=== PATIENT | male | born 1965 | race Asian ===

== ENCOUNTER → 2016-02-19 | Outpatient (CLI) | payer MEDICARE ==
[~2016-02-19] MED LIST: ALBU8.5H2 IH; DCS100C PO; DIPH25TA82 PO; ESOM20CA PO; HYDR-2890 PO; IBUP-30 PO; LORA1TAB PO; ONDA-42 SL; ONDA8TAB9 PO; PANT40TA2 PO; POLY17PO23 GT; PRCD5U PO
--- OUTSIDE RECORDS SUMMARY | 2016-02-19 08:49 | XMS REPORT | Continuity of Care Document ---
Author Author [facility] Organization [facility] Address Unknown Phone Unavailable Care Team Providers Care Linux Kernel Developer Name Role Phone Keila Ahuja PCP [phone] Source Comments Some departments are not documenting in the electronic medical record. If you do not see the information that you expected, contact Release of Information in the Health Information Management department at [phone] for further assistance in locating additional records.[facility] Active Allergies and Adverse Reactions Allergen Noted Date Severity Reactions Comments Penicillins 12/20/2013 NAUSEA AND VOMITING Current Medications Prescription Sig. Disp. Refills Start End Date Status Date NO HOME MEDICATIONS Active Active Problems Problem Noted Date Sinusitis 03/06/2014 Pancytopenia due to chemotherapy (HCC) 03/06/2014 Hypokalemia 03/06/2014 Diarrhea 03/05/2014 Neutropenic fever (HCC) 03/04/2014 History of peripheral stem cell transplant ([facility]) 02/28/2014 Overview: Date of Transplant:02/27/14 Preparative [...] transplant 08/201403/06/2014 On antineoplastic chemotherapy 02/20/2014 03/06/2014 Most Recent Encounters Date Type Specialty Providers Description 01/16/2016 Telephone Oncology Josette Meade BMT Follow-up - 2 year Immunizations Name Dates Previously Given Next Due [...] Taken Blood Pressure 106/62 02/19/2015 2:59 PM DIRECTOR OF LEARNING Pulse 87 02/19/2015 2:59 PM DIRECTOR OF LEARNING Temperature 36.5 C (97.7 F) 02/19/2015 2:59 PM DIRECTOR OF LEARNING Respiratory Rate 18 02/19/2015 2:59 PM DIRECTOR OF LEARNING Height 1.651 m (5' 5") 02/19/2015 2:59 PM DIRECTOR OF LEARNING Weight 81.5 kg (179 lb 10.8 oz) 02/19/2015 2:59 PM DIRECTOR OF LEARNING Body Mass Index 29.9 02/19/2015 2:59 PM DIRECTOR OF LEARNING Oxygen Saturation 100% 02/19/2015 2:59 PM DIRECTOR OF LEARNING Plan of Care Date Type Specialty Providers Description 03/10/2016 Appointment Oncology Martin Lowe MD [address] [address] [address] [place] [address] [phone] (Fax) 03/10/2016 Appointment Oncology Health Maintenance Due Date Last Done Comments Hepatitis C Screening 1965 Physical (Comprehensive) 1970 Exam Colorectal Cancer 2013 Screening Influenza Vaccine 10/18/2015 Tetanus Vaccine 10/17/2024 10/17/2014, 08/17/2014 Pertussis Vaccine Completed 10/17/2014, 08/17/2014 Results from Last 3 Months Not on file
--- NOTE | 2016-02-19 14:07 | Diagnostic Imaging Report ---
EXAMINATION: PET-CT TECHNIQUE: Serum glucose level at the time of the study is: 103 mg/dL. 12.4 mCi of FDG was administered intravenously followed by obtaining PET images with corresponding noncontrast CT scan images. The CT scan was performed for anatomic correlation and attenuation correction and was not performed according to the diagnostic protocol of the areas covered. The scan was performed from the head to mid thighs. INDICATION: B-cell lymphoma CT of 08/07/15. FINDINGS: FDG uptake in the brain appears symmetric. There is development of moderate FDG uptake with maximum SUV of 8 in the nasopharynx with slightly eccentric increased uptake to the right side. This appears to be associated with increased soft tissue fullness in the region and underlying lymphoma recurrence is suspected. ENT evaluation is suggested. This could also be further evaluated with CT scan or MRI of the neck. There is also symmetric moderate increased FDG uptake in the oral tonsils at the oropharyngeal levels without significant asymmetry on the localizer CT, of uncertain etiology. In the chest: There is no hypermetabolic mass identified in the chest. In the abdomen, there is prominent FDG activity in a diffuse fashion seen in the stomach with maximum SUV of 7.5. This is new from the previous study. There is associated diffuse thickening in the gastric wall. This is concerning for lymphoma involvement. Correlate with endoscopic evaluation with deep gastric wall biopsies. The spleen is not enlarged. No significant FDG uptake is seen. No hypermetabolic lymphadenopathy is seen. There is urinary tract excretion seen. There is stable significant urinary bladder wall thickening that is not well assessed on the PET due to confounding factor of intraluminal significant activity seen. IMPRESSION: 1. Moderate FDG uptake in the nasopharynx with slight soft tissue thickening is seen posteriorly in the nasopharynx, concerning for neoplastic etiology. Nonspecific moderate symmetric oropharyngeal FDG uptake is also seen. Further evaluation with dedicated neck imaging or ENT examination and biopsy if appropriate is recommended. 2. Diffuse significant FDG uptake in the stomach with associated gastric wall thickening. This is concerning for lymphoma involvement versus gastritis. Correlation with endoscopy with deep biopsies is recommended. Dictated by: Dictated on workstation # [id number]
== END ==
LOC: RAD 08:46
PROVIDERS: ATTEND Internal Medicine Hematology & Oncology
DX: C82.58 Diffuse follicle center lymphoma, lymph nodes of multiple sites (principal); R19.09 Other intra-abdominal and pelvic swelling, mass and lump; M15.0 Primary generalized (osteo)arthritis

== ENCOUNTER → 2016-03-09 | Outpatient (CLI) | payer MEDICARE ==
--- OUTSIDE RECORDS SUMMARY | 2016-03-09 09:18 | XMS REPORT | Continuity of Care Document ---
Author Author [facility] Organization [facility] Address Unknown Phone Unavailable Care Team Providers Care Lens Cleaner Name Role Phone Keila Ahuja PCP [phone] Source Comments Some departments are not documenting in the electronic medical record. If you do not see the information that you expected, contact Release of Information in the Health Information Management department at [phone] for further assistance in locating additional records.[facility] Active Allergies and Adverse Reactions Allergen Noted Date Severity Reactions Comments Penicillins 12/20/2013 NAUSEA AND VOMITING Current Medications Prescription Sig. Disp. Refills Start End Date Status Date NO HOME MEDICATIONS Active Active Problems Problem Noted Date Sinusitis 03/06/2014 Pancytopenia due to chemotherapy (HCC) 03/06/2014 Hypokalemia 03/06/2014 Diarrhea 03/05/2014 Neutropenic fever (HCC) 03/04/2014 History of peripheral stem cell transplant (HCC) 02/28/2014 Overview: Date of Transplant:02/27/14 Preparative Regimen: [...] Recent Encounters Date Type Specialty Providers Description 03/07/2016 Orders Only Oncology Klaus Ny APRN History of stem cell transplant (HCC) (Primary Dx) 02/25/2016 Telephone Oncology Mary Alice Mercado RN Medical Question 01/16/2016 Telephone Oncology Josette Meade BMT Follow-up [...] Taken Blood Pressure 106/62 02/19/2015 2:59 PM SOFTWARE MAINTENANCE ENGINEER Pulse 87 02/19/2015 2:59 PM SOFTWARE MAINTENANCE ENGINEER Temperature 36.5 C (97.7 F) 02/19/2015 2:59 PM SOFTWARE MAINTENANCE ENGINEER Respiratory Rate 18 02/19/2015 2:59 PM SOFTWARE MAINTENANCE ENGINEER Height 1.651 m (5' 5") 02/19/2015 2:59 PM SOFTWARE MAINTENANCE ENGINEER Weight 81.5 kg (179 lb 10.8 oz) 02/19/2015 2:59 PM SOFTWARE MAINTENANCE ENGINEER Body Mass Index 29.9 02/19/2015 2:59 PM SOFTWARE MAINTENANCE ENGINEER Oxygen Saturation 100% 02/19/2015 2:59 PM SOFTWARE MAINTENANCE ENGINEER Plan of Care Date Type Specialty Providers Description 03/10/2016 Appointment Oncology Martin Lowe MD [address] [place] [id number] [phone] (Fax) 03/10/2016 Appointment Oncology Health Maintenance Due Date Last Done Comments Hepatitis C Screening 1965 Physical (Comprehensive) 1970 Exam Colorectal Cancer 2013 Screening Influenza Vaccine 10/18/2015 Tetanus Vaccine 10/17/2024 10/17/2014, 08/17/2014 Pertussis Vaccine Completed 10/17/2014, 08/17/2014 Results from Last 3 Months Not on file
[2016-03-09 09:53] LABS: ALANINE AMINOTRANSFERASE 13 U/L (0-55); ALBUMIN 4.1 G/DL (3.2-4.5); ANION GAP 6 MMOL/L (5-14); ASPARTATE AMINO TRANSFERASE 15 U/L (5-34); BILIRUBIN,TOTAL 0.5 MG/DL (0.1-1.0); BLOOD UREA NITROGEN 10 MG/DL (7-18); BUN/CREATININE RATIO 11; CALCIUM 8.5 MG/DL (8.5-10.1); CARBON DIOXIDE 21 MMOL/L (21-32); CHLORIDE 111 MMOL/L (98-107); CREATININE SERUM 0.94 MG/DL (0.60-1.30); GFR ESTIMATED > 60; GLUCOSE 101 MG/DL (70-105); LACTATE DEHYDROGENASE 213 U/L (125-220); MAGNESIUM 2.1 MG/DL (1.8-2.4); POTASSIUM 4.1 MMOL/L (3.6-5.0); SODIUM 138 MMOL/L (135-145)
== END ==
LOC: LAB 09:15
PROVIDERS: ATTEND Internal Medicine Hematology & Oncology
DX: C82.58 Diffuse follicle center lymphoma, lymph nodes of multiple sites (principal); M15.0 Primary generalized (osteo)arthritis; R94.8 Abnormal results of function studies of other organs and systems; Z87.891 Personal history of nicotine dependence
CPT/HCPCS: 36415; 80053; 83615; 83735

== ENCOUNTER 2016-03-13 10:59 | Outpatient (RCR) | payer MEDICARE ==
--- OUTSIDE RECORDS SUMMARY | 2015-12-18 10:44 | XMS REPORT | Continuity of Care Document ---
Author Author [facility] Organization [facility] Address Unknown Phone Unavailable Care Team Providers Care Remote Coders Name Role Phone Keila Ahuja PCP [phone] Source Comments Some departments are not documenting in the electronic medical record. If you do not see the information that you expected, contact Release of Information in the Health Information Management department at [phone] for further assistance in locating additional records.[facility] Active Allergies and Adverse Reactions Allergen Noted Date Severity Reactions Comments Penicillins 12/20/2013 NAUSEA AND VOMITING Current Medications Prescription Sig. Disp. Refills Start End Date Status Date NO HOME MEDICATIONS Active Active Problems Problem Noted Date Sinusitis 03/06/2014 Pancytopenia due to chemotherapy (HCC) 03/06/2014 Hypokalemia 03/06/2014 Diarrhea 03/05/2014 Neutropenic fever (HCC) 03/04/2014 History of peripheral stem cell transplant ([facility]) 02/28/2014 Overview: Date of Transplant:02/27/14 Preparative Regimen: BEAM Reduced or fully ablative: ablative Disease:DLBC Disease Status at Transplant: PIF sen / PR1 CMV:POS Cell Source:autologous PB Consents/Studies:8322, auto , processing, apheresis, blood Co-morbidity Index Value: 2 Coordinator: Alexa Gonsalves RN Nausea 02/23/2014 Stye 02/23/2014 Non Hodgkin's lymphoma (HCC) 12/20/2013 Headache 12/20/2013 GERD (gastroesophageal reflux disease) 12/20/2013 Resolved Problems Problem Noted Date Resolved Date Conditioning chemotherapy prior to peripheral blood stem cell transplant 08/201403/06/2014 On antineoplastic chemotherapy 02/20/2014 03/06/2014 Immunizations Name Dates Previously Given Next Due Acthib Vaccine 10/17/2014, 08/17/2014 Hepatitis A vaccine Adult 08/17/2014 IM Hepatitis B Vaccine Adult 02/19/2015, 10/17/2014, 08/17/2014 3 Dose IM IPV 10/17/2014, 08/17/2014 Meningococcal Conjug 08/17/2014 Vaccine Pneumococcal Vaccine 02/19/2015 (23-Zahra Adult) Pneumococcal 10/17/2014, 08/17/2014 Vaccine(13-[facility] Peds/immunocompromised adult) Tdap Vaccine 10/17/2014, 08/17/2014 Social History Tobacco Use Types Packs/Day Years Used Date Heavy Tobacco Smoker Cigarettes 0.5 30 Quit: 02/09/2014 Smokeless Tobacco: Never Used Tobacco Cessation: Ready to Quit: Yes Comments: Has cut down from 1 pack per day. Alcohol Use Drinks/Week oz/Week Comments No 4 Cans of 2.4 beer Last Filed Vital Signs Vital Sign Reading Time Taken Blood Pressure 106/62 02/19/2015 2:59 PM SAP DIRECTOR Pulse 87 02/19/2015 2:59 PM SAP DIRECTOR Temperature 36.5 C (97.7 F) 02/19/2015 2:59 PM SAP DIRECTOR Respiratory Rate 18 02/19/2015 2:59 PM SAP DIRECTOR Height 1.651 m (5' 5") 02/19/2015 2:59 PM SAP DIRECTOR Weight 81.5 kg (179 lb 10.8 oz) 02/19/2015 2:59 PM SAP DIRECTOR Body Mass Index 29.9 02/19/2015 2:59 PM SAP DIRECTOR Oxygen Saturation 100% 02/19/2015 2:59 PM SAP DIRECTOR Plan of Care Health Maintenance Due Date Last Done Comments Hepatitis C Screening 1965 Physical (Comprehensive) 1970 Exam Colorectal Cancer 2013 Screening Influenza Vaccine 10/18/2015 Tetanus Vaccine 10/17/2024 10/17/2014, 08/17/2014 Pertussis Vaccine Completed 10/17/2014, 08/17/2014 Results from Last 3 Months Not on file
[2015-12-18 10:53] LABS: BASOPHILS % (AUTO) 0 % (0-10); EOSINOPHILS # (AUTO) 0.3 10^3/uL (0.0-0.3); EOSINOPHILS % (AUTO) 3 % (0-10); LYMPHOCYTES # (AUTO) 1.8 X 10^3 (1.0-4.0); LYMPHOCYTES % (AUTO) 19 % (12-44); MEAN CORPUSCULAR HGB CONC 34 G/DL (32-36); MEAN CORPUSCULAR VOLUME 87 FL (80-99); MEAN PLATELET VOLUME 8.8 FL (7.4-10.4); MONOCYTES # (AUTO) 0.8 X 10^3 (0.0-1.0); MONOCYTES % (AUTO) 8 % (0-12); NEUTROPHILS # (AUTO) 6.9 X 10^3 (1.8-7.8); NEUTROPHILS % (AUTO) 70 % (42-75); PLATELET COUNT 215 10^3/uL (130-400); RED BLOOD COUNT 4.38 10^6/uL (4.35-5.85); RED CELL DISTRIBUTION WIDTH 14.2 % (10.0-14.5); WHITE BLOOD COUNT 9.7 10^3/uL (4.3-11.0)
[2015-12-18 10:54] LABS: MEAN CORPUSCULAR HEMOGLOBIN 29 PG (25-34)
[2015-12-18 11:34] LABS: ALANINE AMINOTRANSFERASE 18 U/L (0-55); ALBUMIN 4.1 G/DL (3.2-4.5); ANION GAP 11 MMOL/L (5-14); ASPARTATE AMINO TRANSFERASE 14 U/L (5-34); BILIRUBIN,TOTAL 0.3 MG/DL (0.1-1.0); BLOOD UREA NITROGEN 15 MG/DL (7-18); BUN/CREATININE RATIO 15; CALCIUM 9.1 MG/DL (8.5-10.1); CARBON DIOXIDE 21 MMOL/L (21-32); CHLORIDE 108 MMOL/L (98-107); CREATININE SERUM 0.98 MG/DL (0.60-1.30); GFR ESTIMATED > 60; GLUCOSE 118 MG/DL (70-105); LACTATE DEHYDROGENASE 198 U/L (125-220); POTASSIUM 4.1 MMOL/L (3.6-5.0); SODIUM 140 MMOL/L (135-145); TOTAL PROTEIN 6.1 G/DL (6.4-8.2)
[2016-02-13 10:30] LABS: BASOPHILS % (AUTO) 0 % (0-10); EOSINOPHILS # (AUTO) 0.3 10^3/uL (0.0-0.3); EOSINOPHILS % (AUTO) 3 % (0-10); LYMPHOCYTES # (AUTO) 2.2 X 10^3 (1.0-4.0); LYMPHOCYTES % (AUTO) 22 % (12-44); MEAN CORPUSCULAR HEMOGLOBIN 29 PG (25-34); MEAN CORPUSCULAR HGB CONC 34 G/DL (32-36); MEAN CORPUSCULAR VOLUME 86 FL (80-99); MEAN PLATELET VOLUME 8.4 FL (7.4-10.4); MONOCYTES # (AUTO) 0.8 X 10^3 (0.0-1.0); MONOCYTES % (AUTO) 8 % (0-12); NEUTROPHILS # (AUTO) 6.7 X 10^3 (1.8-7.8); NEUTROPHILS % (AUTO) 67 % (42-75); PLATELET COUNT 230 10^3/uL (130-400); RED BLOOD COUNT 4.55 10^6/uL (4.35-5.85); RED CELL DISTRIBUTION WIDTH 14.1 % (10.0-14.5)
[2016-02-13 11:02] LABS: ALANINE AMINOTRANSFERASE 39 U/L (0-55); ALBUMIN 4.1 G/DL (3.2-4.5); ANION GAP 8 MMOL/L (5-14); ASPARTATE AMINO TRANSFERASE 17 U/L (5-34); BILIRUBIN,TOTAL 0.3 MG/DL (0.1-1.0); BLOOD UREA NITROGEN 12 MG/DL (7-18); BUN/CREATININE RATIO 12; CALCIUM 8.8 MG/DL (8.5-10.1); CARBON DIOXIDE 20 MMOL/L (21-32); CHLORIDE 106 MMOL/L (98-107); CREATININE SERUM 0.98 MG/DL (0.60-1.30); GFR ESTIMATED > 60; GLUCOSE 92 MG/DL (70-105); LACTATE DEHYDROGENASE 237 U/L (125-220); POTASSIUM 4.4 MMOL/L (3.6-5.0); SODIUM 134 MMOL/L (135-145); TOTAL PROTEIN 5.9 G/DL (6.4-8.2)
[2016-02-21 11:27] LABS: BASOPHILS % (AUTO) 0 % (0-10); EOSINOPHILS # (AUTO) 0.2 10^3/uL (0.0-0.3); EOSINOPHILS % (AUTO) 4 % (0-10); LYMPHOCYTES # (AUTO) 2.2 X 10^3 (1.0-4.0); LYMPHOCYTES % (AUTO) 38 % (12-44); MEAN CORPUSCULAR HEMOGLOBIN 29 PG (25-34); MEAN CORPUSCULAR HGB CONC 33 G/DL (32-36); MEAN CORPUSCULAR VOLUME 87 FL (80-99); MEAN PLATELET VOLUME 8.7 FL (7.4-10.4); MONOCYTES % (AUTO) 18 % (0-12); NEUTROPHILS # (AUTO) 2.3 X 10^3 (1.8-7.8); NEUTROPHILS % (AUTO) 40 % (42-75); PLATELET COUNT 223 10^3/uL (130-400); RED BLOOD COUNT 4.64 10^6/uL (4.35-5.85); RED CELL DISTRIBUTION WIDTH 14.5 % (10.0-14.5); WHITE BLOOD COUNT 5.7 10^3/uL (4.3-11.0)
[2016-02-21 11:53] LABS: BAND NEUTROPHILS 3 %; BASOPHILS % (MANUAL) 0 %; EOSINOPHILS % (MANUAL) 3 %; LYMPHOCYTES % (MANUAL) 39 %; NEUTROPHILS % (MANUAL) 39 %; REACTIVE LYMPHOCYTES 3 %
== END 2016-03-17 | disposition home or self-care (01) ==
LOC: ONC 10:59
PROVIDERS: ATTEND Internal Medicine Hematology & Oncology
DX: C85.85 Other specified types of non-Hodgkin lymphoma, lymph nodes of inguinal region and lower limb (principal); G89.3 Neoplasm related pain (acute) (chronic); R51 Headache; K21.9 Gastro-esophageal reflux disease without esophagitis; Z79.899 Other long term (current) drug therapy
CPT/HCPCS: 36415; 38221; 80053; 82232; 83615; 85007; 85025; 85027; 85045; 88184; 88185; 88305; 88311; 88313; 99213

== ENCOUNTER 2016-07-02 14:07 | Outpatient (RCR) | payer MEDICARE ==
[2016-07-02 14:17] LABS: BASOPHILS % (AUTO) 0 % (0-10); EOSINOPHILS % (AUTO) 0 % (0-10); LYMPHOCYTES # (AUTO) 1.3 X 10^3 (1.0-4.0); LYMPHOCYTES % (AUTO) 6 % (12-44); MEAN CORPUSCULAR HEMOGLOBIN 29 PG (25-34); MEAN CORPUSCULAR HGB CONC 34 G/DL (32-36); MEAN CORPUSCULAR VOLUME 86 FL (80-99); MEAN PLATELET VOLUME 8.7 FL (7.4-10.4); MONOCYTES # (AUTO) 0.3 X 10^3 (0.0-1.0); MONOCYTES % (AUTO) 1 % (0-12); NEUTROPHILS % (AUTO) 93 % (42-75); PLATELET COUNT 248 10^3/uL (130-400); RED BLOOD COUNT 4.53 10^6/uL (4.35-5.85); RED CELL DISTRIBUTION WIDTH 14.7 % (10.0-14.5); WHITE BLOOD COUNT 23.7 10^3/uL (4.3-11.0)
[2016-07-02 15:06] LABS: ALANINE AMINOTRANSFERASE 14 U/L (0-55); ALBUMIN 4.3 G/DL (3.2-4.5); ANION GAP 12 MMOL/L (5-14); ASPARTATE AMINO TRANSFERASE 14 U/L (5-34); BILIRUBIN,TOTAL 0.3 MG/DL (0.1-1.0); BLOOD UREA NITROGEN 16 MG/DL (7-18); BUN/CREATININE RATIO 17; CALCIUM 9.6 MG/DL (8.5-10.1); CARBON DIOXIDE 19 MMOL/L (21-32); CHLORIDE 108 MMOL/L (98-107); CREATININE SERUM 0.94 MG/DL (0.60-1.30); GFR ESTIMATED > 60; GLUCOSE 162 MG/DL (70-105); LACTATE DEHYDROGENASE 250 U/L (125-220); POTASSIUM 4.1 MMOL/L (3.6-5.0); SODIUM 139 MMOL/L (135-145); TOTAL PROTEIN 6.9 G/DL (6.4-8.2)
== END 2016-09-30 | disposition home or self-care (01) ==
LOC: ONC 14:07
PROVIDERS: ATTEND Internal Medicine Hematology & Oncology
DX: C85.85 Other specified types of non-Hodgkin lymphoma, lymph nodes of inguinal region and lower limb (principal); G89.3 Neoplasm related pain (acute) (chronic); R51 Headache; K21.9 Gastro-esophageal reflux disease without esophagitis; Z79.899 Other long term (current) drug therapy
CPT/HCPCS: 36415; 80053; 82232; 83615; 85025; 99213

== ENCOUNTER → 2016-10-14 | Outpatient (CLI) | payer MEDICARE, OTHER ==
[~2016-10-14] MED LIST changes: +BARIUM SUSPENSION 2.1% (VANILLA SILQ) 450 ML PO ONE; +CATHETER FLUSH 10 ML SYR IV PRN; +IOHEXOL 350 MG/ML 100 ML (OMNIPAQUE 350) VIAL IV ONE; +NS 100 ML (IVPB) BAG IV ONE
--- NOTE | 2016-10-14 11:48 | Diagnostic Imaging Report ---
PROCEDURE: CT chest with contrast, CT abdomen and pelvis with and without contrast. TECHNIQUE: Pre and post intravenous contrast axial imaging of the abdomen and pelvis and post contrast axial imaging of the chest were performed. INDICATION: Lymphoma. COMPARISON: 02/13/2016. FINDINGS: There are no discrete pulmonary nodules, masses, or infiltrates. There is no pleural or pericardial fluid. There is no pneumothorax. The heart size is normal. The thoracic aorta is normal in caliber. There is no pathologically enlarged adenopathy in the chest. Note is again made of some subcentimeter right paratracheal and subcarinal lymph nodes. The liver is normal in size without focal lesions. The gallbladder is unremarkable. There is no biliary ductal dilatation. The spleen is normal. The pancreas and adrenal glands are unremarkable. The kidneys are normal. The aorta is nonaneurysmal. The bowel gas pattern is nonspecific. There is no free air. The bladder is unremarkable. There is no pelvic mass, adenopathy, or free fluid. There is no pathologically enlarged adenopathy in the abdomen or pelvis. The previously described mild soft tissue stranding around the superior mesenteric vessels and small bowel is less apparent on today's examination. There are mild degenerative changes in the spine. IMPRESSION: Minimal residual subcentimeter right paratracheal and subcarinal adenopathy. There is, however, no pathologically enlarged adenopathy in the chest, abdomen, or pelvis. Additionally, the previously seen stranding about the superior mesenteric vessels is less apparent on today's exam. No other acute abnormality is seen in the abdomen or pelvis. Dictated by: Dictated on workstation # [id number]
== END ==
LOC: RAD 09:43
PROVIDERS: ATTEND Internal Medicine Hematology & Oncology
DX: C82.58 Diffuse follicle center lymphoma, lymph nodes of multiple sites (principal)
CPT/HCPCS: 71260; 74178

== ENCOUNTER 2016-10-22 13:56 | Outpatient (RCR) | payer MEDICARE, OTHER ==
[2016-10-14 09:31] LABS: BASOPHILS % (AUTO) 0 % (0-10); EOSINOPHILS # (AUTO) 0.3 10^3/uL (0.0-0.3); EOSINOPHILS % (AUTO) 3 % (0-10); LYMPHOCYTES # (AUTO) 2.3 X 10^3 (1.0-4.0); LYMPHOCYTES % (AUTO) 22 % (12-44); MEAN CORPUSCULAR HEMOGLOBIN 29 PG (25-34); MEAN CORPUSCULAR HGB CONC 34 G/DL (32-36); MEAN CORPUSCULAR VOLUME 86 FL (80-99); MONOCYTES # (AUTO) 0.8 X 10^3 (0.0-1.0); MONOCYTES % (AUTO) 7 % (0-12); NEUTROPHILS # (AUTO) 7.3 X 10^3 (1.8-7.8); NEUTROPHILS % (AUTO) 68 % (42-75); PLATELET COUNT 208 10^3/uL (130-400); RED BLOOD COUNT 4.73 10^6/uL (4.35-5.85); RED CELL DISTRIBUTION WIDTH 14.2 % (10.0-14.5); WHITE BLOOD COUNT 10.7 10^3/uL (4.3-11.0)
[2016-10-14 09:53] LABS: ALANINE AMINOTRANSFERASE 13 U/L (0-55); ALBUMIN 4.1 GM/DL (3.2-4.5); ANION GAP 7 MMOL/L (5-14); ASPARTATE AMINO TRANSFERASE 16 U/L (5-34); BILIRUBIN,TOTAL 0.4 MG/DL (0.1-1.0); BLOOD UREA NITROGEN 11 MG/DL (7-18); BUN/CREATININE RATIO 14; CALCIUM 9.4 MG/DL (8.5-10.1); CARBON DIOXIDE 24 MMOL/L (21-32); CHLORIDE 108 MMOL/L (98-107); CREATININE SERUM 0.79 MG/DL (0.60-1.30); GFR ESTIMATED > 60; GLUCOSE 99 MG/DL (70-105); POTASSIUM 4.2 MMOL/L (3.6-5.0); SODIUM 139 MMOL/L (135-145); TOTAL PROTEIN 6.4 GM/DL (6.4-8.2)
[~2016-10-22 13:56] MED LIST changes: -BARIUM SUSPENSION 2.1% (VANILLA SILQ) 450 ML PO ONE; -CATHETER FLUSH 10 ML SYR IV PRN; -IOHEXOL 350 MG/ML 100 ML (OMNIPAQUE 350) VIAL IV ONE; -NS 100 ML (IVPB) BAG IV ONE
[2016-10-22 14:15] LABS: BASOPHILS % (AUTO) 0 % (0-10); EOSINOPHILS # (AUTO) 0.3 10^3/uL (0.0-0.3); EOSINOPHILS % (AUTO) 3 % (0-10); LYMPHOCYTES # (AUTO) 2.4 X 10^3 (1.0-4.0); LYMPHOCYTES % (AUTO) 22 % (12-44); MEAN CORPUSCULAR HEMOGLOBIN 29 PG (25-34); MEAN CORPUSCULAR HGB CONC 33 G/DL (32-36); MEAN CORPUSCULAR VOLUME 88 FL (80-99); MEAN PLATELET VOLUME 9.3 FL (7.4-10.4); MONOCYTES # (AUTO) 0.8 X 10^3 (0.0-1.0); MONOCYTES % (AUTO) 7 % (0-12); NEUTROPHILS # (AUTO) 7.3 X 10^3 (1.8-7.8); NEUTROPHILS % (AUTO) 67 % (42-75); PLATELET COUNT 191 10^3/uL (130-400); RED BLOOD COUNT 4.57 10^6/uL (4.35-5.85); RED CELL DISTRIBUTION WIDTH 14.9 % (10.0-14.5); WHITE BLOOD COUNT 10.9 10^3/uL (4.3-11.0)
[2016-10-22 14:36] LABS: ALANINE AMINOTRANSFERASE 17 U/L (0-55); ALBUMIN 4.1 GM/DL (3.2-4.5); ANION GAP 10 MMOL/L (5-14); ASPARTATE AMINO TRANSFERASE 17 U/L (5-34); BILIRUBIN,TOTAL 0.4 MG/DL (0.1-1.0); BLOOD UREA NITROGEN 16 MG/DL (7-18); BUN/CREATININE RATIO 16; CALCIUM 9.2 MG/DL (8.5-10.1); CARBON DIOXIDE 23 MMOL/L (21-32); CHLORIDE 108 MMOL/L (98-107); CREATININE SERUM 0.97 MG/DL (0.60-1.30); GFR ESTIMATED > 60; GLUCOSE 111 MG/DL (70-105); LACTATE DEHYDROGENASE 214 U/L (125-220); SODIUM 141 MMOL/L (135-145); TOTAL PROTEIN 6.6 GM/DL (6.4-8.2)
== END 2016-11-15 | disposition home or self-care (01) ==
LOC: ONC 13:56
PROVIDERS: ATTEND Internal Medicine Hematology & Oncology
DX: C85.85 Other specified types of non-Hodgkin lymphoma, lymph nodes of inguinal region and lower limb (principal); G89.3 Neoplasm related pain (acute) (chronic); R51 Headache; K21.9 Gastro-esophageal reflux disease without esophagitis; Z79.899 Other long term (current) drug therapy
CPT/HCPCS: 36415; 80053; 82232; 83615; 85025; 99213

== ENCOUNTER → 2017-02-24 | Outpatient (CLI) | payer MEDICARE, OTHER ==
--- NOTE | 2017-02-26 07:28 | Diagnostic Imaging Report ---
EXAM: PET/CT. INDICATION: Lymphoma. TECHNIQUE: PET/CT imaging was obtained from the base of the skull through the pelvis after the administration of 14.39 mCi of F-[address] imaging was utilized for localization and attenuation correction purposes. The low energy CT utilized for attenuation correction is not considered to be of high enough spatial resolution to allow in and of itself a separate anatomical analysis. The previous PET/CT exam performed on 02/19/2016 noted moderate FDG uptake in the nasopharynx and oropharynx. On this exam, there is still uptake in both of these regions. As this appearance is virtually unchanged when compared to the prior exam, I suspect it is more likely due to physiologic activity than to neoplastic disease. The prior exam also identified diffuse FDG uptake within the stomach and raised the question for neoplastic involvement. On this exam, there is still generalized activity throughout the wall of the stomach. This is somewhat less intense than noted on the prior exam, however. The remainder the PET/CT exam is stable. No new hypermetabolic activity has developed. There is physiologic activity within the brain, the heart, the kidneys, the bowel and the bladder. IMPRESSION: 1. When compared to the previous study, there does not appear to have been any adverse change. The increased activity in the nasal and oropharynx is essentially no different and may well be physiologic in nature. There is still generalized increased activity within the wall of the stomach but this is also somewhat less intense than noted on the prior exam. 2. No new area of hypermetabolic activity has developed. Dictated by: Dictated on workstation # [id number]
== END ==
LOC: RAD 08:18
PROVIDERS: ATTEND Internal Medicine Hematology & Oncology
DX: C82.58 Diffuse follicle center lymphoma, lymph nodes of multiple sites (principal)

== ENCOUNTER 2017-02-26 10:01 | Outpatient (RCR) | payer MEDICARE, OTHER ==
[2017-02-24 08:24] LABS: BASOPHILS % (AUTO) 0 % (0-10); EOSINOPHILS # (AUTO) 0.2 10^3/uL (0.0-0.3); EOSINOPHILS % (AUTO) 3 % (0-10); HEMATOCRIT 39 % (40-54); HEMOGLOBIN 13.8 G/DL (13.3-17.7); LYMPHOCYTES # (AUTO) 2.2 X 10^3 (1.0-4.0); LYMPHOCYTES % (AUTO) 24 % (12-44); MEAN CORPUSCULAR HEMOGLOBIN 30 PG (25-34); MEAN CORPUSCULAR HGB CONC 35 G/DL (32-36); MEAN CORPUSCULAR VOLUME 86 FL (80-99); MONOCYTES # (AUTO) 0.7 X 10^3 (0.0-1.0); MONOCYTES % (AUTO) 8 % (0-12); NEUTROPHILS # (AUTO) 6.1 X 10^3 (1.8-7.8); NEUTROPHILS % (AUTO) 66 % (42-75); PLATELET COUNT 199 10^3/uL (130-400); RED BLOOD COUNT 4.56 10^6/uL (4.35-5.85); RED CELL DISTRIBUTION WIDTH 13.8 % (10.0-14.5); WHITE BLOOD COUNT 9.4 10^3/uL (4.3-11.0)
[2017-02-24 08:45] LABS: ALANINE AMINOTRANSFERASE 14 U/L (0-55); ALBUMIN 4.2 GM/DL (3.2-4.5); ALKALINE PHOSPHATASE 55 U/L (40-136); BILIRUBIN,TOTAL 0.5 MG/DL (0.1-1.0); BUN/CREATININE RATIO 11; CALCIUM 9.2 MG/DL (8.5-10.1); CARBON DIOXIDE 21 MMOL/L (21-32); CHLORIDE 106 MMOL/L (98-107); CREATININE SERUM 0.87 MG/DL (0.60-1.30); GFR ESTIMATED > 60; GLUCOSE 104 MG/DL (70-105); SODIUM 137 MMOL/L (135-145); TOTAL PROTEIN 6.3 GM/DL (6.4-8.2)
[2017-02-26 10:16] LABS: ABSOLUTE RETIC # 39 10e9/L (24-90); BASOPHILS % (AUTO) 0 % (0-10); EOSINOPHILS # (AUTO) 0.2 10^3/uL (0.0-0.3); EOSINOPHILS % (AUTO) 2 % (0-10); HEMATOCRIT 41 % (40-54); HEMOGLOBIN 14.3 G/DL (13.3-17.7); LYMPHOCYTES # (AUTO) 2.2 X 10^3 (1.0-4.0); LYMPHOCYTES % (AUTO) 22 % (12-44); MEAN CORPUSCULAR HEMOGLOBIN 30 PG (25-34); MEAN CORPUSCULAR HGB CONC 35 G/DL (32-36); MEAN CORPUSCULAR VOLUME 87 FL (80-99); MEAN PLATELET VOLUME 9.2 FL (7.4-10.4); MONOCYTES # (AUTO) 0.8 X 10^3 (0.0-1.0); MONOCYTES % (AUTO) 7 % (0-12); NEUTROPHILS % (AUTO) 69 % (42-75); PLATELET COUNT 207 10^3/uL (130-400); RED BLOOD COUNT 4.77 10^6/uL (4.35-5.85); RED CELL DISTRIBUTION WIDTH 13.8 % (10.0-14.5); RETICULOCYTE % 0.81 % (0.50-2.40); WHITE BLOOD COUNT 10.2 10^3/uL (4.3-11.0)
[2017-02-26 10:35] LABS: ALANINE AMINOTRANSFERASE 16 U/L (0-55); ALBUMIN 4.2 GM/DL (3.2-4.5); ALKALINE PHOSPHATASE 60 U/L (40-136); BILIRUBIN,TOTAL 0.3 MG/DL (0.1-1.0); BUN/CREATININE RATIO 13; CALCIUM 9.3 MG/DL (8.5-10.1); CARBON DIOXIDE 21 MMOL/L (21-32); CHLORIDE 108 MMOL/L (98-107); CREATININE SERUM 0.92 MG/DL (0.60-1.30); GFR ESTIMATED > 60; GLUCOSE 102 MG/DL (70-105); POTASSIUM 3.7 MMOL/L (3.6-5.0); SODIUM 139 MMOL/L (135-145); TOTAL PROTEIN 6.6 GM/DL (6.4-8.2)
[2017-02-26 10:52] LABS: BAND NEUTROPHILS 0 %; BASOPHILS % (MANUAL) 0 %; EOSINOPHILS % (MANUAL) 4 %; LYMPHOCYTES % (MANUAL) 25 %; MONOCYTES % (MANUAL) 7 %; NEUTROPHILS % (MANUAL) 64 %; RBC MORPH NORMAL
== END 2017-05-25 | disposition home or self-care (01) ==
LOC: ONC 10:01
PROVIDERS: ATTEND Internal Medicine Hematology & Oncology
DX: C82.58 Diffuse follicle center lymphoma, lymph nodes of multiple sites (principal); G89.3 Neoplasm related pain (acute) (chronic); R51 Headache; K21.9 Gastro-esophageal reflux disease without esophagitis; Z79.899 Other long term (current) drug therapy
CPT/HCPCS: 36415; 80053; 83615; 83735; 85007; 85025; 85027; 85045

== ENCOUNTER → 2017-06-19 | Outpatient (CLI) | payer MEDICARE, OTHER ==
[2017-06-19 11:50] LABS: CHOLESTEROL 186 MG/DL (< 200); HDL CHOLESTEROL 45 MG/DL (40-60); TRIGLYCERIDES 93 MG/DL (<150); VLDL CHOLESTEROL 19 MG/DL (5-40)
== END ==
LOC: LAB 11:20
PROVIDERS: ATTEND Nurse Practitioner Primary Care
DX: Z13.220 Encounter for screening for lipoid disorders (principal)
CPT/HCPCS: 36415; 80061

== ENCOUNTER → 2017-06-25 | Outpatient (CLI) | payer MEDICARE, OTHER ==
--- NOTE | 2017-06-25 19:35 | Diagnostic Imaging Report ---
INDICATION: Left axillary lump. EXAMINATION: Ultrasound of left breast, limited. COMPARISON: There are no prior ultrasound examinations available for comparison. FINDINGS: The PET/CT exam performed on 02/24/2017 failed to show any hypermetabolic activity within either axilla. On this exam, there is a 1.0 x 2.1 cm well-circumscribed hypoechoic lesion in the left axilla. I suspect that this is a lymph node although it does not have much of a fatty hilum. There is no area of abnormal echogenicity associated with this finding to suggest a neoplastic replacement process of the lymph node. No other mass or adenopathy is noted. IMPRESSION: 1. There does appear to be a prominent lymph node in the left axilla. However, there is no sign of replacement of the suspected lymph node parenchyma by neoplasm. 2. If further evaluation is desired, then a repeat PET/CT exam should be considered. Dictated by: Dictated on workstation # [id number]
== END ==
LOC: RAD 10:04
PROVIDERS: ATTEND Internal Medicine Hematology & Oncology
DX: R59.1 Generalized enlarged lymph nodes (principal)
CPT/HCPCS: 76642

== ENCOUNTER 2017-09-11 13:38 | Outpatient (RCR) | payer MEDICARE, OTHER ==
[2017-06-19 11:32] LABS: BASOPHILS % (AUTO) 0 % (0-10); EOSINOPHILS # (AUTO) 0.2 10^3/uL (0.0-0.3); EOSINOPHILS % (AUTO) 2 % (0-10); HEMATOCRIT 42 % (40-54); HEMOGLOBIN 14.2 G/DL (13.3-17.7); LYMPHOCYTES # (AUTO) 2.2 X 10^3 (1.0-4.0); LYMPHOCYTES % (AUTO) 24 % (12-44); MEAN CORPUSCULAR HEMOGLOBIN 30 PG (25-34); MEAN CORPUSCULAR HGB CONC 34 G/DL (32-36); MEAN CORPUSCULAR VOLUME 87 FL (80-99); MONOCYTES # (AUTO) 0.7 X 10^3 (0.0-1.0); MONOCYTES % (AUTO) 7 % (0-12); NEUTROPHILS # (AUTO) 6.2 X 10^3 (1.8-7.8); NEUTROPHILS % (AUTO) 67 % (42-75); PLATELET COUNT 208 10^3/uL (130-400); RED BLOOD COUNT 4.78 10^6/uL (4.35-5.85); RED CELL DISTRIBUTION WIDTH 14.6 % (10.0-14.5); WHITE BLOOD COUNT 9.3 10^3/uL (4.3-11.0)
[2017-06-19 11:52] LABS: ALANINE AMINOTRANSFERASE 16 U/L (0-55); ALBUMIN 4.3 GM/DL (3.2-4.5); ALKALINE PHOSPHATASE 64 U/L (40-136); BILIRUBIN,TOTAL 0.4 MG/DL (0.1-1.0); BUN/CREATININE RATIO 11; CALCIUM 9.2 MG/DL (8.5-10.1); CARBON DIOXIDE 24 MMOL/L (21-32); CHLORIDE 107 MMOL/L (98-107); CREATININE SERUM 0.89 MG/DL (0.60-1.30); GFR ESTIMATED > 60; GLUCOSE 118 MG/DL (70-105); POTASSIUM 3.8 MMOL/L (3.6-5.0); SODIUM 138 MMOL/L (135-145); TOTAL PROTEIN 6.4 GM/DL (6.4-8.2)
[2017-09-11 13:55] LABS: BASOPHILS % (AUTO) 0 % (0-10); EOSINOPHILS # (AUTO) 0.3 10^3/uL (0.0-0.3); EOSINOPHILS % (AUTO) 3 % (0-10); HEMATOCRIT 42 % (40-54); HEMOGLOBIN 14.6 G/DL (13.3-17.7); LYMPHOCYTES # (AUTO) 2.4 X 10^3 (1.0-4.0); LYMPHOCYTES % (AUTO) 21 % (12-44); MEAN CORPUSCULAR HEMOGLOBIN 30 PG (25-34); MEAN CORPUSCULAR HGB CONC 35 G/DL (32-36); MEAN CORPUSCULAR VOLUME 88 FL (80-99); MEAN PLATELET VOLUME 9.3 FL (7.4-10.4); MONOCYTES % (AUTO) 9 % (0-12); NEUTROPHILS # (AUTO) 7.6 X 10^3 (1.8-7.8); NEUTROPHILS % (AUTO) 67 % (42-75); PLATELET COUNT 189 10^3/uL (130-400); RED CELL DISTRIBUTION WIDTH 14.6 % (10.0-14.5); WHITE BLOOD COUNT 11.3 10^3/uL (4.3-11.0)
[2017-09-11 14:13] LABS: ALANINE AMINOTRANSFERASE 21 U/L (0-55); ALBUMIN 4.4 GM/DL (3.2-4.5); ALKALINE PHOSPHATASE 62 U/L (40-136); BILIRUBIN,TOTAL 0.5 MG/DL (0.1-1.0); BUN/CREATININE RATIO 15; CALCIUM 9.5 MG/DL (8.5-10.1); CARBON DIOXIDE 23 MMOL/L (21-32); CHLORIDE 107 MMOL/L (98-107); GFR ESTIMATED > 60; GLUCOSE 96 MG/DL (70-105); POTASSIUM 4.4 MMOL/L (3.6-5.0); SODIUM 139 MMOL/L (135-145); TOTAL PROTEIN 6.6 GM/DL (6.4-8.2)
== END 2017-09-17 | disposition home or self-care (01) ==
LOC: ONC 13:38
PROVIDERS: ATTEND Internal Medicine Hematology & Oncology
DX: C82.58 Diffuse follicle center lymphoma, lymph nodes of multiple sites (principal); G89.3 Neoplasm related pain (acute) (chronic); R61 Generalized hyperhidrosis; N52.9 Male erectile dysfunction, unspecified; K21.9 Gastro-esophageal reflux disease without esophagitis; Z94.81 Bone marrow transplant status; Z87.891 Personal history of nicotine dependence; Z79.899 Other long term (current) drug therapy; Z92.21 Personal history of antineoplastic chemotherapy
CPT/HCPCS: 36415; 80053; 83615; 85025; 99213

== ENCOUNTER 2017-11-06 13:54 | Outpatient (RCR) | payer MEDICARE ==
[2017-11-06 14:14] LABS: BASOPHILS % (AUTO) 0 % (0-10); EOSINOPHILS # (AUTO) 0.2 10^3/uL (0.0-0.3); EOSINOPHILS % (AUTO) 2 % (0-10); HEMATOCRIT 41 % (40-54); HEMOGLOBIN 14.2 G/DL (13.3-17.7); LYMPHOCYTES # (AUTO) 2.1 X 10^3 (1.0-4.0); LYMPHOCYTES % (AUTO) 17 % (12-44); MEAN CORPUSCULAR HEMOGLOBIN 31 PG (25-34); MEAN CORPUSCULAR HGB CONC 34 G/DL (32-36); MEAN CORPUSCULAR VOLUME 89 FL (80-99); MEAN PLATELET VOLUME 9.3 FL (7.4-10.4); MONOCYTES # (AUTO) 1.1 X 10^3 (0.0-1.0); MONOCYTES % (AUTO) 10 % (0-12); NEUTROPHILS # (AUTO) 8.5 X 10^3 (1.8-7.8); NEUTROPHILS % (AUTO) 71 % (42-75); PLATELET COUNT 183 10^3/uL (130-400); RED BLOOD COUNT 4.65 10^6/uL (4.35-5.85); RED CELL DISTRIBUTION WIDTH 14.5 % (10.0-14.5); WHITE BLOOD COUNT 11.9 10^3/uL (4.3-11.0)
[2017-11-06 14:33] LABS: ALANINE AMINOTRANSFERASE 26 U/L (0-55); ALBUMIN 4.4 GM/DL (3.2-4.5); ALKALINE PHOSPHATASE 58 U/L (40-136); BILIRUBIN,TOTAL 0.4 MG/DL (0.1-1.0); BUN/CREATININE RATIO 16; CALCIUM 9.5 MG/DL (8.5-10.1); CARBON DIOXIDE 21 MMOL/L (21-32); CHLORIDE 108 MMOL/L (98-107); GFR ESTIMATED > 60; GLUCOSE 113 MG/DL (70-105); POTASSIUM 3.9 MMOL/L (3.6-5.0); SODIUM 139 MMOL/L (135-145); TOTAL PROTEIN 6.7 GM/DL (6.4-8.2)
== END 2017-11-15 | disposition home or self-care (01) ==
LOC: ONC 13:54
PROVIDERS: ATTEND Internal Medicine Hematology & Oncology
DX: C82.58 Diffuse follicle center lymphoma, lymph nodes of multiple sites (principal); G89.3 Neoplasm related pain (acute) (chronic); R61 Generalized hyperhidrosis; N52.9 Male erectile dysfunction, unspecified; K21.9 Gastro-esophageal reflux disease without esophagitis; Z94.81 Bone marrow transplant status; Z87.891 Personal history of nicotine dependence; Z79.899 Other long term (current) drug therapy; Z92.21 Personal history of antineoplastic chemotherapy
CPT/HCPCS: 80053; 83615; 85025; 99213

== ENCOUNTER → 2017-11-06 | Outpatient (CLI) | payer MEDICARE ==
--- NOTE | 2017-11-06 17:07 | Diagnostic Imaging Report ---
Pelvis at 3:18 p.m. INDICATION: Fell, pelvic pain. A single AP view of the pelvis was obtained. FINDINGS: There is no fracture, dislocation or acute bony abnormality evident. There is moderate degenerative disease involving both hip joints and both sacroiliac joints. The degenerative changes are similar to the prior CT chest, abdomen and pelvis exam of 10/14/16. As noted on the prior CT exam, there are surgical clips overlying the right pelvis. The soft tissues are unremarkable. IMPRESSION: There is no evidence for an acute bony abnormality. Dictated by: Dictated on workstation # [id number]
--- NOTE | 2017-11-06 17:10 | Diagnostic Imaging Report ---
EXAMINATION: Lumbar spine at 03:17 p.m. INDICATION: Fell, back pain. FINDINGS: AP, lateral, and spot lateral views were obtained. The AP view shows the vertebral body heights and alignment to be within normal limits and similar to the coronal reconstructed images of the CT abdomen/pelvis exam of 10/14/2016. There is no fracture or acute bony abnormality identified. As noted on the previous exam, there is narrowing of the disc space at L5-S1. The other intervertebral disc spaces are fairly well maintained. There is no sign of a paraspinal mass. There is mild symmetrical sclerosis of the sacroiliac joints. IMPRESSION: 1. There is no evidence for an acute bony abnormality. 2. If clinical concern regarding an underlying abnormality persists, then MRI will be recommended for further study. Dictated by: Dictated on workstation # [id number]
== END ==
LOC: RAD 14:44
PROVIDERS: ATTEND Internal Medicine Hematology & Oncology
DX: R10.2 Pelvic and perineal pain (principal); M54.5 Low back pain; W19.XXXA Unspecified fall, initial encounter
CPT/HCPCS: 72100; 72170

== ENCOUNTER → 2018-03-09 | Outpatient (CLI) | payer MEDICARE ==
--- NOTE | 2018-03-09 13:07 | Diagnostic Imaging Report ---
INDICATION: Large B-cell lymphoma. TECHNIQUE: Serum blood glucose level at the time of injection is 104 mg/dL. Patient was administered 12.5 mCi F-18 FDG intravenously, administered in the left antecubital location, and whole-body PET imaging was performed. In addition, noncontrast CT was performed for attenuation correction and anatomic correlation. COMPARISON: Correlation is made with prior PET/CT study from 02/24/2017. FINDINGS: There is symmetric activity within the brain. There is continued uptake in the posterior nasopharynx, similar to prior exam. Oropharyngeal uptake is also present, similar to prior exam. No other regions of hypermetabolism within the soft tissues of the neck are identified. Imaging through the chest demonstrates some muscular uptake involving the left shoulder musculature, likely physiologic. No abnormal mediastinal or hilar hypermetabolism is seen. Pulmonary parenchyma is unremarkable. Physiologic activity within the GI and tracts is seen. Bilateral lower extremities are unremarkable. No abnormal activity within the groins is seen. IMPRESSION: Overall stable whole-body PET/CT when compared with prior examination from one year earlier. Nasopharyngeal and oropharyngeal uptake appears to be similar to prior exam and again is most likely physiologic. Dictated by: Dictated on workstation # [id number]
== END ==
LOC: RAD 08:45
PROVIDERS: ATTEND Internal Medicine Hematology & Oncology
DX: C83.30 Diffuse large B-cell lymphoma, unspecified site (principal); Z94.84 Stem cells transplant status

== ENCOUNTER 2018-03-24 09:42 | Outpatient (RCR) | payer MEDICARE ==
[2018-02-05 13:05] LABS: BASOPHILS % (AUTO) 0 % (0-10); EOSINOPHILS # (AUTO) 0.1 10^3/uL (0.0-0.3); EOSINOPHILS % (AUTO) 1 % (0-10); HEMATOCRIT 42 % (40-54); LYMPHOCYTES # (AUTO) 2.2 X 10^3 (1.0-4.0); LYMPHOCYTES % (AUTO) 25 % (12-44); MEAN CORPUSCULAR HEMOGLOBIN 30 PG (25-34); MEAN CORPUSCULAR HGB CONC 33 G/DL (32-36); MEAN CORPUSCULAR VOLUME 91 FL (80-99); MEAN PLATELET VOLUME 9.3 FL (7.4-10.4); MONOCYTES # (AUTO) 0.8 X 10^3 (0.0-1.0); MONOCYTES % (AUTO) 9 % (0-12); NEUTROPHILS # (AUTO) 5.7 X 10^3 (1.8-7.8); NEUTROPHILS % (AUTO) 65 % (42-75); PLATELET COUNT 181 10^3/uL (130-400); WHITE BLOOD COUNT 8.8 10^3/uL (4.3-11.0)
[2018-02-05 13:23] LABS: ALANINE AMINOTRANSFERASE 26 U/L (0-55); ALBUMIN 4.3 GM/DL (3.2-4.5); ALKALINE PHOSPHATASE 54 U/L (40-136); BILIRUBIN,TOTAL 0.4 MG/DL (0.1-1.0); BUN/CREATININE RATIO 12; CALCIUM 9.3 MG/DL (8.5-10.1); CARBON DIOXIDE 18 MMOL/L (21-32); CHLORIDE 107 MMOL/L (98-107); GFR ESTIMATED > 60; GLUCOSE 124 MG/DL (70-105); POTASSIUM 3.9 MMOL/L (3.6-5.0); SODIUM 136 MMOL/L (135-145); TOTAL PROTEIN 6.5 GM/DL (6.4-8.2)
[2018-03-09 08:55] LABS: BASOPHILS % (AUTO) 0 % (0-10); EOSINOPHILS # (AUTO) 0.2 10^3/uL (0.0-0.3); EOSINOPHILS % (AUTO) 2 % (0-10); HEMATOCRIT 43 % (40-54); HEMOGLOBIN 14.7 G/DL (13.3-17.7); LYMPHOCYTES # (AUTO) 2.2 X 10^3 (1.0-4.0); LYMPHOCYTES % (AUTO) 23 % (12-44); MEAN CORPUSCULAR HEMOGLOBIN 31 PG (25-34); MEAN CORPUSCULAR HGB CONC 34 G/DL (32-36); MEAN CORPUSCULAR VOLUME 90 FL (80-99); MEAN PLATELET VOLUME 9.1 FL (7.4-10.4); MONOCYTES # (AUTO) 0.8 X 10^3 (0.0-1.0); MONOCYTES % (AUTO) 8 % (0-12); NEUTROPHILS # (AUTO) 6.6 X 10^3 (1.8-7.8); NEUTROPHILS % (AUTO) 67 % (42-75); PLATELET COUNT 198 10^3/uL (130-400); RED CELL DISTRIBUTION WIDTH 14.1 % (10.0-14.5); WHITE BLOOD COUNT 9.8 10^3/uL (4.3-11.0)
[2018-03-09 09:15] LABS: ALANINE AMINOTRANSFERASE 20 U/L (0-55); ALBUMIN 4.5 GM/DL (3.2-4.5); ALKALINE PHOSPHATASE 61 U/L (40-136); BILIRUBIN,TOTAL 0.6 MG/DL (0.1-1.0); BUN/CREATININE RATIO 9; CALCIUM 9.4 MG/DL (8.5-10.1); CARBON DIOXIDE 22 MMOL/L (21-32); CHLORIDE 106 MMOL/L (98-107); CREATININE SERUM 0.96 MG/DL (0.60-1.30); GFR ESTIMATED > 60; GLUCOSE 94 MG/DL (70-105); MAGNESIUM 2.1 MG/DL (1.8-2.4); POTASSIUM 4.2 MMOL/L (3.6-5.0); SODIUM 139 MMOL/L (135-145); TOTAL PROTEIN 6.4 GM/DL (6.4-8.2)
== END 2018-05-06 | disposition home or self-care (01) ==
LOC: ONC 09:42
PROVIDERS: ATTEND Internal Medicine Hematology & Oncology
DX: C82.58 Diffuse follicle center lymphoma, lymph nodes of multiple sites (principal); G89.3 Neoplasm related pain (acute) (chronic); R61 Generalized hyperhidrosis; N52.9 Male erectile dysfunction, unspecified; K21.9 Gastro-esophageal reflux disease without esophagitis; Z94.81 Bone marrow transplant status; Z87.891 Personal history of nicotine dependence; Z79.899 Other long term (current) drug therapy; Z92.21 Personal history of antineoplastic chemotherapy
CPT/HCPCS: 36415; 80053; 83615; 83735; 85025; 90471; 90686; 99213

== ENCOUNTER 2018-06-24 09:24 | Outpatient (RCR) | payer MEDICARE ==
[2018-06-24 09:33] LABS: BASOPHILS % (AUTO) 0 % (0-10); EOSINOPHILS # (AUTO) 0.2 10^3/uL (0.0-0.3); EOSINOPHILS % (AUTO) 2 % (0-10); HEMATOCRIT 43 % (40-54); HEMOGLOBIN 14.5 G/DL (13.3-17.7); LYMPHOCYTES # (AUTO) 2.2 X 10^3 (1.0-4.0); LYMPHOCYTES % (AUTO) 23 % (12-44); MEAN CORPUSCULAR HEMOGLOBIN 30 PG (25-34); MEAN CORPUSCULAR HGB CONC 34 G/DL (32-36); MEAN CORPUSCULAR VOLUME 90 FL (80-99); MEAN PLATELET VOLUME 9.4 FL (7.4-10.4); MONOCYTES # (AUTO) 0.8 X 10^3 (0.0-1.0); MONOCYTES % (AUTO) 9 % (0-12); NEUTROPHILS # (AUTO) 6.2 X 10^3 (1.8-7.8); NEUTROPHILS % (AUTO) 66 % (42-75); PLATELET COUNT 196 10^3/uL (130-400); RED CELL DISTRIBUTION WIDTH 14.1 % (10.0-14.5); WHITE BLOOD COUNT 9.4 10^3/uL (4.3-11.0)
[2018-06-24 09:56] LABS: ALANINE AMINOTRANSFERASE 25 U/L (0-55); ALBUMIN 4.3 GM/DL (3.2-4.5); ALKALINE PHOSPHATASE 50 U/L (40-136); BILIRUBIN,TOTAL 0.5 MG/DL (0.1-1.0); BUN/CREATININE RATIO 11; CALCIUM 9.5 MG/DL (8.5-10.1); CARBON DIOXIDE 23 MMOL/L (21-32); CHLORIDE 105 MMOL/L (98-107); CREATININE SERUM 0.87 MG/DL (0.60-1.30); GFR ESTIMATED > 60; GLUCOSE 95 MG/DL (70-105); POTASSIUM 4.3 MMOL/L (3.6-5.0); SODIUM 136 MMOL/L (135-145); TOTAL PROTEIN 6.6 GM/DL (6.4-8.2)
== END 2018-09-22 | disposition home or self-care (01) ==
LOC: ONC 09:24
PROVIDERS: ATTEND Internal Medicine Hematology & Oncology
DX: C82.58 Diffuse follicle center lymphoma, lymph nodes of multiple sites (principal); G89.3 Neoplasm related pain (acute) (chronic); R61 Generalized hyperhidrosis; N52.9 Male erectile dysfunction, unspecified; K21.9 Gastro-esophageal reflux disease without esophagitis; Z94.81 Bone marrow transplant status; Z87.891 Personal history of nicotine dependence; Z79.899 Other long term (current) drug therapy; Z92.21 Personal history of antineoplastic chemotherapy
CPT/HCPCS: 36415; 80053; 83615; 85025; 99213

== ENCOUNTER 2018-09-23 09:00 | Outpatient (RCR) | payer MEDICARE ==
[2018-09-23 09:32] LABS: BASOPHILS % (AUTO) 0 % (0-10); EOSINOPHILS # (AUTO) 0.2 10^3/uL (0.0-0.3); EOSINOPHILS % (AUTO) 2 % (0-10); HEMATOCRIT 43 % (40-54); HEMOGLOBIN 14.5 G/DL (13.3-17.7); LYMPHOCYTES # (AUTO) 2.3 X 10^3 (1.0-4.0); LYMPHOCYTES % (AUTO) 23 % (12-44); MEAN CORPUSCULAR HEMOGLOBIN 31 PG (25-34); MEAN CORPUSCULAR HGB CONC 34 G/DL (32-36); MEAN CORPUSCULAR VOLUME 91 FL (80-99); MEAN PLATELET VOLUME 9.2 FL (7.4-10.4); MONOCYTES # (AUTO) 0.8 X 10^3 (0.0-1.0); MONOCYTES % (AUTO) 8 % (0-12); NEUTROPHILS # (AUTO) 6.8 X 10^3 (1.8-7.8); NEUTROPHILS % (AUTO) 67 % (42-75); PLATELET COUNT 194 10^3/uL (130-400); RED CELL DISTRIBUTION WIDTH 14.1 % (10.0-14.5); WHITE BLOOD COUNT 10.1 10^3/uL (4.3-11.0)
[2018-09-23 09:57] LABS: ALANINE AMINOTRANSFERASE 32 U/L (0-55); ALBUMIN 4.4 GM/DL (3.2-4.5); ALKALINE PHOSPHATASE 58 U/L (40-136); BILIRUBIN,TOTAL 0.4 MG/DL (0.1-1.0); BUN/CREATININE RATIO 8; CALCIUM 9.6 MG/DL (8.5-10.1); CARBON DIOXIDE 21 MMOL/L (21-32); CHLORIDE 106 MMOL/L (98-107); CREATININE SERUM 0.89 MG/DL (0.60-1.30); GFR ESTIMATED > 60; GLUCOSE 97 MG/DL (70-105); POTASSIUM 4.1 MMOL/L (3.6-5.0); SODIUM 138 MMOL/L (135-145); TOTAL PROTEIN 6.9 GM/DL (6.4-8.2)
== END 2018-12-22 | disposition home or self-care (01) ==
LOC: ONC 09:00
PROVIDERS: ATTEND Internal Medicine Hematology & Oncology
DX: C82.58 Diffuse follicle center lymphoma, lymph nodes of multiple sites (principal); G89.3 Neoplasm related pain (acute) (chronic); R61 Generalized hyperhidrosis; N52.9 Male erectile dysfunction, unspecified; K21.9 Gastro-esophageal reflux disease without esophagitis; Z94.81 Bone marrow transplant status; Z87.891 Personal history of nicotine dependence; Z79.899 Other long term (current) drug therapy; Z92.21 Personal history of antineoplastic chemotherapy
CPT/HCPCS: 36415; 80053; 83615; 84443; 85025; 99213

== ENCOUNTER → 2018-12-24 | Outpatient (CLI) | payer MEDICARE ==
[2018-12-24 10:23] LABS: BASOPHILS % (AUTO) 0 % (0-10); EOSINOPHILS # (AUTO) 0.1 10^3/uL (0.0-0.3); EOSINOPHILS % (AUTO) 1 % (0-10); HEMATOCRIT 44 % (40-54); HEMOGLOBIN 14.5 G/DL (13.3-17.7); LYMPHOCYTES # (AUTO) 2.5 X 10^3 (1.0-4.0); LYMPHOCYTES % (AUTO) 21 % (12-44); MEAN CORPUSCULAR HEMOGLOBIN 30 PG (25-34); MEAN CORPUSCULAR HGB CONC 33 G/DL (32-36); MEAN CORPUSCULAR VOLUME 91 FL (80-99); MONOCYTES % (AUTO) 9 % (0-12); NEUTROPHILS # (AUTO) 8.2 X 10^3 (1.8-7.8); NEUTROPHILS % (AUTO) 69 % (42-75); PLATELET COUNT 210 10^3/uL (130-400); RED CELL DISTRIBUTION WIDTH 14.3 % (10.0-14.5); WHITE BLOOD COUNT 11.8 10^3/uL (4.3-11.0)
[2018-12-24 10:48] LABS: ALANINE AMINOTRANSFERASE 22 U/L (0-55); ALBUMIN 4.4 GM/DL (3.2-4.5); ALKALINE PHOSPHATASE 54 U/L (40-136); BILIRUBIN,TOTAL 0.5 MG/DL (0.1-1.0); BUN/CREATININE RATIO 13; CALCIUM 9.5 MG/DL (8.5-10.1); CARBON DIOXIDE 20 MMOL/L (21-32); CHLORIDE 105 MMOL/L (98-107); CREATININE SERUM 0.89 MG/DL (0.60-1.30); GFR ESTIMATED > 60; GLUCOSE 115 MG/DL (70-105); SODIUM 137 MMOL/L (135-145); TOTAL PROTEIN 6.6 GM/DL (6.4-8.2)
== END ==
LOC: EDSTATUS 12-23 09:29 → ONC 10:02
PROVIDERS: ATTEND Internal Medicine Hematology & Oncology
DX: C82.58 Diffuse follicle center lymphoma, lymph nodes of multiple sites (principal); Z92.21 Personal history of antineoplastic chemotherapy; Z87.891 Personal history of nicotine dependence; Z72.0 Tobacco use
CPT/HCPCS: 36415; 80053; 83615; 85025; 99213

== ENCOUNTER 2019-04-01 10:04 | Outpatient (RCR) | payer MEDICARE ==
[2019-02-21 09:24] LABS: BASOPHILS % (AUTO) 0 % (0-10); EOSINOPHILS # (AUTO) 0.1 10^3/uL (0.0-0.3); EOSINOPHILS % (AUTO) 1 % (0-10); HEMATOCRIT 44 % (40-54); HEMOGLOBIN 14.8 G/DL (13.3-17.7); LYMPHOCYTES # (AUTO) 2.2 X 10^3 (1.0-4.0); LYMPHOCYTES % (AUTO) 17 % (12-44); MEAN CORPUSCULAR HEMOGLOBIN 31 PG (25-34); MEAN CORPUSCULAR HGB CONC 34 G/DL (32-36); MEAN CORPUSCULAR VOLUME 91 FL (80-99); MONOCYTES % (AUTO) 8 % (0-12); NEUTROPHILS # (AUTO) 9.5 X 10^3 (1.8-7.8); NEUTROPHILS % (AUTO) 74 % (42-75); PLATELET COUNT 222 10^3/uL (130-400); RED CELL DISTRIBUTION WIDTH 14.4 % (10.0-14.5); WHITE BLOOD COUNT 12.8 10^3/uL (4.3-11.0)
[2019-02-21 09:52] LABS: ALANINE AMINOTRANSFERASE 21 U/L (0-55); ALBUMIN 4.4 GM/DL (3.2-4.5); ALKALINE PHOSPHATASE 52 U/L (40-136); BILIRUBIN,TOTAL 0.5 MG/DL (0.1-1.0); BUN/CREATININE RATIO 13; CALCIUM 9.1 MG/DL (8.5-10.1); CARBON DIOXIDE 20 MMOL/L (21-32); CHLORIDE 108 MMOL/L (98-107); CREATININE SERUM 0.92 MG/DL (0.60-1.30); GFR ESTIMATED > 60; GLUCOSE 119 MG/DL (70-105); POTASSIUM 3.9 MMOL/L (3.6-5.0); SODIUM 140 MMOL/L (135-145); TOTAL PROTEIN 6.6 GM/DL (6.4-8.2)
== END 2019-05-22 | disposition home or self-care (01) ==
LOC: ONC 10:04
PROVIDERS: ATTEND Internal Medicine Hematology & Oncology
DX: C82.58 Diffuse follicle center lymphoma, lymph nodes of multiple sites (principal)
CPT/HCPCS: 80053; 83615; 85025; 99213

== ENCOUNTER 2019-05-26 17:17 | Emergency (ER) | payer MEDICARE ==
[~2019-05-26] VITALS: Ht 167 cm; Wt 74.0 kg
[2019-05-26 17:20] VITALS: BP 148/82
[2019-05-26] MEDS ORDERED: METR-145 PO (17:26)
[2019-05-26] MEDS ORDERED: DOXY100T2 PO (17:26)
--- NOTE | 2019-05-26 17:27 | ED Lower Extremity ---
General Stated Complaint: DOG BITE LEFT LEG Source: patient Exam Limitations: no limitations History of Present Illness Date Seen by Provider: May 26, 2019 Time Seen by Provider: 17:23 Initial Comments To ER with a bite to the lateral left lower leg from his neighbor's dog just prior to arrival. Patient states that neighbor told him the dog was up-to-date o n vaccines, [place] police was on scene to verify he states. He has not had a tetanus vaccine that he is aware of in the past 5 years. Onset: just prior to arrival Severity: moderate Pain/Injury Location: left leg Allergies and Home Medications Allergies Coded Allergies: Penicillins (Verified Allergy, Unknown, 12/27/13) Home Medications Albuterol 8.5 Gm Hfa.aer.ad, 1-4 PUFF IH Q4H PRN for WHEEZING 1 PUFFS Prescribed by: NAIN HOOKS on 06/24/14 0811 Doxycycline Hyclate 100 Mg Tablet, 100 MG PO BID Prescribed by: J CARLOS MOTA on 05/26/19 1726 Metronidazole 500 Mg Tablet, 500 MG PO TID Prescribed by: J CARLOS MOTA on 05/26/19 1726 Pantoprazole Sod 40 Mg Tab, 40 MG PO DAILY Prescribed by: MANISHA ANDERSON on 06/23/14 1254 Promethazine/Codeine 5 Ml Syrp, 5 ML PO Q4H PRN for COUGH Prescribed by: NAIN HOOKS on 06/24/14 0811 Patient Home Medication List Home Medication List Reviewed: Yes Review of Systems Constitutional: see HPI EENTM: see HPI Respiratory: no symptoms reported Cardiovascular: no symptoms reported Genitourinary: no symptoms reported Musculoskeletal: no symptoms reported Skin: see HPI Past Klncqlo-Xhwpcj-Usrrgp Hx Patient Social History Recent Foreign Travel: No Contact w/Someone Who Travel: No Immunizations Up To Date Tetanus Booster (TDap): Unknown PED Vaccines UTD: No Date of Influenza Vaccine: Dec 19, 2013 Past Medical History Abdominal, Orthopedic Reproductive Disorders: No Sexually Transmitted Disease: No HIV/AIDS: No Gastroesophageal Reflux Loss of Vision: Bilateral Hearing Impairment: Hard of Hearing Lymphoma Family Medical History Colon cancer 19 FATHER Diabetes mellitus G8 BROTHER Total abdominal hysterectomy and bilateral salpingo-oophorectomy 19 MOTHER Cancer, Hypertension Physical Exam Vital Signs Vital Signs - First Documented 05/26/19 17:20 Temp 36.7 Pulse 92 Resp 18 B/P (MAP) 148/82 (104) Pulse Ox 97 Capillary Refill : Height, Weight, BMI Height: 5'5" Weight: 165lbs. 6.4oz. 74.195623wj; BMI Method: General Appearance: WD/WN, no apparent distress Neck: non-tender, full range of motion Respiratory: no respiratory distress, no accessory muscle use Hips: bilateral hip non-tender, bilateral hip normal inspection, bilateral hip normal range of motion Legs: left leg other (there is a 2.5 cm laceration to the left lateral lower leg depth to the subcutaneous tissue no active bleeding) Knees: bilateral knee non-tender, bilateral knee normal inspection, bilateral knee normal range of motion Ankles: bilateral ankle non-tender, bilateral ankle normal inspection, bilateral ankle normal range of motion Feet: bilateral foot non-tender, bilateral foot normal inspection, bilateral foot normal range of motion Neurologic/Psychiatric: alert, normal mood/affect, oriented x 3 Skin: normal color, warm/dry Procedures/Interventions Wound Location: Lower Extremities Wound Length (cm): 2.5 Wound's Depth, Shape: linear Wound Explored: clean Irrigated w/ Saline (ccs): 180 Betadine Prep?: Yes Anesthesia: 1% Lidocaine Volume Anesthetic (ccs): 5 Suture: Prolene, Vicryl Suture Size: 3-0, 4-0 Number of Sutures: 5 Layer Closure?: 2 Number Deep Layer Sutures: 1 Progress Area was anesthetized locally with buffered 1% lidocaine without epinephrine. Wound then irrigated and scrubbed with chlorhexidine/saline. Irrigated with 180 cc. No foreign bodies were identified. 1 deep suture was placed size 3-0 Vicryl. 4 simple and rapid sutures size 4-0 Prolene were placed. Wound covered with a Band-Aid. Progress/Results/Core Measures Results/Orders My Orders Orders - J CARLOS MOTA APRN Dipht,Pertuss(Acell),Tet Adult (Boostrix (05/26/19 17:30) Lidocaine 1% Inj 20 Ml (Xylocaine 1% Inj (05/26/19 17:30) Medications Given in ED Current Medications Medications Dose Ordered Sig/Smitha Route Start Time Stop Time Status Last Admin Dose Admin Diphtheria/ Tetanus/Acell Pertussis 0.5 ml ONCE ONCE IM 05/26/19 17:30 05/26/19 17:31 DC 05/26/19 17:30 0.5 ML Lidocaine HCl 20 ml ONCE ONCE INJ 05/26/19 17:30 05/26/19 17:31 DC 05/26/19 17:30 5 ML Vital Signs/I&O 05/26/19 17:20 Temp 36.7 Pulse 92 Resp 18 B/P (MAP) 148/82 (104) Pulse Ox 97 Departure Impression Primary Impression: Dog bite of left lower leg Qualified Codes: S81.852A - Open bite, left lower leg, initial encounter; W54.0XXA - Bitten by dog, initial encounter Disposition: HOME, SELF-CARE Condition: Stable Departure-Patient Inst. Decision time for Depature: 17:25 Referrals: PEBBLES RAMIREZ DO (PCP) Primary Care Physician 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 APRN (Family) Primary Care Physician Patient Instructions: DOG BITE Add. Discharge Instructions: 1. Return to ER to have the stitches removed in about 10 days. Return to ER before then for any sign of infection such as redness or swelling. Antibiotics a s directed. He can shower living water run over this starting tomorrow. Do not soak it in water such as a hot tub bath tub or swimming pool until the stitches have been removed. Scripts Metronidazole (Metronidazole) 500 Mg Tablet 500 MG PO TID, #14 TAB 0 Refills Prov: J CARLOS MOTA APRN 05/26/19 Doxycycline Hyclate (Doxycycline Hyclate) 100 Mg Tablet 100 MG PO BID, #10 TAB 0 Refills Prov: J CARLOS MOTA APRN 05/26/19 J CARLOS MOTA APRN May 26, 2019 17:27
[2019-05-26] MEDS ORDERED: TETANUS,DIPTH,PERTUSS P/F (BOOSTRIX) 0.5 ML VIAL IM ONE (17:30)
[2019-05-26] MEDS ORDERED: LIDOCAINE 1% INJ 20 ML 20 ML VIAL INJ ONE (17:30)
--- NOTE | 2019-05-26 17:42 | NUR ---
1 INTERNAL AND 4 EXTERNAL SUTURE
--- OUTSIDE RECORDS SUMMARY | 2019-05-26 17:44 | XMS REPORT | Encounter Summary ---
Author Author [facility] Organization [facility] Address Unknown Phone Unavailable Care Team Providers Care Bottle Packer Name Role Phone Mario Recinos MD Unavailable Jarrett Altman DO Unavailable Martin Lowe MD Unavailable iLlian White MD Unavailable Jaime Belcher MD Unavailable Kian Ashley MD Unavailable Anel Damon PCP Jax Winston MD [phone] Unavailable Encounter Details Care Team Description Date Type Department Carly Sykes RN History of stem cell transplant (HCC) (P rimary Dx) 01/06/2019 Orders Only The [address] [address] Social History Date Tobacco Use Types Packs/Day Years Used Quit: 02/09/2014 Heavy Tobacco Smoker Cigarettes 0.5 30 Smokeless Tobacco: Never Used Comments: Has cut down from 1 pack per d ay. Drinks/Week oz/Week Comments Alcohol Use 4 Cans of beer 4.0 No Sex Assigned at Date Recorded Not on file Industry Job Start Date Occupation Not on file Not on file Not on file Travel End Travel History Travel Start No recent travel history available. documented as of this encounter Functional Status Date of Assessment Functional Status Response 07/20/2014 Does the patient have a hearing impairment: No 07/20/2014 Does the patient have a visual impairment: No 07/20/2014 Does the patient have impaired ambulation: No 07/20/2014 Does the patient have an activity of daily living No (ADL) impairment: 07/20/2014 Does the patient have an instrumental activity of No daily living (IADL) impairment: Date of Assessment Cognitive Status Response 07/20/2014 Does the patient have a cognitive impairment: No documented as of this encounter Plan of Treatment Order Schedule Name Type Priority Associated Diag noses Expected: 02/27/2019 (Approximate), Expi res: 02/27/2021 CBC AND DIFF Lab Routine History of stem cell transplant (HCC) Expected: 02/27/2019 (Approximate), Expi res: 02/27/2021 COMPREHENSIVE METABOLIC Lab Routine Histor y of stem cell PANEL transplant (HCC) Expected: 02/27/2019 (Approximate), Expi res: 02/27/2021 LDH-LACTATE DEHYDROGENASE Lab Routine Hist ory of stem cell transplant (HCC) documented as of this encounter Visit Diagnoses Diagnosis History of stem cell transplant (HCC) Peripheral stem cells replaced by trans plant documented in this encounter
--- OUTSIDE RECORDS SUMMARY | 2019-05-26 17:44 | XMS REPORT | Encounter Summary ---
Author Author [facility] Organization [facility] Address Unknown Phone Unavailable Care Team Providers Care Auto Self Service Station Attendant Name Role Phone Mario Recinos MD Unavailable Jarrett Altman DO Unavailable Martin Lowe MD Unavailable Lilian White MD Unavailable Jaime Belcher MD Unavailable Kian Ashley MD Unavailable Anel Damon PCP Jax Winston MD [phone] Unavailable Encounter Details Care Team Description Date Type Department Josette Meade 02/25/2019 Documentation The [address] [address] Social History Date Tobacco Use Types Packs/Day [...] impairment: No documented as of this encounter Progress Notes * Josette Meade - 02/25/2019 8:44 AM LAND LEASING EXAMINER [facility] Blood & Marrow Transplant Program 5 year - BMT LONG-TERM FOLLOW-UP EVALUATION SUMMARY Type of BMT: AUTO Stem Cell Source: PBSC BMT Regimen: BEAM BMT Date: 02/27/2014 Status @ [place]: PIF sen/PR1 Diagnosis: NHL: Diffuse Large B-cell Lymphoma (DLBCL) Date: 02/21/2019 Hematology: WBC: 12.8 ANC: 9.5 EOS: 1 LYMPH: 17 MONO: 8 HGB: 14.8 HCT: 44 PL: 222 Chemistry: NA: 140 K: 3.9 CL: 108 CO2: 20 BUN: 12 CR: 0.92 CA : 9.1 Glucose: 119 ALB: 4.4 TP: 6.6 Alk-MADELINE: 52 BILI: 0.5 ALT : 21 AST: 17 LDH: 179 DATE TESTS Transplant status at last BMT visit: OV 03/26/2017 Expected date for next work up: 02/28/2020 LEASING EXAMINER documented in this encounter Plan of Treatment Not on filedocumented as of this encounter Visit Diagnoses Not on filedocumented in this encounter
--- OUTSIDE RECORDS SUMMARY | 2019-05-26 17:44 | XMS REPORT | Encounter Summary ---
Author Author [facility] Organization [facility] Address Unknown Phone Unavailable Care Team Providers Care Program Coordinator For Residence Life Name Role Phone Mario Recinos MD Unavailable Jarrett Altman DO Unavailable Martin Lowe MD Unavailable Lilian White MD Unavailable Jaime Belcher MD Unavailable Kian Ashley MD Unavailable Anel Damon PCP Jax Winston MD [phone] Unavailable Reason for Visit * Reason Comments BMT Follow-up 5 year LTFU Encounter Details Care Team Description Date Type Department Josette Cool BMT Follow-up (5 year LTFU) 01/05/[address] Tele[address] The [address] [address] Social History Date Tobacco Use Types Packs/Day [...] impairment: No documented as of this encounter Miscellaneous Notes * Telephone Encounter - Josette Meade - 01/31/2019 1:33 PM HOUSE FELLOW 01/31/2019 1:33 PM JAM - we scheduled result appt E FELLOW * Telephone Encounter - Josette Cool - 01/05/2019 9:29 AM HOUSE FELLOW 01/05/2019 9:29 AM Requested 5 year orders from [facility]. Pt requesting outside wo rk up. Will fax orders once they're in O2. E FELLOW documented in this encounter Plan of Treatment Not on filedocumented as of this encounter Visit Diagnoses Not on filedocumented in this encounter
--- OUTSIDE RECORDS SUMMARY | 2019-05-26 17:44 | XMS REPORT | Encounter Summary ---
Author Author [facility] Organization [facility] Address Unknown Phone Unavailable Care Team Providers Care Assistant Professor Of Business Name Role Phone Mario Recinos MD Unavailable Jarrett Altman DO Unavailable Martin Lowe MD Unavailable Lilian White MD Unavailable Jaime Belcher MD Unavailable Kian Ashley MD Unavailable Anel Damon PCP Jax Winston MD [phone] Unavailable Reason for Visit * Reason Comments BMT Follow-up Pain right knee Encounter Details Care Team Description Date Type Department Martin Lowe MD [address] [place], [place] [id number] History of peripheral stem cell transpla nt (HCC) (Primary Dx) 03/28/2019 Office Visit The [facility] [address] [place] [phone] Social History Date Tobacco Use Types Packs/Day [...] history available. documented as of this encounter Last Filed Vital Signs Reading Time Taken Comments Vital Sign 126/73 03/28/2019 11:56 AM DIRECTOR OF TESTING Blood Pressure 85 03/28/2019 11:56 AM DIRECTOR OF TESTING Pulse 36.7 C (98.1 F) 03/28/2019 11:56 AM DIRECTOR OF TESTING Temperature 12 03/28/2019 11:56 AM DIRECTOR OF TESTING Respiratory Rate 100% 03/28/2019 11:56 AM DIRECTOR OF TESTING Oxygen Saturation - - Inhaled Oxygen Concentration 74.7 kg (164 lb 9.6 oz) 03/28/2019 11:56 AM DIRECTOR OF TESTING Weight - - Height 26.58 03/26/2017 1:28 PM DIRECTOR OF TESTING Body Mass Index documented in this encounter Functional Status Date of Assessment [...] as of this encounter Progress Notes * Martin Lowe MD - 03/28/2019 11:50 AM DIRECTOR OF TESTING Date of Service: 03/28/2019 Beth Sen is a 54 y.o. male with DLBCL s/p autologous stem cell transplant. Patient presents to the clinic to review his 5 year LTFU results. Doing well. Ada ina back from [place] to [place], [place]. Near his children. . Has a small nodule in right axilla. Non tender. Fluctuant. Patient reports ongoing fatigue otherwise feeling well and in good spirits. Mich es fever, chills, N/V/D, SOA, swelling. History of Present Illness Date of Transplant:02/27/14 Preparative Regimen: BEAM Reduced or fully ablative: ablative Disease:DLBC Disease Status at Transplant: PIF sen / PR1 CMV:POS Cell Source:autologous PB Consents/Studies:8322, auto , processing, apheresis, blood Co-morbidity Index Value: 2 Coordinator: Alexa Major, RN This is a 48 year was originally diagnosed in March [address] Glynn Bullard at [facility] in [facility] after he presented to the ER with abdominal p ain and bloating for [address] scan revealed a 20 cm sized abdominal mass and b ilateral pleural effusions, as well as a large ascites. A lymph node biopsy was performed on 03-28-13 confirmed a Grade 2 diffuse follicle center lymphoma with a very focal area of Grade 3 follicular lymphoma. A bone marrow biopsy was negati ve for involvement. The patient received 6 cycles of R-CHOP and a follow-up CT s can on 10-10-13 showed significant interval improvement of abdominal and pelvic a denopathy with the exception of an enlarged right external iliac chain lymph nod e which had increased in size to 6.2 x 4.8 cm. The patient was advised to begin radiation therapy, however, it was decided to further investigate the pelvic lym ph with a biopsy on 12-01-13. 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 Proceeded to Autologous SCT with BEAM preparative regimen. Review of Systems Constitutional: Positive for fatigue. HENT: Negative for rhinorrhea and sore throat. Eyes: Negative. Respiratory: Negative for cough and shortness of breath. Cardiovascular: Negative for leg swelling. Gastrointestinal: Negative for diarrhea and nausea. Genitourinary: Negative. Musculoskeletal: Negative. Skin: Negative for rash. Allergic/Immunologic: Negative. Neurological: Negative for headaches. Hematological: Negative. Psychiatric/Behavioral: The patient is not nervous/anxious. All other systems reviewed and are negative. 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 Patient has a smoking history of 7 years, using up to 0.5 packs per day. He drinks alcohol. Objective: HYDROcodone/acetaminophen(+) (NORCO) 10/325 mg tablet Take 1 Tab by mouth ev celina 6 hours as needed for Pain IBUPROFEN (ADVIL PO) Take 600 mg by mouth as Needed. Vitals: 03/28/19 1156 03/28/19 1157 BP: 126/73 Pulse: 85 Resp: 12 Temp: 36.7 C (98.1 F) TempSrc: Oral SpO2: 100% Weight: 74.7 kg (164 lb 9.6 oz) PainSc: Four Four Body mass index is 26.58 kg/m. Vitals, BMI noted and reviewed Pain Score: Four Pain Addressed: Current regimen working to control pain. and Patient to see a n eurologist to evaluate frequent headaches. Patient Evaluated for a Clinical Trial: He is being evaluated for a clinical tri al Karnofsky Scale: 90% Able to carry on normal activity; minor signs of disease Physical Exam Constitutional: He is oriented to person, place, and time. He appears well-devel oped and well-nourished. No distress. HENT: Head: Normocephalic and atraumatic. Mouth/Throat: No oropharyngeal exudate. Eyes: Pupils are equal, round, and reactive to light. EOM are normal. Right eye exhibits no discharge. Left eye exhibits no discharge. No scleral icterus. Glasses Neck: Normal range of motion. Neck supple. Cardiovascular: Normal rate, regular rhythm and normal heart sounds. No murmur heard. Pulmonary/Chest: Effort normal and breath sounds normal. He has no wheezes. He h as no rales. Right axillary cyst. Feels like sebaceous cyst. Needs excfision and biopsy. He i s going to discuss with Dr. Jax Winston. Abdominal: Soft. Bowel sounds are normal. He exhibits no mass. There is no abdom inal tenderness. Musculoskeletal: Normal range of motion. General: No edema. Lymphadenopathy: He has no cervical adenopathy. Neurological: He is alert and oriented to person, place, and time. He has normal reflexes. Skin: Skin is warm and dry. No rash noted. Psychiatric: He has a normal mood and affect. His speech is normal. Thought cont ent normal. Cognition and memory are normal. CBC w/Diff Lab Results Component Value Date/Time WBC 6.0 03/13/2014 11:53 AM RBC 3.44 (L) 03/13/2014 11:53 AM HGB 9.9 (L) 03/13/2014 11:53 AM HCT 30.2 (L) 03/13/2014 11:53 AM MCV 87.8 03/13/2014 11:53 AM MCH 28.8 03/13/2014 11:53 AM MCHC 32.8 03/13/2014 11:53 AM RDW 17.1 (H) 03/13/2014 11:53 AM PLTCT 41 (L) 03/13/2014 11:53 AM MPV 8.7 03/13/2014 11:53 AM Lab Results Component Value Date/Time NEUT 82 (H) 03/02/2014 12:15 PM ANC 3.24 03/13/2014 11:53 AM ANC 0.50 (L) 03/02/2014 12:15 PM LYMA 14 (L) 03/02/2014 12:15 PM ALC 0.10 (L) 03/02/2014 12:15 PM JOHN 2 (L) 03/02/2014 12:15 PM AMC 0.00 03/02/2014 12:15 PM EOSA 1 03/02/2014 12:15 PM AEC 0.00 03/02/2014 12:15 PM BASA 1 03/02/2014 12:15 PM ABC 0.00 03/02/2014 12:15 PM Comprehensive Metabolic Profile Lab Results Component Value Date/Time NA 138 03/13/2014 11:53 AM K 3.8 03/13/2014 11:53 AM CL 106 03/13/2014 11:53 AM CO2 24 03/13/2014 11:53 AM GAP 8 03/13/2014 11:53 AM BUN 13 03/13/2014 11:53 AM CR 0.93 03/13/2014 11:53 AM GLU 131 (H) 03/13/2014 11:53 AM Lab Results Component Value Date/Time CA 9.1 03/13/2014 11:53 AM PO4 3.2 03/11/2014 10:01 AM ALBUMIN 4.1 03/13/2014 11:53 AM TOTPROT 6.7 03/13/2014 11:53 AM ALKPHOS 66 03/13/2014 11:53 AM AST 17 03/13/2014 11:53 AM ALT 20 03/13/2014 11:53 AM TOTBILI 0.2 (L) 03/13/2014 11:53 AM GFR >60 03/13/2014 11:53 AM GFRAA >60 03/13/2014 11:53 AM Assessment and Plan: Primary Diagnosis: S/P Autologous Peripheral Stem Cell Transplant with Diffuse large B-cell Lymphoma Transformed from [place] Received Carmustine/Etoposide/Cytarai ne/Melphalan (BEAM). In CR at 6 months. Currently 5 years s/p Auto. - CT scan from 07/18 revealed improving right ileac mass. Biopsy revealed mass ne crotic tissue. No cells identified. Was seen by Dr. Ashley. Tissue has no malign ant cells. - Day 180 scan delayed 3 weeks, negative for disease. - 1 year scan negative for disease. - 2 year PET scan on 02/19/16 showing diffuse significant FDG uptake in the stomac h with associated gastric wall thickening. Concern for lymphoma involvement vs g astritis. Discussed repeating scan in 3-4 months or having EGD done here at . Patient would like scope at this time. Will schedule. There was also moderate FD G uptake in the nasopharynx with slight soft tissue thickening with concern for neoplastic etiology. Patient reports he had a cold when he had the scan done. Di scussed following up with ENT. Per patient request, he would like to see Dr. Pat avery in [place]. - 2 year BMBx negative for disease. Heme: Engrafted. Counts stable. Transfusion independent. FEN/Renal: Renal function normal and Electrolytes stable. - Adequate oral intake. - Weight stable. No peripheral edema. Endocrine: N/A Cardiovascular: N/A Infectious Disease: Afebrile, no active infections. Up to date with Vaccination - He needs Shingrix. He is going to discuss with Dr. winston Pulmonary: - 1-year PET showed mild focal hypermetabolism near the right hilum, likely foca l pneumonitis. Lungs CTA, denies SOB, afebrile. GI: No active issues related to nausea, emesis or diarrhea - LFTs stable. Integumentary: Recurring boil, seen on 1 year PET. Not noted on 2 year scan. Queen s a cyst, fluctuant nodule in right axoilla. ?Sebaceous cyst. Recommended excisi onal biopsy. He will get it done in [place]. Dr. Jax Winston will schedul e Pain: N/A Neuro: - 1 year PET scan showed an asymmetric moderate hypermetabolism in the posterior right side of the nasopharynx. MRI brain subsequently ordered: small amount of nonspecific fluid seen in the right mastoid air cells; and, Thornwaltdt and mucu s retention cysts seen in the posterior aspect of the nasopharnyx with no suspic ious mass. - Patient previously reported headaches.Patient encouraged to contact primary do ctor to be referred to a local neurologist and to keep a migraine journal in the interim. Denies headache today, Psychology: No active issues, monitor and offer support as needed. GvHD: Autologous transplant - Not applicable RTC yearly or sooner if needed. Martin Lowe MD computer programmer Blood and Marrow Transplantation [facility] CTOR OF TESTING * Iliana Burnette RN - 03/28/2019 11:50 AM DIRECTOR OF TESTING Date of Transplant:02/27/14 Preparative Regimen: BEAM Reduced or fully ablative: ablative Disease:DLBC Disease Status at Transplant: PIF sen / PR1 CMV:POS Cell Source:autologous PB Consents/Studies:8322, auto , processing, apheresis, blood Primary onc. Dr. Jax Winston; ; Fx: [phone] 03/28- Pt here for his 5 year LTFU - pt doing well. Pt is now living in [facility]. Results reviewed with patient - pt continue in remission. Pt is up to date on the flu shot but has not had the shingrix. Instructed to get shingrix wi th his PCP. Instructed to stay up to date on all other health checks with his PC P. No other concerns or complaints. NEWS Score: 0 RTC per LTFU CTOR OF TESTING documented in this encounter Plan of Treatment Order Schedule Name Type Priority Associated Diag noses Expected: 02/28/2020, Expires: 2 CBC AND DIFF Lab Routine History of janna pheral stem cell transplant (HCC) Expected: 02/28/2020 (Approximate), Expi res: 03/28/2021 COMPREHENSIVE METABOLIC Lab Routine Histor y of peripheral PANEL stem cell transplant (HCC) Expected: 02/28/2020 (Approximate), Expi res: 03/28/2021 LDH-LACTATE DEHYDROGENASE Lab Routine Hist ory of peripheral stem cell transplant (HCC) documented as of this encounter Visit Diagnoses Diagnosis History of peripheral stem cell transpl ant (HCC) Peripheral stem cells replaced by trans plant documented in this encounter
--- OUTSIDE RECORDS SUMMARY | 2019-05-26 17:44 | XMS REPORT | Clinical Summary ---
Author Author [facility] Organization [facility] Address Unknown Phone Unavailable Care Team Providers Care Narcotics Agent Name Role Phone Mario Recinos MD Unavailable Jarrett Altman DO Unavailable Martin Lowe MD Unavailable Lilian White MD Unavailable Jaime Belcher MD Unavailable Kian Ashley MD Unavailable Anel Damon PCP Jax Winston MD [phone] Unavailable Source Comments Some departments are not documenting in the electronic medical record. If you d o not see the information that you expected, contact Release of Information in [facility] Health Information Management department at [phone] for further assistan ce in locating additional records.[facility] Allergies Comments Active Allergy Reactions Severity Noted Date Penicillins NAUSEA AND 12/20/2013 VOMITING Medications End Date Status Medication Sig Dispensed Refills Start Date Active HYDROcodone/acetaminophen Take 1 Tab by 0 (+) (NORCO) 10/325 mg mouth every 6 tablet hours as needed for Pain Active IBUPROFEN (ADVIL PO) Take 600 mg 0 by mouth as Needed. 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 Chronic pain of both knees 03/26/2017 Eye irritation 03/26/2017 Chronic fatigue 03/26/2017 Abnormal PET scan of head 03/24/2016 Sinusitis 03/06/2014 Pancytopenia due to chemotherapy 03/06/2014 Diarrhea 03/05/2014 History of peripheral stem cell transplant 5 Overview: Date of Transplant:02/27/14 Preparative Regimen: BEAM Reduced or fully ablative: ablative Disease:DLBC Disease Status at Transplant: PIF sen / PR1 CMV:POS Cell Source:autologous PB Consents/Studies:8322, auto , processin g, apheresis, blood Co-morbidity Index Value: 2 Coordinator: CHRISTOPHER Ramírez 02/23/2014 Non Hodgkin's lymphoma 12/20/2013 Headache 12/20/2013 GERD (gastroesophageal reflux disease) 12/20/2013 Resolved Problems Problem Noted Date Resolved Date Nasal obstruction 03/24/2016 02/27/2019 Hypokalemia 03/06/2014 02/27/2019 Neutropenic fever 03/04/2014 02/27/2019 Nausea 02/23/2014 02/27/2019 Conditioning chemotherapy prior to peripheral blood s tem cell transplant 02/22/2014 03/06/2014 On antineoplastic chemotherapy 02/20/2014 015 Encounters Care Team Description Date Type Specialty Martin Lowe MD History of peripheral stem cell transpla nt (HCC) (Primary Dx) 03/28/2019 Office Visit Oncology Josette Meade 02/25/2019 Documentation Oncology from Last 3 Months Immunizations Name Administration Dates Next Due Acthib Vaccine 10/17/2014, 08/17/2014 Flu vaccine, inj 11/17/2015 unspecified (Historical) Hepatitis A vaccine Adult 08/17/2014 IM Hepatitis B Vaccine Adult 02/19/2015, 10/17/2014, 3 Dose IM Hib vaccine, unspecified 12/17/2014, 10/17/2014, 03/2014 (Historical) IPV 12/17/2014, 10/17/2014, 03/2014 MMR Vaccine 03/10/2016 Meningococcal Conjug 08/17/2014 Vaccine Pneumococcal Vaccine 02/19/2015 (23-Zahra Adult) Pneumococcal 12/17/2014, 10/17/2014, 03/2014 Vaccine(13-Zahra Peds/immunocompromised adult) Tdap Vaccine 12/17/2014, 10/17/2014, 03/2014 Family History Medical History Relation Name Comments Diabetes Brother Cancer-Colon Father Diabetes Mother High Cholesterol Sister Relation Name Status Comments Brother Alive Father Mother Sister Social History Date Tobacco Use Types Packs/Day Years Used Quit: 02/09/2014 Heavy Tobacco Smoker Cigarettes 0.5 30 Smokeless Tobacco: Never Used Tobacco Cessation: Ready to Quit: Yes Comments: Has cut down from 1 pack per day. Drinks/Week oz/Week Comments Alcohol Use 4 Cans of beer 4.0 No Sex Assigned at Date Recorded Not on file Industry Job Start Date Occupation Not on file Not on file Not on file Travel End Travel History Travel Start No recent travel history available. Last Filed Vital Signs Reading Time Taken Comments Vital Sign 126/73 03/28/2019 11:56 AM DEPUTY CONTROLLER Blood Pressure 85 03/28/2019 11:56 AM DEPUTY CONTROLLER Pulse 36.7 C (98.1 F) 03/28/2019 11:56 AM DEPUTY CONTROLLER Temperature 12 03/28/2019 11:56 AM DEPUTY CONTROLLER Respiratory Rate 100% 03/28/2019 11:56 AM DEPUTY CONTROLLER Oxygen Saturation - - Inhaled Oxygen Concentration 74.7 kg (164 lb 9.6 oz) 03/28/2019 11:56 AM DEPUTY CONTROLLER Weight 167.6 cm (5' 5.98") 03/26/2017 1:28 PM DEPUTY CONTROLLER Height 26.58 03/26/2017 1:28 PM DEPUTY CONTROLLER Body Mass Index Plan of Treatment Health Maintenance Due Date Last Done Comments HEPATITIS C SCREENING 1965 MEDICARE ANNUAL WELLNESS 1965 VISIT HIV SCREENING 1978 PHYSICAL (COMPREHENSIVE) 1981 EXAM COLORECTAL CANCER 2013 SCREENING SHINGLES RECOMBINANT 2013 VACCINE (1 of 2) INFLUENZA VACCINE 09/17/2019 11/17/2015 DTAP/TDAP VACCINES (4 - 12/17/2024 12/17/2014, Td) 10/17/2014, 08/17/2014 Results Not on filefrom Last 3 Months Insurance Type Payer Benefit Subscriber ID Effective Phone Address Plan / Dates Group Medicare AETNA MEDICARE AETNA xxxxxxxxxxxx [id number] MEDICARE resent PPO -[id number] Beth Sen Transplant Self 1965 [address] [facility] (Home) [place] [address] Advance Directives Patient [employer] Support Explanation Type Date Recorded Advance 02/03/2014 12:53 PM Directive/DPOA Date Inactivated Comments Code Status Date Activated 03/07/2014 2:17 PM Full Code 03/05/2014 6:07 PM Provider has discussed Code Status No, discussion no t w/Patient or Family? necessary based on Dx 03/05/2014 6:07 PM Full Code 03/04/2014 4:03 PM Provider has discussed Code Status No, discussion no t w/Patient or Family? necessary based on Dx
--- OUTSIDE RECORDS SUMMARY | 2019-05-26 17:45 | XMS REPORT ---
Author Author Beth Brown Doctor Organization [facility] Address Unknown Phone Unavailable Care Team Providers Care Travel Pt Name Role Phone Migration, Doctor Unavailable Unavailable PROBLEMS Type Condition ICD9-CM Code VUD41-RX Code Onset Dates Condition S tatus SNOMED Code Problem Encounter for immunization Z23 Act mayuri [id number] Problem Allergic rhinitis J30.9 Active 61 494088 Problem Arthritis of both knees M19.90 Active 843569702 Problem Violation of controlled substance agreement Z91.14 Active 173223180 Problem Other chronic pain G89.29 Active 8 5054283 Problem 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 1099 49630 Problem Mild depression F32.0 Active 3104 60749 Problem Chronic pain syndrome G89.4 Active 44251685 Problem Erectile dysfunction, unspecified erectile dysfunction typ e N52.9 Active 620175401 Problem 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 598990913 Problem Arthritis of right knee M17.11 Active 570496765 Problem 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 Active 335065157 ALLERGIES Substance Reaction Event Type Date Status Penicillins Unknown Non Drug Allergy May, Active ENCOUNTERS Encounter Location Date Diagnosis [facility] [address] [facility] [id number] [address] [place] [phone] May, Hamstring tendinitis M76.899 ; Arthritis of both knees M19.90 and Chronic pain syndrome G89.4 [facility] [address] [facility] [id number] [address] [place] [phone] May, Arthritis of both knees M19. 90 ; Erectile dysfunction, unspecified erectile dysfunction type N52.9 and Pain of right thumb M79.644 [facility] [address] [facility] [id number] [address] [place] [phone] Dec, Acute left-sided low back pa in without sciatica M54.5 [facility] [address] [facility] [id number] [address] [place] [address] Oct, Low testosterone level in ma le R79.89 [facility] [address] [id number] [address] [place] [phone] Sep, Acute swimmer''s ear of left side H60.332 ; Acute left-sided low back pain without sciatica M54.5 ; Low testosterone level in male R79.89 and Erectile dysfunction, unspecified erectile dysfunction type N52.9 [facility] [address] [id number] [address] [place] [phone] Aug, [facility] [address] [facility] [id number] [address] [place] [phone] Aug, Fatigue, unspecified type R5 3.83 ; Mild depression F32.0 ; Elevated fasting glucose R73.01 ; Erectile dysfunction, unspecified erectile dysfunction type N52.9 and Arthritis of both knees M19.90 [facility] [address] [facility] [id number] [address] [place] [phone] June, [place] [id number] [id number] [address] [place] [phone] June, [facility] [address] [facility] [id number] [address] [place] [address] June, Other chronic pain G89.29 ; Screening for lipoid disorders Z13.220 and Arthritis of both knees M19.90 [facility] [address] [facility] [id number] [address] [place] [address] June, [facility] [address] [facility] [id number] [address] [place] [address] Apr, Arthritis of both knees M19. 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 and Acute otitis externa of left ear, unspecified type H60.502 [facility] [address] [id number] [address] [place] [phone] Mar, Nodule of neck R22.1 [facility] [address] [place] [id number] [address] [place] [phone] 07 Mar, 2017 Allergic conjunctivitis of b oth eyes H10.13 and Skin lesion of neck L98.9 [place] [id number] [place] [phone] Sep, Rectal bleeding K62.5 and Re ctal or anal pain K62.89 [place] [address] [phone] Jul, [place] [address] [address] Jul, Chronic pain syndrome G89.4 [place] [address] [address] June, Chronic pain syndrome G89.4 ; Arthritis of both knees M19.90 and Irritation of both eyes H57.8 [place] [address] [address] May, Chronic pain syndrome G89.4 [place] [address] [address] Apr, Chronic pain syndrome G89.4 [place] [address] [address] 08 Mar, 2016 Chronic pain syndrome G89.4 ; 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 ; Arthritis of both knees M19.90 ; 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 ; Arthritis of right knee M17.11 and Acute non-recurrent maxillary sinusitis J01.00 [facility] [address] [facility] [id number] [address] [place] [id number] 07 Mar, 2016 Dental examination Z01.20 [facility] [address] [place] [id number] [address] [place] [phone] 04 Feb, 2016 Chronic pain syndrome G89.4 ; 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 ; Arthritis of both knees M19.90 ; Seasonal allergic rhinitis, unspecified allergic rhinitis trigger J30.2 ; Erectile dysfunction, unspecified erectile dysfunction type N52.9 and 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 [facility] [address] [id number] [address] [place] [address] Dec, [facility] [address] [id number] [address] [place] [address] Dec, [facility] [address] [id number] [address] [place] [address] Dec, Chronic pain syndrome G89.4 ; Encounter for immunization Z23 ; B- cell lymphoma C85.10 and Arthritis of both knees M19.90 [facility] [address] [id number] [address] [place] [phone] Oct, [facility] [address] [id number] [address] [place] [phone] Sep, [facility] [address] [id number] [address] [place] [address] Jul, Chronic pain syndrome G89.4 ; 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 and Arthritis of both knees M19.90 [facility] [address] [id number] [address] [place] [phone] Jul, Pain in right knee M25.561 a nd Pain in left knee M25.562 [facility] [address] [id number] [address] [place] [address] Jul, [facility] [address] [id number] [address] [place] [address] June, Pain in right knee M25.561 ; Pain in left knee M25.562 and Out of work Z56.0 [facility] [address] [id number] [address] [place] [address] June, [facility] [address] [id number] [address] [place] [address] June, [facility] [address] [id number] [address] [place] [address] June, Chronic pain syndrome G89.4 ; 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 and Poison rosy dermatitis L23.7 [facility] [address] [facility] [id number] [address] [place] [address] May, [facility] [address] [facility] [id number] [address] [place] [phone] Apr, Chronic pain syndrome G89.4 ; 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 and Allergic rhinitis J30.9 [facility] [address] [id number] [address] [place] [phone] Feb, [facility] [address] [facility] [id number] [address] [place] [phone] Jan, Chronic pain syndrome G89.4 ; 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 and Sinusitis, acute J01.90 [facility] [address] [facility] [id number] [address] [place] [phone] Jan, Sinusitis, acute J01.90 [facility] [address] [facility] [id number] [address] [place] [address] Jan, [facility] [address] [facility] [id number] [address] [place] [address] Jan, Chronic pain syndrome G89.4 and 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 [facility] [address] [facility] [id number] [address] [place] [address] Dec, Chronic pain syndrome G89.4 ; 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 ; Encounter for immunization Z23 and Erectile dysfunction due to diseases classified elsewhere N52.1 [facility] [address] [facility] [id number] [address] [place] [address] Nov, Chronic pain syndrome G89.4 and 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 [facility] [address] [facility] [id number] [address] [place] [address] Oct, [facility] [address] [facility] [id number] [address] [place] [address] Sep, Non-Hodgkin lymphoma 202.80 and Chronic pain 338.29 [facility] [address] [id number] [address] [place] [address] Aug, Non-Hodgkin lymphoma 202.80 ; Chronic pain 338.29 and Gastritis determined by endoscopy 535.50 [facility] [address] [id number] [address] [place] [address] Aug, [facility] [address] [id number] [address] [place] [phone] Aug, [facility] [address] [id number] [address] [place] [phone] Aug, [facility] [address] [facility] [id number] [address] [place] [address] Jul, Non-Hodgkin lymphoma 202.80 ; Chronic pain 338.29 and Gastritis determined by endoscopy 535.50 [facility] [address] [facility] [id number] [address] [place] [address] Jul, [facility] [address] [facility] [id number] [address] [place] [address] Jul, Lymphoma 202.80 ; Hearing di fficulty 389.9 ; Eye pain 379.91 ; Chronic pain 338.29 and Abscess and cellulitis 682.9 [facility] [address] [facility] [id number] [address] [place] [address] June, [facility] [address] [facility] [id number] [address] [place] [phone] May, [facility] [address] [facility] [id number] [address] [place] [phone] May, [facility] [address] [facility] [id number] [address] [place] [phone] Feb, [facility] [address] [facility] [id number] [address] [place] [phone] Feb, [facility] [address] [facility] [id number] [address] [place] [phone] Nov, [facility] [address] [id number] [address] [place] [phone] Sep, [facility] [address] [id number] [address] [place] [phone] Aug, [facility] [address] [facility] [id number] [address] [place] [phone] Jul, [facility] [address] [id number] [address] [place] [phone] May, [facility] [address] [facility] [id number] [address] [place] [phone] Aug, IMMUNIZATIONS No Known Immunizations SOCIAL HISTORY Never Assessed REASON FOR VISIT [facility] PLAN OF CARE VITAL SIGNS MEDICATIONS Medication Instructions Dosage Frequency Start Date End Date Duration S tatus Naprosyn 500 mg 1 tablet by Oral route 2 times per day 2 Feb, Active Erythromycin 5 mg/gram (0.5 %) apply 1 c m ribbon into the lower conjunctival sac in the right eye by ophthalmic route 4 times per day for 10 days May, Active Guaifenesin 600 mg 600 mg by Oral route every 12 hours 2 Feb, Active Bactrim DS 800-160 mg 1 tablet by Oral route 2 times p er day for 10 day(s) Feb, Active RESULTS No Results PROCEDURES No Known procedures INSTRUCTIONS MEDICATIONS ADMINISTERED No Known Medications MEDICAL (GENERAL) HISTORY Type Description Date Medical History lymphoma B-Cell--diagnosed 02/2013, [facility] 02/2014 Medical History hypertension Medical History Bone Marrow Transplant 02/25/2014 at [facility] Medical History Violation of controlled substance agreem ent Surgical History orthopedic surgery-broke tendon in right hand repaired Surgical History otolaryngologic surgery Surgical History orthopedic surgery--ligament removal fro m left shoulder Surgical History Excisional Biopsy of right iliac lymph n ode at [facility] 07/2014 Surgical History EGD in which they did a biopsy 02/2015 Surgical History biopsy on back of neck Hospitalization History Hospitalization for surgery only
--- OUTSIDE RECORDS SUMMARY | 2019-05-26 17:45 | XMS REPORT ---
Author Author Beth GRIJALVA [facility] Address [address] [place] [address] Care Team Providers Care Environmental Compliance Specialist Name Role Phone 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 Unavailable PROBLEMS Type Condition ICD9-CM Code ZCD83-NE Code Onset Dates Condition S tatus SNOMED Code Problem Encounter for immunization Z23 Act mayuri [id number] Problem Arthritis of both knees M19.90 Active 527591843 Problem Allergic rhinitis J30.9 Active 61 836685 Problem Violation of controlled substance agreement Z91.14 Active 515800680 Problem Chronic pain syndrome G89.4 Active 06396711 Problem 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 1099 62925 Problem Mild depression F32.0 Active 3104 65567 Problem Other chronic pain G89.29 Active 8 9094597 Problem 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 [address] [facility] [id number] [address] [place] [phone] Oct, Low testosterone level in ma le R79.89 [place] [id number] [facility] [id number] [address] [place] [phone] Sep, Acute swimmer''s ear of left side H60.332 ; Acute left-sided low back pain without sciatica M54.5 ; Low testosterone level in male R79.89 and Erectile dysfunction, unspecified erectile dysfunction type N52.9 [place] [address] [facility] [id number] [address] [place] [phone] Aug, [place] [address] [address] [place] [id number] [address] [place] [phone] Aug, Fatigue, unspecified type R5 3.83 ; Mild depression F32.0 ; Elevated fasting glucose R73.01 ; Erectile dysfunction, unspecified erectile dysfunction type N52.9 and Arthritis of both knees M19.90 [place] [address] [address] [place] [id number] [address] [place] [phone] June, [place] [address] [place] [id number] [address] [place] [phone] June, [place] [address] [place] [id number] [place] [phone] June, Other chronic pain G89.29 ; Screening for lipoid disorders Z13.220 and Arthritis of both knees M19.90 [place] [address] [address] [place] [id number] [address] [place] [phone] June, [place] [address] [place] [id number] [place] [phone] Apr, Arthritis of both knees M19. 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 and Acute otitis externa of left ear, unspecified type H60.502 [place] [address] [address] [place] [id number] [address] [place] [phone] Mar, Nodule of neck R22.1 [place] [address] [address] [place] [id number] [address] [place] [phone] 07 Mar, 2017 Allergic conjunctivitis of b oth eyes H10.13 and Skin lesion of neck L98.9 [place] [address] [address] [place] [id number] [address] [place] [phone] Sep, Rectal bleeding K62.5 and Re ctal or anal pain K62.89 [place] [address] [address] [place] [id number] [address] [place] [phone] Jul, [facility] [address] [facility] [id number] [address] [place] [phone] Jul, Chronic pain syndrome G89.4 [facility] [address] [facility] [id number] [address] [place] [address] June, Chronic pain syndrome G89.4 ; Arthritis of both knees M19.90 and Irritation of both eyes H57.8 [facility] [address] [facility] [id number] [address] [place] [phone] May, Chronic pain syndrome G89.4 [facility] [address] [facility] [id number] [address] [place] [phone] Apr, Chronic pain syndrome G89.4 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 [address] [facility] [id number] [address] [place] [phone] Dec, [facility] [address] [facility] [id number] [address] [place] [phone] Dec, [facility] [address] [facility] [id number] [address] [place] [phone] Dec, Chronic pain syndrome G89.4 ; Encounter for immunization Z23 ; B- cell lymphoma C85.10 and Arthritis of both knees M19.90 [facility] [address] [id number] [address] [place] [phone] Oct, [facility] [address] [facility] [id number] [address] [place] [phone] Sep, [facility] [address] [facility] [id number] [address] [place] [phone] Jul, Chronic pain syndrome G89.4 ; 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 and Arthritis of both knees M19.90 [facility] [address] [facility] [id number] [address] [place] [address] Jul, Pain in right knee M25.561 a nd Pain in left knee M25.562 [place] [address] [facility] [id number] [address] [place] [phone] Jul, [place] [address] [facility] [id number] [address] [place] [phone] June, Pain in right knee M25.561 ; Pain in left knee M25.562 and Out of work Z56.0 [facility] [address] [facility] [id number] [address] [place] [phone] June, [facility] [address] [facility] [id number] [address] [place] [phone] June, [facility] [address] [facility] [id number] [address] [place] [phone] June, Chronic pain syndrome G89.4 ; 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 and Poison rosy dermatitis L23.7 [facility] [address] [facility] [id number] [address] [place] [phone] May, [facility] [address] [facility] [id number] [address] [place] [phone] Apr, Chronic pain syndrome G89.4 ; 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 and Allergic rhinitis J30.9 [facility] [address] [facility] [id number] [address] [place] [phone] Feb, [facility] [address] [facility] [id number] [address] [place] [phone] Jan, Chronic pain syndrome G89.4 ; 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 and Sinusitis, acute J01.90 [facility] [address] [facility] [id number] [address] [place] [phone] Jan, Sinusitis, acute J01.90 [facility] [address] [facility] [id number] [address] [place] [phone] Jan, [place] [address] [phone] Jan, Chronic pain syndrome G89.4 and 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 [place] [address] [address] [place] [id number] [address] [place] [address] Dec, Chronic pain syndrome G89.4 ; 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 ; Encounter for immunization Z23 and Erectile dysfunction due to diseases classified elsewhere N52.1 [place] [address] [address] [place] [id number] [address] [place] [phone] Nov, Chronic pain syndrome G89.4 and 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 [place] [address] [address] [place] [id number] [address] [place] [phone] Oct, [place] [address] [place] [id number] [place] [phone] Sep, Non-Hodgkin lymphoma 202.80 and Chronic pain 338.29 [place] [address] [address] [place] [id number] [place] [phone] Aug, Non-Hodgkin lymphoma 202.80 ; Chronic pain 338.29 and Gastritis determined by endoscopy 535.50 [place] [address] [address] [place] [id number] [address] [place] [phone] Aug, [place] [address] [place] [id number] [address] [place] [phone] Aug, [facility] [address] [facility] [id number] [address] [place] [phone] Aug, [facility] [address] [facility] [id number] [address] [place] [phone] Jul, Non-Hodgkin lymphoma 202.80 ; Chronic pain 338.29 and Gastritis determined by endoscopy 535.50 [facility] [address] [id number] [address] [place] [phone] Jul, [facility] [address] [id number] [address] [place] [phone] Jul, Lymphoma 202.80 ; Hearing di fficulty 389.9 ; Eye pain 379.91 ; Chronic pain 338.29 and Abscess and cellulitis 682.9 [facility] [address] [facility] [id number] [address] [place] [phone] June, [facility] [address] [id number] [address] [place] [phone] May, [facility] [address] [facility] [id number] [address] [place] [phone] May, [facility] [address] [facility] [id number] [address] [place] [phone] Feb, [facility] [address] [facility] [id number] [address] [place] [phone] Feb, [facility] [address] [facility] [id number] [address] [place] [phone] Nov, [facility] [address] [id number] [address] [place] [phone] Sep, [facility] [address] [facility] [id number] [address] [place] [phone] Aug, [facility] [address] [facility] [id number] [address] [place] [phone] Jul, [facility] [address] [facility] [id number] [address] [place] [address] May, [facility] [address] [facility] [id number] [address] [place] [address] Aug, IMMUNIZATIONS No Known Immunizations SOCIAL HISTORY Never Assessed REASON FOR VISIT Controlled Med Refill PLAN OF CARE VITAL SIGNS MEDICATIONS Medication Instructions Dosage Frequency Start Date End Date Duration S barber Tramadol HCl 50 mg 1 tablet as needed June, 14 days Active RESULTS No Results PROCEDURES No Known procedures INSTRUCTIONS MEDICATIONS ADMINISTERED No Known Medications MEDICAL (GENERAL) HISTORY Type Description Date Medical History lymphoma B-Cell--diagnosed 02/2013, [facility] jesus 02/2014 Medical History hypertension Medical History Bone Marrow Transplant 02/25/2014 at [facility] Medical History Violation of controlled substance agreem ent Surgical History orthopedic surgery-broke tendon in right hand repaired Surgical History otolaryngologic surgery Surgical History orthopedic surgery--ligament removal fro m left shoulder Surgical History Excisional Biopsy of right iliac lymph n ode at [facility] 07/2014 Surgical History EGD in which they did a biopsy 02/2015 Surgical History biopsy on back of neck Hospitalization History Hospitalization for surgery only
--- OUTSIDE RECORDS SUMMARY | 2019-05-26 17:45 | XMS REPORT ---
Author Author Beth Brown Doctor Organization [facility] Address Unknown Phone Unavailable Care Team Providers Care Pan Shover Name Role Phone Migration, Doctor Unavailable Unavailable PROBLEMS Type Condition ICD9-CM Code [id number] Code Onset Dates Condition S tatus SNOMED Code Problem Encounter for immunization Z23 Act mayuri [id number] Problem Allergic rhinitis J30.9 Active 61 882005 Problem Arthritis of both knees M19.90 Active 898764760 Problem Violation of controlled substance agreement Z91.14 Active 005467236 Problem Other chronic pain G89.29 Active 8 5097720 Problem 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 1099 88313 Problem Mild depression F32.0 Active 3104 75939 Problem Chronic pain syndrome G89.4 Active 97373301 Problem Erectile dysfunction, unspecified erectile dysfunction typ e N52.9 Active 772565368 Problem 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 90 ; Erectile dysfunction, unspecified erectile dysfunction type N52.9 and Pain of right thumb M79.644 [facility] [address] [facility] [id number] [address] [place] [phone] Dec, Acute left-sided low back pa in without sciatica M54.5 [facility] [address] [facility] [id number] [address] [place] [phone] 05 Oct, 2017 Low testosterone level in ma le R79.89 [facility] [address] [facility] [id number] [address] [place] [phone] Sep, Acute swimmer''s ear of left side H60.332 ; Acute left-sided low back pain without sciatica M54.5 ; Low testosterone level in male R79.89 and Erectile dysfunction, unspecified erectile dysfunction type N52.9 [facility] [address] [facility] [id number] [address] [place] [address] Aug, [place] [address] [facility] [id number] [address] [place] [address] Aug, Fatigue, unspecified type R5 3.83 ; Mild depression F32.0 ; Elevated fasting glucose R73.01 ; Erectile dysfunction, unspecified erectile dysfunction type N52.9 and Arthritis of both knees M19.90 [place] [address] [place] [id number] [address] [place] [phone] June, [place] [address] [place] [id number] [address] [place] [phone] June, [place] [address] [place] [id number] [address] [place] [phone] June, Other chronic pain G89.29 ; Screening for lipoid disorders Z13.220 and Arthritis of both knees M19.90 [facility] [address] [facility] [id number] [address] [place] [phone] June, [place] [address] [facility] [id number] [address] [place] [phone] Apr, Arthritis of both knees M19. 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 and Acute otitis externa of left ear, unspecified type H60.502 [facility] [address] [facility] [id number] [address] [place] [phone] Mar, Nodule of neck R22.1 [facility] [address] [place] [id number] [address] [place] [phone] Mar, Allergic conjunctivitis of b oth eyes H10.13 and Skin lesion of neck L98.9 [place] [address] [place] [id number] [address] [place] [phone] Sep, Rectal bleeding K62.5 and Re ctal or anal pain K62.89 [facility] [address] [place] [id number] [address] [place] [phone] Jul, [place] [address] [phone] Jul, Chronic pain syndrome G89.4 [place] [address] [facility] [id number] [address] [place] [phone] June, Chronic pain syndrome G89.4 ; Arthritis of both knees M19.90 and Irritation of both eyes H57.8 [place] [address] [place] [id number] [place] [phone] May, Chronic pain syndrome G89.4 [place] [id number] [place] [phone] Apr, Chronic pain syndrome G89.4 [place] [address] [phone] 08 Mar, 2016 Chronic pain syndrome G89.4 ; 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 ; Arthritis of both knees M19.90 ; 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 ; Arthritis of right knee M17.11 and Acute non-recurrent maxillary sinusitis J01.00 [facility] [address] [facility] [id number] [address] [place] [id number] 07 Mar, 2016 Dental examination Z01.20 [facility] [address] [place] [id number] [address] [place] [phone] 04 Feb, 2016 Chronic pain syndrome G89.4 ; 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 ; Arthritis of both knees M19.90 ; Seasonal allergic rhinitis, unspecified allergic rhinitis trigger J30.2 ; Erectile dysfunction, unspecified erectile dysfunction type N52.9 and 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 [facility] [address] [id number] [address] [place] [phone] Dec, [facility] [address] [id number] [address] [place] [phone] Dec, [facility] [address] [id number] [address] [place] [phone] Dec, Chronic pain syndrome G89.4 ; Encounter for immunization Z23 ; B- cell lymphoma C85.10 and Arthritis of both knees M19.90 [facility] [address] [id number] [address] [place] [phone] Oct, [facility] [address] [id number] [address] [place] [phone] Sep, [facility] [address] [id number] [address] [place] [phone] Jul, Chronic pain syndrome G89.4 ; 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 and Arthritis of both knees M19.90 [facility] [address] [id number] [address] [place] [address] Jul, Pain in right knee M25.561 a nd Pain in left knee M25.562 [facility] [address] [id number] [address] [place] [address] Jul, [facility] [address] [id number] [address] [place] [address] June, Pain in right knee M25.561 ; Pain in left knee M25.562 and Out of work Z56.0 [facility] [address] [id number] [address] [place] [phone] June, [facility] [address] [id number] [address] [place] [address] June, [facility] [address] [id number] [address] [place] [phone] June, Chronic pain syndrome G89.4 ; 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 and Poison rosy dermatitis L23.7 [facility] [address] [facility] [id number] [address] [place] [phone] May, [facility] [address] [facility] [id number] [address] [place] [address] Apr, Chronic pain syndrome G89.4 ; 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 and Allergic rhinitis J30.9 [facility] [address] [facility] [id number] [address] [place] [phone] Feb, [facility] [address] [facility] [id number] [address] [place] [phone] Jan, Chronic pain syndrome G89.4 ; 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 and Sinusitis, acute J01.90 [facility] [address] [facility] [id number] [address] [place] [phone] Jan, Sinusitis, acute J01.90 [facility] [address] [facility] [id number] [address] [place] [phone] Jan, [facility] [address] [facility] [id number] [address] [place] [phone] Jan, Chronic pain syndrome G89.4 and 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 [facility] [address] [facility] [id number] [address] [place] [phone] Dec, Chronic pain syndrome G89.4 ; 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 ; Encounter for immunization Z23 and Erectile dysfunction due to diseases classified elsewhere N52.1 [facility] [address] [facility] [id number] [address] [place] [phone] Nov, Chronic pain syndrome G89.4 and 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 [facility] [address] [facility] [id number] [address] [place] [phone] Oct, [facility] [address] [facility] [id number] [address] [place] [phone] Sep, Non-Hodgkin lymphoma 202.80 and Chronic pain 338.29 [facility] [address] [id number] [address] [place] [phone] Aug, Non-Hodgkin lymphoma 202.80 ; Chronic pain 338.29 and Gastritis determined by endoscopy 535.50 [facility] [address] [id number] [address] [place] [phone] Aug, [facility] [address] [id number] [address] [place] [phone] Aug, [facility] [address] [id number] [address] [place] [address] Aug, [facility] [address] [id number] [address] [place] [phone] Jul, Non-Hodgkin lymphoma 202.80 ; Chronic pain 338.29 and Gastritis determined by endoscopy 535.50 [facility] [address] [id number] [address] [place] [phone] Jul, [facility] [address] [facility] [id number] [address] [place] [address] Jul, Lymphoma 202.80 ; Hearing di fficulty 389.9 ; Eye pain 379.91 ; Chronic pain 338.29 and Abscess and cellulitis 682.9 [facility] [address] [id number] [address] [place] [phone] June, [facility] [address] [id number] [address] [place] [phone] May, [facility] [address] [id number] [address] [place] [phone] May, [facility] [address] [id number] [address] [place] [phone] Feb, [facility] [address] [facility] [id number] [address] [place] [phone] Feb, [facility] [address] [facility] [id number] [address] [place] [phone] Nov, [facility] [address] [facility] [id number] [address] [place] [phone] Sep, [facility] [address] [facility] [id number] [address] [place] [phone] Aug, [facility] [address] [facility] [id number] [address] [place] [phone] Jul, [facility] [address] [facility] [id number] [address] [place] [phone] May, [facility] [address] [facility] [id number] [address] [place] [phone] Aug, IMMUNIZATIONS No Known Immunizations SOCIAL HISTORY Never Assessed REASON FOR VISIT EMR-[facility] PLAN OF CARE VITAL SIGNS MEDICATIONS No Known Medications RESULTS No Results PROCEDURES No Known procedures INSTRUCTIONS MEDICATIONS ADMINISTERED No Known Medications MEDICAL (GENERAL) HISTORY Type Description Date Medical History lymphoma B-Cell--diagnosed 02/2013, [facility] 02/2014 Medical History hypertension Medical History Bone Marrow Transplant 02/25/2014 at [facility] Medical History Violation of controlled substance agreem ent Surgical History orthopedic surgery-broke tendon in right hand repaired Surgical History otolaryngologic surgery Surgical History orthopedic surgery--ligament removal fro m left shoulder Surgical History Excisional Biopsy of right iliac lymph n ode at [facility] 07/2014 Surgical History EGD in which they did a biopsy 02/2015 Surgical History biopsy on back of neck Hospitalization History Hospitalization for surgery only
--- OUTSIDE RECORDS SUMMARY | 2019-05-26 17:46 | XMS REPORT ---
Author Author Beth GRIJALVA [facility] Address [address] [place] [address] Care Team Providers Care Depilatory Painter Name Role Phone 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 Unavailable PROBLEMS Type Condition ICD9-CM Code WMA92-TB Code Onset Dates Condition S tatus SNOMED Code Problem Encounter for immunization Z23 Act mayuri 513191288 Problem Arthritis of both knees M19.90 Active 794348567 Problem Allergic rhinitis J30.9 Active 61 419157 Problem Violation of controlled substance agreement Z91.14 Active 856969559 Problem Chronic pain syndrome G89.4 Active 22960369 Problem 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 1099 48195 Problem Mild depression F32.0 Active 3104 49506 Problem Other chronic pain G89.29 Active 8 7883536 Problem 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 910370887 Problem Erectile dysfunction, unspecified erectile dysfunction typ e N52.9 Active 482218011 Problem 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 Active 573805709 Problem Arthritis of right knee M17.11 Active 551169002 ALLERGIES Substance Reaction Event Type Date Status Penicillin V Potassium headache Drug Allergy June, Activ e ENCOUNTERS Encounter Location Date Diagnosis [facility] [address] [facility] [id number] [address] [place] [address] Aug, [facility] [address] [facility] [id number] [address] [place] [address] Aug, Fatigue, unspecified type R5 3.83 ; Mild depression F32.0 ; Elevated fasting glucose R73.01 ; Erectile dysfunction, unspecified erectile dysfunction type N52.9 and Arthritis of both knees M19.90 [facility] [address] [facility] [id number] [address] [place] [address] June, [facility] [address] [place] [id number] [address] [place] [address] June, [place] [address] [facility] [id number] [address] [place] [address] June, Other chronic pain G89.29 ; Screening for lipoid disorders Z13.220 and Arthritis of both knees M19.90 [facility] [address] [facility] [id number] [address] [place] [address] June, [place] [address] [facility] [id number] [address] [place] [address] Apr, Arthritis of both knees M19. 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 and Acute otitis externa of left ear, unspecified type H60.502 [place] [address] [facility] [id number] [address] [place] [address] Mar, Nodule of neck R22.1 [place] [address] [place] [id number] [address] [place] [address] Mar, Allergic conjunctivitis of b oth eyes H10.13 and Skin lesion of neck L98.9 [place] [address] [facility] [id number] [address] [place] [address] Sep, Rectal bleeding K62.5 and Re ctal or anal pain K62.89 [place] [address] [facility] [id number] [address] [place] [address] Jul, [place] [address] [facility] [id number] [address] [place] [address] Jul, Chronic pain syndrome G89.4 [place] [address] [facility] [id number] [address] [place] [address] June, Chronic pain syndrome G89.4 ; Arthritis of both knees M19.90 and Irritation of both eyes H57.8 [place] [address] [facility] [id number] [address] [place] [address] May, Chronic pain syndrome G89.4 [place] [address] [place] [id number] [address] [place] [address] 13 Apr, 2016 Chronic pain syndrome G89.4 [facility] [address] [facility] [id number] [address] [place] [address] 08 Mar, 2016 Chronic pain syndrome G89.4 ; 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 ; Arthritis of both knees M19.90 ; 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 ; Arthritis of right knee M17.11 and Acute non-recurrent maxillary sinusitis J01.00 [facility] [address] [id number] [address] [place] [id number] 07 Mar, 2016 Dental examination Z01.20 [facility] [address] [facility] [id number] [address] [place] [phone] 04 Feb, 2016 Chronic pain syndrome G89.4 ; 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 ; Arthritis of both knees M19.90 ; Seasonal allergic rhinitis, unspecified allergic rhinitis trigger J30.2 ; Erectile dysfunction, unspecified erectile dysfunction type N52.9 and 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 [facility] [address] [facility] [id number] [address] [place] [address] Dec, [facility] [address] [facility] [id number] [address] [place] [address] Dec, [facility] [address] [facility] [id number] [address] [place] [address] Dec, Chronic pain syndrome G89.4 ; Encounter for immunization Z23 ; B- cell lymphoma C85.10 and Arthritis of both knees M19.90 [facility] [address] [facility] [id number] [address] [place] [address] Oct, [facility] [address] [facility] [id number] [address] [place] [address] Sep, [facility] [address] [facility] [id number] [address] [place] [address] Jul, Chronic pain syndrome G89.4 ; 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 and Arthritis of both knees M19.90 [facility] [address] [id number] [address] [place] [phone] 14 Jul, 2015 Pain in right knee M25.561 a nd Pain in left knee M25.562 [facility] [address] [id number] [address] [place] [address] Jul, [facility] [address] [id number] [address] [place] [address] June, Pain in right knee M25.561 ; Pain in left knee M25.562 and Out of work Z56.0 [facility] [address] [id number] [address] [place] [address] June, [facility] [address] [id number] [address] [place] [address] June, [facility] [address] [id number] [address] [place] [address] June, Chronic pain syndrome G89.4 ; 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 and Poison rosy dermatitis L23.7 [facility] [address] [id number] [address] [place] [address] May, [facility] [address] [id number] [address] [place] [address] Apr, Chronic pain syndrome G89.4 ; 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 and Allergic rhinitis J30.9 [facility] [address] [id number] [address] [place] [address] Feb, [facility] [address] [id number] [address] [place] [address] Jan, Chronic pain syndrome G89.4 ; 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 and Sinusitis, acute J01.90 [facility] [address] [id number] [address] [place] [address] Jan, Sinusitis, acute J01.90 [facility] [address] [id number] [address] [place] [address] Jan, [facility] [address] [id number] [address] [place] [address] Jan, Chronic pain syndrome G89.4 and 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 [facility] [address] [id number] [address] [place] [address] Dec, Chronic pain syndrome G89.4 ; 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 ; Encounter for immunization Z23 and Erectile dysfunction due to diseases classified elsewhere N52.1 [facility] [address] [id number] [address] [place] [address] Nov, Chronic pain syndrome G89.4 and 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 [facility] [address] [id number] [address] [place] [address] Oct, [facility] [address] [id number] [address] [place] [address] Sep, Non-Hodgkin lymphoma 202.80 and Chronic pain 338.29 [facility] [address] [id number] [address] [place] [address] Aug, Non-Hodgkin lymphoma 202.80 ; Chronic pain 338.29 and Gastritis determined by endoscopy 535.50 [facility] [address] [id number] [address] [place] [address] Aug, [facility] [address] [id number] [address] [place] [address] Aug, [facility] [address] [id number] [address] [place] [address] Aug, [facility] [address] [id number] [address] [place] [address] Jul, Non-Hodgkin lymphoma 202.80 ; Chronic pain 338.29 and Gastritis determined by endoscopy 535.50 [facility] [address] [id number] [address] [place] [address] Jul, [facility] [address] [id number] [address] [place] [address] Jul, Lymphoma 202.80 ; Hearing di fficulty 389.9 ; Eye pain 379.91 ; Chronic pain 338.29 and Abscess and cellulitis 682.9 [facility] [address] [id number] [address] [place] [address] June, [facility] [address] [id number] [address] [place] [address] May, [facility] [address] [id number] [address] [place] [address] May, [facility] [address] [id number] [address] [place] [address] Feb, [facility] [address] [id number] [address] [place] [address] Feb, [facility] [address] [id number] [address] [place] [address] Nov, [facility] [address] [id number] [address] [place] [address] Sep, [facility] [address] [id number] [address] [place] [address] Aug, [facility] [address] [id number] [address] [place] [address] Jul, [facility] [address] [id number] [address] [place] [address] May, [facility] [address] [id number] [address] [place] [address] Aug, IMMUNIZATIONS No Known Immunizations SOCIAL HISTORY Never Assessed REASON FOR VISIT ipt--Joselito pt explains two weeks ago his knees locked up and he fell an d he has been having troubles with his knees locking PLAN OF CARE Activity Details Follow Up 6 Months, and prn Reason: VITAL SIGNS Height 65 in 2017-06-17 Weight 180.8 lbs 2017-06-17 Temperature 97.9 degrees Fahrenheit 2017-06-17 Heart Rate 90 bpm 2017-06-17 Respiratory Rate 20 2017-06-17 BMI 30.08 kg/m2 2017-06-17 Blood pressure systolic 126 mmHg 2017-06-17 Blood pressure diastolic 84 mmHg 2017-06-17 MEDICATIONS Medication Instructions Dosage Frequency Start Date End Date Duration S tatus Restasis 0.05 % Ophthalmic Twice a day 1 drop into affected eye 12h 16 Jun, 2016 June, 90 days Active Viagra 100 mg Orally Once a day /-1 tablet as needed 24h Apr, 018 Active Meloxicam 7.5 MG Orally Once a day 1 tablet 24h June, Aug, 30 day(s) Active Tramadol HCl 50 mg 1 tablet as needed June,2017 14 days Active RESULTS Name Result Date Reference Range LIPID (OUTSIDE LAB) PROCEDURES Procedure Date Ordered Result Body Site [facility] VISIT ESTABLISHED PATIENT June 17, 2017 INSTRUCTIONS MEDICATIONS ADMINISTERED No Known Medications MEDICAL (GENERAL) HISTORY Type Description Date Medical History lymphoma B-Cell--diagnosed 02/2013, [facility] 02/2014 Medical History hypertension Medical History Bone Marrow Transplant 02/25/2014 at [facility] Medical History Violation of controlled substance agreem ent Surgical History orthopedic surgery-broke tendon in right hand repaired Surgical History otolaryngologic surgery Surgical History orthopedic surgery--ligament removal fro m left shoulder Surgical History Excisional Biopsy of right iliac lymph n jo-anne at [facility] 07/2014 Surgical History EGD in which they did a biopsy 02/2015 Surgical History biopsy on back of neck Hospitalization History Hospitalization for surgery only
--- OUTSIDE RECORDS SUMMARY | 2019-05-26 17:46 | XMS REPORT ---
Author Author Beth IVY Organization [employer] Address Unknown Phone Unavailable Care Team Providers Care Bingo Floater Name Role Phone DIANE IVY CP Unavailable Allergies No Known Allergies Problems Problem Type Condition ICD-9 Code Onset Dates Condition Statu s Problem Pneumonia, organism unspecified 486 Active Problem Pain in joint, lower leg 719.46 Act mayuri Problem Influenza with other respiratory manifestations 487.1 Active Medications No Known Medications Results No Known Results Summary Purpose [employer] Submission
--- OUTSIDE RECORDS SUMMARY | 2019-05-26 17:46 | XMS REPORT ---
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 Dehydrator Operator Name Role Phone CATA DIANE Unavailable PROBLEMS Type Condition ICD9-CM Code HBK66-GA Code Onset Dates Condition S tatus SNOMED Code Problem Encounter for immunization Z23 Act mayuri 850500180 Problem Arthritis of both knees M19.90 Active 405495480 Problem Allergic rhinitis J30.9 Active 61 648597 Problem Violation of controlled substance agreement Z91.14 Active 591388691 Problem Chronic pain syndrome G89.4 Active 80769717 Problem 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 1099 40134 Problem Mild depression F32.0 Active 3104 36755 Problem Other chronic pain G89.29 Active 8 5208565 Problem 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 876757069 Problem Erectile dysfunction, unspecified erectile dysfunction typ e N52.9 Active 444860958 Problem 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 Active 681700150 Problem Arthritis of right knee M17.11 Active [id number] ALLERGIES No Information ENCOUNTERS Encounter Location Date Diagnosis [facility] [address] [facility] [id number] [address] [place] [phone] Aug, [facility] [address] [facility] [id number] [address] [place] [phone] Aug, Fatigue, unspecified type R5 3.83 ; Mild depression F32.0 ; Elevated fasting glucose R73.01 ; Erectile dysfunction, unspecified erectile dysfunction type N52.9 and Arthritis of both knees M19.90 [facility] [address] [facility] [id number] [address] [place] [phone] June, [facility] [address] [facility] [id number] [address] [place] [phone] June, [place] [address] [id number] [address] [place] [phone] June, Other chronic pain G89.29 ; Screening for lipoid disorders Z13.220 and Arthritis of both knees M19.90 [facility] [address] [id number] [address] [place] [phone] June, [place] [address] [facility] [id number] [address] [place] [phone] Apr, Arthritis of both knees M19. 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 and Acute otitis externa of left ear, unspecified type H60.502 [place] [address] [id number] [address] [place] [phone] Mar, Nodule of neck R22.1 [place] [address] [facility] [id number] [address] [place] [phone] Mar, Allergic conjunctivitis of b oth eyes H10.13 and Skin lesion of neck L98.9 [place] [address] [facility] [id number] [address] [place] [phone] Sep, Rectal bleeding K62.5 and Re ctal or anal pain K62.89 [place] [address] [facility] [id number] [address] [place] [phone] Jul, [place] [address] [facility] [id number] [address] [place] [phone] Jul, Chronic pain syndrome G89.4 [place] [address] [facility] [id number] [address] [place] [phone] June, Chronic pain syndrome G89.4 ; Arthritis of both knees M19.90 and Irritation of both eyes H57.8 [place] [address] [id number] [address] [place] [phone] May, Chronic pain syndrome G89.4 [place] [address] [facility] [id number] [address] [place] [phone] Apr, Chronic pain syndrome G89.4 [facility] [address] [facility] [id number] [address] [place] [phone] 08 Mar, 2016 Chronic pain syndrome G89.4 ; 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 ; Arthritis of both knees M19.90 ; 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 ; Arthritis of right knee M17.11 and Acute non-recurrent maxillary sinusitis J01.00 [facility] [address] [id number] [address] [place] [id number] Mar, 2016 Dental examination Z01.20 [facility] [address] [facility] [id number] [address] [place] [phone] 04 Feb, 2016 Chronic pain syndrome G89.4 ; 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 ; Arthritis of both knees M19.90 ; Seasonal allergic rhinitis, unspecified allergic rhinitis trigger J30.2 ; Erectile dysfunction, unspecified erectile dysfunction type N52.9 and 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 [facility] [address] [facility] [id number] [address] [place] [phone] Dec, [facility] [address] [facility] [id number] [address] [place] [phone] Dec, [facility] [address] [facility] [id number] [address] [place] [id number] Dec, Encounter for immunization Z 23 ; Chronic pain syndrome G89.4 ; B- cell lymphoma C85.10 and Arthritis of both knees M19.90 [facility] [address] [facility] [id number] [address] [place] [phone] Oct, [facility] [address] [facility] [id number] [address] [place] [phone] Sep, [facility] [address] [facility] [id number] [address] [place] [phone] Jul, Chronic pain syndrome G89.4 ; 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 and Arthritis of both knees M19.90 [facility] [address] [facility] [id number] [address] [place] [phone] 14 Jul, 2015 Pain in right knee M25.561 a nd Pain in left knee M25.562 [facility] [address] [facility] [id number] [address] [place] [phone] Jul, [facility] [address] [facility] [id number] [address] [place] [phone] June, Pain in right knee M25.561 ; Pain in left knee M25.562 and Out of work Z56.0 [facility] [address] [facility] [id number] [address] [place] [phone] June, [facility] [address] [facility] [id number] [address] [place] [phone] June, [place] [address] [facility] [id number] [address] [place] [phone] June, Chronic pain syndrome G89.4 ; 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 and Poison rosy dermatitis L23.7 [facility] [address] [facility] [id number] [address] [place] [phone] May, [facility] [address] [facility] [id number] [address] [place] [phone] Apr, Chronic pain syndrome G89.4 ; 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 and Allergic rhinitis J30.9 [facility] [address] [facility] [id number] [address] [place] [phone] Feb, [facility] [address] [facility] [id number] [address] [place] [phone] Jan, Chronic pain syndrome G89.4 ; 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 and Sinusitis, acute J01.90 [facility] [address] [facility] [id number] [address] [place] [phone] Jan, Sinusitis, acute J01.90 [facility] [address] [facility] [id number] [address] [place] [phone] Jan, [facility] [address] [facility] [id number] [address] [place] [phone] Jan, Chronic pain syndrome G89.4 and 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 [place] [address] [facility] [id number] [address] [place] [phone] Dec, Chronic pain syndrome G89.4 ; 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 ; Encounter for immunization Z23 and Erectile dysfunction due to diseases classified elsewhere N52.1 [place] [address] [place] [id number] [address] [place] [phone] Nov, Chronic pain syndrome G89.4 and 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 [place] [address] [facility] [id number] [address] [place] [phone] Oct, [place] [address] [place] [id number] [address] [place] [phone] Sep, Non-Hodgkin lymphoma 202.80 and Chronic pain 338.29 [place] [address] [facility] [id number] [address] [place] [phone] Aug, Non-Hodgkin lymphoma 202.80 ; Chronic pain 338.29 and Gastritis determined by endoscopy 535.50 [place] [address] [facility] [id number] [address] [place] [phone] Aug, [place] [address] [facility] [id number] [address] [place] [phone] Aug, [place] [address] [facility] [id number] [address] [place] [phone] Aug, [place] [address] [facility] [id number] [address] [place] [phone] Jul, Non-Hodgkin lymphoma 202.80 ; Chronic pain 338.29 and Gastritis determined by endoscopy 535.50 [facility] [address] [facility] [id number] [address] [place] [phone] Jul, [place] [address] [facility] [id number] [address] [place] [phone] Jul, Lymphoma 202.80 ; Hearing di fficulty 389.9 ; Eye pain 379.91 ; Chronic pain 338.29 and Abscess and cellulitis 682.9 [facility] [address] [id number] [address] [place] [phone] June, [facility] [address] [id number] [address] [place] [phone] May, [facility] [address] [id number] [address] [place] [phone] May, [facility] [address] [id number] [address] [place] [phone] Feb, [facility] [address] [id number] [address] [place] [phone] Feb, [facility] [address] [id number] [address] [place] [phone] Nov, [facility] [address] [id number] [address] [place] [phone] Sep, [facility] [address] [id number] [address] [place] [phone] Aug, [facility] [address] [id number] [address] [place] [phone] Jul, [facility] [address] [id number] [address] [place] [phone] May, [facility] [address] [id number] [address] [place] [phone] Aug, IMMUNIZATIONS No Known Immunizations SOCIAL HISTORY Never Assessed REASON FOR VISIT Requests return call PLAN OF CARE VITAL SIGNS MEDICATIONS Unknown Medications RESULTS No Results PROCEDURES No Known procedures INSTRUCTIONS MEDICATIONS ADMINISTERED No Known Medications MEDICAL (GENERAL) HISTORY Type Description Date Medical History lymphoma B-Cell--diagnosed 02/2013, remis jesus 02/2014 Medical History hypertension Medical History Bone Marrow Transplant 02/25/[address] [facility] Medical History Violation of controlled substance agreem ent Surgical History orthopedic surgery-broke tendon in right hand repaired Surgical History otolaryngologic surgery Surgical History orthopedic surgery--ligament removal fro m left shoulder Surgical History Excisional Biopsy of right iliac lymph n ode at [facility] 07/2014 Surgical History EGD in which they did a biopsy 02/2015 Surgical History biopsy on back of neck Hospitalization History Hospitalization for surgery only
--- OUTSIDE RECORDS SUMMARY | 2019-05-26 17:46 | XMS REPORT ---
Author Author Beth GRIJALVA [facility] Address [address] [place] [address] Care Team Providers Care Cloth Folder Hand Name Role Phone 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 Unavailable PROBLEMS Type Condition ICD9-CM Code VNL18-LY Code Onset Dates Condition S tatus SNOMED Code Problem Encounter for immunization Z23 Act mayuri [id number] Problem Arthritis of both knees M19.90 Active 551675801 Problem Allergic rhinitis J30.9 Active 61 922492 Problem Violation of controlled substance agreement Z91.14 Active 456240158 Problem Chronic pain syndrome G89.4 Active 32409321 Problem 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 1099 13880 Problem Mild depression F32.0 Active 3104 03060 Problem Other chronic pain G89.29 Active 8 3077513 Problem 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 519499196 Problem Erectile dysfunction, unspecified erectile dysfunction typ e N52.9 Active 532775414 Problem 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 Active 319006320 Problem Arthritis of right knee M17.11 Active 907481775 ALLERGIES Substance Reaction Event Type Date Status Penicillin V Potassium headache Drug Allergy Sep, Activ e ENCOUNTERS Encounter Location Date Diagnosis [facility] [address] [facility] [id number] [address] [place] [phone] Oct, Low testosterone level in ma le R79.89 [facility] [address] [facility] [id number] [address] [place] [phone] Sep, Acute swimmer''s ear of left side H60.332 ; Acute left-sided low back pain without sciatica M54.5 ; Low testosterone level in male R79.89 and Erectile dysfunction, unspecified erectile dysfunction type N52.9 [facility] [address] [facility] [id number] [address] [place] [phone] Aug, [place] [id number] [facility] [id number] [address] [place] [phone] Aug, Fatigue, unspecified type R5 3.83 ; Mild depression F32.0 ; Elevated fasting glucose R73.01 ; Erectile dysfunction, unspecified erectile dysfunction type N52.9 and Arthritis of both knees M19.90 [place] [id number] [facility] [id number] [address] [place] [phone] June, [place] [address] [facility] [id number] [address] [place] [phone] June, [place] [address] [facility] [id number] [address] [place] [phone] June, Other chronic pain G89.29 ; Screening for lipoid disorders Z13.220 and Arthritis of both knees M19.90 [place] [address] [facility] [id number] [address] [place] [phone] June, [place] [address] [facility] [id number] [address] [place] [phone] Apr, Arthritis of both knees M19. 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 and Acute otitis externa of left ear, unspecified type H60.502 [place] [address] [facility] [id number] [address] [place] [phone] Mar, Nodule of neck R22.1 [place] [address] [facility] [id number] [address] [place] [phone] Mar, Allergic conjunctivitis of b oth eyes H10.13 and Skin lesion of neck L98.9 [place] [address] [facility] [id number] [address] [place] [phone] Sep, Rectal bleeding K62.5 and Re ctal or anal pain K62.89 [place] [address] [facility] [id number] [address] [place] [phone] Jul, [place] [address] [facility] [id number] [address] [place] [phone] Jul, Chronic pain syndrome G89.4 [facility] [address] [facility] [id number] [address] [place] [phone] June, Chronic pain syndrome G89.4 ; Arthritis of both knees M19.90 and Irritation of both eyes H57.8 [facility] [address] [facility] [id number] [address] [place] [phone] May, Chronic pain syndrome G89.4 [facility] [address] [facility] [id number] [address] [place] [phone] Apr, Chronic pain syndrome G89.4 [place] [address] [facility] [id number] [address] [place] [phone] 08 Mar, 2016 Chronic pain syndrome G89.4 ; 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 ; Arthritis of both knees M19.90 ; 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 ; Arthritis of right knee M17.11 and Acute non-recurrent maxillary sinusitis J01.00 [facility] [address] [id number] [address] [place] [id number] 07 Mar, 2016 Dental examination Z01.20 [facility] [address] [facility] [id number] [address] [place] [phone] 04 Feb, 2016 Chronic pain syndrome G89.4 ; 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 ; Arthritis of both knees M19.90 ; Seasonal allergic rhinitis, unspecified allergic rhinitis trigger J30.2 ; Erectile dysfunction, unspecified erectile dysfunction type N52.9 and 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 [facility] [address] [facility] [id number] [address] [place] [phone] Dec, [facility] [address] [facility] [id number] [address] [place] [phone] Dec, [facility] [address] [facility] [id number] [address] [place] [phone] Dec, Chronic pain syndrome G89.4 ; Encounter for immunization Z23 ; B- cell lymphoma C85.10 and Arthritis of both knees M19.90 [facility] [address] [id number] [address] [place] [phone] Oct, [facility] [address] [id number] [address] [place] [phone] Sep, [facility] [address] [id number] [address] [place] [phone] Jul, Chronic pain syndrome G89.4 ; 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 and Arthritis of both knees M19.90 [facility] [address] [id number] [address] [place] [id number] Jul, Pain in right knee M25.561 a nd Pain in left knee M25.562 [facility] [address] [id number] [address] [place] [phone] Jul, [facility] [address] [id number] [address] [place] [address] June, Pain in right knee M25.561 ; Pain in left knee M25.562 and Out of work Z56.0 [facility] [address] [id number] [address] [place] [phone] June, [facility] [address] [id number] [address] [place] [phone] June, [facility] [address] [id number] [address] [place] [phone] June, Chronic pain syndrome G89.4 ; 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 and Poison rosy dermatitis L23.7 [facility] [address] [id number] [address] [place] [id number] May, [facility] [address] [id number] [address] [place] [phone] Apr, Chronic pain syndrome G89.4 ; 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 and Allergic rhinitis J30.9 [facility] [address] [id number] [address] [place] [phone] Feb, [facility] [address] [facility] [id number] [address] [place] [phone] Jan, Chronic pain syndrome G89.4 ; 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 and Sinusitis, acute J01.90 [facility] [address] [facility] [id number] [address] [place] [phone] Jan, Sinusitis, acute J01.90 [facility] [address] [facility] [id number] [address] [place] [phone] Jan, [facility] [address] [facility] [id number] [address] [place] [phone] Jan, Chronic pain syndrome G89.4 and 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 [facility] [address] [facility] [id number] [address] [place] [id number] Dec, Chronic pain syndrome G89.4 ; 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 ; Encounter for immunization Z23 and Erectile dysfunction due to diseases classified elsewhere N52.1 [facility] [address] [facility] [id number] [address] [place] [phone] Nov, Chronic pain syndrome G89.4 and 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 [facility] [address] [facility] [id number] [address] [place] [id number] Oct, [facility] [address] [facility] [id number] [address] [place] [phone] Sep, Non-Hodgkin lymphoma 202.80 and Chronic pain 338.29 [facility] [address] [facility] [id number] [address] [place] [phone] Aug, Non-Hodgkin lymphoma 202.80 ; Chronic pain 338.29 and Gastritis determined by endoscopy 535.50 [facility] [address] [facility] [id number] [address] [place] [phone] Aug, [facility] [address] [facility] [id number] [address] [place] [phone] Aug, [facility] [address] [id number] [address] [place] [phone] Aug, [facility] [address] [id number] [address] [place] [phone] Jul, Non-Hodgkin lymphoma 202.80 ; Chronic pain 338.29 and Gastritis determined by endoscopy 535.50 [facility] [address] [id number] [address] [place] [id number] Jul, [facility] [address] [id number] [address] [place] [phone] Jul, Lymphoma 202.80 ; Hearing di fficulty 389.9 ; Eye pain 379.91 ; Chronic pain 338.29 and Abscess and cellulitis 682.9 [facility] [address] [id number] [address] [place] [phone] June, [facility] [address] [facility] [id number] [address] [place] [phone] May, [facility] [address] [id number] [address] [place] [phone] May, [facility] [address] [facility] [id number] [address] [place] [phone] Feb, [facility] [address] [facility] [id number] [address] [place] [phone] Feb, [facility] [address] [facility] [id number] [address] [place] [phone] Nov, [facility] [address] [id number] [address] [place] [phone] Sep, [facility] [address] [id number] [address] [place] [phone] Aug, [facility] [address] [facility] [id number] [address] [place] [phone] Jul, [facility] [address] [facility] [id number] [address] [place] [phone] May, [facility] [address] [facility] [id number] [address] [place] [address] Aug, IMMUNIZATIONS No Known Immunizations SOCIAL HISTORY Never Assessed REASON FOR VISIT Ear pain/Low back pain- Donna Byrd RN PLAN OF CARE Activity Details Follow Up prn Reason: VITAL SIGNS Height 65 in 2017-10-08 Weight 179 lbs 2017-10-08 Temperature 98.2 degrees Fahrenheit 2017-10-08 Heart Rate 85 bpm 2017-10-08 Respiratory Rate 18 2017-10-08 BMI 29.78 kg/m2 2017-10-08 Blood pressure systolic 130 mmHg 2017-10-08 Blood pressure diastolic 78 mmHg 2017-10-08 MEDICATIONS Medication Instructions Dosage Frequency Start Date End Date Duration S tatus Restasis 0.05 % Ophthalmic Twice a day 1 drop into affected eye 12h June, June, 90 days Active Bcymyvll-Tlcyksenm-XC 3.5-54763-5 Otic Three times a day 4 d rops into affected ear 8h Sep, 10 days Active Tramadol HCl 50 mg 1 tablet as needed June, 14 days Active Advil 200 MG Orally 3 times a day 3 tablet as needed 8h Active Viagra 100 mg Orally Once a day 1/2-1 tablet as needed 24h 10 Active RESULTS No Results PROCEDURES Procedure Date Ordered Result Body Site [facility] VISIT ESTABLISHED PATIENT Oct 08, 2017 INSTRUCTIONS MEDICATIONS ADMINISTERED No Known Medications MEDICAL (GENERAL) HISTORY Type Description Date Medical History lymphoma B-Cell--diagnosed 02/2013, [facility] 02/2014 Medical History hypertension Medical History Bone Marrow Transplant 02/25/2014 at [facility] Medical History Violation of controlled substance agreem ent Surgical History orthopedic surgery-broke tendon in right hand repaired Surgical History otolaryngologic surgery Surgical History orthopedic surgery--ligament removal fro m left shoulder Surgical History Excisional Biopsy of right iliac lymph n ode at [facility] 07/2014 Surgical History EGD in which they did a biopsy 02/2015 Surgical History biopsy on back of neck Hospitalization History Hospitalization for surgery only
--- OUTSIDE RECORDS SUMMARY | 2019-05-26 17:46 | XMS REPORT ---
Author Author Beth [facility] Address [address] [place] [address] Care Team Providers Care Field Superintendent Name Role Phone CATA DIANE Unavailable PROBLEMS Type Condition ICD9-CM Code CVM66-[place] Code Onset Dates Condition S tatus SNOMED Code Problem Encounter for immunization Z23 Act mayuri [id number] Problem Arthritis of both knees M19.90 Active 269715393 Problem Allergic rhinitis J30.9 Active 61 075786 Problem Violation of controlled substance agreement Z91.14 Active 108033882 Problem Chronic pain syndrome G89.4 Active 77660032 Problem 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 1099 07524 Problem Mild depression F32.0 Active 3104 16705 Problem Other chronic pain G89.29 Active 8 4259722 Problem 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 582406061 Problem Erectile dysfunction, unspecified erectile dysfunction typ e N52.9 Active 451373970 Problem 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 Active 253130486 Problem Arthritis of right knee M17.11 Active 215290447 ALLERGIES Substance Reaction Event Type Date Status Penicillin V Potassium headache Drug Allergy Apr, Activ e ENCOUNTERS Encounter Location Date Diagnosis [facility] [address] [facility] [id number] [address] [place] [phone] Aug, Fatigue, unspecified type R5 3.83 ; Mild depression F32.0 ; Elevated fasting glucose R73.01 ; Erectile dysfunction, unspecified erectile dysfunction type N52.9 and Arthritis of both knees M19.90 [facility] [address] [facility] [id number] [address] [place] [phone] June, [facility] [address] [facility] [id number] [address] [place] [phone] June, [facility] [address] [facility] [id number] [address] [place] [phone] June, Other chronic pain G89.29 ; Screening for lipoid disorders Z13.220 and Arthritis of both knees M19.90 [facility] [address] [facility] [id number] [address] [place] [phone] June, [place] [id number] [facility] [id number] [address] [place] [phone] Apr, Arthritis of both knees M19. 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 and Acute otitis externa of left ear, unspecified type H60.502 [place] [address] [facility] [id number] [address] [place] [phone] Mar, Nodule of neck R22.1 [place] [address] [place] [id number] [address] [place] [phone] Mar, Allergic conjunctivitis of b oth eyes H10.13 and Skin lesion of neck L98.9 [place] [id number] [facility] [id number] [address] [place] [phone] Sep, Rectal bleeding K62.5 and Re ctal or anal pain K62.89 [place] [address] [facility] [id number] [address] [place] [phone] Jul, [place] [address] [facility] [id number] [address] [place] [phone] Jul, Chronic pain syndrome G89.4 [place] [address] [facility] [id number] [address] [place] [phone] June, Chronic pain syndrome G89.4 ; Arthritis of both knees M19.90 and Irritation of both eyes H57.8 [place] [address] [facility] [id number] [address] [place] [phone] May, Chronic pain syndrome G89.4 [place] [address] [facility] [id number] [address] [place] [phone] Apr, Chronic pain syndrome G89.4 [facility] [address] [id number] [address] [place] [phone] 08 Mar, 2016 Chronic pain syndrome G89.4 ; 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 ; Arthritis of both knees M19.90 ; 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 ; Arthritis of right knee M17.11 and Acute non-recurrent maxillary sinusitis J01.00 [facility] [address] [id number] [address] [place] [id number] 07 Mar, 2016 Dental examination Z01.20 [facility] [address] [facility] [id number] [address] [place] [phone] 04 Feb, 2016 Chronic pain syndrome G89.4 ; 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 ; Arthritis of both knees M19.90 ; Seasonal allergic rhinitis, unspecified allergic rhinitis trigger J30.2 ; Erectile dysfunction, unspecified erectile dysfunction type N52.9 and 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 [facility] [address] [facility] [id number] [address] [place] [phone] 30 Dec, 2015 [facility] [address] [facility] [id number] [address] [place] [phone] Dec, [facility] [address] [facility] [id number] [address] [place] [phone] Dec, Chronic pain syndrome G89.4 ; Encounter for immunization Z23 ; B- cell lymphoma C85.10 and Arthritis of both knees M19.90 [facility] [address] [id number] [address] [place] [phone] Oct, [facility] [address] [facility] [id number] [address] [place] [phone] Sep, [facility] [address] [facility] [id number] [address] [place] [phone] Jul, Chronic pain syndrome G89.4 ; 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 and Arthritis of both knees M19.90 [facility] [address] [facility] [id number] [address] [place] [phone] 14 Jul, 2015 Pain in right knee M25.561 a nd Pain in left knee M25.562 [facility] [address] [id number] [address] [place] [phone] Jul, [facility] [address] [facility] [id number] [address] [place] [address] June, Pain in right knee M25.561 ; Pain in left knee M25.562 and Out of work Z56.0 [facility] [address] [id number] [address] [place] [phone] June, [facility] [address] [id number] [address] [place] [phone] June, [facility] [address] [facility] [id number] [address] [place] [phone] June, Chronic pain syndrome G89.4 ; 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 and Poison rosy dermatitis L23.7 [facility] [address] [facility] [id number] [address] [place] [phone] May, [facility] [address] [facility] [id number] [address] [place] [phone] Apr, Chronic pain syndrome G89.4 ; 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 and Allergic rhinitis J30.9 [facility] [address] [facility] [id number] [address] [place] [phone] Feb, [facility] [address] [facility] [id number] [address] [place] [phone] Jan, Chronic pain syndrome G89.4 ; 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 and Sinusitis, acute J01.90 [facility] [address] [facility] [id number] [address] [place] [phone] Jan, Sinusitis, acute J01.90 [facility] [address] [facility] [id number] [address] [place] [phone] Jan, [facility] [address] [facility] [id number] [address] [place] [phone] Jan, Chronic pain syndrome G89.4 and 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 [place] [address] [place] [id number] [address] [place] [phone] Dec, Chronic pain syndrome G89.4 ; 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 ; Encounter for immunization Z23 and Erectile dysfunction due to diseases classified elsewhere N52.1 [place] [address] [place] [id number] [place] [phone] Nov, Chronic pain syndrome G89.4 and 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 [place] [address] [place] [id number] [address] [place] [phone] Oct, [place] [address] [place] [id number] [place] [phone] Sep, Non-Hodgkin lymphoma 202.80 and Chronic pain 338.29 [place] [address] [place] [id number] [place] [phone] Aug, Non-Hodgkin lymphoma 202.80 ; Chronic pain 338.29 and Gastritis determined by endoscopy 535.50 [place] [address] [place] [id number] [place] [phone] Aug, [place] [address] [place] [id number] [address] [place] [phone] Aug, [place] [address] [place] [id number] [address] [place] [phone] Aug, [place] [address] [place] [id number] [address] [place] [phone] Jul, Non-Hodgkin lymphoma 202.80 ; Chronic pain 338.29 and Gastritis determined by endoscopy 535.50 [place] [address] [facility] [id number] [address] [place] [phone] Jul, [place] [address] [place] [id number] [address] [place] [phone] Jul, Lymphoma 202.80 ; Hearing di fficulty 389.9 ; Eye pain 379.91 ; Chronic pain 338.29 and Abscess and cellulitis 682.9 [facility] [address] [id number] [address] [place] [phone] June, [facility] [address] [id number] [address] [place] [phone] May, [facility] [address] [id number] [address] [place] [phone] May, [facility] [address] [id number] [address] [place] [phone] Feb, [facility] [address] [id number] [address] [place] [phone] Feb, [facility] [address] [id number] [address] [place] [phone] Nov, [facility] [address] [id number] [address] [place] [phone] Sep, [facility] [address] [id number] [address] [place] [phone] Aug, [facility] [address] [id number] [address] [place] [phone] Jul, [facility] [address] [id number] [address] [place] [phone] May, [facility] [address] [id number] [address] [place] [phone] Aug, IMMUNIZATIONS No Known Immunizations SOCIAL HISTORY Never Assessed REASON FOR VISIT pain management fu -- amy prater, pain on left knee x 3 years but getiing w orst lately , left ear discharge x 6 days , PA pending for [facility] PLAN OF CARE Activity Details Follow Up 6 Months, prn. if not improv ing with PCP or reg follow up Reason:annual exam VITAL SIGNS Height 65 in 2017-04-22 Weight 189.0 lbs 2017-04-22 Temperature 98.2 degrees Fahrenheit 2017-04-22 Heart Rate 80 bpm 2017-04-22 Respiratory Rate 18 2017-04-22 BMI 31.45 kg/m2 2017-04-22 Blood pressure systolic 120 mmHg 2017-04-22 Blood pressure diastolic 80 mmHg 2017-04-22 MEDICATIONS Medication Instructions Dosage Frequency Start Date End Date Duration S tatus Advil 200 MG Orally 3 times a day 3 tablet as needed 8h Active Viagra 100 mg Orally Once a day 1/2-1 tablet as needed 24h Apr, 018 Active Floxin Otic 0.3 % Otic Once a day 10 drops into affected ear 24h Apr, Apr, 7 day(s) Active Restasis 0.05 % Ophthalmic Twice a day 1 drop into affected eye 12h June, June, 90 days Active RESULTS Name Result Date Reference Range Xray : Knee, Left 1-2 views (IN HOUSE) 7 PROCEDURES Procedure Date Ordered Result Body Site X-RAY EXAM OF KNEE, 1 OR 2 April 22, 2017 [facility] VISIT ESTABLISHED PATIENT April 22, 2017 INSTRUCTIONS MEDICATIONS ADMINISTERED No Known Medications MEDICAL (GENERAL) HISTORY Type Description Date Medical History lymphoma B-Cell--diagnosed 02/2013, [facility] 02/2014 Medical History hypertension Medical History Bone Marrow Transplant 02/25/2014 at [facility] Medical History Violation of controlled substance agreem ent Surgical History orthopedic surgery-broke tendon in right hand repaired Surgical History otolaryngologic surgery Surgical History orthopedic surgery--ligament removal fro m left shoulder Surgical History Excisional Biopsy of right iliac lymph n ode at [facility] 07/2014 Surgical History EGD in which they did a biopsy 02/2015 Surgical History biopsy on back of neck Hospitalization History Hospitalization for surgery only
--- OUTSIDE RECORDS SUMMARY | 2019-05-26 17:46 | XMS REPORT ---
Author Author Beth GRIJALVA [facility] Address [address] [place] [address] Care Team Providers Care Service Now Developer Name Role Phone 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 Unavailable PROBLEMS Type Condition ICD9-CM Code UHO45-TI Code Onset Dates Condition S tatus SNOMED Code Problem Encounter for immunization Z23 Act mayuri [id number] Problem Arthritis of both knees M19.90 Active 613216899 Problem Allergic rhinitis J30.9 Active 61 875000 Problem Violation of controlled substance agreement Z91.14 Active 621312367 Problem Chronic pain syndrome G89.4 Active 49381510 Problem 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 1099 54119 Problem Mild depression F32.0 Active 3104 09601 Problem Other chronic pain G89.29 Active 8 2262260 Problem 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 584718404 Problem Erectile dysfunction, unspecified erectile dysfunction typ e N52.9 Active 652584838 Problem 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 Active 328933597 Problem Arthritis of right knee M17.11 Active 785024699 ALLERGIES No Information ENCOUNTERS Encounter Location Date Diagnosis [facility] [address] [facility] [id number] [address] [place] [address] Oct, Low testosterone level in ma le R79.89 [facility] [address] [facility] [id number] [address] [place] [address] Sep, Acute swimmer''s ear of left side H60.332 ; Acute left-sided low back pain without sciatica M54.5 ; Low testosterone level in male R79.89 and Erectile dysfunction, unspecified erectile dysfunction type N52.9 [facility] [address] [facility] [id number] [address] [place] [address] Aug, [facility] [address] [facility] [id number] [address] [place] [address] Aug, Fatigue, unspecified type R5 3.83 ; Mild depression F32.0 ; Elevated fasting glucose R73.01 ; Erectile dysfunction, unspecified erectile dysfunction type N52.9 and Arthritis of both knees M19.90 [place] [address] [facility] [id number] [address] [place] [address] June, [place] [address] [facility] [id number] [address] [place] [address] June, [place] [address] [facility] [id number] [address] [place] [address] June, Other chronic pain G89.29 ; Screening for lipoid disorders Z13.220 and Arthritis of both knees M19.90 [place] [address] [address] [facility] [id number] [address] [place] [address] June, [place] [address] [place] [id number] [address] [place] [address] Apr, Arthritis of both knees M19. 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 and Acute otitis externa of left ear, unspecified type H60.502 [place] [address] [place] [id number] [address] [place] [address] Mar, Nodule of neck R22.1 [place] [address] [address] [place] [id number] [address] [place] [address] Mar, Allergic conjunctivitis of b oth eyes H10.13 and Skin lesion of neck L98.9 [place] [address] [facility] [id number] [address] [place] [address] Sep, Rectal bleeding K62.5 and Re ctal or anal pain K62.89 [place] [address] [facility] [id number] [address] [place] [address] Jul, [place] [address] [facility] [id number] [address] [place] [address] Jul, Chronic pain syndrome G89.4 [facility] [address] [facility] [id number] [address] [place] [address] June, Chronic pain syndrome G89.4 ; Arthritis of both knees M19.90 and Irritation of both eyes H57.8 [facility] [address] [facility] [id number] [address] [place] [address] May, Chronic pain syndrome G89.4 [facility] [address] [facility] [id number] [address] [place] [address] Apr, Chronic pain syndrome G89.4 [facility] [address] [facility] [id number] [address] [place] [address] 08 Mar, 2016 Chronic pain syndrome G89.4 ; 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 ; Arthritis of both knees M19.90 ; 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 ; Arthritis of right knee M17.11 and Acute non-recurrent maxillary sinusitis J01.00 [facility] [address] [facility] [id number] [address] [place] [id number] 07 Mar, 2016 Dental examination Z01.20 [facility] [address] [facility] [id number] [address] [place] [address] Feb, Chronic pain syndrome G89.4 ; 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 ; Arthritis of both knees M19.90 ; Seasonal allergic rhinitis, unspecified allergic rhinitis trigger J30.2 ; Erectile dysfunction, unspecified erectile dysfunction type N52.9 and 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 [facility] [address] [facility] [id number] [address] [place] [address] Dec, [facility] [address] [facility] [id number] [address] [place] [address] Dec, [facility] [address] [facility] [id number] [address] [place] [address] Dec, Chronic pain syndrome G89.4 ; Encounter for immunization Z23 ; B- cell lymphoma C85.10 and Arthritis of both knees M19.90 [facility] [address] [place] [id number] [address] [place] [phone] Oct, [facility] [address] [id number] [address] [place] [address] Sep, [facility] [address] [id number] [address] [place] [address] Jul, Chronic pain syndrome G89.4 ; 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 and Arthritis of both knees M19.90 [facility] [address] [id number] [address] [place] [address] Jul, Pain in right knee M25.561 a nd Pain in left knee M25.562 [facility] [address] [id number] [address] [place] [address] Jul, [facility] [address] [facility] [id number] [address] [place] [address] June, Pain in right knee M25.561 ; Pain in left knee M25.562 and Out of work Z56.0 [facility] [address] [id number] [address] [place] [address] June, [facility] [address] [id number] [address] [place] [address] June, [facility] [address] [facility] [id number] [address] [place] [address] June, Chronic pain syndrome G89.4 ; 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 and Poison rosy dermatitis L23.7 [facility] [address] [id number] [address] [place] [address] May, [facility] [address] [id number] [address] [place] [address] Apr, Chronic pain syndrome G89.4 ; 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 and Allergic rhinitis J30.9 [facility] [address] [id number] [address] [place] [address] Feb, [facility] [address] [facility] [id number] [address] [place] [address] Jan, Chronic pain syndrome G89.4 ; 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 and Sinusitis, acute J01.90 [facility] [address] [facility] [id number] [address] [place] [address] Jan, Sinusitis, acute J01.90 [facility] [address] [place] [id number] [address] [place] [address] Jan, [facility] [address] [place] [id number] [place] [address] Jan, Chronic pain syndrome G89.4 and 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 [place] [address] [address] Dec, Chronic pain syndrome G89.4 ; 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 ; Encounter for immunization Z23 and Erectile dysfunction due to diseases classified elsewhere N52.1 [facility] [address] [place] [id number] [place] [address] Nov, Chronic pain syndrome G89.4 and 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 [place] [address] [place] [id number] [place] [address] Oct, [place] [address] [address] Sep, Non-Hodgkin lymphoma 202.80 and Chronic pain 338.29 [facility] [address] [place] [id number] [place] [address] Aug, Non-Hodgkin lymphoma 202.80 ; Chronic pain 338.29 and Gastritis determined by endoscopy 535.50 [place] [address] [place] [id number] [address] [place] [address] Aug, [place] [address] [place] [id number] [address] [place] [address] Aug, [facility] [address] [place] [id number] [place] [address] Aug, [facility] [address] [id number] [address] [place] [address] Jul, Non-Hodgkin lymphoma 202.80 ; Chronic pain 338.29 and Gastritis determined by endoscopy 535.50 [facility] [address] [id number] [address] [place] [address] Jul, [facility] [address] [id number] [address] [place] [address] Jul, Lymphoma 202.80 ; Hearing di fficulty 389.9 ; Eye pain 379.91 ; Chronic pain 338.29 and Abscess and cellulitis 682.9 [facility] [address] [id number] [address] [place] [address] June, [facility] [address] [id number] [address] [place] [address] May, [facility] [address] [id number] [address] [place] [address] May, [facility] [address] [id number] [address] [place] [phone] Feb, [facility] [address] [id number] [address] [place] [address] Feb, [facility] [address] [facility] [id number] [address] [place] [address] Nov, [facility] [address] [id number] [address] [place] [address] Sep, [facility] [address] [id number] [address] [place] [address] Aug, [facility] [address] [id number] [address] [place] [address] Jul, [facility] [address] [id number] [address] [place] [address] May, [facility] [address] [id number] [address] [place] [address] Aug, IMMUNIZATIONS No Known Immunizations SOCIAL HISTORY Never Assessed REASON FOR VISIT Lab (walk-in) PLAN OF CARE VITAL SIGNS MEDICATIONS Unknown Medications RESULTS No Results PROCEDURES Procedure Date Ordered Result Body Site LAB [facility] Oct 21, 2017 VENIPUNCT, ROUTINE* Oct 21, 2017 INSTRUCTIONS MEDICATIONS ADMINISTERED No Known Medications MEDICAL (GENERAL) HISTORY Type Description Date Medical History lymphoma B-Cell--diagnosed 02/2013, remis jesus 02/2014 Medical History hypertension Medical History Bone Marrow Transplant 02/25/2014 at [facility] Medical History Violation of controlled substance agreem ent Surgical History orthopedic surgery-broke tendon in right hand repaired Surgical History otolaryngologic surgery Surgical History orthopedic surgery--ligament removal fro m left shoulder Surgical History Excisional Biopsy of right iliac lymph n jo-anne at [facility] 07/2014 Surgical History EGD in which they did a biopsy 02/2015 Surgical History biopsy on back of neck Hospitalization History Hospitalization for surgery only
--- OUTSIDE RECORDS SUMMARY | 2019-05-26 17:46 | XMS REPORT ---
Author Author Beth GRIJALVA [facility] Address [address] [place] [address] Care Team Providers Care Demand Planning Analyst Name Role Phone 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 Unavailable PROBLEMS Type Condition ICD9-CM Code [id number] Code Onset Dates Condition S tatus SNOMED Code Problem Encounter for immunization Z23 Act mayuri [id number] Problem Arthritis of both knees M19.90 Active 274029878 Problem Allergic rhinitis J30.9 Active 61 979965 Problem Violation of controlled substance agreement Z91.14 Active 234569145 Problem Chronic pain syndrome G89.4 Active 37528296 Problem 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 1099 15924 Problem Mild depression F32.0 Active 3104 18941 Problem Other chronic pain G89.29 Active 8 8320845 Problem 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 [address] [facility] [id number] [address] [place] [address] Sep, [facility] [address] [facility] [id number] [address] [place] [address] Aug, [facility] [address] [facility] [id number] [address] [place] [address] Aug, Fatigue, unspecified type R5 3.83 ; Mild depression F32.0 ; Elevated fasting glucose R73.01 ; Erectile dysfunction, unspecified erectile dysfunction type N52.9 and Arthritis of both knees M19.90 [facility] [address] [facility] [id number] [address] [place] [address] June, [place] [address] [facility] [id number] [address] [place] [address] June, [place] [address] [place] [id number] [address] [place] [address] June, Other chronic pain G89.29 ; Screening for lipoid disorders Z13.220 and Arthritis of both knees M19.90 [place] [address] [place] [id number] [address] [place] [address] June, [place] [address] [place] [id number] [address] [place] [address] Apr, Arthritis of both knees M19. 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 and Acute otitis externa of left ear, unspecified type H60.502 [place] [address] [place] [id number] [address] [place] [address] Mar, Nodule of neck R22.1 [place] [address] [place] [id number] [place] [address] Mar, Allergic conjunctivitis of b oth eyes H10.13 and Skin lesion of neck L98.9 [place] [address] [place] [id number] [address] [place] [address] Sep, Rectal bleeding K62.5 and Re ctal or anal pain K62.89 [place] [address] [place] [id number] [address] [place] [address] Jul, [place] [address] [place] [id number] [address] [place] [address] Jul, Chronic pain syndrome G89.4 [place] [address] [place] [id number] [address] [place] [address] June, Chronic pain syndrome G89.4 ; Arthritis of both knees M19.90 and Irritation of both eyes H57.8 [place] [address] [place] [id number] [address] [place] [address] May, Chronic pain syndrome G89.4 [facility] [address] [id number] [address] [place] [address] Apr, Chronic pain syndrome G89.4 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 [address] [facility] [id number] [address] [place] [address] Dec, [facility] [address] [facility] [id number] [address] [place] [address] Dec, [facility] [address] [facility] [id number] [address] [place] [address] Dec, Encounter for immunization Z 23 ; Chronic pain syndrome G89.4 ; B- cell lymphoma C85.10 and Arthritis of both knees M19.90 [facility] [address] [id number] [address] [place] [address] Oct, [facility] [address] [facility] [id number] [address] [place] [address] Sep, [facility] [address] [facility] [id number] [address] [place] [address] Jul, Chronic pain syndrome G89.4 ; 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 and Arthritis of both knees M19.90 [facility] [address] [id number] [address] [place] [phone] 14 Jul, 2015 Pain in right knee M25.561 a nd Pain in left knee M25.562 [facility] [address] [id number] [address] [place] [address] Jul, [facility] [address] [id number] [address] [place] [address] June, Pain in right knee M25.561 ; Pain in left knee M25.562 and Out of work Z56.0 [facility] [address] [id number] [address] [place] [address] June, [place] [address] [id number] [address] [place] [address] June, [facility] [address] [facility] [id number] [address] [place] [address] June, Chronic pain syndrome G89.4 ; 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 and Poison rosy dermatitis L23.7 [facility] [address] [id number] [address] [place] [address] May, [facility] [address] [facility] [id number] [address] [place] [address] Apr, Chronic pain syndrome G89.4 ; 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 and Allergic rhinitis J30.9 [facility] [address] [id number] [address] [place] [address] Feb, [facility] [address] [id number] [address] [place] [address] Jan, Chronic pain syndrome G89.4 ; 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 and Sinusitis, acute J01.90 [facility] [address] [id number] [address] [place] [address] Jan, Sinusitis, acute J01.90 [facility] [address] [id number] [address] [place] [address] Jan, [facility] [address] [id number] [address] [place] [address] Jan, Chronic pain syndrome G89.4 and 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 [facility] [address] [id number] [address] [place] [address] Dec, Chronic pain syndrome G89.4 ; 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 ; Encounter for immunization Z23 and Erectile dysfunction due to diseases classified elsewhere N52.1 [facility] [address] [id number] [address] [place] [address] Nov, Chronic pain syndrome G89.4 and 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 [facility] [address] [id number] [address] [place] [address] Oct, [facility] [address] [id number] [address] [place] [address] Sep, Non-Hodgkin lymphoma 202.80 and Chronic pain 338.29 [facility] [address] [id number] [address] [place] [address] Aug, Non-Hodgkin lymphoma 202.80 ; Chronic pain 338.29 and Gastritis determined by endoscopy 535.50 [facility] [address] [id number] [address] [place] [address] Aug, [facility] [address] [id number] [address] [place] [address] Aug, [facility] [address] [id number] [address] [place] [address] Aug, [facility] [address] [facility] [id number] [address] [place] [address] Jul, Non-Hodgkin lymphoma 202.80 ; Chronic pain 338.29 and Gastritis determined by endoscopy 535.50 [facility] [address] [id number] [address] [place] [address] Jul, [facility] [address] [id number] [address] [place] [address] Jul, Lymphoma 202.80 ; Hearing di fficulty 389.9 ; Eye pain 379.91 ; Chronic pain 338.29 and Abscess and cellulitis 682.9 [facility] [address] [id number] [address] [place] [address] June, [facility] [address] [id number] [address] [place] [address] May, [facility] [address] [id number] [address] [place] [address] May, [facility] [address] [id number] [address] [place] [address] Feb, [facility] [address] [id number] [address] [place] [address] Feb, [facility] [address] [id number] [address] [place] [address] Nov, [facility] [address] [id number] [address] [place] [address] Sep, [facility] [address] [id number] [address] [place] [address] Aug, [facility] [address] [id number] [address] [place] [phone] Jul, [facility] [address] [id number] [address] [place] [phone] May, [facility] [address] [id number] [address] [place] [phone] Aug, IMMUNIZATIONS No Known Immunizations SOCIAL HISTORY Never Assessed REASON FOR VISIT Refill request PLAN OF CARE VITAL SIGNS MEDICATIONS Unknown Medications RESULTS No Results PROCEDURES No Known procedures INSTRUCTIONS MEDICATIONS ADMINISTERED No Known Medications MEDICAL (GENERAL) HISTORY Type Description Date Medical History lymphoma B-Cell--diagnosed 02/2013, [facility] 02/2014 Medical History hypertension Medical History Bone Marrow Transplant 02/25/2014 at [facility] Medical History Violation of controlled substance agreem ent Surgical History orthopedic surgery-broke tendon in right hand repaired Surgical History otolaryngologic surgery Surgical History orthopedic surgery--ligament removal fro m left shoulder Surgical History Excisional Biopsy of right iliac lymph n ode at [facility] 07/2014 Surgical History EGD in which they did a biopsy 02/2015 Surgical History biopsy on back of neck Hospitalization History Hospitalization for surgery only
--- OUTSIDE RECORDS SUMMARY | 2019-05-26 17:46 | XMS REPORT ---
Author Author Beth IVY Organization [facility] Address [address] [place] [address] Care Team Providers Care Construction Equipment Mechanic Helper Name Role Phone DIANE IVY Unavailable PROBLEMS Type Condition ICD9-CM Code [id number] Code Onset Dates Condition S tatus SNOMED Code Problem Allergic rhinitis J30.9 Active 61 342410 Problem Pain in right knee M25.561 Active 3 7468531 Problem Pain in left knee M25.562 Active 30 202115 Problem Arthritis of right knee M17.11 Active 578316020 Problem Seasonal allergic rhinitis, unspecified allergic rhinitis trigger J30.2 Active 635911424 Problem Arthritis of both knees M19.90 Active 549695998 Problem Out of work Z56.0 Active 30393407 Problem 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 003894032 Problem Erectile dysfunction, unspecified erectile dysfunction typ e N52.9 Active 260684156 Problem 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 1099 21144 Problem Chronic pain syndrome G89.4 Active 32270901 Problem Encounter for immunization Z23 Act mayuri 640229117 Problem Violation of controlled substance agreement Z91.14 Active 386159832 Problem Erectile dysfunction due to diseases classified elsewhere N52.1 Active 715675981 ALLERGIES Substance Reaction Event Type Date Status Penicillin V Potassium headache Drug Allergy Mar, Activ e SOCIAL HISTORY Never Assessed PLAN OF CARE Activity Details Follow Up 3 Months Reason:Pain VITAL SIGNS Height 65 in 2016-03-26 Weight 178.1 lbs 2016-03-26 Temperature 97.4 degrees Fahrenheit 2016-03-26 Heart Rate 74 bpm 2016-03-26 Respiratory Rate 18 2016-03-26 BMI 29.63 kg/m2 2016-03-26 Blood pressure systolic 118 mmHg 2016-03-26 Blood pressure diastolic 72 mmHg 2016-03-26 MEDICATIONS Medication Instructions Dosage Frequency Start Date End Date Duration S tatus Hydrocodone-Acetaminophen 10-325 MG Orally every 6 hrs prn-M UST LAST 28 DAYS 1 tablet as needed Active Advil 200 MG Orally 3 times a day 3 tablet as needed 8h Active RESULTS No Results PROCEDURES Procedure Date Ordered Result Body Site JOINT INJECTION-LARGE JOINT 2016-03-26 Performed-hilaria well DRAIN/INJECT, JOINT/BURSA Mar 26, 2016 [facility] VISIT ESTABLISHED PATIENT Mar 26, 2016 IMMUNIZATIONS No Known Immunizations MEDICAL (GENERAL) HISTORY Type Description Date Medical History lymphoma B-Cell--diagnosed 02/2013 Medical History hypertension Medical History Bone Marrow Transplant 02/25/2014 at [facility] Medical History Violation of controlled substance agreem ent Surgical History orthopedic surgery-broke tendon in right hand repaired Surgical History otolaryngologic surgery Surgical History orthopedic surgery--ligament removal fro m left shoulder Surgical History Excisional Biopsy of right iliac lymph n lelo at [facility] 07/2014 Surgical History EGD in which they did a biopsy 02/2015 Hospitalization History Hospitalization for surgery only
--- OUTSIDE RECORDS SUMMARY | 2019-05-26 17:46 | XMS REPORT ---
Author Author Beth GRIJALVA [facility] Address [address] [place] [address] Care Team Providers Care Brick Shader Name Role Phone 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 Unavailable PROBLEMS Type Condition ICD9-CM Code [id number] Code Onset Dates Condition S tatus SNOMED Code Problem Encounter for immunization Z23 Act mayuri 722782550 Problem Arthritis of both knees M19.90 Active 500910281 Problem Allergic rhinitis J30.9 Active 61 014737 Problem Violation of controlled substance agreement Z91.14 Active 436957545 Problem Chronic pain syndrome G89.4 Active 37143670 Problem 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 1099 72343 Problem Mild depression F32.0 Active 3104 75939 Problem Other chronic pain G89.29 Active 8 0935625 Problem 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 [id number] [address] [place] [phone] Oct, Low testosterone level in ma le R79.89 [facility] [address] [facility] [id number] [address] [place] [phone] Sep, Acute swimmer''s ear of left side H60.332 ; Acute left-sided low back pain without sciatica M54.5 ; Low testosterone level in male R79.89 and Erectile dysfunction, unspecified erectile dysfunction type N52.9 [facility] [address] [facility] [id number] [address] [place] [phone] Aug, [facility] [address] [facility] [id number] [address] [place] [phone] Aug, Fatigue, unspecified type R5 3.83 ; Mild depression F32.0 ; Elevated fasting glucose R73.01 ; Erectile dysfunction, unspecified erectile dysfunction type N52.9 and Arthritis of both knees M19.90 [place] [address] [facility] [id number] [address] [place] [phone] June, [place] [address] [facility] [id number] [address] [place] [phone] June, [place] [address] [facility] [id number] [address] [place] [phone] June, Other chronic pain G89.29 ; Screening for lipoid disorders Z13.220 and Arthritis of both knees M19.90 [place] [address] [facility] [id number] [address] [place] [phone] June, [place] [address] [place] [id number] [address] [place] [phone] Apr, Arthritis of both knees M19. 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 and Acute otitis externa of left ear, unspecified type H60.502 [place] [address] [place] [id number] [address] [place] [phone] Mar, Nodule of neck R22.1 [place] [address] [place] [id number] [address] [place] [phone] Mar, Allergic conjunctivitis of b oth eyes H10.13 and Skin lesion of neck L98.9 [place] [address] [facility] [id number] [address] [place] [phone] Sep, Rectal bleeding K62.5 and Re ctal or anal pain K62.89 [place] [address] [facility] [id number] [address] [place] [phone] Jul, [place] [address] [facility] [id number] [address] [place] [phone] Jul, Chronic pain syndrome G89.4 [facility] [address] [facility] [id number] [address] [place] [phone] June, Chronic pain syndrome G89.4 ; Arthritis of both knees M19.90 and Irritation of both eyes H57.8 [facility] [address] [facility] [id number] [address] [place] [phone] May, Chronic pain syndrome G89.4 [facility] [address] [facility] [id number] [address] [place] [phone] Apr, Chronic pain syndrome G89.4 [facility] [address] 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 [id number] [address] [place] [phone] Dec, [facility] [address] [facility] [id number] [address] [place] [phone] Dec, [facility] [address] [facility] [id number] [address] [place] [phone] Dec, Chronic pain syndrome G89.4 ; Encounter for immunization Z23 ; B- cell lymphoma C85.10 and Arthritis of both knees M19.90 [facility] [address] [place] [id number] [address] [place] [phone] Oct, [facility] [address] [id number] [address] [place] [phone] Sep, [facility] [address] [id number] [address] [place] [phone] Jul, Chronic pain syndrome G89.4 ; 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 and Arthritis of both knees M19.90 [facility] [address] [id number] [address] [place] [phone] Jul, Pain in right knee M25.561 a nd Pain in left knee M25.562 [facility] [address] [id number] [address] [place] [phone] Jul, [facility] [address] [facility] [id number] [address] [place] [phone] June, Pain in right knee M25.561 ; Pain in left knee M25.562 and Out of work Z56.0 [facility] [address] [id number] [address] [place] [phone] June, [facility] [address] [id number] [address] [place] [phone] June, [facility] [address] [facility] [id number] [address] [place] [phone] June, Chronic pain syndrome G89.4 ; 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 and Poison rosy dermatitis L23.7 [facility] [address] [id number] [address] [place] [phone] May, [facility] [address] [id number] [address] [place] [phone] Apr, Chronic pain syndrome G89.4 ; 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 and Allergic rhinitis J30.9 [facility] [address] [id number] [address] [place] [phone] Feb, [facility] [address] [facility] [id number] [address] [place] [phone] Jan, Chronic pain syndrome G89.4 ; 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 and Sinusitis, acute J01.90 [facility] [address] [facility] [id number] [address] [place] [phone] Jan, Sinusitis, acute J01.90 [facility] [address] [place] [id number] [address] [place] [phone] Jan, [facility] [address] [place] [id number] [place] [phone] Jan, Chronic pain syndrome G89.4 and 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 [place] [address] [phone] Dec, Chronic pain syndrome G89.4 ; 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 ; Encounter for immunization Z23 and Erectile dysfunction due to diseases classified elsewhere N52.1 [facility] [address] [place] [id number] [place] [phone] Nov, Chronic pain syndrome G89.4 and 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 [place] [address] [place] [id number] [place] [phone] Oct, [place] [address] [phone] Sep, Non-Hodgkin lymphoma 202.80 and Chronic pain 338.29 [facility] [address] [place] [id number] [place] [address] Aug, Non-Hodgkin lymphoma 202.80 ; Chronic pain 338.29 and Gastritis determined by endoscopy 535.50 [place] [address] [place] [id number] [address] [place] [phone] Aug, [place] [address] [place] [id number] [address] [place] [phone] Aug, [facility] [address] [place] [id number] [place] [phone] Aug, [facility] [address] [id number] [address] [place] [phone] Jul, Non-Hodgkin lymphoma 202.80 ; Chronic pain 338.29 and Gastritis determined by endoscopy 535.50 [facility] [address] [id number] [address] [place] [phone] Jul, [facility] [address] [id number] [address] [place] [phone] Jul, Lymphoma 202.80 ; Hearing di fficulty 389.9 ; Eye pain 379.91 ; Chronic pain 338.29 and Abscess and cellulitis 682.9 [facility] [address] [id number] [address] [place] [phone] June, [facility] [address] [id number] [address] [place] [phone] May, [facility] [address] [id number] [address] [place] [phone] May, [facility] [address] [id number] [address] [place] [phone] Feb, [facility] [address] [id number] [address] [place] [phone] Feb, [facility] [address] [facility] [id number] [address] [place] [phone] Nov, [facility] [address] [id number] [address] [place] [phone] Sep, [facility] [address] [id number] [address] [place] [phone] Aug, [facility] [address] [id number] [address] [place] [phone] Jul, [facility] [address] [id number] [address] [place] [phone] May, [facility] [address] [id number] [address] [place] [phone] Aug, IMMUNIZATIONS No Known Immunizations SOCIAL HISTORY Never Assessed REASON FOR VISIT update PLAN OF CARE VITAL SIGNS MEDICATIONS Unknown Medications RESULTS No Results PROCEDURES No Known procedures INSTRUCTIONS MEDICATIONS ADMINISTERED No Known Medications MEDICAL (GENERAL) HISTORY Type Description Date Medical History lymphoma B-Cell--diagnosed 02/2013, [facility] 02/2014 Medical History hypertension Medical History Bone Marrow Transplant 02/25/2014 at [facility] Medical History Violation of controlled substance agreem ent Surgical History orthopedic surgery-broke tendon in right hand repaired Surgical History otolaryngologic surgery Surgical History orthopedic surgery--ligament removal fro m left shoulder Surgical History Excisional Biopsy of right iliac lymph n ode at [facility] 07/2014 Surgical History EGD in which they did a biopsy 02/2015 Surgical History biopsy on back of neck Hospitalization History Hospitalization for surgery only
--- OUTSIDE RECORDS SUMMARY | 2019-05-26 17:46 | XMS REPORT ---
Author Author Beth GRIJALVA [facility] Address [address] [place] [address] Care Team Providers Care Investigative Writer Name Role Phone 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 Unavailable PROBLEMS Type Condition ICD9-CM Code SLD65-BQ Code Onset Dates Condition S tatus SNOMED Code Problem Encounter for immunization Z23 Act mayuri [id number] Problem Arthritis of both knees M19.90 Active 996046976 Problem Allergic rhinitis J30.9 Active 61 060206 Problem Violation of controlled substance agreement Z91.14 Active 295621867 Problem Chronic pain syndrome G89.4 Active 40697906 Problem 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 1099 75998 Problem Mild depression F32.0 Active 3104 59748 Problem Other chronic pain G89.29 Active 8 4624032 Problem 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 937861773 Problem Erectile dysfunction, unspecified erectile dysfunction typ e N52.9 Active 067649963 Problem 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 Active 455457056 Problem Arthritis of right knee M17.11 Active 599931118 ALLERGIES No Information ENCOUNTERS Encounter Location Date Diagnosis [facility] [address] [facility] [id number] [address] [place] [address] Aug, [facility] [address] [facility] [id number] [address] [place] [address] Aug, Fatigue, unspecified type R5 3.83 ; Mild depression F32.0 ; Elevated fasting glucose R73.01 ; Erectile dysfunction, unspecified erectile dysfunction type N52.9 and Arthritis of both knees M19.90 [facility] [address] [facility] [id number] [address] [place] [phone] June, [facility] [address] [facility] [id number] [address] [place] [address] June, [place] [address] [id number] [address] [place] [address] June, Other chronic pain G89.29 ; Screening for lipoid disorders Z13.220 and Arthritis of both knees M19.90 [facility] [address] [id number] [address] [place] [phone] June, [place] [address] [facility] [id number] [address] [place] [address] Apr, Arthritis of both knees M19. 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 and Acute otitis externa of left ear, unspecified type H60.502 [place] [address] [facility] [id number] [address] [place] [address] Mar, Nodule of neck R22.1 [place] [address] [facility] [id number] [address] [place] [phone] Mar, Allergic conjunctivitis of b oth eyes H10.13 and Skin lesion of neck L98.9 [place] [address] [facility] [id number] [address] [place] [address] Sep, Rectal bleeding K62.5 and Re ctal or anal pain K62.89 [place] [address] [facility] [id number] [address] [place] [address] Jul, [place] [address] [facility] [id number] [address] [place] [address] Jul, Chronic pain syndrome G89.4 [place] [address] [facility] [id number] [address] [place] [address] June, Chronic pain syndrome G89.4 ; Arthritis of both knees M19.90 and Irritation of both eyes H57.8 [place] [address] [id number] [address] [place] [address] May, Chronic pain syndrome G89.4 [place] [address] [facility] [id number] [address] [place] [address] Apr, Chronic pain syndrome G89.4 [facility] [address] [facility] [id number] [address] [place] [phone] 08 Mar, 2016 Chronic pain syndrome G89.4 ; 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 ; Arthritis of both knees M19.90 ; 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 ; Arthritis of right knee M17.11 and Acute non-recurrent maxillary sinusitis J01.00 [facility] [address] [id number] [address] [place] [address] [id number] 07 Mar, 2016 Dental examination Z01.20 [facility] [address] [facility] [id number] [address] [place] [phone] 04 Feb, 2016 Chronic pain syndrome G89.4 ; 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 ; Arthritis of both knees M19.90 ; Seasonal allergic rhinitis, unspecified allergic rhinitis trigger J30.2 ; Erectile dysfunction, unspecified erectile dysfunction type N52.9 and 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 [facility] [address] [facility] [id number] [address] [place] [phone] Dec, [facility] [address] [facility] [id number] [address] [place] [phone] Dec, [facility] [address] [facility] [id number] [address] [place] [phone] Dec, Encounter for immunization Z 23 ; Chronic pain syndrome G89.4 ; B- cell lymphoma C85.10 and Arthritis of both knees M19.90 [facility] [address] [facility] [id number] [address] [place] [phone] Oct, [facility] [address] [facility] [id number] [address] [place] [address] Sep, [facility] [address] [facility] [id number] [address] [place] [address] Jul, Chronic pain syndrome G89.4 ; 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 and Arthritis of both knees M19.90 [facility] [address] [id number] [address] [place] [phone] 14 Jul, 2015 Pain in right knee M25.561 a nd Pain in left knee M25.562 [facility] [address] [id number] [address] [place] [address] Jul, [facility] [address] [facility] [id number] [address] [place] [address] June, Pain in right knee M25.561 ; Pain in left knee M25.562 and Out of work Z56.0 [facility] [address] [id number] [address] [place] [address] June, [place] [address] [facility] [id number] [address] [place] [address] June, [place] [address] [facility] [id number] [address] [place] [address] June, Chronic pain syndrome G89.4 ; 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 and Poison rosy dermatitis L23.7 [facility] [address] [facility] [id number] [address] [place] [address] May, [place] [address] [facility] [id number] [address] [place] [address] Apr, Chronic pain syndrome G89.4 ; 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 and Allergic rhinitis J30.9 [facility] [address] [facility] [id number] [address] [place] [phone] Feb, [facility] [address] [facility] [id number] [address] [place] [address] Jan, Chronic pain syndrome G89.4 ; 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 and Sinusitis, acute J01.90 [facility] [address] [facility] [id number] [address] [place] [address] Jan, Sinusitis, acute J01.90 [facility] [address] [facility] [id number] [address] [place] [phone] Jan, [facility] [address] [id number] [address] [place] [phone] Jan, Chronic pain syndrome G89.4 and 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 [place] [address] [facility] [id number] [address] [place] [address] Dec, Chronic pain syndrome G89.4 ; 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 ; Encounter for immunization Z23 and Erectile dysfunction due to diseases classified elsewhere N52.1 [place] [address] [facility] [id number] [address] [place] [address] Nov, Chronic pain syndrome G89.4 and 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 [place] [address] [facility] [id number] [address] [place] [address] Oct, [place] [address] [facility] [id number] [address] [place] [address] Sep, Non-Hodgkin lymphoma 202.80 and Chronic pain 338.29 [place] [address] [facility] [id number] [address] [place] [address] Aug, Non-Hodgkin lymphoma 202.80 ; Chronic pain 338.29 and Gastritis determined by endoscopy 535.50 [place] [address] [facility] [id number] [address] [place] [address] Aug, [place] [address] [facility] [id number] [address] [place] [phone] Aug, [place] [address] [id number] [address] [place] [address] Aug, [place] [address] [facility] [id number] [address] [place] [phone] Jul, Non-Hodgkin lymphoma 202.80 ; Chronic pain 338.29 and Gastritis determined by endoscopy 535.50 [place] [address] [id number] [address] [place] [address] Jul, [place] [address] [facility] [id number] [address] [place] [address] Jul, Lymphoma 202.80 ; Hearing di fficulty 389.9 ; Eye pain 379.91 ; Chronic pain 338.29 and Abscess and cellulitis 682.9 [facility] [address] [id number] [address] [place] [address] June, [facility] [address] [id number] [address] [place] [phone] May, [facility] [address] [id number] [address] [place] [phone] May, [facility] [address] [id number] [address] [place] [phone] Feb, [facility] [address] [id number] [address] [place] [phone] Feb, [facility] [address] [id number] [address] [place] [phone] Nov, [facility] [address] [id number] [address] [place] [phone] Sep, [facility] [address] [id number] [address] [place] [phone] Aug, [facility] [address] [id number] [address] [place] [phone] Jul, [facility] [address] [id number] [address] [place] [phone] May, [facility] [address] [id number] [address] [place] [phone] Aug, IMMUNIZATIONS No Known Immunizations SOCIAL HISTORY Never Assessed REASON FOR VISIT Medication question PLAN OF CARE VITAL SIGNS MEDICATIONS Unknown Medications RESULTS No Results PROCEDURES No Known procedures INSTRUCTIONS MEDICATIONS ADMINISTERED No Known Medications MEDICAL (GENERAL) HISTORY Type Description Date Medical History lymphoma B-Cell--diagnosed 02/2013, remis jesus 02/2014 Medical History hypertension Medical History Bone Marrow Transplant 02/25/2014 at [facility] Medical History Violation of controlled substance agreem ent Surgical History orthopedic surgery-broke tendon in right hand repaired Surgical History otolaryngologic surgery Surgical History orthopedic surgery--ligament removal fro m left shoulder Surgical History Excisional Biopsy of right iliac lymph n ode at [facility] 07/2014 Surgical History EGD in which they did a biopsy 02/2015 Surgical History biopsy on back of neck Hospitalization History Hospitalization for surgery only
--- OUTSIDE RECORDS SUMMARY | 2019-05-26 17:46 | XMS REPORT ---
Author Author Beth GRIJALVA [facility] Address [address] [place] [address] Care Team Providers Care Technical System Analyst Name Role Phone 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 Unavailable PROBLEMS Type Condition ICD9-CM Code CGV17-LV Code Onset Dates Condition S tatus SNOMED Code Problem Encounter for immunization Z23 Act mayuri [id number] Problem Arthritis of both knees M19.90 Active 590042825 Problem Allergic rhinitis J30.9 Active 61 400456 Problem Violation of controlled substance agreement Z91.14 Active 719977007 Problem Chronic pain syndrome G89.4 Active 39435720 Problem 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 1099 72024 Problem Mild depression F32.0 Active 3104 75439 Problem Other chronic pain G89.29 Active 8 9697808 Problem 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 500964533 Problem Erectile dysfunction, unspecified erectile dysfunction typ e N52.9 Active 318711333 Problem 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 Active 703059125 Problem Arthritis of right knee M17.11 Active 779566111 ALLERGIES Substance Reaction Event Type Date Status Penicillin V Potassium headache Drug Allergy Aug, Activ e ENCOUNTERS Encounter Location Date Diagnosis [facility] [address] [facility] [id number] [address] [place] [address] Sep, Acute swimmer''s ear of left side H60.332 ; Acute left-sided low back pain without sciatica M54.5 ; Low testosterone level in male R79.89 and Erectile dysfunction, unspecified erectile dysfunction type N52.9 [facility] [address] [facility] [id number] [address] [place] [address] Aug, [facility] [address] [facility] [id number] [address] [place] [address] Aug, Fatigue, unspecified type R5 3.83 ; Mild depression F32.0 ; Elevated fasting glucose R73.01 ; Erectile dysfunction, unspecified erectile dysfunction type N52.9 and Arthritis of both knees M19.90 [place] [address] [facility] [id number] [address] [place] [address] June, [place] [address] [facility] [id number] [address] [place] [address] June, [place] [address] [facility] [id number] [address] [place] [address] June, Other chronic pain G89.29 ; Screening for lipoid disorders Z13.220 and Arthritis of both knees M19.90 [place] [address] [facility] [id number] [address] [place] [address] June, [place] [address] [place] [id number] [address] [place] [address] Apr, Arthritis of both knees M19. 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 and Acute otitis externa of left ear, unspecified type H60.502 [place] [address] [facility] [id number] [address] [place] [address] Mar, Nodule of neck R22.1 [place] [address] [place] [id number] [address] [place] [phone] Mar, Allergic conjunctivitis of b oth eyes H10.13 and Skin lesion of neck L98.9 [place] [address] [facility] [id number] [address] [place] [address] Sep, Rectal bleeding K62.5 and Re ctal or anal pain K62.89 [place] [address] [facility] [id number] [address] [place] [address] Jul, [place] [address] [facility] [id number] [address] [place] [address] Jul, Chronic pain syndrome G89.4 [place] [address] [facility] [id number] [address] [place] [address] June, Chronic pain syndrome G89.4 ; Arthritis of both knees M19.90 and Irritation of both eyes H57.8 [facility] [address] [facility] [id number] [address] [place] [address] May, Chronic pain syndrome G89.4 [facility] [address] [facility] [id number] [address] [place] [address] Apr, Chronic pain syndrome G89.4 [facility] [address] [facility] [id number] [address] [place] [phone] 08 Mar, 2016 Chronic pain syndrome G89.4 ; 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 ; Arthritis of both knees M19.90 ; 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 ; Arthritis of right knee M17.11 and Acute non-recurrent maxillary sinusitis J01.00 [facility] [address] [facility] [id number] [address] [place] [id number] 07 Mar, 2016 Dental examination Z01.20 [facility] [address] [facility] [id number] [address] [place] [address] 04 Feb, 2016 Chronic pain syndrome G89.4 ; 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 ; Arthritis of both knees M19.90 ; Seasonal allergic rhinitis, unspecified allergic rhinitis trigger J30.2 ; Erectile dysfunction, unspecified erectile dysfunction type N52.9 and 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 [place] [address] [facility] [id number] [address] [place] [address] Dec, [facility] [address] [id number] [address] [place] [address] Dec, [facility] [address] [facility] [id number] [address] [place] [address] Dec, Chronic pain syndrome G89.4 ; Encounter for immunization Z23 ; B- cell lymphoma C85.10 and Arthritis of both knees M19.90 [facility] [address] [facility] [id number] [address] [place] [address] Oct, [place] [address] [id number] [address] [place] [address] Sep, [facility] [address] [id number] [address] [place] [address] Jul, Chronic pain syndrome G89.4 ; 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 and Arthritis of both knees M19.90 [facility] [address] [id number] [address] [place] [phone] 14 Jul, 2015 Pain in right knee M25.561 a nd Pain in left knee M25.562 [facility] [address] [id number] [address] [place] [address] Jul, [facility] [address] [facility] [id number] [address] [place] [address] June, Pain in right knee M25.561 ; Pain in left knee M25.562 and Out of work Z56.0 [facility] [address] [id number] [address] [place] [address] June, [facility] [address] [id number] [address] [place] [address] June, [facility] [address] [facility] [id number] [address] [place] [address] June, Chronic pain syndrome G89.4 ; 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 and Poison rosy dermatitis L23.7 [facility] [address] [id number] [address] [place] [address] May, [facility] [address] [id number] [address] [place] [address] Apr, Chronic pain syndrome G89.4 ; 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 and Allergic rhinitis J30.9 [facility] [address] [id number] [address] [place] [address] Feb, [facility] [address] [facility] [id number] [address] [place] [address] Jan, Chronic pain syndrome G89.4 ; 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 and Sinusitis, acute J01.90 [facility] [address] [id number] [address] [place] [address] Jan, Sinusitis, acute J01.90 [facility] [address] [id number] [address] [place] [address] Jan, [facility] [address] [facility] [id number] [address] [place] [address] Jan, Chronic pain syndrome G89.4 and 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 [facility] [address] [id number] [address] [place] [address] Dec, Chronic pain syndrome G89.4 ; 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 ; Encounter for immunization Z23 and Erectile dysfunction due to diseases classified elsewhere N52.1 [facility] [address] [facility] [id number] [address] [place] [address] Nov, Chronic pain syndrome G89.4 and 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 [facility] [address] [id number] [address] [place] [address] Oct, [facility] [address] [facility] [id number] [address] [place] [address] Sep, Non-Hodgkin lymphoma 202.80 and Chronic pain 338.29 [facility] [address] [facility] [id number] [address] [place] [address] Aug, Non-Hodgkin lymphoma 202.80 ; Chronic pain 338.29 and Gastritis determined by endoscopy 535.50 [facility] [address] [id number] [address] [place] [address] Aug, [facility] [address] [facility] [id number] [address] [place] [address] Aug, [facility] [address] [facility] [id number] [address] [place] [address] Aug, [facility] [address] [facility] [id number] [address] [place] [address] Jul, Non-Hodgkin lymphoma 202.80 ; Chronic pain 338.29 and Gastritis determined by endoscopy 535.50 [facility] [address] [id number] [address] [place] [address] Jul, [facility] [address] [facility] [id number] [address] [place] [address] Jul, Lymphoma 202.80 ; Hearing di fficulty 389.9 ; Eye pain 379.91 ; Chronic pain 338.29 and Abscess and cellulitis 682.9 [facility] [address] [id number] [address] [place] [address] June, [facility] [address] [id number] [address] [place] [address] May, [facility] [address] [facility] [id number] [address] [place] [address] May, [facility] [address] [facility] [id number] [address] [place] [address] Feb, [facility] [address] [id number] [address] [place] [address] Feb, [facility] [address] [facility] [id number] [address] [place] [address] Nov, [facility] [address] [facility] [id number] [address] [place] [phone] Sep, [facility] [address] [id number] [address] [place] [address] Aug, [facility] [address] [id number] [address] [place] [address] Jul, [facility] [address] [facility] [id number] [address] [place] [address] May, [facility] [address] [facility] [id number] [address] [place] [address] Aug, IMMUNIZATIONS No Known Immunizations SOCIAL HISTORY Never Assessed REASON FOR VISIT Pain management (chronic). Jerry RN, area to right groin, hx tumor, would like checked. PLAN OF CARE Activity Details Follow Up 3 Months Reason: VITAL SIGNS Height 65 in 2017-08-21 Weight 181.5 lbs 2017-08-21 Temperature 98.5 degrees Fahrenheit 2017-08-21 Heart Rate 85 bpm 2017-08-21 Respiratory Rate 18 2017-08-21 BMI 30.20 kg/m2 2017-08-21 Blood pressure systolic 132 mmHg 2017-08-21 Blood pressure diastolic 78 mmHg 2017-08-21 MEDICATIONS Medication Instructions Dosage Frequency Start Date End Date Duration S tatus Viagra 100 mg Orally Once a day 1/2-1 tablet as needed 24h 10 Active RESULTS No Results PROCEDURES Procedure Date Ordered Result Body Site LAB NOT BILLED BY RECUPYL August 21, 2017 Hemoglobin Test Send Out 0 dollar August 21, 2017 [facility] VISIT ESTABLISHED PATIENT August 21, 2017 VENIPUNCT, ROUTINE* August 21, 2017 INSTRUCTIONS MEDICATIONS ADMINISTERED No Known Medications MEDICAL (GENERAL) HISTORY Type Description Date Medical History lymphoma B-Cell--diagnosed 02/2013, remis jesus 02/2014 Medical History hypertension Medical History Bone Marrow Transplant 02/25/2014 at [facility] Medical History Violation of controlled substance [...]
--- OUTSIDE RECORDS SUMMARY | 2019-05-26 17:47 | XMS REPORT ---
Author Author Beth IVY Organization [employer] Address Unknown Phone Unavailable Care Team Providers Care Heel Scourer Name Role Phone DIANE IVY CP Unavailable Allergies, Adverse Reactions, Alerts Substance Reaction Event Type Penicillin V Potassium headache Drug Allergy Problems Problem Type Condition Code Onset Dates Condition Statu s Assessment Chronic pain syndrome G89.4 Active Assessment 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 Problem Erectile dysfunction due to diseases classified elsew ere N52.1 Active Problem Chronic pain syndrome G89.4 Active Problem Encounter for immunization Z23 A ctive Problem Pneumonia, organism unspecified 486 Active Problem Pain in joint, lower leg 719.46 Act mayuri Problem 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 Problem Influenza with other respiratory manifestations 487.1 Active Medications Medication Code System Code Instructions Start Date End Date Status Dosage Hydrocodone-Acetaminophen [facility][NOTE 3] [address]-91 10-325 MG Orally e very 6 hrs prn 1 tablet as needed Advil [facility][NOTE 3] [address]-73 200 MG Orally 3 times a day 3 tablet as needed Tylenol [facility][NOTE 3] [address]-49 325 MG Orally 3 times a day 3 tablet as needed Procedures Procedure Coding System Code Date Office Visit, Est Pt., Level 3 CPT-4 66203 D 2014 [facility] VISIT ESTABLISHED PATIENT CPT-4 G0467 D 2014 Vital Signs Date/Time: Jan 18, 2015 Temperature 98.1 F Weight 179.2 lbs Height 65 in BMI 29.82 Index Blood Pressure Diastolic 72 mmHg Blood Pressure Systolic 118 mmHg Cardiac Monitoring Heart Rate 76 bpm Results No Known Results Summary Purpose [employer] Submission
--- OUTSIDE RECORDS SUMMARY | 2019-05-26 17:47 | XMS REPORT ---
Author Author Beth IVY Organization [employer] Address Unknown Phone Unavailable Care Team Providers Care Motor Pool Driver Name Role Phone DIANE IVY CP Unavailable Allergies No Known Allergies Problems Problem Type Condition Code Onset Dates Condition Statu s Problem Erectile dysfunction due to diseases classified [facility] ere N52.1 Active Problem Chronic pain syndrome G89.4 Active Problem Encounter for immunization Z23 A ctive Problem Pneumonia, organism unspecified 486 Active Problem Pain in joint, lower leg 719.46 Act mayuri Problem 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 Problem Influenza with other respiratory manifestations 487.1 Active Medications No Known Medications Results No Known Results Summary Purpose [employer] Submission
--- OUTSIDE RECORDS SUMMARY | 2019-05-26 17:47 | XMS REPORT ---
Author Author Beth BULLARD [employer] Address Unknown Phone Unavailable Care Team Providers Care Pet Handler Name Role Phone NIKITA BULLARD CP Unavailable Allergies, Adverse Reactions, Alerts Substance Reaction Event Type Penicillin V Potassium headache Drug Allergy Problems Problem Type Condition Code Onset Dates Condition Statu s Assessment Sinusitis, acute J01.90 Active Problem Erectile dysfunction due to diseases [...] Instructions Start Date End Date Status Dosage Azithromycin [facility] [address]-00 250 MG Orally Once a day JanFeb 17, 2015 2 tablets on the first day, then 1 tablet daily for 4 days Chloraseptic [facility] [address]-03 1.4 % Mouth/Throat every 2 hrs 5 applications to affected area as needed Robitussin Cough Long-Acting NDC 0 [place] [address]-27 325 MG Orally 3 times a day 3 tablet as needed Tessalon Perles [facility] [address]-34 100 MG Orally Once a day Feb 12 015 1 capsule as needed Day Time NDC 0 not defined Advil [facility] [address]-03 200 MG Orally 3 times a day 3 tablet as needed Night Time Cold Medicine NDC 0 not defined Hydrocodone-Acetaminophen [facility] [address]-06 10-325 MG Orally e very 6 hrs prn 1 tablet as needed Procedures Procedure Coding System Code Date Office Visit, Est Pt., Level 3 CPT-4 66028 D ec 2014 [facility] VISIT ESTABLISHED PATIENT CPT-4 G0467 D ec 2014 Vital Signs Date/Time: Feb 12, 2015 Temperature 99.3 F Weight 178.0 lbs Height 65 in BMI 29.62 Index Blood Pressure Diastolic 78 mmHg Blood Pressure Systolic 130 mmHg Cardiac Monitoring Heart Rate 82 bpm Results No Known Results Summary Purpose [employer] Submission
--- OUTSIDE RECORDS SUMMARY | 2019-05-26 17:47 | XMS REPORT ---
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 Active 938117208 Problem Arthritis of right knee M17.11 Active 857111709 Problem Arthritis of both knees M19.90 Active 807194501 Problem Allergic rhinitis J30.9 Active 61 280832 Problem 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 and Acute otitis externa of left ear, unspecified type H60.502 [facility] [address] [facility] [id number] [address] [place] [address] Mar, Nodule of neck R22.1 [place] [address] [facility] [id number] [address] [place] [phone] 07 Mar, 2017 Allergic conjunctivitis of b oth eyes H10.13 and Skin lesion of neck L98.9 [place] [address] [place] [id number] [address] [place] [address] Sep, Rectal bleeding K62.5 and Re ctal or anal pain K62.89 [facility] [address] [facility] [id number] [address] [place] [address] Jul, [place] [address] [facility] [id number] [address] [place] [address] Jul, Chronic pain syndrome G89.4 [place] [address] [facility] [id number] [address] [place] [address] June, Chronic pain syndrome G89.4 ; Arthritis of both knees M19.90 and Irritation of both eyes H57.8 [place] [address] [facility] [id number] [address] [place] [address] May, Chronic pain syndrome G89.4 [place] [address] [place] [id number] [address] [place] [address] Apr, Chronic pain syndrome G89.4 [place] [address] [place] [id number] [address] [place] [address] 08 Mar, 2016 Chronic pain syndrome G89.4 ; 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 ; Arthritis of both knees M19.90 ; 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 ; Arthritis of right knee M17.11 and Acute non-recurrent maxillary sinusitis J01.00 [facility] [address] [facility] [id number] [address] [place] [id number] 07 Mar, 2016 Dental examination Z01.20 [facility] [address] [facility] [id number] [address] [place] [address] 04 Feb, 2016 Chronic pain syndrome G89.4 ; 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 ; Arthritis of both knees M19.90 ; Seasonal allergic rhinitis, unspecified allergic rhinitis trigger J30.2 ; Erectile dysfunction, unspecified erectile dysfunction type N52.9 and 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 [place] [address] [facility] [id number] [address] [place] [address] Dec, [facility] [address] [id number] [address] [place] [address] Dec, [facility] [address] [facility] [id number] [address] [place] [address] Dec, Chronic pain syndrome G89.4 ; Encounter for immunization Z23 ; B- cell lymphoma C85.10 and Arthritis of both knees M19.90 [facility] [address] [facility] [id number] [address] [place] [address] Oct, [facility] [address] [id number] [address] [place] [address] Sep, [facility] [address] [facility] [id number] [address] [place] [address] Jul, Chronic pain syndrome G89.4 ; 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 and Arthritis of both knees M19.90 [facility] [address] [facility] [id number] [address] [place] [address] Jul, Pain in right knee M25.561 a nd Pain in left knee M25.562 [facility] [address] [facility] [id number] [address] [place] [address] Jul, [facility] [address] [facility] [id number] [address] [place] [address] June, Pain in right knee M25.561 ; Pain in left knee M25.562 and Out of work Z56.0 [facility] [address] [facility] [id number] [address] [place] [address] June, [facility] [address] [facility] [id number] [address] [place] [address] June, [facility] [address] [facility] [id number] [address] [place] [address] June, Chronic pain syndrome G89.4 ; 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 and Poison rosy dermatitis L23.7 [facility] [address] [facility] [id number] [address] [place] [address] May, [facility] [address] [facility] [id number] [address] [place] [address] Apr, Chronic pain syndrome G89.4 ; 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 and Allergic rhinitis J30.9 [facility] [address] [id number] [address] [place] [address] Feb, [facility] [address] [facility] [id number] [address] [place] [address] Jan, Chronic pain syndrome G89.4 ; 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 and Sinusitis, acute J01.90 [facility] [address] [facility] [id number] [address] [place] [address] Jan, Sinusitis, acute J01.90 [facility] [address] [facility] [id number] [address] [place] [address] Jan, [facility] [address] [facility] [id number] [address] [place] [address] Jan, Chronic pain syndrome G89.4 and 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 [facility] [address] [facility] [id number] [address] [place] [address] Dec, Chronic pain syndrome G89.4 ; 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 ; Encounter for immunization Z23 and Erectile dysfunction due to diseases classified elsewhere N52.1 [facility] [address] [facility] [id number] [address] [place] [address] Nov, Chronic pain syndrome G89.4 and 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 [facility] [address] [facility] [id number] [address] [place] [address] Oct, [facility] [address] [facility] [id number] [address] [place] [address] Sep, Non-Hodgkin lymphoma 202.80 and Chronic pain 338.29 [facility] [address] [facility] [id number] [address] [place] [address] Aug, Non-Hodgkin lymphoma 202.80 ; Chronic pain 338.29 and Gastritis determined by endoscopy 535.50 [facility] [address] [id number] [address] [place] [address] Aug, [facility] [address] [id number] [address] [place] [address] Aug, [facility] [address] [id number] [address] [place] [address] Aug, [facility] [address] [id number] [address] [place] [address] Jul, Non-Hodgkin lymphoma 202.80 ; Chronic pain 338.29 and Gastritis determined by endoscopy 535.50 [facility] [address] [id number] [address] [place] [address] Jul, [facility] [address] [facility] [id number] [address] [place] [address] Jul, Lymphoma 202.80 ; Hearing di fficulty 389.9 ; Eye pain 379.91 ; Chronic pain 338.29 and Abscess and cellulitis 682.9 [facility] [address] [id number] [address] [place] [address] June, [facility] [address] [id number] [address] [place] [address] May, [facility] [address] [id number] [address] [place] [address] May, [facility] [address] [id number] [address] [place] [address] Feb, [facility] [address] [id number] [address] [place] [address] Feb, [facility] [address] [id number] [address] [place] [address] Nov, [facility] [address] [facility] [id number] [address] [place] [phone] Sep, [facility] [address] [id number] [address] [place] [address] Aug, [facility] [address] [facility] [id number] [address] [place] [address] Jul, [facility] [address] [id number] [address] [place] [address] May, [facility] [address] [facility] [id number] [address] [place] [address] Aug, IMMUNIZATIONS No Known Immunizations SOCIAL HISTORY Never Assessed REASON FOR VISIT Pain Management -- amy prater PLAN OF CARE Activity Details Follow Up as needed Reason: VITAL SIGNS Height 65 in 2016-10-14 Weight 170.0 lbs 2016-10-14 Temperature 97.0 degrees Fahrenheit 2016-10-14 Heart Rate 78 bpm 2016-10-14 Respiratory Rate 18 2016-10-14 BMI 28.29 kg/m2 2016-10-14 Blood pressure systolic 120 mmHg 2016-10-14 Blood pressure diastolic 76 mmHg 2016-10-14 MEDICATIONS Medication Instructions Dosage Frequency Start Date End Date Duration S tatus Anusol-HC 2.5 % Rectal Twice a day 1 application to affected area 1 2h 29 Sep, 2016 Dec, 30 day(s) Active Lidocaine HCl 0.5 % Externally Twice a day as directed 12h Sep, 017 Active Restasis 0.05 % Ophthalmic Twice a day 1 drop into affected eye 12h June, Active Advil 200 MG Orally 3 times a day 3 tablet as needed 8h Active RESULTS No Results PROCEDURES Procedure Date Ordered Result Body Site [facility] VISIT ESTABLISHED PATIENT Oct 14, 2016 INSTRUCTIONS MEDICATIONS ADMINISTERED No Known Medications MEDICAL (GENERAL) HISTORY Type Description Date Medical History lymphoma B-Cell--diagnosed 02/2013 Medical History hypertension Medical History Bone Marrow Transplant 02/25/2014 at [facility] Medical History Violation of controlled substance agreem ent Surgical History orthopedic surgery-broke tendon in right hand repaired Surgical History otolaryngologic surgery Surgical History orthopedic surgery--ligament removal fro m left shoulder Surgical History Excisional Biopsy of right iliac lymph n jo-anne at [facility] 07/2014 Surgical History EGD in which they did a biopsy 02/2015 Hospitalization History Hospitalization for surgery only
--- OUTSIDE RECORDS SUMMARY | 2019-05-26 17:47 | XMS REPORT ---
Author Author Beth IVY Organization [facility] Address [address] [place] [address] Care Team Providers Care Four H Agent Name Role Phone ROMMELEric DIANE Unavailable PROBLEMS Type Condition ICD9-CM Code [id number] Code Onset Dates Condition S tatus SNOMED Code Problem Allergic rhinitis J30.9 Active 61 305501 Problem Pain in right knee M25.561 Active 3 8694414 Problem Pain in left knee M25.562 Active 30 330409 Problem Arthritis of right knee M17.11 Active 928295563 Problem Seasonal allergic rhinitis, unspecified allergic rhinitis trigger J30.2 Active 289818865 Problem Arthritis of both knees M19.90 Active 846967225 Problem Out of work Z56.0 Active 02245585 Problem 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 048135126 Problem Erectile dysfunction, unspecified erectile dysfunction typ e N52.9 Active 579645331 Problem 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 1099 04001 Problem Chronic pain syndrome G89.4 Active 60886280 Problem Encounter for immunization Z23 Act mayuri 491157452 Problem Violation of controlled substance agreement Z91.14 Active 227074044 Problem Erectile dysfunction due to diseases classified elsewhere N52.1 Active 596446966 ALLERGIES No Information SOCIAL HISTORY Never Assessed PLAN OF CARE VITAL SIGNS MEDICATIONS Unknown Medications RESULTS No Results PROCEDURES No Known procedures IMMUNIZATIONS No Known Immunizations MEDICAL (GENERAL) HISTORY Type Description Date Medical History lymphoma B-Cell--diagnosed 02/2013 Medical History hypertension Medical History Bone Marrow Transplant 02/25/2014 at [facility] Medical History Violation of controlled substance agreem ent Surgical History orthopedic surgery-broke tendon in right hand repaired Surgical History otolaryngologic surgery Surgical History orthopedic surgery--ligament removal fro m left shoulder Surgical History Excisional Biopsy of right iliac lymph n ode at [facility] 07/2014 Surgical History EGD in which they did a biopsy 02/2015 Hospitalization History Hospitalization for surgery only
--- OUTSIDE RECORDS SUMMARY | 2019-05-26 17:47 | XMS REPORT ---
Author Author Beth Ng Organization [facility] Address Unknown Care Team Providers Care Visually Impaired Teacher Name Role Phone LAILA Ng Unavailable PROBLEMS Type Condition ICD9-CM Code [id number] Code Onset Dates Condition S tatus SNOMED Code Problem Allergic rhinitis J30.9 Active 61 625160 Problem Pain in right knee M25.561 Active 3 4596034 Problem Pain in left knee M25.562 Active 30 550593 Problem Arthritis of right knee M17.11 Active 904469703 Problem Seasonal allergic rhinitis, unspecified allergic rhinitis trigger J30.2 Active 191496063 Problem Arthritis of both knees M19.90 Active 225081361 Problem Out of work Z56.0 Active 76656726 Problem 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 774276634 Problem Erectile dysfunction, unspecified erectile dysfunction typ e N52.9 Active 152210729 Problem 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 1099 15740 Problem Chronic pain syndrome G89.4 Active 32789112 Problem Encounter for immunization Z23 Act mayuri 423280519 Problem Violation of controlled substance agreement Z91.14 Active 154479114 Problem Erectile dysfunction due to diseases classified elsewhere N52.1 Active 851906935 ALLERGIES Substance Reaction Event Type Date Status Penicillin V Potassium headache Drug Allergy Mar, Activ e SOCIAL HISTORY Never Assessed PLAN OF CARE Activity Details Follow Up INESSA Reason:FIlling 20 45mins VITAL SIGNS Height 65 in 2016-03-25 Blood pressure systolic 129 mmHg 2016-03-25 Blood pressure diastolic 74 mmHg 2016-03-25 MEDICATIONS Medication Instructions Dosage Frequency Start Date End Date Duration S tatus Clindamycin HCl 150 MG Orally every 8 hrs 1 capsule 8h 14 2016 7 days Active Advil 200 MG Orally 3 times a day 3 tablet as needed 8h Active Hydrocodone-Acetaminophen 10-325 MG Orally every 6 hrs prn 1 tablet as needed Active Fluticasone Propionate 50 MCG/ACT Nasally Once a day 1 spray in each nostril 24h Feb, 30 day(s) Active RESULTS No Results PROCEDURES Procedure Date Ordered Result Body Site LTD ORAL EVALUATION - PROBLEM FOCUS Mar 25, 2016 INTRAORL-PERIAPICAL 1 FILM [id number] Mar 25, 2016 INTRAORL-PERIAPICAL EA ADD FILM Mar 25, 2016 IMMUNIZATIONS No Known Immunizations MEDICAL (GENERAL) HISTORY Type Description Date Medical History lymphoma B-Cell--diagnosed 02/2013 Medical History hypertension Medical History Bone Marrow Transplant 02/25/2014 at [facility] Medical History Violation of controlled substance agreem ent Surgical History orthopedic surgery-broke tendon in right hand repaired Surgical History otolaryngologic surgery Surgical History orthopedic surgery--ligament removal fro m left shoulder Surgical History Excisional Biopsy of right iliac lymph n ode at [facility] 07/2014 Surgical History EGD in which they did a biopsy 02/2015 Hospitalization History Hospitalization for surgery only
--- OUTSIDE RECORDS SUMMARY | 2019-05-26 17:47 | XMS REPORT ---
Author Author Beth IVY Organization [employer] Address Unknown Phone Unavailable Care Team Providers Care Knife Operator Name Role Phone DIANE IVY CP Unavailable Allergies, Adverse Reactions, Alerts Substance Reaction Event Type Penicillin V Potassium headache Drug Allergy Problems Problem Type Condition Code Onset Dates Condition Statu s Problem 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 Problem Influenza with other respiratory manifestations 487.1 Active Problem Chronic pain syndrome G89.4 Active Assessment Chronic pain syndrome G89.4 Active Assessment 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 Problem Pneumonia, organism unspecified 486 Active Problem Pain in joint, lower leg 719.46 Act mayuri Medications Medication Code System Code Instructions Start Date End Date Status Dosage Hydrocodone-Acetaminophen [facility] [address]-17 10-325 MG Orally every 6 hrs 1 [place] [address]-92 200 MG Orally 3 times a day 3 [place] [address]-02 325 MG Orally 3 times a day 3 tablet as needed Procedures Procedure Coding System Code Date Office Visit, Est Pt., Level 3 CPT-[address] [facility] VISIT ESTABLISHED PATIENT CPT-[address] 2014 Vital Signs Date/Time: Nov 23, 2014 Temperature 98.0 F Weight 173.2 lbs Height 65 in BMI 28.82 Index Blood Pressure Diastolic 72 mmHg Blood Pressure Systolic 122 mmHg Cardiac Monitoring Heart Rate 78 bpm Results No Known Results Summary Purpose [employer] Submission
--- OUTSIDE RECORDS SUMMARY | 2019-05-26 17:47 | XMS REPORT ---
Author Author Beth BULLARD Organization [facility] Address [address] [place] [address] Care Team Providers Care Excellence Consultant Name Role Phone BULLARDNIKITA Bryan Unavailable PROBLEMS Type Condition ICD9-CM Code GEL32-OS Code Onset Dates Condition S tatus SNOMED Code Problem Chronic pain syndrome G89.4 Active 69568450 Problem Allergic rhinitis J30.9 Active 61 888542 Problem Encounter for immunization Z23 Act mayuri 523803186 Problem Violation of controlled substance agreement Z91.14 Active 013775181 Problem 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 1099 50434 Problem Other chronic pain G89.29 Active 8 2439779 Problem 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 Active 698908496 Problem Erectile dysfunction, unspecified erectile dysfunction typ e N52.9 Active 068636801 Problem Arthritis of both knees M19.90 Active 802926729 Problem Arthritis of right knee M17.11 Active 258810333 Problem 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 241086414 ALLERGIES Substance Reaction Event Type Date Status Penicillin V Potassium headache Drug Allergy Mar, Activ e ENCOUNTERS Encounter Location Date Diagnosis [facility] [address] [facility] [id number] [address] [place] [phone] Aug, [facility] [address] [facility] [id number] [address] [place] [phone] June, [facility] [address] [facility] [id number] [address] [place] [phone] June, [facility] [address] [facility] [id number] [address] [place] [phone] June, Other chronic pain G89.29 ; Screening for lipoid disorders Z13.220 and Arthritis of both knees M19.90 [facility] [address] [facility] [id number] [address] [place] [phone] June, [place] [address] [facility] [id number] [address] [place] [phone] Apr, Arthritis of both knees M19. 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 and Acute otitis externa of left ear, unspecified type H60.502 [place] [address] [facility] [id number] [address] [place] [phone] Mar, Nodule of neck R22.1 [place] [address] [facility] [id number] [address] [place] [phone] Mar, Allergic conjunctivitis of b oth eyes H10.13 and Skin lesion of neck L98.9 [place] [address] [facility] [id number] [address] [place] [phone] Sep, Rectal bleeding K62.5 and Re ctal or anal pain K62.89 [place] [address] [facility] [id number] [address] [place] [phone] Jul, [place] [address] [facility] [id number] [address] [place] [phone] Jul, Chronic pain syndrome G89.4 [place] [address] [facility] [id number] [address] [place] [phone] June, Chronic pain syndrome G89.4 ; Arthritis of both knees M19.90 and Irritation of both eyes H57.8 [place] [address] [facility] [id number] [address] [place] [phone] May, Chronic pain syndrome G89.4 [place] [address] [facility] [id number] [address] [place] [phone] Apr, Chronic pain syndrome G89.4 [place] [address] [facility] [id number] [address] [place] [phone] 08 Mar, 2016 Chronic pain syndrome G89.4 ; 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 ; Arthritis of both knees M19.90 ; 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 ; Arthritis of right knee M17.11 and Acute non-recurrent maxillary sinusitis J01.00 [facility] [address] [id number] [address] [place] [id number] 07 Mar, 2016 Dental examination Z01.20 [facility] [address] [id number] [address] [place] [phone] 04 Feb, 2016 Chronic pain syndrome G89.4 ; 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 ; Arthritis of both knees M19.90 ; Seasonal allergic rhinitis, unspecified allergic rhinitis trigger J30.2 ; Erectile dysfunction, unspecified erectile dysfunction type N52.9 and 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 [facility] [address] [id number] [address] [place] [phone] Dec, [facility] [address] [id number] [address] [place] [phone] Dec, [facility] [address] [facility] [id number] [address] [place] [phone] Dec, Chronic pain syndrome G89.4 ; Encounter for immunization Z23 ; B- cell lymphoma C85.10 and Arthritis of both knees M19.90 [facility] [address] [id number] [address] [place] [phone] Oct, [facility] [address] [id number] [address] [place] [phone] Sep, [facility] [address] [facility] [id number] [address] [place] [phone] Jul, Chronic pain syndrome G89.4 ; 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 and Arthritis of both knees M19.90 [facility] [address] [facility] [id number] [address] [place] [phone] 14 Jul, 2015 Pain in right knee M25.561 a nd Pain in left knee M25.562 [facility] [address] [id number] [address] [place] [phone] Jul, [facility] [address] [facility] [id number] [address] [place] [phone] June, Pain in right knee M25.561 ; Pain in left knee M25.562 and Out of work Z56.0 [facility] [address] [facility] [id number] [address] [place] [phone] June, [facility] [address] [place] [id number] [address] [place] [phone] June, [facility] [address] [place] [id number] [address] [place] [phone] June, Chronic pain syndrome G89.4 ; 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 and Poison rosy dermatitis L23.7 [facility] [address] [facility] [id number] [address] [place] [phone] May, [place] [address] [place] [id number] [address] [place] [phone] Apr, Chronic pain syndrome G89.4 ; 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 and Allergic rhinitis J30.9 [facility] [address] [facility] [id number] [address] [place] [phone] Feb, [facility] [address] [facility] [id number] [address] [place] [phone] Jan, Chronic pain syndrome G89.4 ; 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 and Sinusitis, acute J01.90 [facility] [address] [facility] [id number] [address] [place] [phone] Jan, Sinusitis, acute J01.90 [facility] [address] [facility] [id number] [address] [place] [phone] Jan, [facility] [address] [facility] [id number] [address] [place] [phone] Jan, Chronic pain syndrome G89.4 and 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 [facility] [address] [facility] [id number] [address] [place] [phone] Dec, Chronic pain syndrome G89.4 ; 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 ; Encounter for immunization Z23 and Erectile dysfunction due to diseases classified elsewhere N52.1 [place] [address] [facility] [id number] [place] [phone] Nov, Chronic pain syndrome G89.4 and 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 [place] [address] [facility] [id number] [address] [place] [phone] Oct, [place] [address] [facility] [id number] [address] [place] [phone] Sep, Non-Hodgkin lymphoma 202.80 and Chronic pain 338.29 [place] [address] [facility] [id number] [place] [phone] Aug, Non-Hodgkin lymphoma 202.80 ; Chronic pain 338.29 and Gastritis determined by endoscopy 535.50 [place] [address] [facility] [id number] [address] [place] [phone] Aug, [place] [address] [facility] [id number] [address] [place] [phone] Aug, [place] [address] [facility] [id number] [address] [place] [phone] Aug, [facility] [address] [facility] [id number] [address] [place] [phone] Jul, Non-Hodgkin lymphoma 202.80 ; Chronic pain 338.29 and Gastritis determined by endoscopy 535.50 [place] [address] [facility] [id number] [address] [place] [phone] Jul, [place] [address] [facility] [id number] [address] [place] [phone] Jul, Lymphoma 202.80 ; Hearing di fficulty 389.9 ; Eye pain 379.91 ; Chronic pain 338.29 and Abscess and cellulitis 682.9 [place] [address] [facility] [id number] [address] [place] [phone] June, [place] [address] [place] [id number] [address] [place] [phone] 14 May, 2014 [facility] [address] [id number] [address] [place] [phone] May, [facility] [address] [id number] [address] [place] [phone] Feb, [facility] [address] [id number] [address] [place] [phone] Feb, [facility] [address] [id number] [address] [place] [phone] Nov, [facility] [address] [id number] [address] [place] [phone] Sep, [facility] [address] [id number] [address] [place] [phone] Aug, [facility] [address] [id number] [address] [place] [phone] Jul, [facility] [address] [id number] [address] [place] [phone] May, [facility] [address] [id number] [address] [place] [phone] Aug, IMMUNIZATIONS No Known Immunizations SOCIAL HISTORY Never Assessed REASON FOR VISIT Lesion Removal behind right ear, consent signed baljinder gusman PLAN OF CARE Activity Details Follow Up prn Reason: VITAL SIGNS Height 65 in 2017-04-06 Weight 184.3 lbs 2017-04-06 Temperature 98.7 degrees Fahrenheit 2017-04-06 Heart Rate 82 bpm 2017-04-06 Respiratory Rate 20 2017-04-06 BMI 30.67 kg/m2 2017-04-06 Blood pressure systolic 130 mmHg 2017-04-06 Blood pressure diastolic 74 mmHg 2017-04-06 MEDICATIONS Medication Instructions Dosage Frequency Start Date End Date Duration S tatus Advil 200 MG Orally 3 times a day 3 tablet as needed 8h Active Restasis 0.05 % Ophthalmic Twice a day 1 drop into affected eye 12h 16 Jun, 2016 June, 90 days Active RESULTS No Results PROCEDURES Procedure Date Ordered Result Body Site [facility] VISIT ESTABLISHED PATIENT Apr 06, 2017 INSTRUCTIONS MEDICATIONS ADMINISTERED No Known Medications MEDICAL (GENERAL) HISTORY Type Description Date Medical History lymphoma B-Cell--diagnosed 02/2013, [facility] 02/2014 Medical History hypertension Medical History Bone Marrow Transplant 02/25/2014 at [facility] Medical History Violation of controlled substance agreem ent Surgical History orthopedic surgery-broke tendon in right hand repaired Surgical History otolaryngologic surgery Surgical History orthopedic surgery--ligament removal fro m left shoulder Surgical History Excisional Biopsy of right iliac lymph n ode at [facility] 07/2014 Surgical History EGD in which they did a biopsy 02/2015 Surgical History biopsy on back of neck Hospitalization History Hospitalization for surgery only
--- OUTSIDE RECORDS SUMMARY | 2019-05-26 17:47 | XMS REPORT ---
Author Author Beth IVY Organization [employer] Address Unknown Phone Unavailable Care Team Providers Care Gerontological Nurse Practitioner Name Role Phone DIANE IVY CP Unavailable Allergies No Known Allergies Problems Problem Type Condition Code Onset Dates Condition Statu s Problem Chronic pain syndrome G89.4 Active Problem 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 Problem Pain in right knee M25.561 Active Problem Pain in left knee M25.562 Active Problem Arthritis of both knees M19.90 Acti ve Problem Encounter for immunization Z23 A ctive Problem Erectile dysfunction due to diseases classified elsewh ere N52.1 Active Problem Out of work Z56.0 Active Problem Allergic rhinitis J30.9 Active Medications No Known Medications Results No Known Results Summary Purpose [employer] Submission
--- OUTSIDE RECORDS SUMMARY | 2019-05-26 17:47 | XMS REPORT ---
Author Author Beth IVY Organization [facility] Address [address] [place] [address] Care Team Providers Care Finance Business Partner Name Role Phone DIANE IVY Unavailable PROBLEMS Type Condition ICD9-CM Code LAT45-KJ Code Onset Dates Condition S tatus SNOMED Code Problem Allergic rhinitis J30.9 Active 61 385310 Problem Pain in right knee M25.561 Active 3 3925651 Problem Pain in left knee M25.562 Active 30 620997 Problem Arthritis of right knee M17.11 Active 470377890 Problem Seasonal allergic rhinitis, unspecified allergic rhinitis trigger J30.2 Active 765550885 Problem Arthritis of both knees M19.90 Active 685344922 Problem Out of work Z56.0 Active 10016351 Problem 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 069035689 Problem Erectile dysfunction, unspecified erectile dysfunction typ e N52.9 Active 451034671 Problem 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 1099 17535 Problem Chronic pain syndrome G89.4 Active 63929774 Problem Encounter for immunization Z23 Act mayuri 975455374 Problem Violation of controlled substance agreement Z91.14 Active 255041969 Problem Erectile dysfunction due to diseases classified elsewhere N52.1 Active 186556335 ALLERGIES No Information SOCIAL HISTORY Never Assessed PLAN OF CARE VITAL SIGNS MEDICATIONS Medication Instructions Dosage Frequency Start Date End Date Duration S tatus Hydrocodone-Acetaminophen 10-325 MG Orally every 6 hrs prn-M UST LAST 28 DAYS 1 tablet as needed Active RESULTS No Results PROCEDURES No Known procedures IMMUNIZATIONS No Known Immunizations MEDICAL (GENERAL) HISTORY Type Description Date Medical History lymphoma B-Cell--diagnosed 02/2013 Medical History hypertension Medical History Bone Marrow Transplant 02/25/2014 at [facility] Medical History Violation of controlled substance agreem ent Surgical History orthopedic surgery-broke tendon in right hand repaired Surgical History otolaryngologic surgery Surgical History orthopedic surgery--ligament removal fro m left shoulder Surgical History Excisional Biopsy of right iliac lymph n ode at [facility] 07/2014 Surgical History EGD in which they did a biopsy 02/2015 Hospitalization History Hospitalization for surgery only
--- OUTSIDE RECORDS SUMMARY | 2019-05-26 17:47 | XMS REPORT ---
Author Author Beth IVY Organization [facility] Address [address] [place] [address] Care Team Providers Care Acid Wash Operator Name Role Phone CATA DIANE Unavailable PROBLEMS Type Condition ICD9-CM Code IPQ17-YS Code Onset Dates Condition S tatus SNOMED Code Problem Allergic rhinitis J30.9 Active 61 004190 Problem Pain in right knee M25.561 Active 3 1265273 Problem Pain in left knee M25.562 Active 30 628879 Problem Arthritis of right knee M17.11 Active 715719600 Problem Seasonal allergic rhinitis, unspecified allergic rhinitis trigger J30.2 Active 349628401 Problem Arthritis of both knees M19.90 Active 853535987 Problem Out of work Z56.0 Active 89686405 Problem 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 603030496 Problem Erectile dysfunction, unspecified erectile dysfunction typ e N52.9 Active 842434741 Problem 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 1099 36874 Problem Chronic pain syndrome G89.4 Active 57617352 Problem Encounter for immunization Z23 Act mayuri 826386914 Problem Violation of controlled substance agreement Z91.14 Active 767809539 Problem Erectile dysfunction due to diseases classified elsewhere N52.1 Active 140594000 ALLERGIES Substance Reaction Event Type Date Status Penicillin V Potassium headache Drug Allergy Feb, Activ e SOCIAL HISTORY No smoking Hx information available PLAN OF CARE Activity Details Follow Up 3 Months /knee injection pos t marrow bx Reason:pain VITAL SIGNS Height 65 in 2016-02-20 Weight 176.0 lbs 2016-02-20 Temperature 98.7 degrees Fahrenheit 2016-02-20 Heart Rate 78 bpm 2016-02-20 Respiratory Rate 18 2016-02-20 BMI 29.28 kg/m2 2016-02-20 Blood pressure systolic 126 mmHg 2016-02-20 Blood pressure diastolic 76 mmHg 2016-02-20 MEDICATIONS Medication Instructions Dosage Frequency Start Date End Date Duration S tatus Triamcinolone Acetonide 0.1 % Externally Twice a day 1 appli cation to affected area 12h June, Active Cialis 5 mg Orally Once a day prn 1 tablet Feb, 9 Feb, 017 05 days Active Hydrocodone-Acetaminophen 10-325 MG Orally every 6 hrs prn 1 tablet as needed Active Ice Bag - Active Fluticasone Propionate 50 MCG/ACT Nasally Once a day 1 spray in each nostril 24h Feb, 30 day(s) Active Advil 200 MG Orally 3 times a day 3 tablet as needed 8h Active RESULTS Name Result Date Reference Range INFLUENZA A & B (IN HOUSE) 2016-02-20 INFLUENZA A Negative INFLUENZA B Negative Control + Lot # [id number] Exp date 08/14/2017 PROCEDURES Procedure Date Ordered Related Diagnosis Body Site INFLUENZA ASSAY W/OPTIC Feb 20, 2016 [facility] VISIT ESTABLISHED PATIENT Feb 20, 2016 Office Visit, Est Pt., Level 4 Feb 20, 2016 IMMUNIZATIONS No Known Immunizations
--- OUTSIDE RECORDS SUMMARY | 2019-05-26 17:47 | XMS REPORT ---
Author Beth Garay [facility] [employer] Address Unknown Phone Unavailable Care Team Providers Care Spanish Literature Professor Name Role Phone DIANE IVY CP Unavailable Allergies, Adverse Reactions, Alerts Substance Reaction Event Type Penicillin V Potassium headache Drug Allergy Problems Problem Type Condition Code Onset Dates Condition Statu s Assessment Encounter for immunization Z23 A ctive Assessment Chronic pain syndrome G89.4 Active Assessment 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 Assessment Erectile dysfunction due to diseases classified elsewh ere N52.1 Active Problem Erectile dysfunction due to diseases classified elsewh ere N52.1 Active Problem Chronic pain syndrome G89.4 Active Problem Encounter for immunization Z23 A ctive Problem Pneumonia, organism unspecified 486 Active Problem Pain in joint, lower leg 719.46 Act mayuri Problem 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 Problem Influenza with other respiratory manifestations 487.1 Active Medications Medication Code System Code Instructions Start Date End Date Status Dosage Hydrocodone-Acetaminophen [facility] [place] [place] [address]-73 10-325 MG Orally every 6 hrs 1 tablet as needed Procedures Procedure Coding System Code Date HIB (PEDVAX-3 DOSE) CPT-4 76967 Dec 21, 2014 PCV 13 CPT-4 17980 Dec 21, 2014 TDAP (BOOSTRIX) CPT-4 31113 Dec 21, 2014 Office Visit, Est Pt., Level 4 CPT-4 18712 N 2014 SINGLE IMMUNIZATION ADMIN CPT-4 51712 Dec POLIO (IPV) CPT-4 07246 Dec 21, 2014 PENDING SALE TO [facility] VISIT ESTABLISHED PATIENT CPT-4 G0467 N 2014 IMMUNIZATION ADMIN, EACH ADD (please include units) CPT-4 10654 Dec 21, 2014 Vital Signs Date/Time: Dec 21, 2014 Temperature 97.9 F Weight 178.5 lbs Height 65 in BMI 29.70 Index Blood Pressure Diastolic 80 mmHg Blood Pressure Systolic 122 mmHg Cardiac Monitoring Heart Rate 80 bpm Results No Known Results Immunizations Vaccine Administration Date HIB (PEDVAX-3 DOSE) Dec 21, 2014 PCV 13 Dec 21, 2014 TDAP (BOOSTRIX) Dec 21, 2014 POLIO (IPV) Dec 21, 2014 Summary Purpose [employer] Submission
--- OUTSIDE RECORDS SUMMARY | 2019-05-26 17:47 | XMS REPORT ---
Author Author Beth IYV Organization [employer] Address Unknown Phone Unavailable Care Team Providers Care Die Sinker Name Role Phone DIANE IVY CP Unavailable Allergies No Known Allergies Problems Problem Type Condition Code Onset Dates Condition Statu s Problem Pain in joint, lower leg 719.46 Act mayuri Problem Encounter for immunization Z23 A ctive Problem Erectile dysfunction due to diseases classified elsew ere N52.1 Active Problem Allergic rhinitis J30.9 Active Problem Influenza with other respiratory manifestations 487.1 Active Problem Pneumonia, organism unspecified 486 Active Problem Chronic pain syndrome G89.4 Active Problem 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 Medications No Known Medications Results No Known Results Summary Purpose [employer] Submission
--- OUTSIDE RECORDS SUMMARY | 2019-05-26 17:47 | XMS REPORT ---
Author Author Beth IVY Organization [facility] Address [address] [place] [address] Care Team Providers Care Tax Associate Attorney Name Role Phone DIANE IVY Unavailable PROBLEMS Type Condition ICD9-CM Code OPU27-OT Code Onset Dates Condition S tatus SNOMED Code Problem 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 1094 18995 Problem Erectile dysfunction due to diseases classified elsewhere N52.1 Active 534559774 Problem Chronic pain syndrome G89.4 Active 13186439 Problem Arthritis of both knees M19.90 Active 370415884 Problem Pain in right knee M25.561 Active 3 1019536 Problem Allergic rhinitis J30.9 Active 61 810161 Problem Encounter for immunization Z23 Act mayuri 893057437 Problem Pain in left knee M25.562 Active 30 067044 Problem Out of work Z56.0 Active 37465954 ALLERGIES Unknown Allergies SOCIAL HISTORY No smoking Hx information available PLAN OF CARE VITAL SIGNS MEDICATIONS Unknown Medications RESULTS No Results PROCEDURES No Known procedures IMMUNIZATIONS No Known Immunizations
--- OUTSIDE RECORDS SUMMARY | 2019-05-26 17:47 | XMS REPORT ---
Author Author Beth IVY Organization [employer] Address Unknown Phone Unavailable Care Team Providers Care Prison Keeper Name Role Phone DIANE IVY CP Unavailable Allergies, Adverse Reactions, Alerts Substance Reaction Event Type Penicillin V Potassium headache Drug Allergy Problems Problem Type Condition ICD-9 Code Onset Dates Condition Statu s Problem Pneumonia, organism unspecified 486 Active Problem Pain in joint, lower leg 719.46 Act mayuri Problem Influenza with other respiratory manifestations 487.1 Active Assessment Non-Hodgkin lymphoma 202.80 Active Assessment Chronic pain 338.29 Active Medications Medication Code System Code Instructions Start Date End Date Status Dosage Hydrocodone-Acetaminophen [facility] [address]-24 10-325 MG Oral ly 4 times a day August 18, 2014 Oct 08, 2014 1 tablet as needed Procedures Procedure Coding System Code Date Office Visit, Est Pt., Level 3 CPT-4 77190 A 2014 [facility] VISIT ESTABLISHED PATIENT CPT-4 G0467 A 2014 Vital Signs Date/Time: Oct 12, 2014 Temperature 97.2 F Weight 170.6 lbs Height 65 in BMI 28.39 Index Blood Pressure Diastolic 70 mmHg Blood Pressure Systolic 110 mmHg Cardiac Monitoring Heart Rate 80 bpm Results No Known Results Summary Purpose [employer] Submission
--- OUTSIDE RECORDS SUMMARY | 2019-05-26 17:47 | XMS REPORT ---
Author Beth Garay [facility] eClinicalWorks Address Unknown Phone Unavailable Care Team Providers Care Manager Technical Support Name Role Phone DIANE IVY CP Unavailable Allergies, Adverse Reactions, Alerts Substance Reaction Event Type Penicillin V Potassium headache Drug Allergy Problems Problem Type Condition Code Onset Dates Condition Statu s Assessment Chronic pain syndrome G89.4 Active Problem Chronic pain syndrome G89.4 Active Problem 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 Problem Pain in right knee M25.561 Active Problem Pain in left knee M25.562 Active Problem Arthritis of both knees M19.90 Acti ve Problem Encounter for immunization Z23 A ctive Problem Erectile dysfunction due to diseases classified elsew ere N52.1 Active Problem Out of work Z56.0 Active Problem Allergic rhinitis J30.9 Active Assessment Arthritis of both knees M19.90 Acti ve Assessment 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 Assessment Encounter for immunization Z23 A ctive Medications Medication Code System Code Instructions Start Date End Date Status Dosage Hydrocodone-Acetaminophen [facility] [address]-69 10-325 MG Orally e very 6 hrs prn 1 tablet as needed Advil [facility] [address]-05 200 MG Orally 3 times a day 3 tablet as needed Triamcinolone Acetonide [facility] [address]-94 0.1 % Externally Twice a day June 21, 2015 1 application to [facility] Procedures Procedure Coding System Code Date Office Visit, Est Pt., Level 3 CPT-4 74928 N ov 2015 FLUARIX QUAD P-FREE 3 AND UP .50 2015 CPT-4 93860 Dec 19, 2015 [facility] VISIT ESTABLISHED PATIENT CPT-4 G0467 N 2015 SINGLE IMMUNIZATION ADMIN CPT-4 56689 Dec Vital Signs Date/Time: Dec 19, 2015 Cardiac Monitoring Heart Rate 80 bpm Weight 176 lbs Height 65 in BMI 29.28 Index Blood Pressure Diastolic 80 mmHg Blood Pressure Systolic 130 mmHg Results No Known Results Immunizations Vaccine Administration Date FLUARIX QUAD P-FREE 3 AND UP .50 2015Dec 19, 2015 Summary Purpose eClinicalWorks Submission
--- OUTSIDE RECORDS SUMMARY | 2019-05-26 17:47 | XMS REPORT ---
Author Author Beth IVY Organization [facility] Address [address] [place] [address] Care Team Providers Care Stapler Machine Name Role Phone DIANE IVY Unavailable PROBLEMS Type Condition ICD9-CM Code [id number] Code Onset Dates Condition S tatus SNOMED Code Problem 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 9971 03020 Problem Erectile dysfunction due to diseases classified elsewhere N52.1 Active 827642522 Problem Chronic pain syndrome G89.4 Active 02514944 Problem Arthritis of both knees M19.90 Active 243986032 Problem Pain in right knee M25.561 Active 3 6726912 Problem Allergic rhinitis J30.9 Active 61 432947 Problem Encounter for immunization Z23 Act mayuri 242212632 Problem Pain in left knee M25.562 Active 30 883198 Problem Out of work Z56.0 Active 73432036 ALLERGIES Unknown Allergies SOCIAL HISTORY No smoking Hx information available PLAN OF CARE VITAL SIGNS MEDICATIONS Medication Instructions Dosage Frequency Start Date End Date Duration S tatus Hydrocodone-Acetaminophen 10-325 MG Orally every 6 hrs prn- must last 28 days 1 tablet as needed Active RESULTS No Results PROCEDURES No Known procedures IMMUNIZATIONS No Known Immunizations
--- OUTSIDE RECORDS SUMMARY | 2019-05-26 17:47 | XMS REPORT ---
Author Beth Garay Organization [employer] Address Unknown Phone Unavailable Care Team Providers Care Sound Recordist Name Role Phone DIANE IVY CP Unavailable Allergies, Adverse Reactions, Alerts Substance Reaction Event Type Penicillin V Potassium headache Drug Allergy Problems Problem Type Condition Code Onset Dates Condition Statu s Assessment Sinusitis, acute J01.90 Active Assessment Chronic pain syndrome G89.4 Active [...] Instructions Start Date End Date Status Dosage Robitussin Cough Long-Acting NDC 0 [place] [address]-35 325 MG Orally 3 times a day 3 [place] [address]-68 200 MG Orally 3 times a day 3 [place] [address]-68 100 MG Orally Once a day Feb 12 015 1 capsule as needed Promethazine-Codeine [facility] [address]-27 6.25-10 MG/5ML Oral ly every 6 hrs prn Feb 14, 2015 5 ml as needed Azithromycin [facility] [address]-40 250 MG Orally Once a day 2 tablets on the first day, then 1 tablet daily for 4 days Hydrocodone-Acetaminophen [facility] [address]-83 10-325 MG Orally e very 6 hrs prn 1 tablet as needed Procedures Procedure Coding System Code Date Office Visit, Est Pt., Level 3 CPT-4 53125 D ec 2014 [facility] VISIT ESTABLISHED PATIENT CPT-4 G0467 D ec 2014 Vital Signs Date/Time: Feb 14, 2015 Temperature 98.8 F Weight 178.6 lbs Height 65 in BMI 29.72 Index Blood Pressure Diastolic 76 mmHg Blood Pressure Systolic 118 mmHg Cardiac Monitoring Heart Rate 84 bpm Results No Known Results Summary Purpose eClinicalWorks Submission
--- OUTSIDE RECORDS SUMMARY | 2019-05-26 17:48 | XMS REPORT | Continuity of Care Document ---
Author Organization Unknown Address Unknown Phone Unavailable Allergies Active Description Code Type Severity Reaction Onset Reported/Identified Relationship to Patient Clinical Status Yes Penicillins Drug Allergy N/A N/A 03/10/2013 Yes Penicillins [id number] Drug Aller gy Unknown N/A 12/27/2013 Medications There is no data. 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 08/07/2008 BRIANNE UNDERWOOD APRN 784.0 HEADACHE 08/07/2008 BING OLIVAS APRN 78 4.0 HEADACHE 09/03/2009 BRIANNE UNDERWOOD APRN 845.10 SPRAIN/STRAIN FOOT 09/03/2009 BING OLIVAS APRN 845.10 SPRAIN/STRAIN FOOT 02/18/2010 BRIANNE UNDERWOOD APRN 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 02/18/2010 BRIANNE UNDERWOOD APRN 466.0 BRONCHITIS, ACUTE 02/18/2010 BING OLIVAS APRN 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 02/18/2010 BING OLIVAS APRN 46 6.0 BRONCHITIS, ACUTE 09/10/2012 BRIANNE UNDERWOOD APRN 719.46 PAIN IN JOINT INVOLVING LOWER LEG 09/10/2012 BING OLIVAS APRN 719.46 PAIN IN JOINT INVOLVING LOWER LEG 01/11/2013 DOUGIE VALDEZ MD ([facility]) Ot V57.21 ENCOUNTER FOR OCCUPATIONAL THERAPY 01/11/2013 DOUGIE VALDEZ MD ([facility]) Ot V68.01 DISABILITY EXAMINATION 01/11/2013 DOUGIE VALDEZ MD ([facility]) Ot V82.89 SCREEN FOR OTH SPECIF CONDITIONS 03/09/2013 BING OLIVAS APRN T 48 6 PNEUMONIA UNSPECIFIED 03/09/2013 BING OLIVAS APRN T 48 7.1 INFLUENZA 12/28/2013 DARLYN MYERS, JOANIE Sams Ot 202.86 12/28/2013 DARLYN MYERS, JOANIE Sams Ot 305.1 12/28/2013 DARLYN MYERS, JOANIE Sams Ot 338.3 12/28/2013 DARLYN MYERS, JOANIE Sams Ot 389.9 12/28/2013 DARLYN MYERS, JOANIE Sams Ot 530.81 12/28/2013 JOANIE SANTIZO MD Ot 202.86 12/28/2013 JOANIE SANTIZO MD Ot 305.1 12/28/2013 JOANIE SANTIZO MD Ot 338.3 12/28/2013 JOANIE SANTIZO MD Ot 389.9 12/28/2013 JOANIE SANTIZO MD Ot 530.81 12/29/2013 JOANIE SANTIZO MD Ot 202.86 12/29/2013 JOANIE SANTIZO MD Ot 305.1 12/29/2013 JOANIE SANTIZO MD Ot 338.3 12/29/2013 JOANIE SANTIZO MD Ot 389.9 12/29/2013 JOANIE SANTIZO MD Ot 530.81 12/29/2013 JOANIE SANTIZO MD Ot 202.86 12/29/2013 JOANIE SANTIZO MD Ot 305.1 12/29/2013 JOANIE SANTIZO MD Ot 338.3 12/29/2013 JOANIE SANTIZO MD Ot 389.9 12/29/2013 JOANIE SANTIZO MD Ot 530.81 12/29/2013 JOANIE SANTIZO MD Ot 202.86 LYMPHOMAS NEC PELVIC 12/29/2013 JOANIE SANTIZO MD Ot 305.1 TOBACCO USE DISORDER 12/29/2013 JOANIE SANTIZO MD Ot 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) 12/29/2013 JOANIE SANTIZO MD Ot 389.9 HEARING LOSS NOS 12/29/2013 JOANIE SANTIZO MD Ot 530.81 ESOPHAGEAL REFLUX 12/29/2013 JOANIE SANTIZO MD Ot V04.81 ND FOR PROPHYLACTIC VACCIN AND INOCULATI 01/17/2014 JOANIE SANTIZO MD Ot 202.85 01/17/2014 JOANIE SANTIZO MD Ot 338.3 01/17/2014 JOANIE SANTIZO MD Ot 530.81 01/17/2014 JOANIE SANTIZO MD Ot 784.0 01/17/2014 JOANIE SANTIZO MD Ot V58.69 01/19/2014 JOANIE SANTIZO MD Ot 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 01/19/2014 JOANIE SANTIZO MD Ot 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 EXTRANODAL SOLID ORGAN U 01/19/2014 JOANIE SANTIZO MD Ot 300.00 ANXIETY STATE NOS 01/19/2014 JOANIE SANTIZO MD Ot 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) 01/19/2014 JOANIE SANTIZO MD Ot 530.81 ESOPHAGEAL REFLUX 01/19/2014 JOANIE SANTIZO MD Ot 564.00 UNSPEC CONSTIPATION 01/19/2014 JOANIE SANTIZO MD Ot 784.0 HEADACHE 01/19/2014 JOANIE SANTIZO MD Ot V58.11 ENCOUNTER FOR ANTINEOPLASTIC CHEMOTHERAP 02/14/2014 Ot 959.7 02/14/2014 Ot E000.8 02/14/2014 Ot E849.0 02/14/2014 Ot E928.9 02/14/2014 JOANIE SANTIZO MD Ot 202.85 02/14/2014 JOANIE SANTIZO MD Ot 338.3 02/14/2014 JOANIE SANTIZO MD Ot 530.81 02/14/2014 JOANIE SANTIZO MD Ot 784.0 02/14/2014 JOANIE SANTIZO MD Ot V58.11 02/14/2014 JOANIE SANTIZO MD Ot V58.69 02/14/2014 JOANIE SANTIZO MD Ot 202.80 02/14/2014 DARLYN MYERS, JOANIE Sams Ot 305.1 02/14/2014 DARLYN MYERS, JOANIE Sams Ot 338.3 02/14/2014 JOANIE SANTIZO MD Ot 784.0 02/14/2014 DARLYN MYERS, JOANIE Sams Ot V87.41 02/14/2014 DARLYN MYERS, JOANIE Sams Ot 202.80 02/14/2014 DARLYN MYERS, JOANIE Sams Ot 305.1 02/14/2014 DARLYN MYERS, JOANIE Sams Ot 338.3 02/14/2014 DARLYN MYERS, JOANIE Sams Ot 784.0 02/14/2014 JOANIE SANTIZO MD Ot V87.41 02/14/2014 DARLYN MYERS, JOANIE Sams Ot 202.85 02/14/2014 JOANIE SANTIZO MD Ot 338.3 02/14/2014 DARLYN MYERS, JOANIE Sams Ot 530.81 02/14/2014 JOANIE SANTIZO MD Ot 784.0 02/14/2014 DARLYN MYERS, JOANIE Sams Ot V58.11 02/14/2014 DARLYN MYERS, JOANIE Sams Ot V58.69 03/13/2014 DARLYN MYERS, JOANIE Sams Ot 202.85 LYMPHOMAS NEC INGUIN 03/13/2014 DARLYN MYERS, JOANIE Sams Ot 288.03 DRUG INDUCED NEUTROPENIA 03/13/2014 DARLYN MYERS, JOANIE Sams Ot 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) 03/13/2014 DARLYN MYERS, JOANIE Sams Ot 530.81 ESOPHAGEAL REFLUX 03/13/2014 DARLYN MYERS, JOANIE Sams Ot 784.0 HEADACHE 03/13/2014 JOANIE SANTIZO MD Ot E849.7 03/13/2014 JOANIE SANTIZO MD Ot E933.1 ADV EFF ANTINEOPLASTIC 03/13/2014 JOANIE SANTIZO MD, Ot V58.11 ENCOUNTER FOR ANTINEOPLASTIC CHEMOTHERAP 03/13/2014 DARLYN MYERS, JOANIE Sams Ot V58.69 OTH MED,LT,CURRENT USE 03/13/2014 JOANIE SANTIZO MD, Ot V58.81 FIT/ADJ VASCULAR CATHETER 03/15/2014 DARLYN MYERS, JOANIE Sams Ot 202.85 03/15/2014 DARLYN MYERS, JOANIE Sams Ot 288.03 03/15/2014 DARLYN MYERS, JOANIE Sams Ot 338.3 03/15/2014 DARLYN MYERS, JOANIE Sams Ot 530.81 03/15/2014 DARLYN MYERS, JOANIE Sams Ot 784.0 03/15/2014 DARLYN MYERS, JOANIE Sams Ot E849.7 03/15/2014 DARLYN MYERS, JOANIE Sams Ot E933.1 03/15/2014 DARLYN MYERS, JOANIE Sams Ot V58.11 03/15/2014 DARLYN MYERS, JOANIE Sams Ot V58.69 03/15/2014 DARLYN MYERS, JOANIE Sams Ot 202.85 03/15/2014 DARLYN MYERS, JOANIE Sams Ot 288.03 03/15/2014 DARLYN MYERS, JOANIE Sams Ot 338.3 03/15/2014 DARLYN MYERS, JOANIE Sams Ot 530.81 03/15/2014 DARLYN MYERS, JOANIE Sams Ot 784.0 03/15/2014 DARLYN MYERS, JOANIE Sams Ot E849.7 03/15/2014 DARLYN MYERS, JOANIE Sams Ot E933.1 03/15/2014 DARLYN MYERS, JOANIE Sams Ot V58.11 03/15/2014 DARLYN MYERS, JOANIE Sams Ot V58.69 2014 DARLYN MYERS, JOANIE K Ot 202.85 2014 DARLYN MYERS, JOANIE K Ot 288.03 2014 DARLYN MYERS, JOANIE K Ot 338.3 2014 DARLYN MYERS, JOANIE Flaquita Ot 530.81 2014 DARLYN MYERS, JOANIE Sams Ot 784.0 2014 DARLYN MYERS, JOANIE Sams Ot E849.7 2014 DARLYN MYERS, JOANIE Sams Ot E933.1 2014 DARLYN MYERS, JOANIE Flaquita Ot V58.11 2014 DARLYN MYERS, JOANIE K Ot V58.69 03/27/2014 DARLYN MYERS, JOANIE K Ot 202.85 03/27/2014 DARLYN MYERS, JOANIE K Ot 288.03 03/27/2014 DARLYN MYERS, JOANIE Flaquita Ot 338.3 03/27/2014 DARLYN MYERS, JOANIE Flaquita Ot 530.81 03/27/2014 DARLYN MYERS, JOANIE Sams Ot 784.0 03/27/2014 DARLYN MYERS, JOANIE Sams Ot E849.7 03/27/2014 DARLYN MYERS, JOANIE Flaquita Ot E933.1 03/27/2014 DARLYN MYERS, JOANIE Sams Ot V58.11 03/27/2014 DARLYN MYERS, JOANIE Sams Ot V58.69 03/27/2014 Ot 959.7 03/27/2014 Ot E000.8 03/27/2014 Ot E849.0 03/27/2014 Ot E928.9 03/27/2014 DARLYN MYERS, JOANIE Flaquita Ot 202.80 03/27/2014 DARLYN MYERS, JOANIE Sams Ot 305.1 03/27/2014 DARLYN MYERS, JOANIE Sams Ot 338.3 03/27/2014 DARLYN MYERS, JOANIE Flaquita Ot 784.0 03/27/2014 DARLYN MYERS, JOANIE Sams Ot V58.69 03/27/2014 DARLYN MYERS, JOANIE K Ot V87.41 03/27/2014 DARLYN MYERS, JOANIE K Ot 202.85 03/27/2014 DARLYN MYERS, JOANIE K Ot 338.3 03/27/2014 DARLYN MYERS, JOANIE Flaquita Ot 530.81 03/27/2014 DARLYN MYERS, JOANIE K Ot 784.0 03/27/2014 DARLYN MYERS, JOANIE K Ot V58.69 03/27/2014 DARLYN MYERS, JOANIE Flaquita Ot 202.85 03/27/2014 DARLYN MYERS, JOANIE Flaquita Ot 338.3 03/27/2014 DARLYN MYERS, JOANIE Flaquita Ot 530.81 03/27/2014 DARLYN MYERS, JOANIE Sams Ot 784.0 03/27/2014 DARLYN MYERS, JOANIE Sams Ot V58.69 03/27/2014 DARLYN MYERS, JOANIE Sams Ot 202.85 03/27/2014 DARLYN MYERS, JOANIE Sams Ot 338.3 03/27/2014 DARLYN MYERS, JOANIE Sams Ot 530.81 03/27/2014 DARLYN MYERS, JOANIE Sams Ot 784.0 03/27/2014 DARLYN MYERS, JOANIE Sams Ot V58.69 03/27/2014 DARLYN MYERS, JOANIE Sams Ot 202.85 03/27/2014 DARLYN MYERS, JOANIE Sams Ot 338.3 03/27/2014 DARLYN MYERS, JOANIE Sams Ot 530.81 03/27/2014 DARLYN MYERS, JOANIE Sams Ot 784.0 03/27/2014 DARLYN MYERS, JOANIE Sams Ot V58.69 05/16/2014 DARLYN MYERS, JOANIE Sams Ot 202.85 05/16/2014 DARLYN MYERS, JOANIE Sams Ot 338.3 05/16/2014 DARLYN MYERS, JOANIE Sams Ot 530.81 05/16/2014 DARLYN MYERS, JOANIE Sams Ot 784.0 05/16/2014 DARLYN MYERS, JOANIE Sams Ot V58.69 05/19/2014 DARLYN MYERS, JOANIE Sams Ot 202.85 05/19/2014 DARLYN MYERS, JOANIE Sams Ot 338.3 05/19/2014 DARLYN MYERS, JOANIE Sams Ot 530.81 05/19/2014 DARLYN MYERS, JOANIE Sams Ot 784.0 05/19/2014 DARLYN MYERS, JOANIE Sams Ot V58.69 06/20/2014 DARLYN MYERS, JOANIE Sams Ot 202.85 LYMPHOMAS NEC INGUIN 06/20/2014 DARLYN MYERS, JOANIE Sams Ot 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) 06/20/2014 DARLYN MYERS, JOANIE Sams Ot 530.81 ESOPHAGEAL REFLUX 06/20/2014 DARLYN MYERS, JOANIE Sams Ot 784.0 HEADACHE 06/20/2014 DARYLN MYERS, JOANIE Sams Ot V58.69 OTH MED,LT,CURRENT USE 06/20/2014 Ot 959.7 06/20/2014 Ot E000.8 06/20/2014 Ot E849.0 06/20/2014 Ot E928.9 06/20/2014 DARLYN MYERS, JOANIE Sams Ot 202.80 06/20/2014 DARLYN MYERS, JOANIE Sams Ot 305.1 06/20/2014 DARLYN MYERS, JOANIE Sams Ot 338.3 06/20/2014 DARLYN MYERS, JOANIE Sams Ot 784.0 06/20/2014 DARLYN MYERS, JOANIE Sams Ot V58.69 06/20/2014 DARLYN MYERS, JOANIE Sams Ot V87.41 06/20/2014 DARLYN MYERS, JOANIE Sams Ot 202.85 06/20/2014 DARLYN MYERS, JOANIE Sams Ot 338.3 06/20/2014 DARLYN MYERS, JOANIE Sams Ot 530.81 06/20/2014 DARLYN MYERS, JOANIE Sams Ot 784.0 06/20/2014 DARLYN MYERS, JOANIE Sams Ot V58.69 06/20/2014 DARLYN MYERS, JOANIE Sams Ot 202.80 06/22/2014 Ot 959.7 06/22/2014 Ot E000.8 06/22/2014 Ot E849.0 06/22/2014 Ot E928.9 06/22/2014 DARLYN MYERS, JOANIE Sams Ot 202.80 06/22/2014 DARLYN MYERS, JOANIE Sams Ot 305.1 06/22/2014 DARLYN MYERS, JOANIE Sams Ot 338.3 06/22/2014 DARLYN MYERS, JOANIE Sams Ot 784.0 06/22/2014 DARLYN MYERS, JOANIE Sams Ot V58.69 06/22/2014 DARLYN MYERS, JOANIE Sams Ot V87.41 06/22/2014 DARLYN MYERS, JOANIE Sams Ot 202.80 06/22/2014 DARLYN MYERS, JOANIE Sams Ot 789.30 06/22/2014 DARLYN MYERS, JOANIE Sams Ot 202.85 06/22/2014 DARLYN MYERS, JOANIE Sams Ot 338.3 06/22/2014 DARLYN MYERS, JOANIE Sams Ot 530.81 06/22/2014 DARLYN MYERS, JOANIE Sams Ot 784.0 06/22/2014 DARLYN MYERS, JOANIE Sams Ot V58.69 06/23/2014 DARLYN MYERS, JOANIE Sams Ot 789.33 06/23/2014 MANISHA ANDERSON MD Ot 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 EXTRANODAL SOLID ORGAN U 06/23/2014 MANISHA ANDERSON MD Ot 530.11 REFLUX ESOPHAGITIS 06/23/2014 MANISHA ANDERSON MD Ot 535.40 OTH SPECIFIED GASTRITIS,W/O MENTION OF H 06/23/2014 MANISHA ANDERSON MD Ot V12.71 PERSONAL HISTORY OF PEPTIC ULCER DISEASE 06/24/2014 BERYL MYERS, NAIN Luis Ot 466.0 ACUTE BRONCHITIS 06/24/2014 NAIN CORDOBA MD Ot 786.2 COUGH 06/26/2014 DARLYN MYERS, JOANIE Sams Ot 789.33 06/26/2014 DARLYN MYERS, JOANIE Sams Ot 202.85 06/26/2014 DARLYN MYERS, JOANIE Sams Ot 338.3 06/26/2014 DARLYN MYERS, JOANIE K Ot 530.81 06/26/2014 DARLYN MYERS, JOANIE Sams Ot 784.0 06/26/2014 DARLYN MYERS, JOANIE Sams Ot V58.69 06/26/2014 DARLYN MYERS, JOANIE K Ot 202.85 06/26/2014 DARLYN MYERS, JOANIE Sams Ot 338.3 06/26/2014 DARLYN MYERS, JOANIE Flaquita Ot 530.81 06/26/2014 DARLYN MYERS, JOANIE Sams Ot 784.0 06/26/2014 DARLYN MYERS, JOANIE Sams Ot V58.69 07/15/2014 DARLYN MYERS, JOANIE Sams Ot 202.80 07/17/2014 DARLYN MYERS, JOANIE Sams Ot 789.30 07/28/2014 DARLYN MYERS, JOANIE Sams Ot 709.8 08/02/2014 DARLYN MYERS, JOANIE Flaquita Ot 202.80 08/02/2014 DARLYN MYERS, JOANIE Sams Ot 789.30 08/08/2014 DARLYN MYERS, JOANIE Flaquita Ot 709.8 08/08/2014 DARLYN MYERS, JOANIE Sams Ot 202.80 08/08/2014 DARLYN MYERS, JOANIE Sams Ot 305.1 08/08/2014 DARLYN MYERS, JOANIE Sams Ot 338.3 08/08/2014 DARLYN MYERS, JOANIE Sams Ot 784.0 08/08/2014 DARLYN MYERS, JOANIE Sams Ot V58.69 08/08/2014 DARLYN MYERS, JOANIE Flaquita Ot V87.41 08/09/2014 DARLYN MYERS, JOANIE Flaquita Ot 202.80 08/09/2014 DARLYN MYERS, JOANIE K Ot 305.1 08/09/2014 DARLYN MYERS, JOANIE K Ot 338.3 08/09/2014 DARLYN MYERS, JOANIE Smas Ot 784.0 08/09/2014 DARLYN MYERS, JOANIE Sams Ot V58.69 08/09/2014 DARLYN MYERS, JOANIE Sams Ot V87.41 08/15/2014 Ot 959.7 08/15/2014 Ot E000.8 08/15/2014 Ot E849.0 08/15/2014 Ot E928.9 08/15/2014 DARLYN MYERS, JOANIE Sams Ot 202.80 08/15/2014 DARLYN MYERS, JOANIE Flaquita Ot 305.1 08/15/2014 DARLYN MYERS, JOANIE Flaquita Ot 338.3 08/15/2014 DARLYN MYERS, JOANIE Flaquita Ot 784.0 08/15/2014 DARLYN MYERS, JOANIE Flaquita Ot V58.69 08/15/2014 DARLYN MYERS, JOANIE Flaquita Ot V87.41 08/15/2014 DARLYN MYERS, JOANIE Flaquita Ot 202.80 08/15/2014 DARLYN MYERS, JOANIE Flaquita Ot 789.30 08/15/2014 DARLYN MYERS, JOANIE Flaquita Ot 709.8 08/15/2014 DARLYN MYERS, JOANIE Flaquita Ot 202.85 08/15/2014 DARLYN MYERS, JOANIE Flaquita Ot 338.3 08/15/2014 DARLYN MYERS, JOANIE Sams Ot 530.81 08/15/2014 DARLYN MYERS, JOANIE Sams Ot 784.0 08/15/2014 DARLYN MYERS, JOANIE Flaquita Ot V58.69 08/15/2014 MANISHA ANDERSON MD Ot V72.84 09/24/2014 DARLYN MYERS, JOANIE Sams Ot 202.85 LYMPHOMAS NEC INGUIN 09/24/2014 DARLYN MYERS, JOANIE Flaquita Ot 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) 09/24/2014 DARLYN MYERS, JOANIE Flaquita Ot 530.81 ESOPHAGEAL REFLUX 09/24/2014 DARLYN MYERS, JOANIE Sams Ot 784.0 HEADACHE 09/24/2014 DARLYN MYERS, JOANIE Flaquita Ot V58.69 OTH MED,LT,CURRENT USE 09/28/2014 DARLYN MYERS, JOANIE Sams Ot 202.80 09/28/2014 DARLYN MYERS, JOANIE Sams Ot 202.80 10/06/2014 Ot 959.7 10/06/2014 Ot E000.8 10/06/2014 Ot E849.0 10/06/2014 Ot E928.9 10/06/2014 DARLYN MYERS, JOANIE Flaquita Ot 202.80 10/06/2014 DARLYN MYERS, JOANIE Flaquita Ot 305.1 10/06/2014 DARLYN MYERS, JOANIE Flaquita Ot 338.3 10/06/2014 DARLYN MYERS, JOANIE Sams Ot 784.0 10/06/2014 DARLYN MYERS, JOANIE Flaquita Ot V58.69 10/06/2014 DARLYN MYERS, JOANIE Flaquita Ot V87.41 10/06/2014 DARLYN MYERS, JOANIE Sams Ot 202.80 10/06/2014 DARLYN MYERS, JOANIE Sams Ot 789.30 10/06/2014 DARLYN MYERS, JOANIE Sams Ot 709.8 10/06/2014 MANISHA ANDERSON MD Ot V72.84 10/06/2014 DARLYN MD, JOANIE K Ot 202.80 10/06/2014 DARLYN MYERS, JOANIE K Ot 202.80 10/06/2014 DARLYN MYERS, JOANIE Flaquita Ot 202.85 10/06/2014 DARLYN MYERS, JOANIE Flaquita Ot 338.3 10/06/2014 DARLYN MYERS, JOANIE Flaquita Ot 530.81 10/06/2014 DARLYN MYERS, JOANIE Sams Ot 784.0 10/06/2014 DARLYN MYERS, JOANIE Flaquita Ot V58.69 10/06/2014 Ot 959.7 10/06/2014 Ot E000.8 10/06/2014 Ot E849.0 10/06/2014 Ot E928.9 10/06/2014 DARLYN MYERS, JOANIE Sams Ot 202.80 10/06/2014 DARLYN MYERS, JOANIE Flaquita Ot 305.1 10/06/2014 DARLYN MYERS, JOANIE Flaquita Ot 338.3 10/06/2014 DARLYN MYERS, JOANIE Flaquita Ot 784.0 10/06/2014 DARLYN MYERS, JOANIE Flaquita Ot V58.69 10/06/2014 DARLYN MYERS, JOANIE Flaquita Ot V87.41 10/06/2014 DARLYN MYERS, JOANIE Sams Ot 202.80 10/06/2014 DARLYN MYERS, JOANIE Sams Ot 789.30 10/06/2014 DARLYN MYERS, JOANIE Sams Ot 709.8 10/06/2014 MONICA MYERS, MANISHA Ot V72.84 10/06/2014 DARLYN MYERS, JOANIE Sams Ot 202.80 10/06/2014 DARLYN MYERS, JOANIE Flaquita Ot 202.80 10/06/2014 DARLYN MYERS, JOANIE Flaquita Ot 202.85 10/06/2014 DARLYN MYERS, JOANIE Flaquita Ot 338.3 10/06/2014 DARLYN MYERS, JOANIE Flaquita Ot 530.81 10/06/2014 DARLYN MYERS, JOANIE Sams Ot 784.0 10/06/2014 DARLYN MYERS, JOANIE Sams Ot V58.69 10/12/2014 DARLYN MYERS, JOANIE Sams Ot 202.80 10/12/2014 DARLYN MYERS, JOANIE Flaquita Ot 305.1 10/12/2014 DARLYN MYERS, JOANIE Flaquita Ot 338.3 10/12/2014 DARLYN MYERS, JOANIE Flaquita Ot 784.0 10/12/2014 DARLYN MYERS, JOANIE Flaquita Ot V58.69 10/12/2014 DARLYN MYERS, JOANIE Flaquita Ot V87.41 12/25/2014 DARLYN MYERS, JOANIE K Ot 202.85 12/25/2014 DARLYN MYERS, JOANIE K Ot 338.3 12/25/2014 DARLYN MYERS, JOANIE Flaquita Ot 530.81 12/25/2014 DARLYN MYERS, JOANIE Sams Ot 784.0 12/25/2014 DARLYN MYERS, JOANIE Sams Ot V58.69 01/15/2015 DARLYN MYERS, JOANIE Flaquita Ot C85.85 01/15/2015 DARLYN MYERS, JOANIE Sams Ot G89.3 01/15/2015 DARLYN MYERS, JOANIE Flaquita Ot K21.9 01/15/2015 DARLYN MYERS, JOANIE Sams Ot R51 01/15/2015 DARLYN MYERS, JOANIE Sams Ot Z79.899 02/13/2015 Ot 959.7 02/13/2015 Ot E000.8 02/13/2015 Ot E849.0 02/13/2015 Ot E928.9 02/13/2015 DARLYN MYERS, JOANIE Flaquita Ot 202.80 02/13/2015 DARLYN MYERS, JOANIE Sams Ot 305.1 02/13/2015 DARLYN MYERS, JOANIE Sams Ot 338.3 02/13/2015 DARLYN MYERS, JOANIE Sams Ot 784.0 02/13/2015 DARLYN MYERS, JOANIE Flaquita Ot V58.69 02/13/2015 DARLYN MYERS, JOANIE Sams Ot V87.41 02/13/2015 DARLYN MYERS, JOANIE Sams Ot 202.80 02/13/2015 DARLYN MYERS, JOANIE Sams Ot 789.30 02/13/2015 DARLYN MYERS, JOANIE Sams Ot 709.8 02/13/2015 MANISHA ANDERSON MD Ot V72.84 02/13/2015 DARLYN MYERS, JOANIE Flaquita Ot 202.80 02/13/2015 DARLYN MYERS, JOANIE Flaquita Ot 202.80 02/13/2015 DARLYN MYERS, JOANIE Sams Ot C85.85 02/13/2015 DARLYN MYERS, JOANIE Flaquita Ot G89.3 02/13/2015 DARLYN MYERS, JOANIE Flaquita Ot K21.9 02/13/2015 DARLYN MYERS, JOANIE Sams Ot R51 02/13/2015 DARLYN MYERS, JOANIE Sams Ot Z79.899 02/22/2015 DARLYN MYERS, JOANIE Sams Ot C85.85 OT TYPES OF NON-HODG LYMPH, NODES OF IN 02/22/2015 DARLYN MYERS, JOANIE Sams Ot 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) 02/22/2015 DARLYN MYERS, JOANIE Sams Ot K21.9 GASTRO-ESOPHAGEAL REFLUX DISEASE WITHOUT 02/22/2015 JOANIE SANTIZO MD Ot R51 HEADACHE 02/22/2015 JOANIE SANTIZO MD Ot Z79.899 OTHER SKILLED NURSING (CURRENT) DRUG THERAPY 03/08/2015 DARLYN MYERS, JOANIE Sams Ot C85.85 03/08/2015 JOANIE SANTIZO MD Ot G89.3 03/08/2015 JOANIE SANTIZO MD Ot K21.9 03/08/2015 JOANIE SANTIZO MD Ot R51 03/08/2015 JOANIE SANTIZO MD Ot Z79.899 2015 DARLYN MYERS, JOANIE Sams Ot C85.10 04/17/2015 DARLYN MYERS, JOANIE Sams Ot C85.10 04/17/2015 DARLYN MYERS, JOANIE Sams Ot C85.10 04/17/2015 JOANIE SANTIZO MD Ot J39.2 04/17/2015 JOANIE SANTIZO MD Ot R93.0 04/17/2015 JOANIE SANTIZO MD Ot C85.10 06/12/2015 JOANIE SANTIZO MD Ot C85.85 OTH TYPES OF NON-HODG LYMPH, NODES OF IN 06/12/2015 JOANIE SANTIZO MD Ot 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) 06/12/2015 JOANIE SANTIZO MD Ot K21.9 GASTRO-ESOPHAGEAL REFLUX DISEASE WITHOUT 06/12/2015 JOANIE SANTIZO MD Ot R51 HEADACHE 06/12/2015 JOANIE SANTIZO MD Ot Z79.899 OTHER SKILLED NURSING (CURRENT) DRUG THERAPY 06/21/2015 JOANIE SANTIZO MD Ot C85.85 OTH TYPES OF NON-HODG LYMPH, NODES OF IN 06/21/2015 JOANIE SANTIZO MD Ot 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) 06/21/2015 JOANIE SANTIZO MD Ot K21.9 GASTRO-ESOPHAGEAL REFLUX DISEASE WITHOUT 06/21/2015 JOANIE SANTIZO MD Ot R51 HEADACHE 06/21/2015 JOANIE SANTIZO MD Ot Z79.899 OTHER SKILLED NURSING (CURRENT) DRUG THERAPY 08/02/2015 JOANIE SANTIZO MD Ot 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 EXTRANODAL SOLID ORGAN U 08/02/2015 JOANIE SANTIZO MD Ot 305.1 TOBACCO USE DISORDER 08/02/2015 JOANIE SANTIZO MD Ot 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) 08/02/2015 JOANIE SANTIZO MD Ot 784.0 HEADACHE 08/02/2015 JOANIE SANTIZO MD Ot V58.69 OTH MED,LT,CURRENT USE 08/02/2015 JOANIE SANTIZO MD Ot V87.41 PERSONAL HISTORY OF ANTINEOPLASTIC CHEMO 08/02/2015 JOANIE SANTIZO MD Ot 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 EXTRANODAL SOLID ORGAN U 08/02/2015 JOANIE SANTIZO MD Ot 789.30 ABDOMINAL/PELVIC SWELLING,MASS/LUMP UNSP 08/02/2015 JOANIE SANTIZO MD Ot 709.8 SKIN DISORDERS NEC 08/02/2015 MONICA MYERS, MANISHA Ot V72.84 EXAM PRE-OPERATIVE NOS 08/02/2015 JOANIE SANTIZO MD Ot 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 EXTRANODAL SOLID ORGAN U 08/02/2015 JOANIE SANTIZO MD, Ot 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 EXTRANODAL SOLID ORGAN U 08/02/2015 JOANIE SANTIZO MD, Ot 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, UNSPECIFIED 08/02/2015 JOANIE SANTIZO MD, Ot 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, UNSPECIFIED 08/02/2015 JOANIE SANTIZO MD Ot 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 08/02/2015 JOANIE SANTIZO MD Ot R93.0 ABNORMAL FINDINGS ON DX IMAGING OF SKULL 08/02/2015 JOANIE SANTIZO MD Ot C85.85 OTH TYPES OF NON-HODG LYMPH, NODES OF IN 08/02/2015 JOANIE SANTIZO MD Ot 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) 08/02/2015 JOANIE SANTIZO MD Ot K21.9 GASTRO-ESOPHAGEAL REFLUX DISEASE WITHOUT 08/02/2015 JOANIE SANTIZO MD Ot R51 HEADACHE 08/02/2015 JOANIE SANTIZO MD Ot 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 08/02/2015 JOANIE SANTIZO MD Ot C85.85 OTH TYPES OF NON-HODG LYMPH, NODES OF IN 08/02/2015 JOANIE SANTIZO MD Ot 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) 08/02/2015 JOANIE SANTIZO MD Ot K21.9 GASTRO-ESOPHAGEAL REFLUX DISEASE WITHOUT 08/02/2015 JOANIE SANTIZO MD Ot R51 HEADACHE 08/02/2015 JOANIE SANTIZO MD Ot Z79.899 OTHER SKILLED NURSING (CURRENT) DRUG THERAPY 08/07/2015 JOANIE SANTIZO MD Ot 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 EXTRANODAL SOLID ORGAN U 08/07/2015 JOANIE SANTIZO MD Ot 305.1 TOBACCO USE DISORDER 08/07/2015 JOANIE SANTIZO MD Ot 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) 08/07/2015 JOANIE SANTIZO MD Ot 784.0 HEADACHE 08/07/2015 JOANIE SANTIZO MD, Ot V58.69 OTH MED,LT,CURRENT USE 08/07/2015 JOANIE SANTIZO MD Ot V87.41 PERSONAL HISTORY OF ANTINEOPLASTIC CHEMO 08/07/2015 JOANIE SANTIZO MD Ot 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 EXTRANODAL SOLID ORGAN U 08/07/2015 JOANIE SANTIZO MD Ot 789.30 ABDOMINAL/PELVIC SWELLING,MASS/LUMP UNSP 08/07/2015 JOANIE SANTIZO MD Ot 709.8 SKIN DISORDERS NEC 08/07/2015 MANISHA ANDERSON MD, Ot V72.84 EXAM PRE-OPERATIVE NOS 08/07/2015 JOANIE SANTIZO MD, Ot 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 EXTRANODAL SOLID ORGAN U 08/07/2015 JOANIE SANTIZO MD, Ot 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 EXTRANODAL SOLID ORGAN U 08/07/2015 JOANIE SANTIZO MD, Ot 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, UNSPECIFIED 08/07/2015 JOANIE SANTIZO MD, Ot 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, UNSPECIFIED 08/07/2015 JOANIE SANTIZO MD Ot 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 08/07/2015 JOANIE SANTIZO MD Ot R93.0 ABNORMAL FINDINGS ON DX IMAGING OF SKULL 08/07/2015 JOANIE SANTIZO MD, Ot C85.85 OTH TYPES OF NON-HODG LYMPH, NODES OF IN 08/07/2015 JOANIE SANTIZO MD Ot 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) 08/07/2015 JOANIE SANTIZO MD Ot K21.9 GASTRO-ESOPHAGEAL REFLUX DISEASE WITHOUT 08/07/2015 JOANIE SANTIZO MD Ot R51 HEADACHE 08/07/2015 JOANIE SANTIZO MD, Ot Z79.899 OTHER SKILLED NURSING (CURRENT) DRUG THERAPY 08/07/2015 JOANIE SANTIZO MD, Ot 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, LYMPH 08/07/2015 JOANIE SANTIZO MD Ot R19.09 OTHER INTRA-ABDOMINAL AND PELVIC SWELLIN 08/14/2015 JOANIE SANTIZO MD Ot C85.85 OTH TYPES OF NON-HODG LYMPH, NODES OF IN 08/14/2015 JOANIE SANTIZO MD, Ot 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) 08/14/2015 JOANIE SANTIZO MD, Ot K21.9 GASTRO-ESOPHAGEAL REFLUX DISEASE WITHOUT 08/14/2015 JOANIE SANTIZO MD, Ot R51 HEADACHE 08/14/2015 JOANIE SANTIZO MD, Ot Z79.899 OTHER SKILLED NURSING (CURRENT) DRUG THERAPY 08/16/2015 JOANIE SANTIZO MD, Ot C85.85 OTH TYPES OF NON-HODG LYMPH, NODES OF IN 08/16/2015 JOANIE SANTIZO MD, Ot 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) 08/16/2015 JOANIE SANTIZO MD, Ot K21.9 GASTRO-ESOPHAGEAL REFLUX DISEASE WITHOUT 08/16/2015 JONAIE SANTIZO MD, Ot R51 HEADACHE 08/16/2015 JOANIE SANTIZO MD, Ot Z79.899 OTHER SKILLED NURSING (CURRENT) DRUG THERAPY 08/22/2015 JOANIE SANTIZO MD, Ot 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, LYMPH 08/22/2015 JOANIE SANTIZO MD Ot R19.09 OTHER INTRA-ABDOMINAL AND PELVIC SWELLIN 09/06/2015 Ot 959.7 LOWE R LEG INJURY NOS 09/06/2015 Ot E000.8 OTH ER EXTERNAL CAUSE STATUS 09/06/2015 Ot E849.0 ACC IDENT IN HOME 09/06/2015 Ot E928.9 ACC IDENT NOS 09/06/2015 JOANIE SANTIZO MD Ot 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, UNSPECIFIED 09/06/2015 JOANIE SANTIZO MD, Ot 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, UNSPECIFIED 09/06/2015 JOANIE SANTIZO MD Ot 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 09/06/2015 JOANIE SANTIZO MD Ot R93.0 ABNORMAL FINDINGS ON DX IMAGING OF SKULL 09/06/2015 JOANIE SANTIZO MD, Ot 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, UNSPECIFIED 09/06/2015 JOANIE SANTIZO MD Ot 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 09/06/2015 JOANIE SANTIZO MD Ot R93.0 ABNORMAL FINDINGS ON DX IMAGING OF SKULL 09/18/2015 JOANIE SANTIZO MD, Ot C85.85 OT TYPES OF NON-HODG LYMPH, NODES OF IN 09/18/2015 JOANIE SANTIZO MD, Ot 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) 09/18/2015 JOANIE SANTIZO MD Ot K21.9 GASTRO-ESOPHAGEAL REFLUX DISEASE WITHOUT 09/18/2015 JOANIE SANTIZO MD Ot R51 HEADACHE 09/18/2015 JOANIE SANTIZO MD, Ot 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 10/29/2015 JOANIE SANTIZO MD, Ot C85.85 OTH TYPES OF NON-HODG LYMPH, NODES OF IN 10/29/2015 JOANIE SANTIZO MD, Ot 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) 10/29/2015 JOANIE SANTIZO MD, Ot K21.9 GASTRO-ESOPHAGEAL REFLUX DISEASE WITHOUT 10/29/2015 JOANIE SANTIZO MD Ot R51 HEADACHE 10/29/2015 JOANIE SANTIZO MD Ot Z79.899 OTHER SKILLED NURSING (CURRENT) DRUG THERAPY 11/15/2015 JOANIE SANTIZO MD, Ot C85.85 OTH TYPES OF NON-HODG LYMPH, NODES OF IN 11/15/2015 JOANIE SANTIZO MD, Ot 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) 11/15/2015 JOANIE SANTIZO MD, Ot K21.9 GASTRO-ESOPHAGEAL REFLUX DISEASE WITHOUT 11/15/2015 JOANIE SANTIZO MD Ot R51 HEADACHE 11/15/2015 JOANIE SANTIZO MD Ot 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 11/16/2015 JOANIE SANTIZO MD, Ot C85.85 OTH TYPES OF NON-HODG LYMPH, NODES OF IN 11/16/2015 JOANIE SANTIZO MD, Ot 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) 11/16/2015 JOANIE SANTIZO MD, Ot K21.9 GASTRO-ESOPHAGEAL REFLUX DISEASE WITHOUT 11/16/2015 JOANIE SANTIZO MD Ot R51 HEADACHE 11/16/2015 JOANIE SANTIZO MD Ot 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 11/26/2015 JOANIE SANTIZO MD, Ot C85.85 OTH TYPES OF NON-HODG LYMPH, NODES OF IN 11/26/2015 JOANIE SANTIZO MD Ot 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) 11/26/2015 JOANIE SANTIZO MD Ot K21.9 GASTRO-ESOPHAGEAL REFLUX DISEASE WITHOUT 11/26/2015 JOANIE SANTIZO MD Ot R51 HEADACHE 11/26/2015 JOANIE SANTIZO MD Ot 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 01/29/2016 JOANIE SANTIZO MD Ot C85.85 OTH TYPES OF NON-HODG LYMPH, NODES OF IN 01/29/2016 JOANIE SANTIZO MD Ot 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) 01/29/2016 JOANIE SANTIZO MD Ot K21.9 GASTRO-ESOPHAGEAL REFLUX DISEASE WITHOUT 01/29/2016 JOANIE SANTIZO MD Ot R51 HEADACHE 01/29/2016 JOANIE SANTIZO MD Ot Z79.899 OTHER SKILLED NURSING (CURRENT) DRUG THERAPY 02/12/2016 JOANIE SANTIZO MD Ot 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 EXTRANODAL SOLID ORGAN U 02/12/2016 JOANIE SANTIZO MD Ot 305.1 TOBACCO USE DISORDER 02/12/2016 JOANIE SANTIZO MD Ot 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) 02/12/2016 JOANIE SANTIZO MD Ot 784.0 HEADACHE 02/12/2016 JOANIE SANTIZO MD Ot V58.69 OTH MED,LT,CURRENT USE 02/12/2016 JOANIE SANTIZO MD Ot V87.41 PERSONAL HISTORY OF ANTINEOPLASTIC CHEMO 02/12/2016 JOANIE SANTIZO MD Ot 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 EXTRANODAL SOLID ORGAN U 02/12/2016 JOANIE SANTIZO MD Ot 789.30 ABDOMINAL/PELVIC SWELLING,MASS/LUMP UNSP 02/12/2016 JOANIE SANTIZO MD Ot 709.8 SKIN DISORDERS NEC 02/12/2016 MONICA MYERS, MANISHA Ot V72.84 EXAM PRE-OPERATIVE NOS 02/12/2016 JOANIE SANTIZO MD Ot 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 EXTRANODAL SOLID ORGAN U 02/12/2016 JOANIE SANTIZO MD Ot 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 EXTRANODAL SOLID ORGAN U 02/12/2016 JOANIE SANTIZO MD Ot 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, UNSPECIFIED 02/12/2016 JOANIE SANTIZO MD Ot 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, UNSPECIFIED 02/12/2016 JOANIE SANTIZO MD Ot 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 02/12/2016 JOANIE SANTIZO MD Ot R93.0 ABNORMAL FINDINGS ON DX IMAGING OF SKULL 02/12/2016 JOANIE SANTIZO MD Ot 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, LYMPH 02/12/2016 JOANIE SANTIZO MD Ot R19.09 OTHER INTRA-ABDOMINAL AND PELVIC SWELLIN 02/12/2016 JOANIE SANTIZO MD Ot C85.85 OTH TYPES OF NON-HODG LYMPH, NODES OF IN 02/12/2016 JOANIE SANTIZO MD Ot 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) 02/12/2016 JOANIE SANTIZO MD Ot K21.9 GASTRO-ESOPHAGEAL REFLUX DISEASE WITHOUT 02/12/2016 JOANIE SANTIZO MD Ot R51 HEADACHE 02/12/2016 JOANIE SANTIZO MD Ot Z79.899 OTHER SKILLED NURSING (CURRENT) DRUG THERAPY 02/13/2016 JOANIE SANTIZO MD Ot 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 EXTRANODAL SOLID ORGAN U 02/13/2016 JOANIE SANTIZO MD Ot 305.1 TOBACCO USE DISORDER 02/13/2016 JOANIE SANTIZO MD Ot 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) 02/13/2016 JOANIE SANTIZO MD Ot 784.0 HEADACHE 02/13/2016 JOANIE SANTIZO MD Ot V58.69 OTH MED,LT,CURRENT USE 02/13/2016 JOANIE SANTIZO MD Ot V87.41 PERSONAL HISTORY OF ANTINEOPLASTIC CHEMO 02/13/2016 JOANIE SANTIZO MD Ot 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 EXTRANODAL SOLID ORGAN U 02/13/2016 JOANIE SANTIZO MD Ot 789.30 ABDOMINAL/PELVIC SWELLING,MASS/LUMP UNSP 02/13/2016 JOANIE SANTIZO MD Ot 709.8 SKIN DISORDERS NEC 02/13/2016 MONICA MYERS, MANISHA Ot V72.84 EXAM PRE-OPERATIVE NOS 02/13/2016 JOANIE SANTIZO MD Ot 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 EXTRANODAL SOLID ORGAN U 02/13/2016 JOANIE SANTIZO MD Ot 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 EXTRANODAL SOLID ORGAN U 02/13/2016 JOANIE SANTIZO MD Ot 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, UNSPECIFIED 02/13/2016 JOANIE SANTIZO MD Ot 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, UNSPECIFIED 02/13/2016 JOANIE SANTIZO MD Ot 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 02/13/2016 JOANIE SANTIZO MD Ot R93.0 ABNORMAL FINDINGS ON DX IMAGING OF SKULL 02/13/2016 JOANIE SANTIZO MD Ot 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, LYMPH 02/13/2016 JOANIE SANTIZO MD Ot R19.09 OTHER INTRA-ABDOMINAL AND PELVIC SWELLIN 02/13/2016 JOANIE SANTIZO MD Ot C85.85 OTH TYPES OF NON-HODG LYMPH, NODES OF IN 02/13/2016 JOANIE SANTIZO MD Ot 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) 02/13/2016 JOANIE SANTIZO MD Ot K21.9 GASTRO-ESOPHAGEAL REFLUX DISEASE WITHOUT 02/13/2016 JOANIE SANTIZO MD Ot R51 HEADACHE 02/13/2016 JOANIE SANTIZO MD Ot 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 02/14/2016 JOANIE SANTIZO MD Ot 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, LYMPH 02/14/2016 JOANIE SANTIZO MD Ot R19.09 OTHER INTRA-ABDOMINAL AND PELVIC SWELLIN 02/19/2016 JOANIE SANTIZO MD Ot 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 EXTRANODAL SOLID ORGAN U 02/19/2016 JOANIE SANTIZO MD Ot 305.1 TOBACCO USE DISORDER 02/19/2016 JOANIE SANTIZO MD Ot 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) 02/19/2016 JOANIE SANTIZO MD Ot 784.0 HEADACHE 02/19/2016 JOANIE SANTIZO MD Ot V58.69 OTH MED,LT,CURRENT USE 02/19/2016 JOANIE SANTIZO MD Ot V87.41 PERSONAL HISTORY OF ANTINEOPLASTIC CHEMO 02/19/2016 JOANIE SANTIZO MD Ot 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 EXTRANODAL SOLID ORGAN U 02/19/2016 JOANIE SANTIZO MD Ot 789.30 ABDOMINAL/PELVIC SWELLING,MASS/LUMP UNSP 02/19/2016 JOANIE SANTIZO MD Ot 709.8 SKIN DISORDERS NEC 02/19/2016 MANISHA ANDERSON MD Ot V72.84 EXAM PRE-OPERATIVE NOS 02/19/2016 JOANIE SANTIZO MD Ot 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 EXTRANODAL SOLID ORGAN U 02/19/2016 JOANIE SANTIZO MD Ot 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 EXTRANODAL SOLID ORGAN U 02/19/2016 JOANIE SANTIZO MD Ot 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, UNSPECIFIED 02/19/2016 JOANIE SANTIZO MD Ot 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, UNSPECIFIED 02/19/2016 JOANIE SANTIZO MD, Ot 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 02/19/2016 JOANIE SANTIZO MD, Ot R93.0 ABNORMAL FINDINGS ON DX IMAGING OF SKULL 02/19/2016 JOANIE SANTIZO MD, Ot 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, LYMPH 02/19/2016 JOANIE SANTIZO MD, Ot R19.09 OTHER INTRA-ABDOMINAL AND PELVIC SWELLIN 02/19/2016 JOANIE SANTIZO MD, Ot C85.85 OTH TYPES OF NON-HODG LYMPH, NODES OF IN 02/19/2016 JOANIE SANTIZO MD, Ot 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) 02/19/2016 JOANIE SANTIZO MD, Ot K21.9 GASTRO-ESOPHAGEAL REFLUX DISEASE WITHOUT 02/19/2016 JOANIE SANTIZO MD, Ot R51 HEADACHE 02/19/2016 JOANIE SANTIZO MD, Ot 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 02/20/2016 JOANIE SANTIZO MD, Ot 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, INTRATHORAC 02/20/2016 JOANIE SANTIZO MD, Ot 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, LYMPH 02/20/2016 JOANIE SANTIZO MD, Ot M15.0 PRIMARY GENERALIZED (OSTEO)ARTHRITIS 02/20/2016 JOANIE SANTIZO MD, Ot R19.09 OTHER INTRA-ABDOMINAL AND PELVIC SWELLIN 02/25/2016 JOANIE SANTIZO MD, Ot 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, LYMPH 02/25/2016 JOANIE SANTIZO MD, Ot R19.09 OTHER INTRA-ABDOMINAL AND PELVIC SWELLIN 03/10/2016 JOANIE SANTIZO MD, Ot 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, LYMPH 03/10/2016 JOANIE SANTIZO MD, Ot M15.0 PRIMARY GENERALIZED (OSTEO)ARTHRITIS 03/10/2016 JOANIE SANTIZO MD, Ot R94.8 ABNORMAL RESULTS OF FUNCTION STUDIES OF 03/10/2016 JOANIE SANTIZO MD, Ot Z87.891 PERSONAL HISTORY OF NICOTINE DEPENDENCE 03/14/2016 JOANIE SANTIZO MD, Ot 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, LYMPH 03/14/2016 JOANIE SANTIZO MD, Ot M15.0 PRIMARY GENERALIZED (OSTEO)ARTHRITIS 03/14/2016 JOANIE SANTIZO MD Ot R19.09 OTHER INTRA-ABDOMINAL AND PELVIC SWELLIN 03/15/2016 JOANIE SANTIZO MD, Ot 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, LYMPH 03/15/2016 JOANIE SANTIZO MD Ot M15.0 PRIMARY GENERALIZED (OSTEO)ARTHRITIS 03/15/2016 JOANIE SANTIZO MD Ot R94.8 ABNORMAL RESULTS OF FUNCTION STUDIES OF 03/15/2016 JOANIE SANTIZO MD Ot Z87.891 PERSONAL HISTORY OF NICOTINE DEPENDENCE 03/17/2016 JOANIE SANTIZO MD, Ot C85.85 OTH TYPES OF NON-HODG LYMPH, NODES OF IN 03/17/2016 JOANIE SANTIZO MD Ot 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) 03/17/2016 JOANIE SANTIZO MD, Ot K21.9 GASTRO-ESOPHAGEAL REFLUX DISEASE WITHOUT 03/17/2016 JOANIE SANTIZO MD Ot R51 HEADACHE 03/17/2016 JOANIE SANTIZO MD Ot Z79.899 OTHER SKILLED NURSING (CURRENT) DRUG THERAPY 03/21/2016 JOANIE ASNTIZO MD, Ot 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, LYMPH 03/21/2016 JOANIE SANTIZO MD Ot M15.0 PRIMARY GENERALIZED (OSTEO)ARTHRITIS 03/21/2016 JOANIE SANTIZO MD Ot R94.8 ABNORMAL RESULTS OF FUNCTION STUDIES OF 03/21/2016 JOANIE SANTIZO MD, Ot Z87.891 PERSONAL HISTORY OF NICOTINE DEPENDENCE 07/04/2016 JOANIE SANTIZO MD, Ot C85.85 OTH TYPES OF NON-HODG LYMPH, NODES OF IN 07/04/2016 JOANIE SANTIZO MD, Ot 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) 07/04/2016 JOANIE SANTIZO MD, Ot K21.9 GASTRO-ESOPHAGEAL REFLUX DISEASE WITHOUT 07/04/2016 JOANIE SANTIZO MD Ot R51 HEADACHE 07/04/2016 JOANIE SANTIZO MD Ot 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 07/06/2016 JOANIE SANTIZO MD Ot C85.85 OTH TYPES OF NON-HODG LYMPH, NODES OF IN 07/06/2016 JOANIE SANTIZO MD Ot 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) 07/06/2016 JOANIE SANTIZO MD Ot K21.9 GASTRO-ESOPHAGEAL REFLUX DISEASE WITHOUT 07/06/2016 JOANIE SANTIZO MD Ot R51 HEADACHE 07/06/2016 JOANIE SANTIZO MD Ot 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 07/06/2016 JOANIE SANTIZO MD Ot C85.85 OTH TYPES OF NON-HODG LYMPH, NODES OF IN 07/06/2016 JOANIE SANTIZO MD Ot 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) 07/06/2016 JOANIE SANTIZO MD Ot K21.9 GASTRO-ESOPHAGEAL REFLUX DISEASE WITHOUT 07/06/2016 JOANIE SANTIZO MD Ot R51 HEADACHE 07/06/2016 JOANIE SANTIZO MD Ot Z79.899 OTHER SKILLED NURSING (CURRENT) DRUG THERAPY 07/29/2016 JOANIE SANTIZO MD Ot C85.85 OTH TYPES OF NON-HODG LYMPH, NODES OF IN 07/29/2016 JOANIE SANTIZO MD Ot 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) 07/29/2016 JOANIE SANTIZO MD Ot K21.9 GASTRO-ESOPHAGEAL REFLUX DISEASE WITHOUT 07/29/2016 JOANIE SANTIZO MD Ot R51 HEADACHE 07/29/2016 JOANIE SANTIZO MD Ot 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 09/30/2016 JOANIE SANTIZO MD Ot C85.85 OTH TYPES OF NON-HODG LYMPH, NODES OF IN 09/30/2016 JOANIE SANTIZO MD Ot 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) 09/30/2016 JOANIE SANTIZO MD Ot K21.9 GASTRO-ESOPHAGEAL REFLUX DISEASE WITHOUT 09/30/2016 JOANIE SANTIZO MD Ot R51 HEADACHE 09/30/2016 JOANIE SANTIZO MD Ot 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 10/14/2016 KASSIDY SERRANO Ot C85.85 OTH TYPES OF NON-HODG LYMPH, NODES OF IN 10/14/2016 KASSIDY SERRANO N Ot 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) 10/14/2016 KASSIDY SERRANO N Ot K21.9 GASTRO-ESOPHAGEAL REFLUX DISEASE WITHOUT 10/14/2016 MAGGIEKASSIDY CROWLEY N Ot R51 HEADACHE 10/14/2016 MAGGIEKASSIDY CROWLEY N Ot Z79.899 OTHER SKILLED NURSING (CURRENT) DRUG THERAPY 10/14/2016 KASSIDY SERRANO N Ot C85.85 OTH TYPES OF NON-HODG LYMPH, NODES OF IN 10/14/2016 MAGGIEKASSIDY CROWLEY N Ot 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) 10/14/2016 KASSIDY SERRANO N Ot K21.9 GASTRO-ESOPHAGEAL REFLUX DISEASE WITHOUT 10/14/2016 KASSIDY SERRANO Ot R51 HEADACHE 10/14/2016 KASSIDY SERRANO Ot 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 10/14/2016 JOANIE SANTIZO MD Ot 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 EXTRANODAL SOLID ORGAN U 10/14/2016 JOANIE SANTIZO MD Ot 305.1 TOBACCO USE DISORDER 10/14/2016 JOANIE SANTIZO MD Ot 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) 10/14/2016 JOANIE SANTIZO MD Ot 784.0 HEADACHE 10/14/2016 JOANIE SANTIZO MD Ot V58.69 OTH MED,LT,CURRENT USE 10/14/2016 JOANIE SANTIZO MD Ot V87.41 PERSONAL HISTORY OF ANTINEOPLASTIC CHEMO 10/14/2016 JOANIE SANTIZO MD Ot 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 EXTRANODAL SOLID ORGAN U 10/14/2016 JOANIE SANTIZO MD Ot 789.30 ABDOMINAL/PELVIC SWELLING,MASS/LUMP UNSP 10/14/2016 JOANIE SANTIZO MD Ot 709.8 SKIN DISORDERS NEC 10/14/2016 MONICA MYERS, MANISHA Ot V72.84 EXAM PRE-OPERATIVE NOS 10/14/2016 JOANIE SANTIZO MD Ot 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 EXTRANODAL SOLID ORGAN U 10/14/2016 JOANIE SANTIZO MD Ot 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 EXTRANODAL SOLID ORGAN U 10/14/2016 JOANIE SANTIZO MD Ot 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, UNSPECIFIED 10/14/2016 JOANIE SANTIZO MD Ot 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, UNSPECIFIED 10/14/2016 JOANIE SANTIZO MD Ot 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 10/14/2016 JOANIE SANTIZO MD Ot R93.0 ABNORMAL FINDINGS ON DX IMAGING OF SKULL 10/14/2016 JOANIE SANTIZO MD Ot 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, LYMPH 10/14/2016 JOANIE SANTIZO MD Ot R19.09 OTHER INTRA-ABDOMINAL AND PELVIC SWELLIN 10/14/2016 JOANIE SANTIZO MD Ot 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, LYMPH 10/14/2016 JOANIE SANTIZO MD Ot M15.0 PRIMARY GENERALIZED (OSTEO)ARTHRITIS 10/14/2016 JOANIE SANTIZO MD Ot R19.09 OTHER INTRA-ABDOMINAL AND PELVIC SWELLIN 10/14/2016 JOANIE SANTIZO MD, Ot 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, LYMPH 10/14/2016 JOANIE SANTIZO MD, Ot M15.0 PRIMARY GENERALIZED (OSTEO)ARTHRITIS 10/14/2016 JOANIE SANTIZO MD Ot R94.8 ABNORMAL RESULTS OF FUNCTION STUDIES OF 10/14/2016 JOANIE SANTIZO MD Ot Z87.891 PERSONAL HISTORY OF NICOTINE DEPENDENCE 10/14/2016 KASSIDY SERRANO Ot C85.85 OTH TYPES OF NON-HODG LYMPH, NODES OF IN 10/14/2016 MAGGIEKASSIDY CROWLEY Ot 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) 10/14/2016 MAGGIEKASSIDY CROWLEY N Ot K21.9 GASTRO-ESOPHAGEAL REFLUX DISEASE WITHOUT 10/14/2016 MAGGIECLARICEAN N Ot R51 HEADACHE 10/14/2016 MAGGIEKASSIDY CROWLEY N Ot 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 10/15/2016 JOANIE SANTIZO MD, Ot 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, LYMPH 10/15/2016 KASSIDY SERRANO Ot C85.85 OTH TYPES OF NON-HODG LYMPH, NODES OF IN 10/15/2016 MAGGIEKASSIDY CROWLEY N Ot 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) 10/15/2016 KASSIDY SERRANO Ot K21.9 GASTRO-ESOPHAGEAL REFLUX DISEASE WITHOUT 10/15/2016 MAGGIECLARICEAN N Ot R51 HEADACHE 10/15/2016 MAGGIEKASSIDY CROWLEY N Ot 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 10/27/2016 JOANIE SANTIZO MD Ot 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, LYMPH 10/27/2016 KASSIDY SERRANO Ot C85.85 OTH TYPES OF NON-HODG LYMPH, NODES OF IN 10/27/2016 KASSIDY SERRANO N Ot 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) 10/27/2016 KASSIDY SERRANO Ot K21.9 GASTRO-ESOPHAGEAL REFLUX DISEASE WITHOUT 10/27/2016 MAGGIECLARICEAN N Ot R51 HEADACHE 10/27/2016 MAGGIEKASSIDY CROWLEY N Ot 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 11/04/2016 JOANIE SANTIZO MD, Ot 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, LYMPH 11/15/2016 KASSIDY SERRANO Francois Ot C85.85 OTH TYPES OF NON-HODG LYMPH, NODES OF IN 11/15/2016 KASSIDY SERRANO Ot 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) 11/15/2016 KASSIDY SERRANO N Ot K21.9 GASTRO-ESOPHAGEAL REFLUX DISEASE WITHOUT 11/15/2016 KASSIDY SERRANO N Ot R51 HEADACHE 11/15/2016 KASSIDY SERRANO Ot 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 11/26/2016 KASSIDY SERRANO N Ot C85.85 OTH TYPES OF NON-HODG LYMPH, NODES OF IN 11/26/2016 KASSIDY SERRANO N Ot 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) 11/26/2016 KASSIDY SERRANO N Ot K21.9 GASTRO-ESOPHAGEAL REFLUX DISEASE WITHOUT 11/26/2016 KASSIDY SERRANO N Ot R51 HEADACHE 11/26/2016 KASSIDY SERRANO N Ot Z79.899 OTHER SKILLED NURSING (CURRENT) DRUG THERAPY 02/17/2017 JOANIE SANTIZO MD Ot 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 EXTRANODAL SOLID ORGAN U 02/17/2017 JOANIE SANTIZO MD Ot 305.1 TOBACCO USE DISORDER 02/17/2017 JOANIE SANTIZO MD Ot 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) 02/17/2017 JOANIE SANTIZO MD Ot 784.0 HEADACHE 02/17/2017 JOANIE SANTIZO MD Ot V58.69 OTH MED,LT,CURRENT USE 02/17/2017 JOANIE SANTIZO MD Ot V87.41 PERSONAL HISTORY OF ANTINEOPLASTIC CHEMO 02/17/2017 JOANIE SANTIZO MD Ot 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 EXTRANODAL SOLID ORGAN U 02/17/2017 JOANIE SANTIZO MD Ot 789.30 ABDOMINAL/PELVIC SWELLING,MASS/LUMP UNSP 02/17/2017 JOANIE SANTIZO MD Ot 709.8 SKIN DISORDERS NEC 02/17/2017 MANISHA ANDERSON MD Ot V72.84 EXAM PRE-OPERATIVE NOS 02/17/2017 JOANIE SANTIZO MD Ot 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 EXTRANODAL SOLID ORGAN U 02/17/2017 JOANIE SANTIZO MD Ot 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 EXTRANODAL SOLID ORGAN U 02/17/2017 JOANIE SANTIZO MD Ot 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, UNSPECIFIED 02/17/2017 JOANIE SANTIZO MD, Ot 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, UNSPECIFIED 02/17/2017 JOANIE SANTIZO MD, Ot 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 02/17/2017 JOANIE SANTIZO MD, Ot R93.0 ABNORMAL FINDINGS ON DX IMAGING OF SKULL 02/17/2017 JOANIE SANTIZO MD, Ot 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, LYMPH 02/17/2017 JOANIE SANTIZO MD, Ot R19.09 OTHER INTRA-ABDOMINAL AND PELVIC SWELLIN 02/17/2017 JOANIE SANTIOZ MD, Ot 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, LYMPH 02/17/2017 JOANIE SANTIZO MD, Ot M15.0 PRIMARY GENERALIZED (OSTEO)ARTHRITIS 02/17/2017 JOANIE SANTIZO MD, Ot R19.09 OTHER INTRA-ABDOMINAL AND PELVIC SWELLIN 02/17/2017 JOANIE SANTIZO MD, Ot 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, LYMPH 02/17/2017 JOANIE SANTIZO MD, Ot M15.0 PRIMARY GENERALIZED (OSTEO)ARTHRITIS 02/17/2017 JOANIE SANTIZO MD, Ot R94.8 ABNORMAL RESULTS OF FUNCTION STUDIES OF 02/17/2017 JOANIE SANTIZO MD, Ot Z87.891 PERSONAL HISTORY OF NICOTINE DEPENDENCE 02/17/2017 JOANIE SANTIZO MD, Ot 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, LYMPH 02/17/2017 CHUY WINTER MD, Ot C85.85 OT TYPES OF NON-HODG LYMPH, NODES OF IN 02/17/2017 CHUY WINTER MD Ot 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) 02/17/2017 CHUY WINTER MD Ot K21.9 GASTRO-ESOPHAGEAL REFLUX DISEASE WITHOUT 02/17/2017 CHUY WINTER MD Ot R51 HEADACHE 02/17/2017 CHUY WINTER MD, Ot Z79.899 OTHER SKILLED NURSING (CURRENT) DRUG THERAPY 02/23/2017 JOANIE SANTIZO MD Ot 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 EXTRANODAL SOLID ORGAN U 02/23/2017 JOANIE SANTIZO MD Ot 305.1 TOBACCO USE DISORDER 02/23/2017 JOANIE SANTIZO MD Ot 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) 02/23/2017 JOANIE SANTIZO MD Ot 784.0 HEADACHE 02/23/2017 JOANIE SANTIZO MD, Ot V58.69 OT MED,LT,CURRENT USE 02/23/2017 JOANIE SANTIZO MD Ot V87.41 PERSONAL HISTORY OF ANTINEOPLASTIC CHEMO 02/23/2017 JOANIE SANTIZO MD Ot 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 EXTRANODAL SOLID ORGAN U 02/23/2017 JOANIE SANTIZO MD Ot 789.30 ABDOMINAL/PELVIC SWELLING,MASS/LUMP UNSP 02/23/2017 JOANIE SANTIZO MD Ot 709.8 SKIN DISORDERS NEC 02/23/2017 MANISHA ANDERSON MD Ot V72.84 EXAM PRE-OPERATIVE NOS 02/23/2017 JOANIE SANTIZO MD Ot 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 EXTRANODAL SOLID ORGAN U 02/23/2017 JOANIE SANTIZO MD, Ot 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 EXTRANODAL SOLID ORGAN U 02/23/2017 JOANIE SANTIZO MD, Ot 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, UNSPECIFIED 02/23/2017 JOANIE SANTIZO MD, Ot 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, UNSPECIFIED 02/23/2017 JOANIE SANTIZO MD Ot 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 02/23/2017 JOANIE SANTIZO MD Ot R93.0 ABNORMAL FINDINGS ON DX IMAGING OF SKULL 02/23/2017 JOANIE SANTIZO MD Ot 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, LYMPH 02/23/2017 JOANIE SANTIZO MD Ot R19.09 OTHER INTRA-ABDOMINAL AND PELVIC SWELLIN 02/23/2017 JOANIE SANTIZO MD, Ot 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, LYMPH 02/23/2017 JOANIE SANTIZO MD Ot M15.0 PRIMARY GENERALIZED (OSTEO)ARTHRITIS 02/23/2017 JOANIE SANTIZO MD Ot R19.09 OTHER INTRA-ABDOMINAL AND PELVIC SWELLIN 02/23/2017 JOANIE SANTIZO MD, Ot 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, LYMPH 02/23/2017 JOANIE SANTIZO MD Ot M15.0 PRIMARY GENERALIZED (OSTEO)ARTHRITIS 02/23/2017 JOANIE SANTIZO MD Ot R94.8 ABNORMAL RESULTS OF FUNCTION STUDIES OF 02/23/2017 JOANIE SANTIZO MD Ot Z87.891 PERSONAL HISTORY OF NICOTINE DEPENDENCE 02/23/2017 JOANIE SANTIZO MD, Ot 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, LYMPH 02/23/2017 CHUY WINTER MD Ot C85.85 OT TYPES OF NON-HODG LYMPH, NODES OF IN 02/23/2017 CHUY WINTER MD Ot 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) 02/23/2017 CHUY WINTER MD Ot K21.9 GASTRO-ESOPHAGEAL REFLUX DISEASE WITHOUT 02/23/2017 CHUY WINTER MD Ot R51 HEADACHE 02/23/2017 CHUY WINTER MD Ot Z79.899 OTHER SKILLED NURSING (CURRENT) DRUG THERAPY 02/23/2017 CHUY WINTER MD Ot C85.85 OTH TYPES OF NON-HODG LYMPH, NODES OF IN 02/23/2017 CHUY WINTER MD Ot 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) 02/23/2017 CHUY WINTER MD Ot K21.9 GASTRO-ESOPHAGEAL REFLUX DISEASE WITHOUT 02/23/2017 CHUY WINTER MD Ot R51 HEADACHE 02/23/2017 CHUY WINTER MD Ot Z79.899 OTHER SKILLED NURSING (CURRENT) DRUG THERAPY 02/23/2017 JOANIE SANTIZO MD Ot 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 EXTRANODAL SOLID ORGAN U 02/23/2017 JOANIE SANTIZO MD Ot 305.1 TOBACCO USE DISORDER 02/23/2017 JOANIE SANTIZO MD Ot 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) 02/23/2017 JOANIE SANTIZO MD Ot 784.0 HEADACHE 02/23/2017 JOANIE SANTIZO MD Ot V58.69 OTH MED,LT,CURRENT USE 02/23/2017 JOANIE SANTIZO MD Ot V87.41 PERSONAL HISTORY OF ANTINEOPLASTIC CHEMO 02/23/2017 JOANIE SANTIZO MD Ot 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 EXTRANODAL SOLID ORGAN U 02/23/2017 JOANIE SANTIZO MD Ot 789.30 ABDOMINAL/PELVIC SWELLING,MASS/LUMP UNSP 02/23/2017 JOANIE SANTIZO MD Ot 709.8 SKIN DISORDERS NEC 02/23/2017 MANISHA ANDERSON MD Ot V72.84 EXAM PRE-OPERATIVE NOS 02/23/2017 JOANIE SANTIZO MD Ot 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 EXTRANODAL SOLID ORGAN U 02/23/2017 JOANIE SANTIZO MD Ot 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 EXTRANODAL SOLID ORGAN U 02/23/2017 JOANIE SANTIZO MD Ot 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, UNSPECIFIED 02/23/2017 JOANIE SANTIZO MD Ot 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, UNSPECIFIED 02/23/2017 JOANIE SANTIZO MD Ot 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 02/23/2017 JOANIE SANTIZO MD Ot R93.0 ABNORMAL FINDINGS ON DX IMAGING OF SKULL 02/23/2017 JOANIE SANTIZO MD, Ot 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, LYMPH 02/23/2017 JOANIE SANTIZO MD Ot R19.09 OTHER INTRA-ABDOMINAL AND PELVIC SWELLIN 02/23/2017 JOANIE SANTIZO MD, Ot 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, LYMPH 02/23/2017 JOANIE SANTIZO MD, Ot M15.0 PRIMARY GENERALIZED (OSTEO)ARTHRITIS 02/23/2017 JOANIE SANTIZO MD, Ot R19.09 OTHER INTRA-ABDOMINAL AND PELVIC SWELLIN 02/23/2017 JOANIE SANTIZO MD, Ot 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, LYMPH 02/23/2017 JOANIE SANTIZO MD, Ot M15.0 PRIMARY GENERALIZED (OSTEO)ARTHRITIS 02/23/2017 JOANIE SANTIZO MD, Ot R94.8 ABNORMAL RESULTS OF FUNCTION STUDIES OF 02/23/2017 JOANIE SANTIZO MD, Ot Z87.891 PERSONAL HISTORY OF NICOTINE DEPENDENCE 02/23/2017 JOANIE SANTIZO MD, Ot 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, LYMPH 02/23/2017 CHUY WINTER MD, Ot C85.85 OTH TYPES OF NON-HODG LYMPH, NODES OF IN 02/23/2017 CHUY WINTER MD Ot 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) 02/23/2017 CHUY WINTER MD Ot K21.9 GASTRO-ESOPHAGEAL REFLUX DISEASE WITHOUT 02/23/2017 CHUY WINTER MD Ot R51 HEADACHE 02/23/2017 CHUY WINTER MD, Ot Z79.899 OTHER SKILLED NURSING (CURRENT) DRUG THERAPY 02/23/2017 JOANIE SANTIZO MD Ot 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 EXTRANODAL SOLID ORGAN U 02/23/2017 JOANIE SATNIZO MD Ot 305.1 TOBACCO USE DISORDER 02/23/2017 JOANIE SANTIZO MD Ot 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) 02/23/2017 JOANIE SANTIZO MD Ot 784.0 HEADACHE 02/23/2017 JOANIE SANTIZO MD Ot V58.69 OTH MED,LT,CURRENT USE 02/23/2017 JOANIE SANTIZO MD Ot V87.41 PERSONAL HISTORY OF ANTINEOPLASTIC CHEMO 02/23/2017 JOANIE SNATIZO MD Ot 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 EXTRANODAL SOLID ORGAN U 02/23/2017 JOANIE SANTIZO MD Ot 789.30 ABDOMINAL/PELVIC SWELLING,MASS/LUMP UNSP 02/23/2017 JOANIE SANTIZO MD Ot 709.8 SKIN DISORDERS NEC 02/23/2017 MONICA MYERS, MANISHA Ot V72.84 EXAM PRE-OPERATIVE NOS 02/23/2017 JOANIE SANTIZO MD Ot 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 EXTRANODAL SOLID ORGAN U 02/23/2017 JOANIE SANTIZO MD Ot 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 EXTRANODAL SOLID ORGAN U 02/23/2017 JOANIE SANTIZO MD, Ot 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, UNSPECIFIED 02/23/2017 JOANIE SANTIZO MD, Ot 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, UNSPECIFIED 02/23/2017 JOANIE SANTIZO MD Ot 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 02/23/2017 JOANIE SANTIZO MD Ot R93.0 ABNORMAL FINDINGS ON DX IMAGING OF SKULL 02/23/2017 JOANIE SANTIZO MD Ot 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, LYMPH 02/23/2017 JOANIE SANTIZO MD Ot R19.09 OTHER INTRA-ABDOMINAL AND PELVIC SWELLIN 02/23/2017 JOANIE SANTIZO MD, Ot 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, LYMPH 02/23/2017 JOANIE SANTIZO MD Ot M15.0 PRIMARY GENERALIZED (OSTEO)ARTHRITIS 02/23/2017 JOANIE SANTIZO MD Ot R19.09 OTHER INTRA-ABDOMINAL AND PELVIC SWELLIN 02/23/2017 JOANIE SANTIZO MD, Ot 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, LYMPH 02/23/2017 JOANIE SANTIZO MD Ot M15.0 PRIMARY GENERALIZED (OSTEO)ARTHRITIS 02/23/2017 JOANIE SANTIZO MD Ot R94.8 ABNORMAL RESULTS OF FUNCTION STUDIES OF 02/23/2017 JOANIE SANTIZO MD Ot Z87.891 PERSONAL HISTORY OF NICOTINE DEPENDENCE 02/23/2017 JOANIE SANTIZO MD, Ot 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, LYMPH 02/23/2017 CHUY WINTER MD Ot C85.85 OTH TYPES OF NON-HODG LYMPH, NODES OF IN 02/23/2017 CHUY WINTER MD Ot 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) 02/23/2017 CHUY WINTER MD Ot K21.9 GASTRO-ESOPHAGEAL REFLUX DISEASE WITHOUT 02/23/2017 CHUY WINTER MD Ot R51 HEADACHE 02/23/2017 CHUY WINTER MD Ot Z79.899 OTHER SKILLED NURSING (CURRENT) DRUG THERAPY 02/24/2017 JOANIE SANTIZO MD Ot 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 EXTRANODAL SOLID ORGAN U 02/24/2017 JOANIE SANTIZO MD Ot 305.1 TOBACCO USE DISORDER 02/24/2017 JOANIE SANTIZO MD Ot 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) 02/24/2017 JOANIE SANTIZO MD Ot 784.0 HEADACHE 02/24/2017 JOANIE SANTIZO MD Ot V58.69 OTH MED,LT,CURRENT USE 02/24/2017 JOANIE SANTIZO MD Ot V87.41 PERSONAL HISTORY OF ANTINEOPLASTIC CHEMO 02/24/2017 JOANIE SANTIZO MD Ot 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 EXTRANODAL SOLID ORGAN U 02/24/2017 JOANIE SANTIZO MD Ot 789.30 ABDOMINAL/PELVIC SWELLING,MASS/LUMP UNSP 02/24/2017 JOANIE SANTIZO MD Ot 709.8 SKIN DISORDERS NEC 02/24/2017 MONICA MYERS, MANISHA Ot V72.84 EXAM PRE-OPERATIVE NOS 02/24/2017 JOANIE SANTIZO MD Ot 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 EXTRANODAL SOLID ORGAN U 02/24/2017 JOANIE SANTIZO MD Ot 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 EXTRANODAL SOLID ORGAN U 02/24/2017 JOANIE SANTIZO MD Ot 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, UNSPECIFIED 02/24/2017 JOANIE SANTIZO MD Ot 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, UNSPECIFIED 02/24/2017 JOANIE SANTIZO MD Ot 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 02/24/2017 JOANIE SANTIZO MD Ot R93.0 ABNORMAL FINDINGS ON DX IMAGING OF SKULL 02/24/2017 JOANIE SANTIZO MD Ot 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, LYMPH 02/24/2017 JOANIE SANTIZO MD Ot R19.09 OTHER INTRA-ABDOMINAL AND PELVIC SWELLIN 02/24/2017 JOANIE SANTIZO MD Ot 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, LYMPH 02/24/2017 JOANIE SANTIZO MD Ot R19.09 OTHER INTRA-ABDOMINAL AND PELVIC SWELLIN 02/24/2017 JOANIE SANTIZO MD Ot 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, LYMPH 02/24/2017 JOANIE SANTIZO MD Ot M15.0 PRIMARY GENERALIZED (OSTEO)ARTHRITIS 02/24/2017 JOANIE SANTIZO MD Ot R19.09 OTHER INTRA-ABDOMINAL AND PELVIC SWELLIN 02/24/2017 JOANIE SANTIZO MD, Ot 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, LYMPH 02/24/2017 JOANIE SANTIZO MD Ot M15.0 PRIMARY GENERALIZED (OSTEO)ARTHRITIS 02/24/2017 JOANIE SANTIZO MD Ot R94.8 ABNORMAL RESULTS OF FUNCTION STUDIES OF 02/24/2017 JOANIE SANTIZO MD Ot Z87.891 PERSONAL HISTORY OF NICOTINE DEPENDENCE 02/24/2017 JOANIE SANTIZO MD, Ot 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, LYMPH 02/25/2017 CHUY WINTER MD, Ot 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, LYMPH 02/25/2017 CHUY WINTER MD Ot 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) 02/25/2017 CHUY WINTER MD Ot K21.9 GASTRO-ESOPHAGEAL REFLUX DISEASE WITHOUT 02/25/2017 CHUY WINTER MD Ot R51 HEADACHE 02/25/2017 CHUY WINTER MD Ot 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 03/16/2017 CHUY WINTER MD Ot 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, LYMPH 03/31/2017 CHUY WINTER MD Ot 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, LYMPH 03/31/2017 CHUY WINTER MD Ot 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) 03/31/2017 CHUY WINTER MD Ot K21.9 GASTRO-ESOPHAGEAL REFLUX DISEASE WITHOUT 03/31/2017 CHUY WINTER MD Ot R51 HEADACHE 03/31/2017 CHUY WINTER MD Ot Z79.899 OTHER SKILLED NURSING (CURRENT) DRUG THERAPY 04/24/2017 CHUY WINTER MD Ot 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, LYMPH 05/25/2017 CHUY WINTER MD Ot 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, LYMPH 05/25/2017 CHUY WINTER MD Ot 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) 05/25/2017 CHUY WINTER MD Ot K21.9 GASTRO-ESOPHAGEAL REFLUX DISEASE WITHOUT 05/25/2017 CHUY WINTER MD Ot R51 HEADACHE 05/25/2017 CHUY WINTER MD Ot Z79.899 OTHER SKILLED NURSING (CURRENT) DRUG THERAPY 06/19/2017 JOANIE SANTIZO MD Ot 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 EXTRANODAL SOLID ORGAN U 06/19/2017 JOANIE SANTIZO MD Ot 305.1 TOBACCO USE DISORDER 06/19/2017 JOANIE SANTIZO MD Ot 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) 06/19/2017 JOANIE SANTIZO MD Ot 784.0 HEADACHE 06/19/2017 JOANIE SANTIZO MD, Ot V58.69 OTH MED,LT,CURRENT USE 06/19/2017 JOANIE SANTIZO MD Ot V87.41 PERSONAL HISTORY OF ANTINEOPLASTIC CHEMO 06/19/2017 JOANIE SANTIZO MD Ot 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 EXTRANODAL SOLID ORGAN U 06/19/2017 JOANIE SANTIZO MD Ot 789.30 ABDOMINAL/PELVIC SWELLING,MASS/LUMP UNSP 06/19/2017 JOANIE SANTIZO MD Ot 709.8 SKIN DISORDERS NEC 06/19/2017 MANISHA ANDERSON MD Ot V72.84 EXAM PRE-OPERATIVE NOS 06/19/2017 JOANIE SANTIZO MD Ot 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 EXTRANODAL SOLID ORGAN U 06/19/2017 JOANIE SANTIZO MD Ot 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 EXTRANODAL SOLID ORGAN U 06/19/2017 JOANIE SANTIZO MD Ot 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, UNSPECIFIED 06/19/2017 JOANIE SANTIZO MD Ot 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, UNSPECIFIED 06/19/2017 JOANIE SANTIZO MD Ot 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 06/19/2017 JOANIE SANTIZO MD Ot R93.0 ABNORMAL FINDINGS ON DX IMAGING OF SKULL 06/19/2017 JOANIE SANTIZO MD Ot 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, LYMPH 06/19/2017 JOANIE SANTIZO MD Ot R19.09 OTHER INTRA-ABDOMINAL AND PELVIC SWELLIN 06/19/2017 JOANIE SANTIZO MD Ot 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, LYMPH 06/19/2017 JOANIE SANTIZO MD Ot M15.0 PRIMARY GENERALIZED (OSTEO)ARTHRITIS 06/19/2017 JOANIE SANTIZO MD Ot R19.09 OTHER INTRA-ABDOMINAL AND PELVIC SWELLIN 06/19/2017 JOANIE SANTIZO MD, Ot 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, LYMPH 06/19/2017 JOANIE SANTIZO MD Ot M15.0 PRIMARY GENERALIZED (OSTEO)ARTHRITIS 06/19/2017 JOANIE SANTIZO MD Ot R94.8 ABNORMAL RESULTS OF FUNCTION STUDIES OF 06/19/2017 JOANIE SANTIZO MD Ot Z87.891 PERSONAL HISTORY OF NICOTINE DEPENDENCE 06/19/2017 JOANIE SANTIZO MD, Ot 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, LYMPH 06/19/2017 CHUY WINTER MD, Ot 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, LYMPH 06/19/2017 CHUY WINTER MD, Ot 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, LYMPH 06/19/2017 CHUY WINTER MD Ot 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) 06/19/2017 CHUY WINTER MD Ot K21.9 GASTRO-ESOPHAGEAL REFLUX DISEASE WITHOUT 06/19/2017 CHUY WINTER MD Ot R51 HEADACHE 06/19/2017 CHUY WINTER MD Ot Z79.899 OTHER SKILLED NURSING (CURRENT) DRUG THERAPY 06/19/2017 JOANIE SANTIZO MD, Ot 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, LYMPH 06/19/2017 JOANIE SANTIZO MD Ot R19.09 OTHER INTRA-ABDOMINAL AND PELVIC SWELLIN 06/19/2017 CHUY WINTER MD, Ot 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, LYMPH 06/19/2017 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 APRN Ot Z13.220 ENCOUNTER FOR SCREENING FOR LIPOID DISOR 06/22/2017 CHUY WINTER MD, Ot 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, LYMPH 06/22/2017 CHUY WINTER MD Ot 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) 06/22/2017 CHUY WINTER MD Ot K21.9 GASTRO-ESOPHAGEAL REFLUX DISEASE WITHOUT 06/22/2017 CHUY WINTER MD Ot R51 HEADACHE 06/22/2017 CHYU WINTER MD Ot Z79.899 OTHER SKILLED NURSING (CURRENT) DRUG THERAPY 06/22/2017 CHUY WINTER MD, Ot 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, LYMPH 06/22/2017 CHUY WINTER MD Ot 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) 06/22/2017 CHUY WINTER MD Ot K21.9 GASTRO-ESOPHAGEAL REFLUX DISEASE WITHOUT 06/22/2017 CHUY WINTER MD Ot N52.9 MALE ERECTILE DYSFUNCTION, UNSPECIFIED 06/22/2017 CHUY WINTER MD Ot R61 GENERALIZED HYPERHIDROSIS 06/22/2017 CHUY WINTER MD Ot 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 06/22/2017 CHUY WINTER MD Ot Z87.891 PERSONAL HISTORY OF NICOTINE DEPENDENCE 06/22/2017 CHUY WINTER MD Ot Z92.21 PERSONAL HISTORY OF ANTINEOPLASTIC CHEMO 06/22/2017 CHUY WINTER MD Ot 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 06/26/2017 CHUY WINTER MD Ot R59.1 GENERALIZED ENLARGED LYMPH NODES 06/30/2017 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 APRN Ot Z13.220 ENCOUNTER FOR SCREENING FOR LIPOID DISOR 07/06/2017 CHUY WINTER MD Ot R59.1 GENERALIZED ENLARGED LYMPH NODES 07/21/2017 CHUY WINTER MD, Ot R59.1 GENERALIZED ENLARGED LYMPH NODES 07/21/2017 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 APRN Ot Z13.220 ENCOUNTER FOR SCREENING FOR LIPOID DISOR 09/17/2017 CHUY WINTER MD, Ot 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, LYMPH 09/17/2017 CHUY WINTER MD Ot 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) 09/17/2017 CHUY WINTER MD Ot K21.9 GASTRO-ESOPHAGEAL REFLUX DISEASE WITHOUT 09/17/2017 CHUY WINTER MD Ot N52.9 MALE ERECTILE DYSFUNCTION, UNSPECIFIED 09/17/2017 CHUY WINTER MD Ot R61 GENERALIZED HYPERHIDROSIS 09/17/2017 CHUY WINTER MD Ot Z79.899 OTHER SKILLED NURSING (CURRENT) DRUG THERAPY 09/17/2017 CHUY WINTER MD Ot Z87.891 PERSONAL HISTORY OF NICOTINE DEPENDENCE 09/17/2017 CHUY WINTER MD Ot Z92.21 PERSONAL HISTORY OF ANTINEOPLASTIC CHEMO 09/17/2017 CHUY WINTER MD Ot 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 11/06/2017 JOANIE SANTIZO MD, Ot 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, LYMPH 11/06/2017 JOANIE SANTIZO MD Ot R19.09 OTHER INTRA-ABDOMINAL AND PELVIC SWELLIN 11/06/2017 CHUY WINTER MD, Ot 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, LYMPH 11/06/2017 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 APRN Ot Z13.220 ENCOUNTER FOR SCREENING FOR LIPOID DISOR 11/06/2017 CHUY WINTER MD Ot R59.1 GENERALIZED ENLARGED LYMPH NODES 11/09/2017 CHUY WINTER MD Ot M54.5 LOW BACK PAIN 11/09/2017 CHUY WINTER MD Ot R10.2 PELVIC AND PERINEAL PAIN 11/09/2017 CHUY WINTER MD Ot W19.XXX A UNSPECIFIED FALL, INITIAL ENCOUNTER 11/10/2017 CHUY WINTER MD, Ot 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, LYMPH 11/10/2017 CHUY WINTER MD Ot 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) 11/10/2017 CHUY WINTER MD Ot K21.9 GASTRO-ESOPHAGEAL REFLUX DISEASE WITHOUT 11/10/2017 CHUY WINTER MD Ot N52.9 MALE ERECTILE DYSFUNCTION, UNSPECIFIED 11/10/2017 CHUY WINTER MD Ot R61 GENERALIZED HYPERHIDROSIS 11/10/2017 CHUY WINTER MD Ot Z79.899 OTHER SKILLED NURSING (CURRENT) DRUG THERAPY 11/10/2017 CHUY WINTER MD Ot Z87.891 PERSONAL HISTORY OF NICOTINE DEPENDENCE 11/10/2017 CHUY WINTER MD Ot Z92.21 PERSONAL HISTORY OF ANTINEOPLASTIC CHEMO 11/10/2017 CHUY WINTER MD Ot 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 11/15/2017 CHUY WINTER MD, Ot 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, LYMPH 11/15/2017 CHUY WINTER MD Ot 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) 11/15/2017 CHUY WINTER MD Ot K21.9 GASTRO-ESOPHAGEAL REFLUX DISEASE WITHOUT 11/15/2017 CHUY WINTER MD Ot N52.9 MALE ERECTILE DYSFUNCTION, UNSPECIFIED 11/15/2017 CHUY WINTER MD Ot R61 GENERALIZED HYPERHIDROSIS 11/15/2017 CHUY WINTER MD Ot 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 11/15/2017 CHUY WINTER MD Ot Z87.891 PERSONAL HISTORY OF NICOTINE DEPENDENCE 11/15/2017 CHUY WINTER MD Ot Z92.21 PERSONAL HISTORY OF ANTINEOPLASTIC CHEMO 11/15/2017 CHUY WINTER MD Ot 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 11/18/2017 CHUY WINTER MD, Ot 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, LYMPH 11/18/2017 CHUY WINTER MD Ot 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) 11/18/2017 CHUY WINTER MD Ot K21.9 GASTRO-ESOPHAGEAL REFLUX DISEASE WITHOUT 11/18/2017 CHUY WINTER MD Ot N52.9 MALE ERECTILE DYSFUNCTION, UNSPECIFIED 11/18/2017 CHUY WINTER MD Ot R61 GENERALIZED HYPERHIDROSIS 11/18/2017 CHUY WINTER MD Ot 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 11/18/2017 CHUY WINTER MD, Ot Z87.891 PERSONAL HISTORY OF NICOTINE DEPENDENCE 11/18/2017 CHUY WINTER MD, Ot Z92.21 PERSONAL HISTORY OF ANTINEOPLASTIC CHEMO 11/18/2017 CHUY WINTER MD, Ot 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 11/18/2017 CHUY WINTER MD, Ot M54.5 LOW BACK PAIN 11/18/2017 CHUY WINTER MD Ot R10.2 PELVIC AND PERINEAL PAIN 11/18/2017 CHUY WINTER MD Ot W19.XXX A UNSPECIFIED FALL, INITIAL ENCOUNTER 02/05/2018 JOANIE SANTIZO MD Ot 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 EXTRANODAL SOLID ORGAN U 02/05/2018 JOANIE SANTIZO MD Ot 305.1 TOBACCO USE DISORDER 02/05/2018 JOANIE SANTIZO MD Ot 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) 02/05/2018 JOANIE SANTIZO MD Ot 784.0 HEADACHE 02/05/2018 JOANIE SANTIZO MD Ot V58.69 OTH MED,LT,CURRENT USE 02/05/2018 JOANIE SANTZIO MD Ot V87.41 PERSONAL HISTORY OF ANTINEOPLASTIC CHEMO 02/05/2018 JOANIE SANTIZO MD Ot 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 EXTRANODAL SOLID ORGAN U 02/05/2018 JOANIE SANTIZO MD Ot 789.30 ABDOMINAL/PELVIC SWELLING,MASS/LUMP UNSP 02/05/2018 JOANIE SANTIZO MD Ot 709.8 SKIN DISORDERS NEC 02/05/2018 MONICA MYERS, MANISHA Ot V72.84 EXAM PRE-OPERATIVE NOS 02/05/2018 JOANIE SANTIZO MD Ot 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 EXTRANODAL SOLID ORGAN U 02/05/2018 JOANIE SANTIZO MD Ot 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 EXTRANODAL SOLID ORGAN U 02/05/2018 JOANIE SANTIZO MD Ot 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, UNSPECIFIED 02/05/2018 JOANIE SANTIZO MD Ot 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, UNSPECIFIED 02/05/2018 JOANIE SANTIZO MD Ot 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 02/05/2018 JOANIE SANTIZO MD Ot R93.0 ABNORMAL FINDINGS ON DX IMAGING OF SKULL 02/05/2018 JOANIE SANTIZO MD, Ot 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, LYMPH 02/05/2018 JOANIE SANTIZO MD Ot R19.09 OTHER INTRA-ABDOMINAL AND PELVIC SWELLIN 02/05/2018 JOANIE SANTIZO MD, Ot 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, LYMPH 02/05/2018 JOANIE SANTIZO MD Ot M15.0 PRIMARY GENERALIZED (OSTEO)ARTHRITIS 02/05/2018 JOANIE SANTIZO MD Ot R19.09 OTHER INTRA-ABDOMINAL AND PELVIC SWELLIN 02/05/2018 JOANIE SANTIZO MD, Ot 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, LYMPH 02/05/2018 JOANIE SANTIZO MD, Ot M15.0 PRIMARY GENERALIZED (OSTEO)ARTHRITIS 02/05/2018 JOANIE SANTIZO MD Ot R94.8 ABNORMAL RESULTS OF FUNCTION STUDIES OF 02/05/2018 JOANIE SANTIZO MD, Ot Z87.891 PERSONAL HISTORY OF NICOTINE DEPENDENCE 02/05/2018 JOANIE SANTIZO MD, Ot 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, LYMPH 02/05/2018 CHUY WINTER MD, Ot 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, LYMPH 02/05/2018 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 APRN Ot Z13.220 ENCOUNTER FOR SCREENING FOR LIPOID DISOR 02/05/2018 CHUY WINTER MD Ot R59.1 GENERALIZED ENLARGED LYMPH NODES 02/05/2018 CHUY WINTER MD, Ot 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, LYMPH 02/05/2018 CHUY WINTER MD Ot 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) 02/05/2018 CHUY WINTER MD Ot K21.9 GASTRO-ESOPHAGEAL REFLUX DISEASE WITHOUT 02/05/2018 CHUY WINTER MD Ot N52.9 MALE ERECTILE DYSFUNCTION, UNSPECIFIED 02/05/2018 CHUY WINTER MD Ot R61 GENERALIZED HYPERHIDROSIS 02/05/2018 CHUY WINTER MD Ot Z79.899 OTHER SKILLED NURSING (CURRENT) DRUG THERAPY 02/05/2018 CHUY WINTER MD, Ot Z87.891 PERSONAL HISTORY OF NICOTINE DEPENDENCE 02/05/2018 CHUY WINTER MD Ot Z92.21 PERSONAL HISTORY OF ANTINEOPLASTIC CHEMO 02/05/2018 CHUY WITNER MD Ot 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 02/10/2018 CHUY WINTER MD Ot 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, LYMPH 02/10/2018 CHUY WINTER MD Ot 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) 02/10/2018 CHUY WINTER MD Ot K21.9 GASTRO-ESOPHAGEAL REFLUX DISEASE WITHOUT 02/10/2018 CHUY WINTER MD Ot N52.9 MALE ERECTILE DYSFUNCTION, UNSPECIFIED 02/10/2018 CHUY WINTER MD Ot R61 GENERALIZED HYPERHIDROSIS 02/10/2018 CHUY WINTER MD Ot Z79.899 OTHER SKILLED NURSING (CURRENT) DRUG THERAPY 02/10/2018 CHUY WINTER MD Ot Z87.891 PERSONAL HISTORY OF NICOTINE DEPENDENCE 02/10/2018 CHUY WINTER MD Ot Z92.21 PERSONAL HISTORY OF ANTINEOPLASTIC CHEMO 02/10/2018 CHUY WINTER MD Ot 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 03/10/2018 CHUY WINTER MD Ot C83.30 DIFFUSE LARGE B-CELL LYMPHOMA, UNSPECIFI 03/10/2018 CHUY WINTER MD Ot Z94.84 STEM CELLS TRANSPLANT STATUS 2018 CHUY WINTER MD Ot C83.30 DIFFUSE LARGE B-CELL LYMPHOMA, UNSPECIFI 2018 CHUY WINTER MD Ot Z94.84 STEM CELLS TRANSPLANT STATUS 03/30/2018 CHUY WINTER MD, Ot 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, LYMPH 03/30/2018 CHUY WINTER MD Ot 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) 03/30/2018 CHUY WINTER MD Ot K21.9 GASTRO-ESOPHAGEAL REFLUX DISEASE WITHOUT 03/30/2018 CHUY WINTER MD Ot N52.9 MALE ERECTILE DYSFUNCTION, UNSPECIFIED 03/30/2018 CHUY WINTER MD Ot R61 GENERALIZED HYPERHIDROSIS 03/30/2018 CHUY WINTER MD Ot Z79.899 OTHER SKILLED NURSING (CURRENT) DRUG THERAPY 03/30/2018 CHUY WINTER MD Ot Z87.891 PERSONAL HISTORY OF NICOTINE DEPENDENCE 03/30/2018 CHUY WINTER MD Ot Z92.21 PERSONAL HISTORY OF ANTINEOPLASTIC CHEMO 03/30/2018 CHUY WINTER MD Ot 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 05/06/2018 CHUY WINTER MD, Ot 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, LYMPH 05/06/2018 CHUY WINTER MD Ot 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) 05/06/2018 CHUY WINTER MD Ot K21.9 GASTRO-ESOPHAGEAL REFLUX DISEASE WITHOUT 05/06/2018 CHUY WINTER MD Ot N52.9 MALE ERECTILE DYSFUNCTION, UNSPECIFIED 05/06/2018 CHUY WINTER MD Ot R61 GENERALIZED HYPERHIDROSIS 05/06/2018 CHUY WINTER MD Ot 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 05/06/2018 CHUY WINTER MD Ot Z87.891 PERSONAL HISTORY OF NICOTINE DEPENDENCE 05/06/2018 CHUY WINTER MD Ot Z92.21 PERSONAL HISTORY OF ANTINEOPLASTIC CHEMO 05/06/2018 CHUY WINTER MD Ot 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 05/07/2018 CHUY WINTER MD, Ot 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, LYMPH 05/07/2018 CHUY WINTER MD Ot 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) 05/07/2018 CHUY WINTER MD Ot K21.9 GASTRO-ESOPHAGEAL REFLUX DISEASE WITHOUT 05/07/2018 CHUY WINTER MD Ot N52.9 MALE ERECTILE DYSFUNCTION, UNSPECIFIED 05/07/2018 CHUY WINTER MD Ot R61 GENERALIZED HYPERHIDROSIS 05/07/2018 CHUY WINTER MD Ot Z79.899 OTHER SKILLED NURSING (CURRENT) DRUG THERAPY 05/07/2018 CHUY WINTER MD Ot Z87.891 PERSONAL HISTORY OF NICOTINE DEPENDENCE 05/07/2018 CHUY WINTER MD Ot Z92.21 PERSONAL HISTORY OF ANTINEOPLASTIC CHEMO 05/07/2018 CHUY WINTER MD Ot 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 06/24/2018 JOANIE SANTIZO MD Ot 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, LYMPH 06/24/2018 JOANIE SANTIZO MD Ot R19.09 OTHER INTRA-ABDOMINAL AND PELVIC SWELLIN 06/24/2018 CHUY WINTER MD, Ot 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, LYMPH 06/24/2018 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 APRN Ot Z13.220 ENCOUNTER FOR SCREENING FOR LIPOID DISOR 06/24/2018 CHUY WINTER MD Ot R59.1 GENERALIZED ENLARGED LYMPH NODES 06/24/2018 CHUY WINTER MD Ot M54.5 LOW BACK PAIN 06/24/2018 CHUY WINTER MD Ot R10.2 PELVIC AND PERINEAL PAIN 06/24/2018 CHUY WINTER MD Ot W19.XXX A UNSPECIFIED FALL, INITIAL ENCOUNTER 06/24/2018 CHUY WINTER MD Ot C83.30 DIFFUSE LARGE B-CELL LYMPHOMA, UNSPECIFI 06/24/2018 CHUY WINTER MD Ot Z94.84 STEM CELLS TRANSPLANT STATUS 09/22/2018 CHUY WINTER MD Ot 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, LYMPH 09/22/2018 CHUY WINTER MD Ot 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) 09/22/2018 CHUY WINTER MD Ot K21.9 GASTRO-ESOPHAGEAL REFLUX DISEASE WITHOUT 09/22/2018 CHUY WINTER MD Ot N52.9 MALE ERECTILE DYSFUNCTION, UNSPECIFIED 09/22/2018 CHUY WINTER MD Ot R61 GENERALIZED HYPERHIDROSIS 09/22/2018 CHUY WINTER MD Ot 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 09/22/2018 CHUY WINTER MD Ot Z87.891 PERSONAL HISTORY OF NICOTINE DEPENDENCE 09/22/2018 CHUY WINTER MD Ot Z92.21 PERSONAL HISTORY OF ANTINEOPLASTIC CHEMO 09/22/2018 CHUY WINTER MD Ot 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 09/23/2018 CHUY WINTER MD, Ot 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, LYMPH 09/23/2018 CHUY WINTER MD Ot 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) 09/23/2018 CHUY WINTER MD Ot K21.9 GASTRO-ESOPHAGEAL REFLUX DISEASE WITHOUT 09/23/2018 CHUY WINTER MD Ot N52.9 MALE ERECTILE DYSFUNCTION, UNSPECIFIED 09/23/2018 CHUY WINTER MD Ot R61 GENERALIZED HYPERHIDROSIS 09/23/2018 CHUY WINTER MD Ot 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 09/23/2018 CHUY WINTER MD Ot Z87.891 PERSONAL HISTORY OF NICOTINE DEPENDENCE 09/23/2018 CHUY WINTER MD Ot Z92.21 PERSONAL HISTORY OF ANTINEOPLASTIC CHEMO 09/23/2018 CHUY WINTER MD Ot 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 09/30/2018 CHUY WINTER MD Ot 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, LYMPH 09/30/2018 CHUY WINTER MD Ot 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) 09/30/2018 CHUY WINTER MD Ot K21.9 GASTRO-ESOPHAGEAL REFLUX DISEASE WITHOUT 09/30/2018 CHUY WINTER MD Ot N52.9 MALE ERECTILE DYSFUNCTION, UNSPECIFIED 09/30/2018 CHUY WINTER MD Ot R61 GENERALIZED HYPERHIDROSIS 09/30/2018 CHUY WINTER MD Ot Z79.899 OTHER SKILLED NURSING (CURRENT) DRUG THERAPY 09/30/2018 CHUY WINTER MD Ot Z87.891 PERSONAL HISTORY OF NICOTINE DEPENDENCE 09/30/2018 CHUY WINTER MD Ot Z92.21 PERSONAL HISTORY OF ANTINEOPLASTIC CHEMO 09/30/2018 CHUY WINTER MD Ot 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 10/28/2018 CHUY WINTER MD Ot 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, LYMPH 10/28/2018 CHUY WINTER MD Ot 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) 10/28/2018 CHUY WINTER MD Ot K21.9 GASTRO-ESOPHAGEAL REFLUX DISEASE WITHOUT 10/28/2018 CHUY WINTER MD Ot N52.9 MALE ERECTILE DYSFUNCTION, UNSPECIFIED 10/28/2018 CHUY WINTER MD Ot R61 GENERALIZED HYPERHIDROSIS 10/28/2018 CHUY WINTER MD Ot 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 10/28/2018 CHUY WINTER MD Ot Z87.891 PERSONAL HISTORY OF NICOTINE DEPENDENCE 10/28/2018 CHUY WINTER MD Ot Z92.21 PERSONAL HISTORY OF ANTINEOPLASTIC CHEMO 10/28/2018 CHUY WINTER MD Ot 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 12/22/2018 CHUY WINTER MD Ot 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, LYMPH 12/22/2018 CHUY WINTER MD Ot 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) 12/22/2018 CHUY WINTER MD Ot K21.9 GASTRO-ESOPHAGEAL REFLUX DISEASE WITHOUT 12/22/2018 CHUY WINTER MD Ot N52.9 MALE ERECTILE DYSFUNCTION, UNSPECIFIED 12/22/2018 CHUY WINTER MD Ot R61 GENERALIZED HYPERHIDROSIS 12/22/2018 CHUY WINTER MD Ot 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 12/22/2018 CHUY WINTER MD Ot Z87.891 PERSONAL HISTORY OF NICOTINE DEPENDENCE 12/22/2018 CHUY WINTER MD Ot Z92.21 PERSONAL HISTORY OF ANTINEOPLASTIC CHEMO 12/22/2018 CHUY WINTER MD Ot 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 12/23/2018 CHUY WINTER MD Ot 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, LYMPH 12/23/2018 CHUY WINTER MD Ot 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) 12/23/2018 CHUY WINTER MD Ot K21.9 GASTRO-ESOPHAGEAL REFLUX DISEASE WITHOUT 12/23/2018 CHUY WINTER MD Ot N52.9 MALE ERECTILE DYSFUNCTION, UNSPECIFIED 12/23/2018 CHUY WINTER MD Ot R61 GENERALIZED HYPERHIDROSIS 12/23/2018 CHUY WINTER MD Ot Z79.899 OTHER SKILLED NURSING (CURRENT) DRUG THERAPY 12/23/2018 CHUY WINTER MD Ot Z87.891 PERSONAL HISTORY OF NICOTINE DEPENDENCE 12/23/2018 CHUY WINTER MD Ot Z92.21 PERSONAL HISTORY OF ANTINEOPLASTIC CHEMO 12/23/2018 CHUY WINTER MD Ot 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 12/24/2018 CHUY WINTER MD Ot 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, LYMPH 12/24/2018 CHUY WINTER MD Ot 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) 12/24/2018 CHUY WINTER MD Ot K21.9 GASTRO-ESOPHAGEAL REFLUX DISEASE WITHOUT 12/24/2018 CHUY WINTER MD Ot N52.9 MALE ERECTILE DYSFUNCTION, UNSPECIFIED 12/24/2018 CHUY WINTER MD Ot R61 GENERALIZED HYPERHIDROSIS 12/24/2018 CHUY WINTER MD Ot Z79.899 OTHER SKILLED NURSING (CURRENT) DRUG THERAPY 12/24/2018 CHUY WINTER MD Ot Z87.891 PERSONAL HISTORY OF NICOTINE DEPENDENCE 12/24/2018 CHUY WINTER MD Ot Z92.21 PERSONAL HISTORY OF ANTINEOPLASTIC CHEMO 12/24/2018 CHUY WINTER MD Ot 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 12/24/2018 JOANIE SANTIZO MD Ot 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, LYMPH 12/24/2018 JOANIE SANTIZO MD Ot R19.09 OTHER INTRA-ABDOMINAL AND PELVIC SWELLIN 12/24/2018 CHUY WINTER MD, Ot 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, LYMPH 12/24/2018 RUDIMOR MIR Hansel PELAEZ Ot Z13.220 ENCOUNTER FOR SCREENING FOR LIPOID DISOR 12/24/2018 CHUY WINTER MD, Ot R59.1 GENERALIZED ENLARGED LYMPH NODES 12/24/2018 CHUY WINTER MD, Ot M54.5 LOW BACK PAIN 12/24/2018 CHUY WINTER MD, Ot R10.2 PELVIC AND PERINEAL PAIN 12/24/2018 CHUY WINTER MD, Ot W19.XXX A UNSPECIFIED FALL, INITIAL ENCOUNTER 12/24/2018 CHUY WINTER MD, Ot C83.30 DIFFUSE LARGE B-CELL LYMPHOMA, UNSPECIFI 12/24/2018 CHUY WINTER MD, Ot Z94.84 STEM CELLS TRANSPLANT STATUS 12/28/2018 CHUY WINTER MD, Ot 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, LYMPH 12/28/2018 CHUY WINTER MD, Ot Z72.0 TOBACCO USE 12/28/2018 CHUY WINTER MD, Ot Z87.891 PERSONAL HISTORY OF NICOTINE DEPENDENCE 12/28/2018 CHUY WINTER MD, Ot Z92.21 PERSONAL HISTORY OF ANTINEOPLASTIC CHEMO 03/09/2019 CHUY WINTER MD, Ot 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, LYMPH 05/22/2019 CHUY WINTER MD, Ot 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, LYMPH Procedures Code Description [place] [address] INFL UENZA A & B (IN-HOUSE) 03/09/[address] CA CHEMOTHER NEC 12/28/2013 Results Test Result Range Serum rbkt-6-lpmoapguisfxr measurement ( mass/volume) - 07/02/16 14:15 Dqtw-9-Vlmbbgrjbhdwv [Mass/volume] in Serum or Plasma 1.44 mg/L 0.00-1.85 Lipid 1996 panel - 06/19/17 11:30 Serum or plasma triglyceride measurement (mass/volume) 93 mg/dL <150 Serum or plasma cholesterol measurement (mass/volume) 186 mg/dL < 200 Serum or plasma cholesterol in HDL measurement (mass/v olume) 45 mg/dL 40-60 Cholesterol in LDL [mass/volume] in serum or plasma by direct assay 130 mg/dL 1-129 Serum or plasma cholesterol in VLDL measurement (mass/ volume) 19 mg/dL 5-40 A1C - 07/06/18 12:33 HEMOGLOBIN A1c 5.1 % of total Hgb <5.7 TESTOSTERONE, FREE AND TOTAL - 10/21/17 08:18 TESTOSTERONE, TOTAL, LC/MS/MS 479 ng/dL 250-1100 TESTOSTERONE, FREE 51.2 pg/mL 46.0-224.0 TESTOSTERONE,BIOAVAILABLE 105.3 ng/dL 11 0.0-575.0 SEX HORMONE BINDING GLOBULIN 43 nmol/L 1 0-50 ALBUMIN,SERUM 4.5 g/dL 3.6-5.1 Complete blood count (CBC) with automate d white blood cell (WBC) differential - 09/23/18 09:17 Blood leukocytes automated count (number/volume) 10.1 10*3/uL 4.3-11.0 Blood erythrocytes automated count (number/volume) 4.74 10*6/uL 4.35-5.85 Venous blood hemoglobin measurement (mass/volume) 14.5 g/dL 13.3-17.7 Blood hematocrit (volume fraction) 43 % 40-54 Automated erythrocyte mean corpuscular volume 91 [ foz_us] 80-99 Automated erythrocyte mean corpuscular h emoglobin (mass per erythrocyte) 31 pg 25-34 Automated erythrocyte mean corpuscular h emoglobin concentration measurement (mass/volume) 34 g/dL 32-36 Automated erythrocyte distribution width ratio 14. 1 % 10.0- 14.5 Automated blood platelet count (count/volume) 194 10*3/uL 130-400 Automated blood platelet mean volume measurement 9.2 [foz_us] 7.4-10.4 Automated blood neutrophils/100 leukocytes 67 % 42-75 Automated blood lymphocytes/100 leukocytes 23 % 12-44 Blood monocytes/100 leukocytes 8 % 0-12 Automated blood eosinophils/100 leukocytes 2 % 0-10 Automated blood basophils/100 leukocytes 0 % 0-10 Blood neutrophils automated count (number/volume) 6.8 10*3 1.8-7.8 Blood lymphocytes automated count (number/volume) 2.3 10*3 1.0-4.0 Blood monocytes automated count (number/volume) 0. 8 10*3 0.0-1.0 Automated eosinophil count 0.2 10*3/uL 0 .0-0.3 Automated blood basophil count (count/volume) 0.0 10*3/uL 0.0-0.1 Comprehensive metabolic panel - 09/23/18 09:17 Serum or plasma sodium measurement (moles/volume) 138 mmol/L 135-145 Serum or plasma potassium measurement (moles/volume) 4.1 mmol/L 3.6-5.0 Serum or plasma chloride measurement (moles/volume) 106 mmol/L 98-107 Carbon dioxide 21 mmol/L 21-32 Serum or plasma anion gap determination (moles/volume) 11 mmol/L 5-14 Serum or plasma urea nitrogen measurement (mass/volume ) 7 mg/dL 7-18 Serum or plasma creatinine measurement (mass/volume) 0.89 mg/dL 0.60-1.30 Serum or plasma urea nitrogen/creatinine mass ratio 8 NRG Serum or plasma creatinine measurement w ith calculation of estimated glomerular filtration rate > NRG Serum or plasma glucose measurement (mass/volume) 97 mg/dL 70-105 Serum or plasma calcium measurement (mass/volume) 9.6 mg/dL 8.5-10.1 Serum or plasma total bilirubin measurement (mass/volu me) 0.4 mg/dL 0.1-1.0 Serum or plasma alkaline phosphatase susan surement (enzymatic activity/volume) 58 U/L 40-136 Serum or plasma aspartate aminotransfera se measurement (enzymatic activity/volume) 32 U/L 5-34 Serum or plasma alanine aminotransferase measurement (enzymatic activity/volume) 32 U/L 0-55 Serum or plasma protein measurement (mass/volume) 6.9 g/dL 6.4-8.2 Serum or plasma albumin measurement (mass/volume) 4.4 g/dL 3.2-4.5 CALCIUM CORRECTED 9.3 mg/dL 8.5-10.1 Encounters ACCT No. Visit Date/Time Discharge Status Pt. Type Provider Facility Loc./Unit Complaint [id number] 03/09/2013 18:26:00 03/09/2013 23:59: 59 CLS Outpatient BING OLIVAS APRN [id number] 09/10/2012 10:55:00 09/10/2012 23:59: 59 CLS Outpatient BRIANNE UNDERWOOD APRN [id number] 01/03/2019 08:00:00 01/03/2019 23:59:5 9 CLS Outpatient 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 [facility] [id number] 10/21/2017 09:20:00 Document Registration [id number] 08/21/2017 11:40:00 Document Registration [id number] 04/01/2019 10:04:00 00:01:00 DIS Outpatient CHUY WINTER MD, V [facility] ONC [id number] 12/24/2018 10:02:00 23:59:59 CLS Outpatient CHUY WINTER MD, V [facility] ONC [id number] 09/23/2018 09:00:00 00:01:00 DIS Outpatient CHUY WINTER MD, V [facility] ONC [id number] 06/24/2018 09:24:00 00:01:00 DIS Outpatient CHUY WINTER MD, V [facility] ONC [id number] 03/24/2018 09:42:00 019 00:01:00 DIS Outpatient CHUY WINTER MD, V [facility] ONC [id number] 03/09/2018 08:45:00 23:59:59 CLS Outpatient CHUY WINTER MD, V [facility] RAD DIFFUSE LARGE B CELL LY MPHOMA [id number] 11/06/2017 13:54:00 018 00:01:00 DIS Outpatient CHUY WINTER MD, V [facility] ONC [id number] 11/06/2017 14:44:00 018 23:59:59 CLS Outpatient CHUY WINTER MD, V [facility] RAD Z91.81,R52 [id number] 09/11/2017 13:38:00 018 23:59:59 CLS Outpatient CHUY WINTER MD, V [facility] ONC [id number] 06/25/2017 10:04:00 018 23:59:59 CLS Outpatient CHUY WINTER MD, V [facility] RAD TENDER LYMPH NODE [id number] 06/19/2017 11:20:00 23:59:59 CLS Outpatient 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 APRN [facility] LAB [id number] 02/26/2017 10:01:00 018 00:01:00 DIS Outpatient CHUY WINTER MD, V [facility] ONC [id number] 02/24/2017 08:18:00 018 23:59:59 CLS Outpatient CHUY WINTER MD, V [facility] RAD PET LYMPHOMA RESTAGING [id number] 10/22/2016 13:56:00 017 00:01:00 DIS Outpatient KASSIDY SERRANO V [facility] ONC [id number] 10/14/2016 09:43:00 017 23:59:59 CLS Outpatient JOANIE SANTIZO MD, V [facility] RAD C82.58 [id number] 07/02/2016 14:07:00 017 00:01:00 DIS Outpatient JOANIE SANTIZO MD, V [facility] ONC [id number] 03/13/2016 10:59:00 017 00:01:00 DIS Outpatient JOANIE SANTIZO MD, V [facility] ONC [id number] 03/09/2016 09:15:00 017 23:59:59 CLS Outpatient DARLYN MYERS, JOANIE Sanchez [facility] LAB C82.58, M15.0, R94.8, Z 87.891 [id number] 02/19/2016 08:46:00 017 23:59:59 CLS Outpatient JOANIE SANTIZO MD, V [facility] RAD B-CELL LYMPHOMA [id number] 02/13/2016 10:57:00 016 23:59:59 CLS Outpatient JOANIE SANTIZO MD, V [facility] RAD C82.58,R19.09 [id number] 11/15/2015 09:08:00 016 09:59:00 DIS Outpatient JOANIE SANTIZO MD, V [facility] ONC [id number] 08/14/2015 09:50:00 016 00:01:00 DIS Outpatient DARLYN MYERS, JOANIE mendez [facility] ONC [id number] 08/07/2015 09:24:00 016 23:59:59 CLS Outpatient DARLYN MYERS, JOANIE mendez [facility] RAD B CELL LYMPHOMA, INGUNI AL MASS [id number] 02/15/2015 11:59:00 016 00:01:00 DIS Outpatient JOANIE SANTIZO MD [facility] ONC [id number] 02/15/2015 12:28:00 23:59:59 CLS Outpatient DARLYN MYERS, JOANIE mendez [facility] RAD ABNORMAL PET SCAN [id number] 02/13/2015 10:40:00 23:59:59 CLS Outpatient JOANIE SANTIZO MD [facility] RAD LYMPHOMA [id number] 08/15/2014 10:33:00 015 00:01:00 DIS Outpatient DARLYN MYERS, JOANIE mendez [facility] ONC [id number] 09/05/2014 11:29:00 015 23:59:59 CLS Outpatient DARLYN MYERS, JOANIE mendez [facility] RAD LYMPHOMA [id number] 09/04/2014 09:47:00 23:59:59 CLS Outpatient DARLYN MYERS, JOANIE mendez [facility] RAD LYMPHOMA [id number] 06/24/2014 06:44:00 08:25:00 DIS Emergency NAIN CORDOBA MD [facility] ER FLU LIKE [place] MS [id number] 06/23/2014 10:51:00 13:40:00 DIS Outpatient MANISHA ANDERSON MD [facility] SDC HISTORY CELL LYMPHOMA [id number] 06/22/2014 10:42:00 23:59:59 CLS Outpatient MANISHA ANDERSON MD [facility] PREOP HISTORY CELL LYMPHOMA [id number] 06/21/2014 09:58:00 23:59:59 CLS Outpatient JOANIE SANTIZO MD V [facility] RAD INGUINEAL MASS [id number] 06/20/2014 09:12:00 23:59:59 CLS Outpatient DARLYN MYERS, JOANIE mendez [facility] RAD RT INGUINEAL MASS [id number] 06/15/2014 14:46:00 00:01:00 DIS Outpatient DARLYN MYERS, JOANIE mendez [facility] ONC [id number] 06/13/2014 08:11:00 23:59:59 CLS Outpatient JOANIE SANTIZO MD [facility] RAD LYMPHOMA [id number] 02/13/2014 09:02:00 00:01:00 DIS Outpatient JOANIE SANTIZO MD [facility] ONC [id number] 01/18/2014 16:18:00 014 15:08:00 DIS Inpatient JAONIE SANTIZO MD [facility] 4TH CHEMO INFUSION [id number] 12/27/2013 15:45:00 17:30:00 DIS Inpatient DARLYN MYERS, JOANIE seymour [facility] 4TH DIFFUSED LARGE B CELL LYMPHONA [id number] 12/16/2013 12:53:00 23:59:59 CLS Outpatient DARLYN MYERS, JOANIE mendez [facility] CARD FREQUENT HEADACHES, BCE LL LYMPHOMA [id number] 12/13/2013 13:39:00 014 23:59:59 CLS Outpatient [id number] 01/04/2013 09:42:00 013 10:18:00 DIS Outpatient COURTNEY MYERS, DOUGIE Gutierrez (DDU) [facility] REHAB JEBSON HAND SAVITA T, [facility] HAND RECONSTRUCTIONS [id number] 09/03/2009 16:20:00 Document Registration
== END 2019-05-26 17:47 | disposition home or self-care (01) ==
LOC: EDUNIT# 17:17 → ER 17:18
DX: S81.852A Open bite, left lower leg, initial encounter (principal); S81.812A Laceration without foreign body, left lower leg, initial encounter; K21.9 Gastro-esophageal reflux disease without esophagitis; Z23 Encounter for immunization; Z85.72 Personal history of non-Hodgkin lymphomas; Z88.0 Allergy status to penicillin; Z80.0 Family history of malignant neoplasm of digestive organs; Z82.49 Family history of ischemic heart disease and other diseases of the circulatory system; W54.0XXA Bitten by dog, initial encounter
CPT/HCPCS: 12002; 90715

== ENCOUNTER 2019-06-06 09:34 | Emergency (ER) | payer MEDICARE ==
[~2019-06-06] VITALS: Ht 167 cm; Wt 74.0 kg
[~2019-06-06 09:34] MED LIST changes: +DOXY100T2 PO; +METR-145 PO
[2019-06-06 09:47] VITALS: BP 119/59
--- OUTSIDE RECORDS SUMMARY | 2019-06-06 09:47 | XMS REPORT | Clinical Summary ---
Author Author [facility] Organization [facility] Address Unknown Phone Unavailable Care Team Providers Care Reduction Furnace Operator Helper Name Role Phone Mario Recinos MD Unavailable Jarrett Altman DO Unavailable Martin Lowe MD Unavailable Lilian White MD Unavailable Jaime Belcher MD Unavailable Kian Ashley MD Unavailable Anel Damon PCP Jax Winston MD [id number] Unavailable Source Comments Some departments are not documenting in the electronic medical record. If you d o not see the information that you expected, contact Release of Information in [facility] Health Information Management department at [phone] for further assistan ce in locating additional records.[facility] Allergies Comments Active Allergy Reactions Severity [...] (HCC) (Primary Dx) 03/28/2019 Office Visit Oncology from Last 3 Months Immunizations Name [...] Comments Vital Sign 126/73 03/28/2019 11:56 AM SECURITY RISK ANALYST Blood Pressure 85 03/28/2019 11:56 AM SECURITY RISK ANALYST Pulse 36.7 C (98.1 F) 03/28/2019 11:56 AM SECURITY RISK ANALYST Temperature 12 03/28/2019 11:56 AM SECURITY RISK ANALYST Respiratory Rate 100% 03/28/2019 11:56 AM SECURITY RISK ANALYST Oxygen Saturation - - Inhaled Oxygen Concentration 74.7 kg (164 lb 9.6 oz) 03/28/2019 11:56 AM SECURITY RISK ANALYST Weight 167.6 cm (5' 5.98") 03/26/2017 1:28 PM SECURITY RISK ANALYST Height 26.58 03/26/2017 1:28 PM SECURITY RISK ANALYST Body Mass Index Plan of Treatment Health Maintenance Due Date Last Done Comments MEDICARE ANNUAL WELLNESS 1965 VISIT HIV SCREENING 1978 HEPATITIS C SCREENING 1981 PHYSICAL (COMPREHENSIVE) 1981 EXAM COLORECTAL CANCER 2013 SCREENING SHINGLES RECOMBINANT 2013 VACCINE (1 of 2) INFLUENZA VACCINE 09/17/2019 11/17/2015 DTAP/TDAP VACCINES (4 - 12/17/2024 12/17/2014, Td) 10/17/2014, 08/17/2014 Results Not on filefrom Last 3 Months Insurance Type Payer Benefit Subscriber ID Effective Phone Address Plan / Dates Group Medicare AETNA MEDICARE AETNA xxxxxxxxxxxx 2019-P MEDICARE resent PPO -[id number] Beth Sen Transplant Self 1965 [address] [facility] (Home) [place] [address] Advance Directives Patient Administrative Assistant Explanation Type Date Recorded Advance 02/03/2014 12:53 [...]
--- OUTSIDE RECORDS SUMMARY | 2019-06-06 09:48 | XMS REPORT | Encounter Summary ---
Author Author [facility] Organization [facility] Address Unknown Phone Unavailable Care Team Providers Care Bankruptcy Manager Name Role Phone Mario Recinos MD Unavailable Jarrett Altman DO Unavailable Martin Lowe MD Unavailable Lilian White MD Unavailable Jaime Belcher MD Unavailable Kian Ashley MD Unavailable Anel Damon PCP Jax Winston MD [id number] Unavailable Encounter Details Care Team Description Date Type Department Carly Sykes RN History of stem cell transplant (HCC) (P rimary Dx) 01/06/2019 Orders Only The [address] [address] Social History Date Tobacco Use Types Packs/Day [...]
--- OUTSIDE RECORDS SUMMARY | 2019-06-06 09:48 | XMS REPORT | Encounter Summary ---
Author Author [facility] Organization [facility] Address Unknown Phone Unavailable Care Team Providers Care Compact Assembler Name Role Phone Mario Recinos MD Unavailable Jarrett Altman DO Unavailable Martin Lowe MD Unavailable Lilian White MD Unavailable Jaime Belcher MD Unavailable Kian Ashley MD Unavailable Anel Damon PCP Jax Winston MD [phone] Unavailable Reason for Visit * Reason Comments BMT Follow-up 5 year LTFU Encounter Details Care Team Description Date Type Department Josette Cool BMT Follow-up (5 year LTFU) 01/05/[address] [phone] Social History Date Tobacco Use Types Packs/Day [...] - Josette Meade - 01/31/2019 1:33 PM TIE TAPE MACHINE OPERATOR 01/31/2019 1:33 PM JAM - we scheduled result appt TAPE MACHINE OPERATOR * Telephone Encounter - Josette Cool - 01/05/2019 9:29 AM TIE TAPE MACHINE OPERATOR 01/05/2019 9:29 AM Requested 5 year orders from SURV. Pt requesting outside wo rk up. Will fax orders once they're in O2. TAPE MACHINE OPERATOR documented in this encounter Plan of Treatment Not on filedocumented as of this encounter Visit Diagnoses Not on filedocumented in this encounter
--- OUTSIDE RECORDS SUMMARY | 2019-06-06 09:48 | XMS REPORT | Encounter Summary ---
Author Author [facility] Organization [facility] Address Unknown Phone Unavailable Care Team Providers Care Hydrator Name Role Phone Mario Recinos MD Unavailable Jarrett Altman DO Unavailable Martin Lowe MD Unavailable Lilian White MD Unavailable Jaime Belcher MD Unavailable Kian Ashley MD Unavailable Anel Damon PCP Jax Winston MD [phone] Unavailable Reason for Visit * Reason Comments BMT Follow-up Pain right knee Encounter Details Care Team Description Date Type Department Martin Lowe MD [address] [place], [place] [id number] History of peripheral stem cell transpla nt (HCC) (Primary Dx) 03/28/2019 Office Visit The [facility] [address] [place] [phone] Social History Date Tobacco Use Types Packs/Day [...] Comments Vital Sign 126/73 03/28/2019 11:56 AM LABORATORY SUPERVISOR Blood Pressure 85 03/28/2019 11:56 AM LABORATORY SUPERVISOR Pulse 36.7 C (98.1 F) 03/28/2019 11:56 AM LABORATORY SUPERVISOR Temperature 12 03/28/2019 11:56 AM LABORATORY SUPERVISOR Respiratory Rate 100% 03/28/2019 11:56 AM LABORATORY SUPERVISOR Oxygen Saturation - - Inhaled Oxygen Concentration 74.7 kg (164 lb 9.6 oz) 03/28/2019 11:56 AM LABORATORY SUPERVISOR Weight - - Height 26.58 03/26/2017 1:28 PM LABORATORY SUPERVISOR Body Mass Index documented in this encounter [...] Martin Lowe MD - 03/28/2019 11:50 AM LABORATORY SUPERVISOR Date of Service: 03/28/2019 Beth Sen is a 54 y.o. male with DLBCL s/p autologous stem cell transplant. Patient presents to the clinic to review his 5 year LTFU results. Doing well. Ada ina back from [place] to [place], [place]. Near his children. . Has a [...] Index Value: 2 Coordinator: Alexa Gonsalves RN This is a 48 year was originally diagnosed in March [address] Glynn Bullard at [facility] in [facility] after he presented to the [...] Hx: Pt is single and originally from [place]; however, he just relocated to [place], [place] from [place] ( he is originally from [place]) in November 2013. Patient has a smoking [...] like to see Dr. Pat avery in [place]. - 2 year BMBx negative for disease. [...] biopsy. He will get it done in [place], [place]. Dr. Jax Winston will schedul e [...] or sooner if needed. Martin Lowe MD driver operator Blood and Marrow Transplantation [facility] RATORY SUPERVISOR * Iliana Burnette RN - 03/28/2019 11:50 AM LABORATORY SUPERVISOR Date of Transplant:02/27/14 Preparative Regimen: BEAM Reduced or fully ablative: ablative Disease:DLBC Disease Status at Transplant: PIF sen / PR1 CMV:POS Cell Source:autologous PB Consents/Studies:8322, auto , processing, apheresis, blood Primary onc. Dr. Jax Winston; ; Fx: [phone] 03/28- Pt here for his 5 year LTFU - pt doing well. Pt is now living in [facility]. Results reviewed with patient - pt continue in remission. Pt is up to date on the flu shot but has not had the shingrix. Instructed to get shingrix wi th his PCP. Instructed to stay up to date on all other health checks with his PC P. No other concerns or complaints. NEWS Score: 0 RTC per LTFU RATORY SUPERVISOR documented in this encounter Plan of Treatment [...]
--- OUTSIDE RECORDS SUMMARY | 2019-06-06 09:48 | XMS REPORT | Encounter Summary ---
Author Author [facility] Organization [facility] Address Unknown Phone Unavailable Care Team Providers Care Oil Lease Broker Name Role Phone Mario Recinos MD Unavailable Jarrett Altman DO Unavailable Martin Lowe MD Unavailable Lilian White MD Unavailable Jaime Belcher MD Unavailable Kian Ashley MD Unavailable Anel Damon PCP Jax Winston MD [phone] Unavailable Encounter Details Care Team Description Date Type Department Josette Meade 02/25/2019 Documentation The [address] [phone] Social History Date Tobacco Use Types Packs/Day [...] * Josette Meade - 02/25/2019 8:44 AM PINBALL MACHINE REPAIRER [facility] 5 year [...] Expected date for next work up: 02/28/2020 ALL MACHINE REPAIRER documented in this encounter Plan of Treatment Not on filedocumented as of this encounter Visit Diagnoses Not on filedocumented in this encounter
--- OUTSIDE RECORDS SUMMARY | 2019-06-06 09:52 | XMS REPORT | Continuity of Care Document ---
Author Organization Unknown Address Unknown Phone Unavailable Allergies Active Description Code Type Severity Reaction Onset Reported/Identified Relationship to Patient Clinical Status Yes Penicillins Drug Allergy N/A N/A 03/10/2013 Yes Penicillins [id number] Drug Aller gy Unknown N/A 12/27/2013 Medications [...] HEADACHE JOANIE SANTIZO MD Ot Z79.899 OTHER MEDICAL BILLING CLERK (CURRENT) DRUG THERAPY 08/07/2008 BRIANNE UNDERWOOD APRN [...] FOR OCCUPATIONAL THERAPY 01/11/2013 DOUGIE VALDEZ MD ([facility]) Ot V68.01 DISABILITY EXAMINATION 01/11/2013 DOUGIE VALDEZ MD ([facility]) Ot V82.89 SCREEN FOR OTH SPECIF CONDITIONS [...] MYERS, JOANIE Sams Ot 530.81 03/15/2014 DARLYN YMERS, JOANIE Sams Ot 784.0 03/15/2014 DARLYN MYERS, [...] MYERS, JOANIE Sams Ot E849.7 03/15/2014 DARLYN YMERS, JOANIE Sams Ot E933.1 03/15/2014 DARLYN MYERS, [...] Flaquita Ot 338.3 03/27/2014 DARLYN MYERS, JOANIE [place] Ot 530.81 03/27/2014 DARLYN MYERS, JOANIE Sams [...] MYERS, JOANIE Sams Ot 784.0 HEADACHE 06/20/2014 DARLYN MYERS, JOANIE Sams Ot V58.69 OTH [...] MYERS, JOANIE Sams Ot 530.81 06/20/2014 DARLYN MYRES, JOANIE Sams Ot 784.0 06/20/2014 DARLYN MYERS, [...] MYERS, JOANIE Sams Ot 202.80 06/22/2014 DARLYN MEYRS, JOANIE Sams Ot 789.30 06/22/2014 DARLYN MYERS, [...] K Ot 338.3 08/09/2014 DARLYN MYERS, JOANIE Sams Ot 784.0 08/09/2014 DARLYN MYERS, JOANIE Sams [...] JOANIE Flaquita Ot 338.3 08/15/2014 DARLYN MYERS, JOANEI Sams Ot 530.81 08/15/2014 DARLYN MYERS, JOANIE [...] JOANIE Sams Ot 709.8 10/06/2014 MONICA MYERS, MAINSHA Ot V72.84 10/06/2014 DARLYN MYERS, JOANIE Sams [...] Flaquita Ot V58.69 10/12/2014 DARLYN MYERS, JOANIE Flauqita Ot V87.41 12/25/2014 DARLYN MYERS, JOANIE K [...] 02/22/2015 JOANIE SANTIZO MD Ot Z79.899 OTHER NURSING HOME (CURRENT) DRUG THERAPY 03/08/2015 DARLYN MYERS, JOANIE [...] 06/12/2015 JOANIE SANTIZO MD Ot Z79.899 OTHER NURSING HOME (CURRENT) DRUG THERAPY 06/21/2015 JOANIE SANTIZO MD Ot C85.85 OTH TYPES OF NON-HODG LYMPH, NODES OF IN 06/21/2015 JOANIE SANTIZO MD Ot 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) 06/21/2015 JOANIE SANTIZO MD Ot K21.9 GASTRO-ESOPHAGEAL REFLUX DISEASE WITHOUT 06/21/2015 JOANIE SANTIZO MD Ot R51 HEADACHE 06/21/2015 JOANIE SANTIZO MD Ot Z79.899 OTHER NURSING HOME (CURRENT) DRUG THERAPY 08/02/2015 JOANIE SANTIZO MD [...] 08/02/2015 JOANIE SANTIZO MD Ot Z79.899 OTHER MEDICAL BILLING CLERK (CURRENT) DRUG THERAPY 08/02/2015 JOANIE SANTIZO MD Ot C85.85 OTH TYPES OF NON-HODG LYMPH, NODES OF IN 08/02/2015 JOANIE SANTIZO MD Ot 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) 08/02/2015 JOANIE SANTIZO MD Ot K21.9 GASTRO-ESOPHAGEAL REFLUX DISEASE WITHOUT 08/02/2015 JOANIE SANTIZO MD Ot R51 HEADACHE 08/02/2015 JOANIE SANTIZO MD Ot Z79.899 OTHER NURSING HOME (CURRENT) DRUG THERAPY 08/07/2015 JOANIE SANTIZO MD [...] 08/07/2015 JOANIE SANTIZO MD, Ot Z79.899 OTHER NURSING HOME (CURRENT) DRUG THERAPY 08/07/2015 JOANIE SANTIZO MD, [...] 08/14/2015 JOANIE SANTIZO MD, Ot Z79.899 OTHER NURSING HOME (CURRENT) DRUG THERAPY 08/16/2015 JOANIE SANTIZO MD, Ot C85.85 OTH TYPES OF NON-HODG LYMPH, NODES OF IN 08/16/2015 JOANIE SANTIZO MD, Ot 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) 08/16/2015 JOANIE SANTIZO MD, Ot K21.9 GASTRO-ESOPHAGEAL REFLUX DISEASE WITHOUT 08/16/2015 JOANIE SANTIZO MD, Ot R51 HEADACHE 08/16/2015 JOANIE SANTIZO MD, Ot Z79.899 OTHER NURSING HOME (CURRENT) DRUG THERAPY 08/22/2015 JOANIE SANTIZO MD, [...] 09/18/2015 JOANIE SANTIZO MD, Ot Z79.899 OTHER MEDICAL BILLING CLERK (CURRENT) DRUG THERAPY 10/29/2015 JOANIE SANTIZO MD, Ot C85.85 OTH TYPES OF NON-HODG LYMPH, NODES OF IN 10/29/2015 JOANIE SANTIZO MD, Ot 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) 10/29/2015 JOANIE SANTIZO MD, Ot K21.9 GASTRO-ESOPHAGEAL REFLUX DISEASE WITHOUT 10/29/2015 JOANIE SANTIZO MD Ot R51 HEADACHE 10/29/2015 JOANIE SANTIZO MD Ot Z79.899 OTHER NURSING HOME (CURRENT) DRUG THERAPY 11/15/2015 JOANIE SANTIZO MD, Ot C85.85 OTH TYPES OF NON-HODG LYMPH, NODES OF IN 11/15/2015 JOANIE SANTIZO MD, Ot 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) 11/15/2015 JOANIE SANTIZO MD, Ot K21.9 GASTRO-ESOPHAGEAL REFLUX DISEASE WITHOUT 11/15/2015 JOANIE SANTIZO MD Ot R51 HEADACHE 11/15/2015 JOANIE SANTIZO MD Ot Z79.899 OTHER MEDICAL BILLING CLERK (CURRENT) DRUG THERAPY 11/16/2015 JOANIE SANTIZO MD, Ot C85.85 OTH TYPES OF NON-HODG LYMPH, NODES OF IN 11/16/2015 JOANIE SANTIZO MD, Ot 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) 11/16/2015 JOANIE SANTIZO MD, Ot K21.9 GASTRO-ESOPHAGEAL REFLUX DISEASE WITHOUT 11/16/2015 JOANIE SANTIZO MD Ot R51 HEADACHE 11/16/2015 JOANIE SANTIZO MD Ot Z79.899 OTHER MEDICAL BILLING CLERK (CURRENT) DRUG THERAPY 11/26/2015 JOANIE SANTIZO MD, Ot C85.85 OTH TYPES OF NON-HODG LYMPH, NODES OF IN 11/26/2015 JOANIE SANTIZO MD Ot 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) 11/26/2015 JOANIE SANTIZO MD Ot K21.9 GASTRO-ESOPHAGEAL REFLUX DISEASE WITHOUT 11/26/2015 JOANIE SANTIZO MD Ot R51 HEADACHE 11/26/2015 JOANIE SANTIZO MD Ot Z79.899 OTHER MEDICAL BILLING CLERK (CURRENT) DRUG THERAPY 01/29/2016 JOANIE SANTIZO MD Ot C85.85 OTH TYPES OF NON-HODG LYMPH, NODES OF IN 01/29/2016 JOANIE SANTIZO MD Ot 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) 01/29/2016 JOANIE SANTIZO MD Ot K21.9 GASTRO-ESOPHAGEAL REFLUX DISEASE WITHOUT 01/29/2016 JOANIE SANTIZO MD Ot R51 HEADACHE 01/29/2016 JOANIE SANTIZO MD Ot Z79.899 OTHER NURSING HOME (CURRENT) DRUG THERAPY 02/12/2016 JOANIE SANTIZO MD [...] 02/12/2016 JOANIE SANTIZO MD Ot Z79.899 OTHER NURSING HOME (CURRENT) DRUG THERAPY 02/13/2016 JOANIE SANTIZO MD [...] OTH LYMPHOMAS EXTRANODAL SOLID ORGAN U 02/13/2016 JOANEI SANTIZO MD Ot 789.30 ABDOMINAL/PELVIC SWELLING,MASS/LUMP UNSP [...] 02/13/2016 JOANIE SANTIZO MD Ot Z79.899 OTHER MEDICAL BILLING CLERK (CURRENT) DRUG THERAPY 02/14/2016 JOANIE SANTIZO MD [...] 02/19/2016 JOANIE SANTIZO MD, Ot Z79.899 OTHER MEDICAL BILLING CLERK (CURRENT) DRUG THERAPY 02/20/2016 JOANIE SANTIZO MD, [...] Ot K21.9 GASTRO-ESOPHAGEAL REFLUX DISEASE WITHOUT 03/17/2016 JOAINE SANTIZO MD Ot R51 HEADACHE 03/17/2016 JOANIE SANTIZO MD Ot Z79.899 OTHER NURSING HOME (CURRENT) DRUG THERAPY 03/21/2016 JOANIE SANTIZO MD, Ot 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 FOLLICLE [...] 07/04/2016 JOANIE SANTIZO MD Ot Z79.899 OTHER MEDICAL BILLING CLERK (CURRENT) DRUG THERAPY 07/06/2016 JOANIE SANTIZO MD Ot C85.85 OTH TYPES OF NON-HODG LYMPH, NODES OF IN 07/06/2016 JOANIE SANTIZO MD Ot 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) 07/06/2016 JOANIE SANTIZO MD Ot K21.9 GASTRO-ESOPHAGEAL REFLUX DISEASE WITHOUT 07/06/2016 JOANIE SANTIZO MD Ot R51 HEADACHE 07/06/2016 JOANIE SANTIZO MD Ot Z79.899 OTHER MEDICAL BILLING CLERK (CURRENT) DRUG THERAPY 07/06/2016 JOANIE SANTIZO MD Ot C85.85 OTH TYPES OF NON-HODG LYMPH, NODES OF IN 07/06/2016 JOANIE SANTIZO MD Ot 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) 07/06/2016 JOANIE SANTIZO MD Ot K21.9 GASTRO-ESOPHAGEAL REFLUX DISEASE WITHOUT 07/06/2016 JOANIE SANTIZO MD Ot R51 HEADACHE 07/06/2016 JOANIE SANTIZO MD Ot Z79.899 OTHER NURSING HOME (CURRENT) DRUG THERAPY 07/29/2016 JOANIE SANTIZO MD Ot C85.85 OTH TYPES OF NON-HODG LYMPH, NODES OF IN 07/29/2016 JOANIE SANTIZO MD Ot 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) 07/29/2016 JOANIE SANTIZO MD Ot K21.9 GASTRO-ESOPHAGEAL REFLUX DISEASE WITHOUT 07/29/2016 JOANIE SANTIZO MD Ot R51 HEADACHE 07/29/2016 JOANIE SANTIZO MD Ot Z79.899 OTHER MEDICAL BILLING CLERK (CURRENT) DRUG THERAPY 09/30/2016 JOANIE SANTIZO MD Ot C85.85 OTH TYPES OF NON-HODG LYMPH, NODES OF IN 09/30/2016 JOANIE SANTIZO MD Ot 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) 09/30/2016 JOANIE SANTIZO MD Ot K21.9 GASTRO-ESOPHAGEAL REFLUX DISEASE WITHOUT 09/30/2016 JOANIE SANTIZO MD Ot R51 HEADACHE 09/30/2016 JOANIE SANTIZO MD Ot Z79.899 OTHER MEDICAL BILLING CLERK (CURRENT) DRUG THERAPY 10/14/2016 KASSIDY SERRANO Ot C85.85 OTH TYPES OF NON-HODG LYMPH, NODES OF IN 10/14/2016 KASSIDY SERRANO N Ot 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) 10/14/2016 KASSIDY SERRANO N Ot K21.9 GASTRO-ESOPHAGEAL REFLUX DISEASE WITHOUT 10/14/2016 MAGGIEKASSIDY CROWLEY N Ot R51 HEADACHE 10/14/2016 MAGGIEKASSIDY CROWLEY N Ot Z79.899 OTHER NURSING HOME (CURRENT) DRUG THERAPY 10/14/2016 KASSIDY SERRANO N Ot C85.85 OTH TYPES OF NON-HODG LYMPH, NODES OF IN 10/14/2016 MAGGIEKASSIDY CROWLEY N Ot 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) 10/14/2016 KASSIDY SERRANO N Ot K21.9 GASTRO-ESOPHAGEAL REFLUX DISEASE WITHOUT 10/14/2016 KASSIDY SERRANO Ot R51 HEADACHE 10/14/2016 KASSIDY SERRANO Ot Z79.899 OTHER MEDICAL BILLING CLERK (CURRENT) DRUG THERAPY 10/14/2016 JOANIE SANTIZO MD [...] 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, LYMPH 10/14/2016 JAONIE SANTIZO MD Ot M15.0 PRIMARY GENERALIZED (OSTEO)ARTHRITIS [...] 10/14/2016 MAGGIEKASSIDY CROWLEY N Ot Z79.899 OTHER MEDICAL BILLING CLERK (CURRENT) DRUG THERAPY 10/15/2016 JOANIE SANTIZO MD, Ot 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, LYMPH 10/15/2016 KASSIDY SERRANO Ot C85.85 OTH TYPES OF NON-HODG LYMPH, NODES OF IN 10/15/2016 MAGGIEKASSIDY CROWLEY N Ot 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) 10/15/2016 KASSIDY SERRANO Ot K21.9 GASTRO-ESOPHAGEAL REFLUX DISEASE WITHOUT 10/15/2016 MAGGIECLARICEAN N Ot R51 HEADACHE 10/15/2016 MAGGIEKASSIDY CROWLEY N Ot Z79.899 OTHER MEDICAL BILLING CLERK (CURRENT) DRUG THERAPY 10/27/2016 JOANIE SANTIZO MD Ot 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, LYMPH 10/27/2016 KASSIDY SERRANO Ot C85.85 OTH TYPES OF NON-HODG LYMPH, NODES OF IN 10/27/2016 KASSIDY SERRANO N Ot 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) 10/27/2016 KASSIDY SERRANO Ot K21.9 GASTRO-ESOPHAGEAL REFLUX DISEASE WITHOUT 10/27/2016 MAGGIECLARICEAN N Ot R51 HEADACHE 10/27/2016 MAGGIEKASSIDY CROWLEY N Ot Z79.899 OTHER MEDICAL BILLING CLERK (CURRENT) DRUG THERAPY 11/04/2016 JOANIE SANTIZO MD, Ot 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, LYMPH 11/15/2016 KASSIDY SERRANO Francois Ot C85.85 OTH TYPES OF NON-HODG LYMPH, NODES OF IN 11/15/2016 KASSIDY SERRANO Ot 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) 11/15/2016 KASSIDY SERRANO N Ot K21.9 GASTRO-ESOPHAGEAL REFLUX DISEASE WITHOUT 11/15/2016 KASSIDY SERRANO N Ot R51 HEADACHE 11/15/2016 KASSIDY SERRANO Ot Z79.899 OTHER MEDICAL BILLING CLERK (CURRENT) DRUG THERAPY 11/26/2016 KASSIDY SERRANO N Ot C85.85 OTH TYPES OF NON-HODG LYMPH, NODES OF IN 11/26/2016 KASSIDY SERRANO N Ot 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) 11/26/2016 KASSIDY SERRANO N Ot K21.9 GASTRO-ESOPHAGEAL REFLUX DISEASE WITHOUT 11/26/2016 KASSIDY SERRANO N Ot R51 HEADACHE 11/26/2016 KASSIDY SERRANO N Ot Z79.899 OTHER NURSING HOME (CURRENT) DRUG THERAPY 02/17/2017 JOANIE SANTIZO MD [...] 02/17/2017 CHUY WINTER MD, Ot Z79.899 OTHER NURSING HOME (CURRENT) DRUG THERAPY 02/23/2017 JOANIE SANTIZO MD [...] 02/23/2017 CHUY WINTER MD Ot Z79.899 OTHER NURSING HOME (CURRENT) DRUG THERAPY 02/23/2017 CHUY WINTER MD Ot C85.85 OTH TYPES OF NON-HODG LYMPH, NODES OF IN 02/23/2017 CHUY WINTER MD Ot 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) 02/23/2017 CHUY WINTER MD Ot K21.9 GASTRO-ESOPHAGEAL REFLUX DISEASE WITHOUT 02/23/2017 CHUY WINTER MD Ot R51 HEADACHE 02/23/2017 CHUY WINTER MD Ot Z79.899 OTHER NURSING HOME (CURRENT) DRUG THERAPY 02/23/2017 JOANIE SANTIZO MD [...] 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, UNSPECIFIED 02/23/2017 JOANIE ASNTIZO MD Ot 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 [...] 02/23/2017 CHUY WINTER MD, Ot Z79.899 OTHER NURSING HOME (CURRENT) DRUG THERAPY 02/23/2017 JOANIE SANTIZO MD [...] 02/23/2017 CHUY WINTER MD Ot Z79.899 OTHER NURSING HOME (CURRENT) DRUG THERAPY 02/24/2017 JOANIE SANTIZO MD [...] 02/25/2017 CHUY WINTER MD Ot Z79.899 OTHER MEDICAL BILLING CLERK (CURRENT) DRUG THERAPY 03/16/2017 CHUY WINTER MD Ot 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, LYMPH 03/31/2017 CHUY WINTER MD Ot 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, LYMPH 03/31/2017 CHUY WINTER MD Ot 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) 03/31/2017 CHUY WINTER MD Ot K21.9 GASTRO-ESOPHAGEAL REFLUX DISEASE WITHOUT 03/31/2017 CHUY WINTER MD Ot R51 HEADACHE 03/31/2017 CHUY WINTER MD Ot Z79.899 OTHER NURSING HOME (CURRENT) DRUG THERAPY 04/24/2017 CHUY WINTER MD Ot 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, LYMPH 05/25/2017 CHUY WINTER MD Ot 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, LYMPH 05/25/2017 CHUY WINTER MD Ot 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) 05/25/2017 CHUY WINTER MD Ot K21.9 GASTRO-ESOPHAGEAL REFLUX DISEASE WITHOUT 05/25/2017 CHUY WINTER MD Ot R51 HEADACHE 05/25/2017 CHUY WINTER MD Ot Z79.899 OTHER NURSING HOME (CURRENT) DRUG THERAPY 06/19/2017 JOANIE SANTIZO MD [...] 06/19/2017 CHUY WINTER MD Ot Z79.899 OTHER NURSING HOME (CURRENT) DRUG THERAPY 06/19/2017 JOANIE SANTIZO MD, [...] CHUY WINTER MD Ot R51 HEADACHE 06/22/2017 CHUY WINTER MD Ot Z79.899 OTHER NURSING HOME (CURRENT) DRUG THERAPY 06/22/2017 CHUY WINTER MD, Ot 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, LYMPH 06/22/2017 CHUY WINTER MD Ot 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) 06/22/2017 CHUY WINTER MD Ot K21.9 GASTRO-ESOPHAGEAL REFLUX DISEASE WITHOUT 06/22/2017 CHUY WINTER MD Ot N52.9 MALE ERECTILE DYSFUNCTION, UNSPECIFIED 06/22/2017 CHUY WINTER MD Ot R61 GENERALIZED HYPERHIDROSIS 06/22/2017 CHUY WINTER MD Ot Z79.899 OTHER MEDICAL BILLING CLERK (CURRENT) DRUG THERAPY 06/22/2017 CHUY WINTER MD [...] 09/17/2017 CHUY WINTER MD Ot Z79.899 OTHER NURSING HOME (CURRENT) DRUG THERAPY 09/17/2017 CHUY WINTER MD [...] 11/10/2017 CHUY WINTER MD Ot Z79.899 OTHER NURSING HOME (CURRENT) DRUG THERAPY 11/10/2017 CHUY WINTER MD Ot Z87.891 PERSONAL HISTORY OF NICOTINE DEPENDENCE 11/10/2017 CHUY WINTER MD Ot Z92.21 PERSONAL HISTORY OF ANTINEOPLASTIC CHEMO 11/10/2017 CHUY WINTER MD Ot 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.] Ot V58.69 OTH MED,LT,CURRENT USE 02/05/2018 JOANIE SANTIZO MD Ot V87.41 PERSONAL HISTORY [...] 02/05/2018 CHUY WINTER MD Ot Z79.899 OTHER NURSING HOME (CURRENT) DRUG THERAPY 02/05/2018 CHUY WINTER MD, Ot Z87.891 PERSONAL HISTORY OF NICOTINE DEPENDENCE 02/05/2018 CHUY WINTER MD Ot Z92.21 PERSONAL HISTORY OF ANTINEOPLASTIC CHEMO 02/05/2018 CHUY WINTER MD Ot Z94.81 BONE MARROW [...] 02/10/2018 CHUY WINTER MD Ot Z79.899 OTHER NURSING HOME (CURRENT) DRUG THERAPY 02/10/2018 CHUY WINTER MD Ot Z87.891 PERSONAL HISTORY OF NICOTINE DEPENDENCE 02/10/2018 CHUY WINTRE MD Ot Z92.21 PERSONAL HISTORY OF ANTINEOPLASTIC [...] 03/30/2018 CHUY WINTER MD Ot Z79.899 OTHER NURSING HOME (CURRENT) DRUG THERAPY 03/30/2018 CHUY WINTER MD [...] 05/06/2018 CHUY WINTER MD Ot Z79.899 OTHER MEDICAL BILLING CLERK (CURRENT) DRUG THERAPY 05/06/2018 CHUY WINTER MD [...] 05/07/2018 CHUY WINTER MD Ot Z79.899 OTHER NURSING HOME (CURRENT) DRUG THERAPY 05/07/2018 CHUY WINTER MD [...] 09/22/2018 CHUY WINTER MD Ot Z79.899 OTHER MEDICAL BILLING CLERK (CURRENT) DRUG THERAPY 09/22/2018 CHUY WINTER MD [...] 09/23/2018 CHUY WINTER MD Ot Z79.899 OTHER MEDICAL BILLING CLERK (CURRENT) DRUG THERAPY 09/23/2018 CHUY WINTER MD [...] 09/30/2018 CHUY WINTER MD Ot Z79.899 OTHER NURSING HOME (CURRENT) DRUG THERAPY 09/30/2018 CHUY WINTER MD [...] 10/28/2018 CHUY WINTER MD Ot Z79.899 OTHER MEDICAL BILLING CLERK (CURRENT) DRUG THERAPY 10/28/2018 CHUY WINTER MD [...] 12/22/2018 CHUY WINTER MD Ot Z79.899 OTHER MEDICAL BILLING CLERK (CURRENT) DRUG THERAPY 12/22/2018 CHUY WINTER MD [...] 12/23/2018 CHUY WINTER MD Ot Z79.899 OTHER NURSING HOME (CURRENT) DRUG THERAPY 12/23/2018 CHUY WINTER MD [...] 12/24/2018 CHUY WINTER MD Ot Z79.899 OTHER NURSING HOME (CURRENT) DRUG THERAPY 12/24/2018 CHUY WINTER MD [...] 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, LYMPH 12/24/2018 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 Ot Z13.220 ENCOUNTER FOR SCREENING FOR LIPOID DISOR 12/24/2018 CHUY WINTER MD Ot R59.1 GENERALIZED ENLARGED LYMPH NODES 12/24/2018 CHUY WINTER MD Ot M54.5 LOW BACK PAIN 12/24/2018 CHUY WINTER MD Ot R10.2 PELVIC AND PERINEAL PAIN 12/24/2018 CHUY WINTER MD Ot W19.XXX A UNSPECIFIED FALL, INITIAL ENCOUNTER 12/24/2018 CHUY WINTER MD, Ot C83.30 DIFFUSE LARGE B-CELL LYMPHOMA, UNSPECIFI 12/24/2018 CHUY WINTER MD Ot Z94.84 STEM CELLS TRANSPLANT STATUS 12/28/2018 CHUY WINTER MD, Ot 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, LYMPH 12/28/2018 CHUY WINTER MD Ot Z72.0 TOBACCO USE 12/28/2018 CHUY WINTER MD Ot Z87.891 PERSONAL HISTORY OF NICOTINE DEPENDENCE 12/28/2018 CHUY WINTER MD Ot Z92.21 PERSONAL HISTORY OF ANTINEOPLASTIC CHEMO 03/09/2019 CHUY WINTER MD, Ot 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, LYMPH 05/22/2019 CHUY WINTER MD, Ot 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, LYMPH 05/26/2019 JOANIE SANTIZO MD, Ot 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, LYMPH 05/26/2019 JOANIE SANTIZO MD Ot R19.09 OTHER INTRA-ABDOMINAL AND PELVIC SWELLIN 05/26/2019 CHUY WINTER MD, Ot 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, LYMPH 05/26/2019 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 Ot Z13.220 ENCOUNTER FOR SCREENING FOR LIPOID DISOR 05/26/2019 CHUY WINTER MD Ot R59.1 GENERALIZED ENLARGED LYMPH NODES 05/26/2019 CHUY WINTER MD Ot M54.5 LOW BACK PAIN 05/26/2019 CHUY WINTER MD Ot R10.2 PELVIC AND PERINEAL PAIN 05/26/2019 CHUY WINTER MD Ot W19.XXX A UNSPECIFIED FALL, INITIAL ENCOUNTER 05/26/2019 CHUY WINTER MD Ot C83.30 DIFFUSE LARGE B-CELL LYMPHOMA, UNSPECIFI 05/26/2019 CHUY WINTER MD Ot Z94.84 STEM CELLS TRANSPLANT STATUS 05/26/2019 CHUY WINTRE MD Ot 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, LYMPH 05/26/2019 CHUY WINTER MD Ot Z72.0 TOBACCO USE 05/26/2019 CHUY WINTER MD Ot Z87.891 PERSONAL HISTORY OF NICOTINE DEPENDENCE 05/26/2019 CHUY WINTER MD Ot Z92.21 PERSONAL HISTORY OF ANTINEOPLASTIC CHEMO 05/26/2019 Ot C82.58 DIF FUSE FOLLICLE CENTER LYMPHOMA, LYMPH 05/26/2019 JOANIE SANTIZO MD Ot 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, LYMPH 05/26/2019 JOANIE SANTIZO MD Ot R19.09 OTHER INTRA-ABDOMINAL AND PELVIC SWELLIN 05/26/2019 CHUY WINTER MD, Ot 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, LYMPH 05/26/2019 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 APRN Ot Z13.220 ENCOUNTER FOR SCREENING FOR LIPOID DISOR 05/26/2019 CHUY WINTER MD Ot R59.1 GENERALIZED ENLARGED LYMPH NODES 05/26/2019 CHUY WINTER MD Ot M54.5 LOW BACK PAIN 05/26/2019 CHUY WINTER MD Ot R10.2 PELVIC AND PERINEAL PAIN 05/26/2019 CHUY WINTER MD Ot W19.XXX A UNSPECIFIED FALL, INITIAL ENCOUNTER 05/26/2019 CHUY WINTER MD Ot C83.30 DIFFUSE LARGE B-CELL LYMPHOMA, UNSPECIFI 05/26/2019 CHUY WINTER MD Ot Z94.84 STEM CELLS TRANSPLANT STATUS 05/26/2019 CHUY WINTER MD, Ot 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, LYMPH 05/26/2019 CHUY WINTER MD Ot Z72.0 TOBACCO USE 05/26/2019 CHUY WINTER MD Ot Z87.891 PERSONAL HISTORY OF NICOTINE DEPENDENCE 05/26/2019 CHUY WINTER MD Ot Z92.21 PERSONAL HISTORY OF ANTINEOPLASTIC CHEMO 05/26/2019 Ot C82.58 DIF FUSE FOLLICLE CENTER LYMPHOMA, LYMPH 05/26/2019 CHUY WINTER MD, Ot 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, LYMPH 05/26/2019 CHUY WINTER MD Ot Z72.0 TOBACCO USE 05/26/2019 CHUY WINTER MD Ot Z87.891 PERSONAL HISTORY OF NICOTINE DEPENDENCE 05/26/2019 CHUY WINTER MD Ot Z92.21 PERSONAL HISTORY OF ANTINEOPLASTIC CHEMO 05/26/2019 JOANIE SANTIZO MD, Ot 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, LYMPH 05/26/2019 JOANIE SANTIZO MD Ot R19.09 OTHER INTRA-ABDOMINAL AND PELVIC SWELLIN 05/26/2019 CHUY WINTER MD, Ot 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, LYMPH 05/26/2019 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 Ot Z13.220 ENCOUNTER FOR SCREENING FOR LIPOID DISOR 05/26/2019 CHUY WINTER MD Ot R59.1 GENERALIZED ENLARGED LYMPH NODES 05/26/2019 CHUY WINTER MD Ot M54.5 LOW BACK PAIN 05/26/2019 CHUY WINTER MD Ot R10.2 PELVIC AND PERINEAL PAIN 05/26/2019 CHUY WINTER MD Ot W19.XXX A UNSPECIFIED FALL, INITIAL ENCOUNTER 05/26/2019 CHUY WINTER MD, Ot C83.30 DIFFUSE LARGE B-CELL LYMPHOMA, UNSPECIFI 05/26/2019 CHUY WINTER MD Ot Z94.84 STEM CELLS TRANSPLANT STATUS 05/26/2019 CHUY WINTER MD, Ot 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, LYMPH 05/26/2019 CHUY WINTER MD Ot Z72.0 TOBACCO USE 05/26/2019 CHUY WINTER MD Ot Z87.891 PERSONAL HISTORY OF NICOTINE DEPENDENCE 05/26/2019 CHUY WINTER MD Ot Z92.21 PERSONAL HISTORY OF ANTINEOPLASTIC CHEMO 05/26/2019 Ot C82.58 DIF FUSE FOLLICLE CENTER LYMPHOMA, LYMPH 05/26/2019 JOANIE SANTIZO MD, Ot 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, LYMPH 05/26/2019 JOANIE SANTIZO MD Ot R19.09 OTHER INTRA-ABDOMINAL AND PELVIC SWELLIN 05/26/2019 CHUY WINTER MD, Ot 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, LYMPH 05/26/2019 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 APRN Ot Z13.220 ENCOUNTER FOR SCREENING FOR LIPOID DISOR 05/26/2019 CHUY WINTER MD Ot R59.1 GENERALIZED ENLARGED LYMPH NODES 05/26/2019 CHUY WINTER MD Ot M54.5 LOW BACK PAIN 05/26/2019 CHUY WINTER MD Ot R10.2 PELVIC AND PERINEAL PAIN 05/26/2019 CHUY WINTER MD Ot W19.XXX A UNSPECIFIED FALL, INITIAL ENCOUNTER 05/26/2019 CHUY WINTER MD Ot C83.30 DIFFUSE LARGE B-CELL LYMPHOMA, UNSPECIFI 05/26/2019 MOY MYERS, CHUY Ot Z94.84 STEM CELLS TRANSPLANT STATUS 05/26/2019 MOY MYERS, CHUY Bach 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, LYMPH 05/26/2019 MOY MYERS, CHUY Bach Z72.0 TOBACCO USE 05/26/2019 CHUY WINTER MD, Ot Z87.891 PERSONAL HISTORY OF NICOTINE DEPENDENCE 05/26/2019 MOY MYERS, CHUY Bach Z92.21 PERSONAL HISTORY OF ANTINEOPLASTIC CHEMO 05/26/2019 Ot C82.58 DIF FUSE FOLLICLE CENTER LYMPHOMA, LYMPH 05/28/2019 CHUY WINTER MD, Ot 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, LYMPH 05/30/2019 J CARLOS MOTA APRN Ot K21 .9 GASTRO-ESOPHAGEAL REFLUX DISEASE WITHOUT 05/30/2019 J CARLOS MOTA APRN Ot S81.812A LACERATION WITHOUT FOREIGN BODY, LEFT LO 05/30/2019 J CARLOS MOTA APRN Ot S81.852A OPEN BITE, LEFT LOWER LEG, INITIAL ENCOU 05/30/2019 J CARLOS MOTA APRN Ot W54.0XXA BITTEN BY DOG, INITIAL ENCOUNTER 05/30/2019 J CARLOS MOTA APRN Ot Z23 ENCOUNTER FOR IMMUNIZATION 05/30/2019 J CARLOS MOTA APRN Ot Z80 .0 FAMILY HISTORY OF MALIGNANT NEOPLASM OF 05/30/2019 J CARLOS MOTA APRN Ot Z82.49 FAMILY HX OF ISCHEM HEART DIS AND OTH DI 05/30/2019 J CARLOS MOTA APRN Ot Z85.72 PERSONAL HISTORY OF NON-HODGKIN LYMPHOMA 05/30/2019 J CARLOS MOTA APRN Ot Z88 .0 ALLERGY STATUS TO PENICILLIN 06/02/2019 Ot C82.58 DIF FUSE FOLLICLE CENTER LYMPHOMA, LYMPH Procedures Code Description [place] [address] INFL UENZA A & B (IN-HOUSE) 03/09/[address] CA CHEMOTHER NEC 12/28/2013 Results Test Result Range Serum uamz-4-rfojirynuaiwi measurement ( mass/volume) - 07/02/16 14:15 Tlmr-8-Bvptuhrwivvlh [Mass/volume] in Serum or Plasma 1.44 mg/L [...] (mass/ volume) 19 mg/dL 5-40 A1C - 08/21/17 12:33 HEMOGLOBIN A1c 5.1 % of total [...] Status Pt. Type Provider Facility Loc./Unit Complaint [id number] 03/09/2013 18:26:00 03/09/2013 23:59: 59 CLS Outpatient BING OLIVAS APRN [id number] 09/10/2012 10:55:00 09/10/2012 23:59: 59 CLS Outpatient [place] BRIANNE PELAEZ [id number] 01/03/2019 08:00:00 01/03/2019 23:59:5 9 CLS Outpatient 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 [facility] [id number] 10/21/2017 09:20:00 Document Registration [id number] 08/21/2017 11:40:00 Document Registration [id number] 05/26/2019 17:18:00 17:47:00 DIS Outpatient NAKULJ CARLOS 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 [facility] ER DOG BITE LEFT LEG [id number] 04/01/2019 10:04:00 00:01:00 DIS Outpatient CHUY WINTER MD, V [facility] ONC [id number] 12/24/2018 10:02:00 23:59:59 CLS Outpatient CHUY WINTER MD, V [facility] ONC [id number] 09/23/2018 09:00:00 019 00:01:00 DIS Outpatient CHUY WINTER MD, V [facility] ONC [id number] 06/24/2018 09:24:00 019 00:01:00 DIS Outpatient CHUY WINTER MD, V [facility] ONC [id number] 03/24/2018 09:42:00 019 00:01:00 DIS Outpatient CHUY WINTER MD, V [facility] ONC [id number] 03/09/2018 08:45:00 019 23:59:59 CLS Outpatient [facility] W[facility] [facility] DIFFUSE LARGE B CELL LY MPHOMA [id number] 11/06/2017 13:54:00 018 00:01:00 DIS Outpatient CHUY WINTER MD, V [facility] ONC [id number] 11/06/2017 14:44:00 018 23:59:59 CLS Outpatient CHUY WINTER MD, V [facility] RAD Z91.81,R52 [id number] 09/11/2017 13:38:00 018 23:59:59 CLS Outpatient CHUY WINTER MD, V [facility] ONC [id number] 06/25/2017 10:04:00 018 23:59:59 CLS Outpatient CHUY WINTER MD, V [facility] RAD TENDER LYMPH NODE [id number] 06/19/2017 11:20:00 018 23:59:59 CLS Outpatient 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 APRN [facility] LAB [id number] 02/26/2017 10:01:00 018 00:01:00 DIS Outpatient CHUY WINTER MD, V [facility] ONC [id number] 02/24/2017 08:18:00 018 23:59:59 CLS Outpatient CHUY WINTER MD, V [facility] RAD PET LYMPHOMA RESTAGING [id number] 10/22/2016 13:56:00 017 00:01:00 DIS Outpatient KASSIDY SERRANO [facility] ONC [id number] 10/14/2016 09:43:00 017 23:59:59 CLS Outpatient JOANIE SANTIZO MD, V [facility] RAD C82.58 [id number] 07/02/2016 14:07:00 017 00:01:00 DIS Outpatient JOANIE SANTIZO MD, V [facility] ONC [id number] 03/13/2016 10:59:00 017 00:01:00 DIS Outpatient JOANIE SANTIZO MD, V [facility] ONC [id number] 03/09/2016 09:15:00 017 23:59:59 CLS Outpatient JOANIE SANTIZO MD, V [facility] LAB C82.58, M15.0, R94.8, Z 87.891 [id number] 02/19/2016 08:46:00 017 23:59:59 CLS Outpatient DARLYN MYERS, JOANIE Sanchez vanessa [facility] RAD B-CELL LYMPHOMA [id number] 02/13/2016 10:57:00 016 23:59:59 CLS Outpatient DARLYN MYERS, JOANIE mendez [facility] RAD C82.58,R19.09 [id number] 11/15/2015 09:08:00 016 09:59:00 DIS Outpatient DARLYN MYERS, JOANIE Sanchez [facility] ONC [id number] 08/14/2015 09:50:00 016 00:01:00 DIS Outpatient DARLYN MYERS, JOANIE Sanchez [facility] ONC [id number] 08/07/2015 09:24:00 016 23:59:59 CLS Outpatient JOANIE SANTIZO MD [facility] RAD B CELL LYMPHOMA, INGUNI AL MASS [id number] 02/15/2015 11:59:00 016 00:01:00 DIS Outpatient DARLYN MYERS JOANIE Flaquita Laura [facility] ONC [id number] 02/15/2015 12:28:00 015 23:59:59 CLS Outpatient JOANIE SANTIZO MD, V vanessa [facility] RAD ABNORMAL PET SCAN [id number] 02/13/2015 10:40:00 015 23:59:59 CLS Outpatient DARLYN MYERS JOANIE Flaquita Sanchez [facility] RAD LYMPHOMA [id number] 08/15/2014 10:33:00 015 00:01:00 DIS Outpatient DARLYN MYERS, JOANIE Sams [facility] ONC [id number] 09/05/2014 11:29:00 015 23:59:59 CLS Outpatient JOANIE SANTIZO MD, V [facility] RAD LYMPHOMA [id number] 09/04/2014 09:47:00 015 23:59:59 CLS Outpatient JOANIE SANTIZO MD, V [facility] RAD LYMPHOMA [id number] 06/24/2014 06:44:00 015 08:25:00 DIS Emergency NAIN CORDOBA MD [facility] ER FLU LIKE [place] MS [id number] 06/23/2014 10:51:00 13:40:00 DIS Outpatient MANISHA ANDERSON MD [facility] SDC HISTORY CELL LYMPHOMA [id number] 06/22/2014 10:42:00 23:59:59 CLS Outpatient MANISHA ANDERSON MD [facility] PREOP HISTORY CELL LYMPHOMA [id number] 06/21/2014 09:58:00 23:59:59 CLS Outpatient JOANIE SANTIZO MD [facility] RAD INGUINEAL MASS [id number] 06/20/2014 09:12:00 23:59:59 CLS Outpatient JOANIE SANTIZO MD [facility] RAD RT INGUINEAL MASS [id number] 06/15/2014 14:46:00 00:01:00 DIS Outpatient JOANIE SANTIZO MD [facility] ONC [id number] 06/13/2014 08:11:00 23:59:59 CLS Outpatient JOANIE SANTIZO MD [facility] RAD LYMPHOMA [id number] 02/13/2014 09:02:00 015 00:01:00 DIS Outpatient JOANIE SANTIZO MD [facility] ONC [id number] 01/18/2014 16:18:00 014 15:08:00 DIS Inpatient JOANIE SANTIZO MD [facility] 4TH CHEMO INFUSION [id number] 12/27/2013 15:45:00 17:30:00 DIS Inpatient JOANIE SANTIZO MD [facility] 4TH DIFFUSED LARGE B CELL LYMPHONA [id number] 12/16/2013 12:53:00 23:59:59 CLS Outpatient JOANIE SANTIZO MD [facility] CARD FREQUENT HEADACHES, BCE LL LYMPHOMA [id number] 12/13/2013 13:39:00 23:59:59 CLS Outpatient [id number] 01/04/2013 09:42:00 013 10:18:00 DIS Outpatient COURTNEY MYERS, DOUGIE Gutierrez (DDU) [facility] REHAB REJI BARNEY T, [facility] HAND RECONSTRUCTIONS [id number] 05/23/2019 00:00:00 Document Registration [id number] 09/03/2009 16:20:00 Document Registration
== END 2019-06-06 09:47 | disposition home or self-care (01) ==
LOC: EDUNIT# 09:34 → ER 09:35
DX: S81.812D Laceration without foreign body, left lower leg, subsequent encounter (principal); X58.XXXD Exposure to other specified factors, subsequent encounter

== ENCOUNTER → 2019-07-05 | Outpatient (CLI) | payer MEDICARE ==
[2019-07-05 10:51] LABS: BASOPHILS % (AUTO) 0 % (0-10); EOSINOPHILS # (AUTO) 0.2 10^3/uL (0.0-0.3); EOSINOPHILS % (AUTO) 1 % (0-10); HEMATOCRIT 44 % (40-54); HEMOGLOBIN 15.4 G/DL (13.3-17.7); LYMPHOCYTES # (AUTO) 3.1 X 10^3 (1.0-4.0); LYMPHOCYTES % (AUTO) 25 % (12-44); MEAN CORPUSCULAR HEMOGLOBIN 31 PG (25-34); MEAN CORPUSCULAR HGB CONC 35 G/DL (32-36); MEAN CORPUSCULAR VOLUME 89 FL (80-99); MONOCYTES % (AUTO) 8 % (0-12); NEUTROPHILS # (AUTO) 7.8 X 10^3 (1.8-7.8); NEUTROPHILS % (AUTO) 65 % (42-75); PLATELET COUNT 196 10^3/uL (130-400); RED CELL DISTRIBUTION WIDTH 14.2 % (10.0-14.5)
[2019-07-05 11:10] LABS: ALANINE AMINOTRANSFERASE 19 U/L (0-55); ALBUMIN 4.3 GM/DL (3.2-4.5); ALKALINE PHOSPHATASE 59 U/L (40-136); BILIRUBIN,TOTAL 0.4 MG/DL (0.1-1.0); BUN/CREATININE RATIO 10; CALCIUM 9.2 MG/DL (8.5-10.1); CARBON DIOXIDE 23 MMOL/L (21-32); CHLORIDE 105 MMOL/L (98-107); CREATININE SERUM 0.88 MG/DL (0.60-1.30); GFR ESTIMATED > 60; GLUCOSE 101 MG/DL (70-105); POTASSIUM 4.1 MMOL/L (3.6-5.0); SODIUM 137 MMOL/L (135-145); TOTAL PROTEIN 6.7 GM/DL (6.4-8.2)
== END ==
LOC: EDSTATUS 05-23 13:38 → ONC 10:17
PROVIDERS: ATTEND Internal Medicine Hematology & Oncology
DX: C82.58 Diffuse follicle center lymphoma, lymph nodes of multiple sites (principal)
CPT/HCPCS: 80053; 83615; 85025; 99213

== ENCOUNTER → 2019-10-04 | Outpatient (CLI) | payer MEDICARE ==
[2019-10-04 09:21] LABS: BASOPHILS % (AUTO) 0 % (0-10); EOSINOPHILS # (AUTO) 0.2 10^3/uL (0.0-0.3); EOSINOPHILS % (AUTO) 2 % (0-10); HEMATOCRIT 45 % (40-54); HEMOGLOBIN 15.3 G/DL (13.3-17.7); LYMPHOCYTES % (AUTO) 20 % (12-44); MEAN CORPUSCULAR HEMOGLOBIN 31 PG (25-34); MEAN CORPUSCULAR HGB CONC 34 G/DL (32-36); MEAN CORPUSCULAR VOLUME 90 FL (80-99); MEAN PLATELET VOLUME 8.8 FL (7.4-10.4); MONOCYTES # (AUTO) 0.9 X 10^3 (0.0-1.0); MONOCYTES % (AUTO) 9 % (0-12); NEUTROPHILS % (AUTO) 69 % (42-75); PLATELET COUNT 226 10^3/uL (130-400); RED CELL DISTRIBUTION WIDTH 14.2 % (10.0-14.5); WHITE BLOOD COUNT 10.1 10^3/uL (4.3-11.0)
[2019-10-04 09:43] LABS: ALANINE AMINOTRANSFERASE 18 U/L (0-55); ALBUMIN 4.3 GM/DL (3.2-4.5); ALKALINE PHOSPHATASE 51 U/L (40-136); BILIRUBIN,TOTAL 0.5 MG/DL (0.1-1.0); BUN/CREATININE RATIO 10; CALCIUM 9.7 MG/DL (8.5-10.1); CARBON DIOXIDE 23 MMOL/L (21-32); CHLORIDE 105 MMOL/L (98-107); CREATININE SERUM 0.93 MG/DL (0.60-1.30); GFR ESTIMATED > 60; GLUCOSE 108 MG/DL (70-105); POTASSIUM 4.4 MMOL/L (3.6-5.0); SODIUM 137 MMOL/L (135-145); TOTAL PROTEIN 6.6 GM/DL (6.4-8.2)
== END ==
LOC: ONC 09:14
PROVIDERS: ATTEND Internal Medicine Hematology & Oncology
DX: C82.58 Diffuse follicle center lymphoma, lymph nodes of multiple sites (principal); L02.31 Cutaneous abscess of buttock; L02.411 Cutaneous abscess of right axilla
CPT/HCPCS: 80053; 83615; 85025; G0463; 99213

== ENCOUNTER → 2020-01-06 | Outpatient (CLI) | payer MEDICARE ==
[2020-01-06 09:25] LABS: ALANINE AMINOTRANSFERASE 19 U/L (0-55); ALBUMIN 4.2 GM/DL (3.2-4.5); ALKALINE PHOSPHATASE 55 U/L (40-136); BILIRUBIN,TOTAL 0.6 MG/DL (0.1-1.0); BUN/CREATININE RATIO 14; CALCIUM 9.3 MG/DL (8.5-10.1); CARBON DIOXIDE 19 MMOL/L (21-32); CHLORIDE 104 MMOL/L (98-107); GFR ESTIMATED > 60; GLUCOSE 130 MG/DL (70-105); POTASSIUM 4.1 MMOL/L (3.6-5.0); SODIUM 138 MMOL/L (135-145); TOTAL PROTEIN 6.4 GM/DL (6.4-8.2)
[2020-01-06 09:28] LABS: BASOPHILS % (AUTO) 0 % (0-10); EOSINOPHILS # (AUTO) 0.1 10^3/uL (0.0-0.3); EOSINOPHILS % (AUTO) 1 % (0-10); HEMATOCRIT 43 % (40-54); HEMOGLOBIN 14.6 g/dL (13.3-17.7); LYMPHOCYTES # (AUTO) 2.5 10^3/uL (1.0-4.0); LYMPHOCYTES % (AUTO) 23 % (12-44); MEAN CORPUSCULAR HEMOGLOBIN 31 pg (25-34); MEAN CORPUSCULAR HGB CONC 34 g/dL (32-36); MEAN CORPUSCULAR VOLUME 92 fL (80-99); MONOCYTES # (AUTO) 0.8 10^3/uL (0.0-1.0); MONOCYTES % (AUTO) 8 % (0-12); NEUTROPHILS # (AUTO) 7.3 10^3/uL (1.8-7.8); NEUTROPHILS % (AUTO) 68 % (42-75); PLATELET COUNT 197 10^3/uL (130-400); WHITE BLOOD COUNT 10.7 10^3/uL (4.3-11.0)
== END ==
LOC: ONC 08:56
PROVIDERS: ATTEND Internal Medicine Hematology & Oncology
DX: C82.50 Diffuse follicle center lymphoma, unspecified site (principal); Z98.890 Other specified postprocedural states
CPT/HCPCS: 80053; 83615; 85025; G0463; 99213

== ENCOUNTER → 2020-06-07 | Outpatient (CLI) | payer MEDICARE ==
[~2020-06-07] MED LIST changes: +RT-ALBUTEROL SULF 2.5 MG/3 ML PRE-MIX VIAL INH ONE
== END ==
LOC: RT 08:00
PROVIDERS: ATTEND Nurse Practitioner
DX: R06.02 Shortness of breath (principal); F17.200 Nicotine dependence, unspecified, uncomplicated
CPT/HCPCS: 94060; 94726; 94729

== ENCOUNTER → 2020-07-05 | Outpatient (CLI) | payer MEDICARE ==
[~2020-07-05] MED LIST changes: -RT-ALBUTEROL SULF 2.5 MG/3 ML PRE-MIX VIAL INH ONE
[2020-07-05 09:29] LABS: BASOPHILS % (AUTO) 0 % (0-10); EOSINOPHILS # (AUTO) 0.2 10^3/uL (0.0-0.3); EOSINOPHILS % (AUTO) 2 % (0-10); HEMATOCRIT 45 % (40-54); HEMOGLOBIN 15.4 g/dL (13.3-17.7); LYMPHOCYTES # (AUTO) 2.6 10^3/uL (1.0-4.0); LYMPHOCYTES % (AUTO) 22 % (12-44); MEAN CORPUSCULAR HEMOGLOBIN 32 pg (25-34); MEAN CORPUSCULAR HGB CONC 34 g/dL (32-36); MEAN CORPUSCULAR VOLUME 92 fL (80-99); MEAN PLATELET VOLUME 9.2 fL (9.0-12.2); MONOCYTES # (AUTO) 0.9 10^3/uL (0.0-1.0); MONOCYTES % (AUTO) 8 % (0-12); NEUTROPHILS # (AUTO) 7.9 10^3/uL (1.8-7.8); NEUTROPHILS % (AUTO) 68 % (42-75); PLATELET COUNT 211 10^3/uL (130-400); WHITE BLOOD COUNT 11.6 10^3/uL (4.3-11.0)
[2020-07-05 09:47] LABS: ALANINE AMINOTRANSFERASE 26 U/L (0-55); ALBUMIN 4.3 GM/DL (3.2-4.5); ALKALINE PHOSPHATASE 64 U/L (40-136); BILIRUBIN,TOTAL 0.7 MG/DL (0.1-1.0); BUN/CREATININE RATIO 8; CALCIUM 9.4 MG/DL (8.5-10.1); CARBON DIOXIDE 25 MMOL/L (21-32); CHLORIDE 104 MMOL/L (98-107); CREATININE SERUM 0.89 MG/DL (0.60-1.30); GFR ESTIMATED > 60; GLUCOSE 79 MG/DL (70-105); SODIUM 138 MMOL/L (135-145); TOTAL PROTEIN 6.9 GM/DL (6.4-8.2)
== END ==
LOC: ONC 09:20
PROVIDERS: ATTEND Internal Medicine Hematology & Oncology
DX: C82.10 Follicular lymphoma grade II, unspecified site (principal); Z92.21 Personal history of antineoplastic chemotherapy; Z98.890 Other specified postprocedural states
CPT/HCPCS: 80053; 83615; 85025; G0463; 99213

== ENCOUNTER → 2021-01-22 | Outpatient (CLI) | payer MEDICARE ==
[2021-01-22 09:05] LABS: BASOPHILS % (AUTO) 0 % (0-10); EOSINOPHILS # (AUTO) 0.2 10^3/uL (0.0-0.3); EOSINOPHILS % (AUTO) 2 % (0-10); HEMATOCRIT 43 % (40-54); HEMOGLOBIN 14.1 g/dL (13.3-17.7); LYMPHOCYTES # (AUTO) 2.6 10^3/uL (1.0-4.0); LYMPHOCYTES % (AUTO) 25 % (12-44); MEAN CORPUSCULAR HEMOGLOBIN 30 pg (25-34); MEAN CORPUSCULAR HGB CONC 33 g/dL (32-36); MEAN CORPUSCULAR VOLUME 91 fL (80-99); MEAN PLATELET VOLUME 9.1 fL (9.0-12.2); MONOCYTES % (AUTO) 10 % (0-12); NEUTROPHILS # (AUTO) 6.5 10^3/uL (1.8-7.8); NEUTROPHILS % (AUTO) 63 % (42-75); PLATELET COUNT 177 10^3/uL (130-400); WHITE BLOOD COUNT 10.2 10^3/uL (4.3-11.0)
[2021-01-22 09:22] LABS: ALBUMIN 4.1 GM/DL (3.2-4.5); BILIRUBIN,TOTAL 0.6 MG/DL (0.1-1.0); CALCIUM 8.9 MG/DL (8.5-10.1); CREATININE SERUM 0.91 MG/DL (0.60-1.30); POTASSIUM 4.1 MMOL/L (3.6-5.0); TOTAL PROTEIN 6.7 GM/DL (6.4-8.2)
== END ==
LOC: ONC 08:58
PROVIDERS: ATTEND Internal Medicine Hematology & Oncology
DX: C82.40 Follicular lymphoma grade IIIb, unspecified site (principal); M25.561 Pain in right knee; E66.9 Obesity, unspecified; Z98.890 Other specified postprocedural states
CPT/HCPCS: 80053; 83615; 85025; G0463; 99213

== ENCOUNTER → 2021-07-16 | Outpatient (CLI) | payer MEDICARE ==
--- NOTE | 2021-07-16 17:00 | Diagnostic Imaging Report ---
INDICATION: Tobacco use, screening for osteoporosis COMPARISON: None FINDINGS: AP Spine L1-L4: [BMD (g/cm2): 1.386] [T-Score: 1.2] [Z-Score: na] [BMD Previous: na] [BMD % Change: na] LT Hip Neck: [BMD (g/cm2): 1.158] [T-Score: 0.7] [Z-Score: na] LT Hip Total: [BMD (g/cm2):1.228] [T-Score:0.9] [Z-Score: na] [BMD Previous: na] [BMD % Change: na] RT Hip Neck: [BMD (g/cm2):1.191] [T-Score:0.9] [Z-Score:na] RT Hip Total: [BMD (g/cm2):1.146] [T-score:0.9] [Z-Score:na] [BMD Previous:na] [BMD % Change:na] *Indicates significant change from prior examination based on 95% confidence level. World Health Organization criteria for BMD interpretation classify patients as Normal (T-score at or above -1.0), Osteopenic (T-score between -1.0 and -2.5) or Osteoporotic (T-score at or below -2.5). LIMITATIONS AND MODIFICATION: None. FRACTURE RISK (FRAX SCORE): The ten year probability of (%): Major Osteoporotic Fracture: [na] Hip Fracture: [na] IMPRESSION: 1. Normal bone mineral density. 2. Baseline examination. 3. See below National Osteoporosis Foundation guidelines on when to potentially initiate pharmacologic therapy. Based on the National Osteoporosis Foundation Guidelines, pharmacologic treatment should be initiated in any of the following, unless clinical conditions suggest otherwise: * Any patient with prior fragility fracture of the hip or vertebrae. A spine fracture indicates 5X risk for subsequent spine fracture and 2X risk for subsequent hip fracture. * Osteoporosis (T-score <-2.5). * Postmenopausal women and men age 50 and older with low bone mass/osteopenia (T-score between -1.0 and -2.5) by DXA and 10-year major osteoporotic fracture greater than 20% or a 10-year probability of hip fracture greater than 3%. These fracture risks are supplied above in the FRAX score, if applicable. * Clinician judgement and/or patient preferences may indicate treatment for people with 10-year fracture probabilities above or below these levels. Dictated by: Dictated on workstation # [id number]
== END ==
LOC: RAD 09:44
PROVIDERS: ATTEND Nurse Practitioner
DX: Z13.820 Encounter for screening for osteoporosis (principal); Z72.0 Tobacco use
CPT/HCPCS: 77080

== ENCOUNTER 2021-08-07 08:39 | Outpatient (RCR) | payer MEDICARE ==
[2021-08-02 08:55] LABS: BASOPHILS % (AUTO) 0 % (0-10); EOSINOPHILS # (AUTO) 0.1 10^3/uL (0.0-0.3); EOSINOPHILS % (AUTO) 1 % (0-10); HEMATOCRIT 42 % (40-54); HEMOGLOBIN 14.1 g/dL (13.3-17.7); LYMPHOCYTES % (AUTO) 22 % (12-44); MEAN CORPUSCULAR HEMOGLOBIN 30 pg (25-34); MEAN CORPUSCULAR HGB CONC 33 g/dL (32-36); MEAN CORPUSCULAR VOLUME 90 fL (80-99); MEAN PLATELET VOLUME 9.3 fL (9.0-12.2); MONOCYTES # (AUTO) 0.8 10^3/uL (0.0-1.0); MONOCYTES % (AUTO) 9 % (0-12); NEUTROPHILS % (AUTO) 67 % (42-75); PLATELET COUNT 199 10^3/uL (130-400); WHITE BLOOD COUNT 8.9 10^3/uL (4.3-11.0)
[2021-08-02 09:22] LABS: ALBUMIN 4.2 GM/DL (3.2-4.5); BILIRUBIN,TOTAL 0.6 MG/DL (0.1-1.0); CALCIUM 8.7 MG/DL (8.5-10.1); CREATININE SERUM 0.85 MG/DL (0.60-1.30); POTASSIUM 3.7 MMOL/L (3.6-5.0); TOTAL PROTEIN 6.2 GM/DL (6.4-8.2)
== END 2021-08-15 | disposition home or self-care (01) ==
LOC: ONC 08:39
PROVIDERS: ATTEND Internal Medicine Hematology & Oncology
DX: C82.40 Follicular lymphoma grade IIIb, unspecified site (principal); M25.561 Pain in right knee; E66.9 Obesity, unspecified; Z98.890 Other specified postprocedural states
CPT/HCPCS: 36415; 80053; 83615; 85025; 99213

== ENCOUNTER 2021-11-27 06:15 | Outpatient (CLI) | payer MEDICARE ==
[~2021-11-27] VITALS: Ht 165.1 cm; Wt 80.1 kg
[2021-11-27] MEDS ORDERED: BUDE10.2 IH (08:16)
== END 2021-11-27 08:19 | disposition home or self-care (01) ==
LOC: PREOP 06:15
PROVIDERS: ATTEND Surgery
DX: Z01.818 Encounter for other preprocedural examination (principal)

== ENCOUNTER 2021-12-04 09:22 | Day surgery (SDC) | payer MEDICARE ==
--- NOTE | 2021-11-26 03:01 | HISTORY AND PHYSICAL ---
DATE OF SERVICE: HISTORY OF PRESENT ILLNESS: This is a 56-year-old male, who was referred over to us in June of 2014 for peptic ulcer disease as well as PET CT findings. He had developed lymphadenopathy in the right inguinal region in the fall of 2002 and underwent a biopsy of the lymph node in February of 2013, which was consistent with a B-cell lymphoma. He then underwent three rounds of chemotherapy, which he reported was not effective. 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 He then underwent further evaluation with a physical exam as well as a PET CT scan. He was found to have a lesion in the right lower abdomen and a needle biopsy was performed, which was eventually found to be old scar tissue. The PET scan did also show moderate hypermetabolic activity of the gastric wall. On 06/23/2014, he underwent an EGD and was found to have reflux esophagitis grade B as well as a moderate to severe diffuse gastritis; however, there were no formal ulcers, polyps or any neoplasms identified. There were no lesions to indicate any recurrent lymphoma. Biopsies of the stomach were negative for H. pylori and biopsies of the GE junction were negative for any Yancey's esophagus. He was started on Protonix twice daily, which helped his symptoms. He was then seen in August of 2014 and did have a right internal jugular PowerPort implantable catheter and this was later removed. He was then seen in March of 2019 for a painful lump and swelling of the left buttock. At that time, he was found to have an abscess and underwent an incision and drainage. He has also been seen in the past for a sebaceous cyst, which had been removed. On today's visit, he is in need of a screening colonoscopy. He reports having a colonoscopy about 10 years ago, which he reports was normal. He denies any nausea or vomiting as well as no diarrhea or constipation. He does state that his father had colon cancer and was diagnosed around the age of 76. He does continue to smoke one pack of cigarettes a day and does continue to follow his oncologist. He also reports lesion of the perianal area and we will proceed with biopsy of the lesion at the time of the colonoscopy. PAST MEDICAL HISTORY: Degenerative joint disease and B-cell lymphoma. PAST SURGICAL HISTORY: Bilateral hand and thumb tendon release, bilateral carpal tunnel release, left shoulder arthroscopy in 2007, and port placement. ALLERGIES: PENICILLIN. MEDICATIONS: Symbicort 160/4.5. SOCIAL HISTORY: Positive for tobacco smoke one pack per day for 40 years. Social for alcohol. FAMILY HISTORY: Father, colon cancer, hypertension. Sibling with oropharyngeal cancer. REVIEW OF SYSTEMS: A well-nourished male in no acute distress. He is not experiencing any shortness of breath or difficulty breathing. No chest pain, palpitations or diaphoresis. No nausea, vomiting or abdominal pain. No diarrhea or constipation. No red blood per rectum. No dark tarry stools. No fever or chills. No recent inadvertent weight loss. All other review of systems negative. PHYSICAL EXAMINATION: VITAL SIGNS: Blood pressure is 138/83. Current weight is 176.6 pounds at 5 feet 5 inches with a body mass index of 29.4. CHEST: Clear. Good breath sounds bilaterally. HEART: Regular and no murmurs. EXTREMITIES: No lower extremity edema. Negative Homans sign. HEENT: No scleral icterus. NECK: No cervical lymphadenopathy. ABDOMEN: Soft, nontender, and nondistended. SKIN: Warm, dry and pink. NEUROLOGIC: Awake, alert and oriented x3. RECTAL: There does appear to be a perirectal lesion that appears to be around the anus that is most likely consistent with a condyloma. ASSESSMENT AND PLAN: A 56-year-old male with a family history of colon cancer, who is in need of a screening colonoscopy, who also has a perianal lesion and is need of a biopsy of the perianal lesion. At this time, we will proceed with scheduling him for a screening colonoscopy as well as biopsy of the perianal lesion. Job ID: [id number] DocumentID: [id number] Dictated Date: 11/22/2021 09:54:36 Leno Sewer Date: 11/22/2021 10:09:07 Dictated By: BENIGNO MORRIS
[~2021-12-04] VITALS: Ht 165.1 cm; Wt 80.1 kg
[~2021-12-04 09:22] MED LIST changes: +BUDE10.2 IH
[2021-12-04] MEDS ORDERED: LACTATED RINGERS 1,000 ML IV STA (09:30)
[2021-12-04] MEDS ORDERED: LIDOCAINE JELLY 2% 6 ML SYRINGE MM PRN (09:30)
[2021-12-04 09:45] VITALS: BP 140/92
--- NOTE | 2021-12-04 10:19 | Progress Note-Pre Operative ---
Pre-Operative Progress Note Date of Available H&P: Dec 04, 2021 Date H&P Reviewed: Dec 04, 2021 Time H&P Reviewed: 10:00 History & Physical: No changes noted Pre-Operative Diagnosis: screening colo, perianal lesion MANISHA ANDERSON MD Dec 04, 2021 10:19
--- NOTE | 2021-12-04 10:20 | Discharge Inst-Surgical ---
D/C Lap Instructions-MONICA Follow Up Activity as tolerated High Fiber Diet 25g or more per day Avoid Alcohol, Caffeine, Spicy Mercer and Acid foods. Drink 64 fluid oz or more of fluids per day. Symptoms to Report: Fever over 101 degree F, Nausea/Vomiting If any problems/questions: Contact your physician or go to Emergency Room MANISHA ANDERSON MD Dec 04, 2021 10:20
[2021-12-04] MEDS ORDERED: LIDOCAINE 1% INJ 20 ML VIAL ONE (10:29)
[2021-12-04] MEDS ORDERED: ONDANSETRON 4 MG/2 ML (SDV) Z0FRAN IVP PRN (10:30)
[2021-12-04] MEDS ORDERED: ONDANSETRON 4 MG (ZOFRAN) ORAL DISSOLVE TAB PO PRN (10:30)
[2021-12-04] MEDS ORDERED: PROPOFOL INJECTION 50 ML IV ONE (11:06)
[2021-12-04] MEDS ORDERED: MIDAZOLAM 2 MG/2 ML (VERSED) VIAL ONE (11:06)
[2021-12-04 11:45] VITALS: BP 126/55
[2021-12-04 11:50] VITALS: BP 92/67
--- NOTE | 2021-12-04 11:55 | Progress Note-Post Operative ---
Post-Operative Progess Note Surgeon (s)/Endoscopy Nurse (s) Surgeon MANISHA ANDEROSN MD Endoscopy Nurse: none Pre-Operative Diagnosis screening colo, perianal lesion Post-Operative Diagnosis chronic stage 2 ext and int hemorrhoids. Procedure & Operative Findings Date of Procedure 12/04/21 Procedure Performed/Findings colonoscopy Anesthesia Type mac Estimated Blood Loss Estimated blood loss (mL): minimal Specimens/Packing Specimens Removed none MANISHA ANDERSON MD Dec 04, 2021 11:55
--- NOTE | 2021-12-04 12:00 | Anesthesia-General Post-Op ---
MAC Patient Condition Mental Status/LOC: Same as Preop Cardiovascular: Satisfactory Nausea/Vomiting: Absent Respiratory: Satisfactory Pain: Controlled Complications: Absent Post Op Complications Complications None Follow Up Care/Instructions Patient Instructions None needed. Anesthesiology Discharge Order Discharge Order Patient is doing well, no complaints, stable vital signs, no apparent adverse anesthesia problems. No complications reported per nursing. KAREN OLMSTEAD DO Dec 04, 2021 12:00
--- NOTE | 2021-12-04 20:25 | OPERATIVE REPORT ---
DATE OF SERVICE: 12/04/2021 ATTENDING PRIMARY CARE DOCTOR: Nohemi Osei APRN PREOPERATIVE DIAGNOSIS: Screening colonoscopy with a possible perianal region. POSTOPERATIVE DIAGNOSES: Chronic skin inclusion cyst along the buttock, thigh as well as the perianal region. No condylomatous lesions within the perianal region. No masses. Reports of chronic stage II external and internal hemorrhoids, small polyp of the sigmoid colon. PROCEDURE: Colonoscopy with biopsy. SURGEON: Manisha Anderson MD. ANESTHESIA: Monitored anesthesia care. ESTIMATED BLOOD LOSS: Minimal. FINDINGS: Chronic skin inclusion cyst along the buttock, thigh as well as the perianal region. No condylomatous lesions within the perianal region. No masses. Reports of chronic stage II external and internal hemorrhoids, small polyp of the sigmoid colon. DISPOSITION: The patient tolerated the procedure well. INDICATIONS: The patient is a 56-year-old who we have seen before for peptic ulcer disease and PET scan findings. He had developed lymphadenopathy in the right inguinal region in fall, underwent a biopsy of the lymph node 02/2013, which was consistent with B-cell lymphoma. He underwent three rounds of chemotherapy, which was initially not effective. Then he underwent a bone marrow transplant 02/2014. He then underwent physical examination as well as a PET CT and lesion of the left lower abdomen was identified, which was biopsied and consistent with a benign scar tissue. There was some metabolic activity of the gastric wall and he underwent an EGD and no lesions identified. He is referred over to us for screening colonoscopy. He also was seemed to have a lesion in the perianal region of uncertain etiology. He reports today that this has gone. Upon examination, he has multiple chronic inclusion cysts throughout his buttocks, thighs as well as the perianal region, likely consistent with a benign inclusion cyst. DESCRIPTION OF PROCEDURE: The patient was brought to the endoscopy suite, laid in the left lateral decubitus position. After adequate IV pain and sedative medications and monitored anesthesia care, a digital rectal examination was performed. There were multiple chronic inclusion cysts around the buttocks, thighs, perineal as well as perianal region. There was no larger lesions with any erythema, redness or any fluctuance to indicate any active abscess or infection. There was no condylomatous perianal type of lesions either. Normal sphincter tone was felt and there were no palpable masses. Prostate gland was palpable and normal. The endoscope was then intubated into the anus and rectum gently insufflated. The endoscope was then advanced to the valves of Rogers of the rectum with no polyps or any neoplasms identified. Through the sigmoid colon, a small polyp approximately 3 mm in size was identified. This was biopsied and destroyed with forceps and electrocautery with visualization of good hemostasis. The endoscope was then advanced and remainder of the descending, transverse and ascending colon to the cecum, which were normal. No other lesions identified. The endoscope was then slowly withdrawn while taking a second look and suctioning of residual air with no additional findings. The patient tolerated the procedure well. We will recommend continued medical management with a high fiber diet with fiber supplementation, which should equal or exceed 30 grams daily as well as significant amounts of water to promote soft stools on a daily basis. If he is asymptomatic, he does not need another colonoscopy for another 10 years. Job ID: [id number] DocumentID: [id number] Dictated Date: 12/04/2021 12:01:52 Medical Transcriptionist Date: 12/04/2021 20:25:11 Dictated By: MANISHA ANDERSON MD
== END 2021-12-04 12:20 | disposition home or self-care (01) ==
LOC: ENDO 09:22
PROVIDERS: ATTEND Surgery
DX: Z12.11 Encounter for screening for malignant neoplasm of colon (principal); K63.5 Polyp of colon; K64.1 Second degree hemorrhoids; K64.8 Other hemorrhoids; L72.0 Epidermal cyst; F17.210 Nicotine dependence, cigarettes, uncomplicated

== ENCOUNTER 2022-02-26 09:27 | Outpatient (RCR) | payer MEDICARE | END 2022-03-18 | disposition home or self-care (01) | LOC: ONC 09:27 | PROVIDERS: ATTEND Internal Medicine Hematology & Oncology | DX: C82.40 Follicular lymphoma grade IIIb, unspecified site (principal); M25.561 Pain in right knee; E66.9 Obesity, unspecified; Z98.890 Other specified postprocedural states | CPT/HCPCS: 99213 ==

== ENCOUNTER → 2022-02-26 | Outpatient (CLI) | payer MEDICARE ==
[2022-02-26 09:55] LABS: HEMATOCRIT 44 % (40-54); HEMOGLOBIN 14.4 g/dL (13.3-17.7); MEAN CORPUSCULAR HEMOGLOBIN 30 pg (25-34); MEAN CORPUSCULAR HGB CONC 33 g/dL (32-36); MEAN CORPUSCULAR VOLUME 91 fL (80-99); MEAN PLATELET VOLUME 9.5 fL (9.0-12.2); PLATELET COUNT 175 10^3/uL (130-400); WHITE BLOOD COUNT 9.9 10^3/uL (4.3-11.0)
[2022-02-26 10:36] LABS: ALBUMIN 4.4 GM/DL (3.2-4.5); BILIRUBIN,TOTAL 0.6 MG/DL (0.1-1.0); CALCIUM 9.1 MG/DL (8.5-10.1); CREATININE SERUM 0.9 MG/DL (0.60-1.30); POTASSIUM 4.1 MMOL/L (3.6-5.0); TOTAL PROTEIN 6.5 GM/DL (6.4-8.2)
[2022-02-26 10:56] LABS: TSH (THYROID ANALYZER) 0.96 UIU/ML (0.35-4.94)
== END ==
LOC: LAB 09:31
PROVIDERS: ATTEND Registered Nurse
DX: E55.9 Vitamin D deficiency, unspecified (principal); Z85.79 Personal history of other malignant neoplasms of lymphoid, hematopoietic and related tissues; Z94.84 Stem cells transplant status
CPT/HCPCS: 36415; 80053; 82306; 83615; 84443; 85027